=== PATIENT | male | born 1990 | race Caucasian/White ===

== ENCOUNTER 2021-03-24 15:32 | Emergency (ER) | payer MEDICAID, SELFPAY ==
[2021-03-24 15:32] VITALS: BP 142/92; PULSE 98; RESP 18; TEMP 37.1; O2SAT 97; BMI 24.2
--- NOTE | 2021-03-24 16:35 | EDS_ITS ---
HPI History of Present Illness Chief Complaint: Abscess Informant: patient Narrative Narrative: Patient started with swelling in his right cheek area about 4 or so days ago. He squeezed it about 3 days ago and it swelled up a lot. Just earlier he squeezed and got a lot of purulent material out. However it still has erythema and discomfort. No numbness tingling weakness. He did not have bleeding from this area. Squeezing it did make it better. Nothing specifically makes it worse. No trauma. Although his chart shows antibiotics he was on these about 2 months ago and has been off. PFSH PFSH Home Medications sulfamethoxazole-trimethoprim 1 tab PO BID #13 tablet 02/05/16 [Rx Last Taken Unknown] cephalexin 500 mg PO Q6 #40 cap 03/24/21 [Rx Last Taken Unknown] naproxen 500 mg PO BID #14 tab 03/24/21 [Rx Last Taken Unknown] sulfamethoxazole-trimethoprim [Bactrim DS] 1 tab PO BID #20 tab 03/24/21 [Rx Last Taken Unknown] Allergy/AdvReac Type Severity Reaction Status Date / Time tramadol HCl [From [facility]] Allergy Swelling Verified 03/24/21 15:34 Social History Smoking Status: Current every day smoker ROS [facility] ED Constitutional Constitutional ED: Denies chills or fever(s) ENT ENT ED: Reports other Details: See history of present illness. Cardiovascular Cardiovascular: Denies chest pain Respiratory/Chest Respiratory/Chest: Denies cough or dyspnea Gastrointestinal Gastrointestinal: Denies nausea or vomiting Musculoskeletal Musculoskeletal: Denies neck pain Integumentary Reports abscess Endocrine Endocrinology: Denies polydipsia or polyuria Allergic/Immunologic Allergic/Immunologic ED: Denies urticaria EXAM Physical Exam Const Vital Signs: 03/24/21 15:32 Temperature 98.7 F Temperature Source Temporal Pulse Rate 98 Respiratory Rate 18 Blood Pressure 142/92 H Blood Pressure Mean 108 Pulse Ox 97 Oxygen Delivery Method Room Air Positive well nourished and well developed General Appearance ED: well developed and NAD HEENT HEENT Narrative: Patient has a erythematous area that is about 1-1/2 x 3 cm in the right cheek anterior to the tragus. The ear itself is not involved. The area is firm. There is a dried open area in the center. There is no fluctuance. No intraoral swelling. He can open close his mouth well without difficulty. Negative for trauma Eyes EOMs intact bilaterally General Eye ED: Negative for pale conjunctiva or scleral icterus Neck no JVD Chest Wall inspection of chest normal Resp normal respiratory effort Neuro Sensorium / Orientation: alert Skin Skin Narrative: See above MDM MDM MDM Narrative Medical decision making narrative: I discussed options with the patient. We discussed anesthetizing and incising this. He would really prefer this not done. This is a reasonable option since he did just get a large amount of drainage out. The area is not fluctuant. We also do not want to risk injury to the facial nerve and arteries. We will try him on warm compresses and antibiotics. If he is not improving over the next few days he will need to have this drained. If he has further swelling or involvement or involvement of the ear itself he should return also. Discharge Plan Triage Chief Complaint: Abscess ED Provider: Billy Mathias Dx/Rx/DC Orders Clinical Impression: Facial abscess Instructions: ED Cellulitis, Facial Prescriptions: New cephalexin [cephalexin] 500 MG capsule 500 mg PO Q6 Qty: 40 RF: 0 sulfamethoxazole-trimethoprim [Bactrim DS] 800-160 mg tablet 1 tab PO BID Qty: 20 RF: 0 naproxen 500 MG tablet 500 mg PO BID Qty: 14 RF: 0 No Action sulfamethoxazole-trimethoprim 1 TABLET tablet 1 tab PO BID Qty: 13 RF: 0 Primary Care Provider: Care Physician,No Primary Referrals: Gwendolyn Medina MD [STAFF PHYSICIAN] - 3-5 Days if not improving Care Physician,No Primary [Primary Care Provider] - Disposition Disposition: Home, Self Care
== END 2021-03-24 17:00 | disposition home or self-care (01) ==
LOC: ED 16:49
PROVIDERS: Emergency Provider Emergency Medicine
DX: L02.01 Cutaneous abscess of face (principal); F17.200 Nicotine dependence, unspecified, uncomplicated
CPT/HCPCS: 99282

== ENCOUNTER 2021-03-24 22:42 | Emergency (ER) | payer MEDICAID, SELFPAY ==
[2021-03-24 22:43] VITALS: BP 139/82; PULSE 106; RESP 18; TEMP 36.4; O2SAT 100; BMI 24.2
--- NOTE | 2021-03-25 00:23 | EX.ED.GUMALE ---
HPI History of Present Illness Chief Complaint: Male Pain/Injury Informant: patient Narrative Narrative: Patient now presents with swelling of his testicle or lymph node swollen left groin. I saw this patient earlier in the day for swelling of right side of his cheek. He wanted antibiotics only no I&D. It was already draining though. He states that is unchanged. He states that he did have a little swelling in the left groin but he did mention it because he did not think it was important or bothering him. After he was seen here he went home and looked at that area and noted that it looks similar. He denies trauma. He denies discharge or trouble urinating. He did squeeze the area and got some drainage out of this but not as much. He has no abdominal pain. He is eating and drinking. No fevers or chills. PFSH PFSH Medical History no medical history Home Medications sulfamethoxazole-trimethoprim 1 tab PO BID #13 tablet 02/05/16 [Rx Last Taken Unknown] cephalexin 500 mg PO Q6 #40 cap 03/24/21 [Rx Last Taken Unknown] naproxen 500 mg PO BID #14 tab 03/24/21 [Rx Last Taken Unknown] Allergy/AdvReac Type Severity Reaction Status Date / Time tramadol HCl [From [facility]] Allergy Swelling Verified 03/24/21 22:44 Surgical History no surgical history Social History Smoking Status: Current every day smoker tobacco type: cigarettes ROS ROS ED Constitutional Constitutional ED: Denies chills or fever(s) ENT ENT ED: Reports other Details: swelling right face Cardiovascular Cardiovascular: Denies chest pain Respiratory/Chest Respiratory/Chest: Denies cough or dyspnea Gastrointestinal Gastrointestinal: Denies nausea or vomiting Genitourinary Genitourinary ED: Reports other Details: See history of present illness. ; Denies dysuria or hematuria Musculoskeletal Musculoskeletal: Denies back pain or myalgias Integumentary Reports abscess Neurologic Neurologic: Denies headache(s) Endocrine Endocrinology: Denies polydipsia or polyuria Hematologic/Lymphatic Hematologic/Lymphatic: Denies easy bleeding or easy bruising Allergic/Immunologic Allergic/Immunologic ED: Denies urticaria EXAM Physical Exam Const Vital Signs: 03/24/21 22:43 Temperature 97.6 F L Temperature Source Temporal Pulse Rate 106 H Respiratory Rate 18 Blood Pressure 139/82 H Blood Pressure Mean 101 Pulse Ox 100 Oxygen Delivery Method Room Air Positive well nourished and well developed General Appearance ED: well developed and NAD HEENT HEENT Narrative: Swelling right side of cheek unchanged. Eyes PERRL and EOMs intact bilaterally Eyes Narrative: No limitation in range of motion or lid swelling. Neck no lymphadenopathy Resp normal respiratory effort and clear to auscultation bilaterally Cardio regular rate and regular rhythm GI non-tender and non-distended Auscultation: normoactive bowel sounds Palpation: soft no CVA tenderness Narrative: Patient has normal penis and testicles. At the upper left portion of his scrotum he does have an area of swelling that is firm. Is about 1-1/2 x 2 cm. There is a small amount of drainage coming from the middle of this. No significant lymphadenopathy. Penis: normal penis Meatus: meatus normal Back/Spine no CVA tenderness Extremity normal to inspection Neuro oriented x3 Sensorium / Orientation: alert Psych mental status grossly normal Skin Skin Narrative: See above descriptions. MDM MDM MDM Narrative Medical decision making narrative: Exam is consistent with cutaneous swollen area. There certainly could be some abscess in here. It is not soft and fluctuant but it is still firm. But with squeezing I can get some white purulent material to drain. I offered to do an anesthesia an incision to get this draining better. Patient does not want this. He wants to make sure that he does not need different antibiotics for this than the face. I explained that the antibiotic should be appropriate. He does not want further treatment then. This is not testicular swelling. This is clearly a upper scrotal area infection. Warm compresses antibiotic should be used. If it is not improving in the next 72 hours he may need to return. If it gets a soft center or he decides he wants them drained he can return. Discharge Plan Triage Chief Complaint: Male Pain/Injury ED Provider: Billy Mathias Dx/Rx/DC Orders Clinical Impression: Abscess of scrotum Instructions: ED Abscess Antibiotic Treatment Only Prescriptions: No Action sulfamethoxazole-trimethoprim 1 TABLET tablet 1 tab PO BID Qty: 13 RF: 0 cephalexin [cephalexin] 500 MG capsule 500 mg PO Q6 Qty: 40 RF: 0 naproxen 500 MG tablet 500 mg PO BID Qty: 14 RF: 0 Primary Care Provider: Care Physician,No Primary Referrals: Care Physician,No Primary [Primary Care Provider] - Activity Restrictions/Additional Instructions: Up as scheduled from prior visit. Continue the antibiotics that have already been prescribed. Use warm compresses on the area. Disposition Disposition: Home, Self Care
== END 2021-03-25 00:32 | disposition home or self-care (01) ==
PROVIDERS: Emergency Provider Emergency Medicine
DX: N49.2 Inflammatory disorders of scrotum (principal); L02.01 Cutaneous abscess of face; F17.210 Nicotine dependence, cigarettes, uncomplicated; Z79.899 Other long term (current) drug therapy
CPT/HCPCS: 99281; 99282

== ENCOUNTER 2021-11-12 17:02 | Emergency (ER) | payer MEDICAID, SELFPAY ==
[2021-11-12 17:02] VITALS: BP 140/79; PULSE 111; RESP 16; TEMP 35.9; O2SAT 97; BMI 23.3
--- NOTE | 2021-11-12 17:20 | EX.ED.UPPERE ---
HPI History of Present Illness Chief Complaint: Upper Extremity Injury Informant: patient Narrative Narrative: 1-year-old male history of IV drug use states that 5 days ago he was injecting into his right hand. He states that he pulled back of the syringe saw some blood and started injecting felt burning he pulled back again got blood and then injected some more. He states the next morning his hand was swollen. He states it is not very painful to move but if he hits it it is very painful. He notes that this morning the swelling is improved especially on his fingers. He notes erythema of the dorsum of the hand up onto the wrist. He denies any fevers. No chest pain shortness of breath. He states he last injected today. [facility] Medical History (Updated 11/12/21 @ 19:[address] Allen Maher DO) Heroin dependence Home Medications cephalexin 500 mg capsule 500 mg PO Q6 #28 CAPSULES 11/12/21 [Rx Last Taken Unknown] ketorolac 10 mg tablet 10 mg PO Q8H PRN pain 5 days #15 tabs 11/12/21 [Rx Last Taken Unknown] sulfamethoxazole 800 mg-trimethoprim 160 mg tablet 1 tab PO BID #14 TABLETS 11/12/21 [Rx Last Taken Unknown] Allergy/AdvReac Type Severity Reaction Status Date / Time tramadol HCl [From [facility]] Allergy Swelling Verified 11/12/21 17:05 Social History (Updated 11/12/21 @ 17:[address] Allen Maher DO) Smoking Status: Current every day smoker tobacco type: cigarettes substance use type: heroin ROS ROS ED Constitutional Constitutional ED: Denies chills, fever(s) or weight loss Eyes Eyes: Denies change in vision or diplopia ENT ENT ED: Denies ear pain, rhinorrhea or sore throat Cardiovascular Cardiovascular: Denies chest pain, orthopnea, palpitations or racing heartbeat Respiratory/Chest Respiratory/Chest: Denies cough, dyspnea or orthopnea Gastrointestinal Gastrointestinal: Denies abdominal pain, diarrhea, nausea or vomiting Genitourinary Genitourinary ED: Denies dysuria, hematuria or urinary frequency Musculoskeletal Musculoskeletal: Reports other Details: See history of present illness ; Denies arthralgias or myalgias Integumentary Reports rash; Denies abscess Neurologic Neurologic: Denies headache(s) or weakness Psychiatric Psychiatric: Denies anxiety, depression, suicidal ideation or suicidal thoughts Endocrine Endocrinology: Denies polydipsia, polyphagia or polyuria Allergic/Immunologic Allergic/Immunologic ED: Denies mouth swelling, tongue swelling or urticaria EXAM Physical Exam Const Vital Signs: 11/12/21 17:02 Temperature 96.6 F L Temperature Source Temporal Pulse Rate 111 H Respiratory Rate 16 Blood Pressure 140/79 H Blood Pressure Mean 99 Pulse Ox 97 Oxygen Delivery Method Room Air Positive well nourished and well developed General Appearance ED: well developed HEENT Reports normocephalic, head/scalp atraumatic and moist mucous membranes Eyes PERRL and EOMs intact bilaterally Eyes Narrative: Pupils are 3 mm bilaterally Neck no lymphadenopathy, supple and no JVD Resp normal respiratory effort and clear to auscultation bilaterally Cardio regular rate, regular rhythm and no murmurs Cardio Narrative: Triage heart rate of 111. On my examination he is resting at 80. GI normal to inspection, nondistended, normoactive bowel sounds and non-tender Palpation: soft Back/Spine no CVA tenderness and normal ROM Extremity normal to inspection General Extremety ED: Negative for edema General Extremity: Negative for edema Neuro oriented x3 and CN's II-XII intact bilaterally Neuro Narrative: Patient is ANO x3 however clinically he appears high on opiates. Sensorium / Orientation: alert Motor Exam: strength 5/5 throughout Psych mental status grossly normal Mood & Affect: Negative for depressed or tearful Skin no wounds Skin Narrative: Dorsum of the right hand demonstrates swelling that excludes the fingers. There is some erythema extending up onto the wrist. There is no lymphangitic streaking. There are no splinter hemorrhages. He has no evidence of tenosynovitis. MDM MDM MDM Narrative Medical decision making narrative: Blood work showed a white count 11.9 hemoglobin 11.6. Potassium slightly low at 3.3. Lactic acid is normal at 2. Blood cultures were obtained. My interpretation of the plain films of the right hand is no fracture no foreign bodies noted. Speaking with the patient would not place him on antibiotics. I gave him Toradol and he states that that provided good pain relief and I will write some of that for him. I advised the patient that should he worsen he would be best served from a time management standpoint to go to a facility that has hand surgery such as [facility] or [facility]. He states that he appreciates that and will go there should it worsen. He does have history of MRSA so we will place him on Keflex as well as Bactrim. Return if worsening or concerns Discharge Plan Triage Chief Complaint: Upper Extremity Injury ED Provider: Allen Maher Dx/Rx/DC Orders Clinical Impression: Heroin dependence, Cellulitis of hand, IVDU (intravenous drug user) Instructions: ED Cellulitis Prescriptions: New sulfamethoxazole-trimethoprim [sulfamethoxazole-trimethoprim] 800-160 mg tablet 1 tab PO BID Qty: 14 0RF ketorolac 10 mg tablet 10 mg PO Q8H PRN (Reason: pain) 5 Days Qty: 15 0RF cephalexin [cephalexin] 500 mg capsule 500 mg PO Q6 Qty: 28 0RF Primary Care Provider: Care Physician,No Primary Referrals: Antione Singleton MD [Med Staff - Active Staff] - 3-5 Days if not improving Care Physician,No Primary [Primary Care Provider] - Disposition Disposition: Home, Self Care
[2021-11-12] MEDS: Ketorolac 30 MG/ML Syringe IV (17:45)
--- NOTE | 2021-11-12 17:50 | RAD_ITS ---
EXAM: XR RIGHT HAND COMPLETE, 3 OR MORE VIEWS CLINICAL INDICATION: swelling/infection TECHNIQUE: Frontal, lateral and oblique views of the right hand. This report was created using [employer] report generation technology. COMPARISON: None. FINDINGS: BONES/JOINTS: Unremarkable. No acute fracture. No subluxation. Normal alignment. Preservation of the joint space. No sclerotic or destructive changes observed. SOFT TISSUES: There is a large amount soft tissue swelling over the dorsum of the hand. No radiopaque foreign body. RAD/Hand Min 3 Views IMPRESSION: Soft tissue swelling with no osseous abnormality. Electronically Signed: Presley Bangura MD at 18:29 EDT ,
[2021-11-12 18:01] LABS: Absolute Lymphocyte Count 1.59 X10^3/uL (0.83-4.51); Absolute Neutrophil Count 9.3 X10^3/uL (2.0-7.7); Basophil# 0.04 X10^3/uL; Basophil% 0.3 % (0-1); Eosinophil# 0.27 X10^3/uL; Eosinophils% 2.3 % (0-5); Hematocrit 35.4 % (40-54); Hemoglobin 11.6 g/dL (13.0-16.5); Lymphocyte # 1.59 X10^3/ul (0.83-4.51); Lymphocyte % 13.4 % (19-41); Mean Corp Hgb Conc 32.8 g/dL (32-36); Mean Corpuscular Hgb 27.5 pg (27.0-32.0); Mean Corpuscular Volume 83.9 fL (80-94); Mean Platelet Vol. 10.1 fl (6.2-12.0); Monocyte# 0.63 X10^3/uL; Monocyte% 5.3 % (0-10); NRBC Flagged by Analyzer 0 % (0-5); Neutrophil # 9.33 X10^3/uL (2.7-7.7); Neutrophil % 78.3 % (47-70); Platelet Count 279 K/mm3 (150-450); RBC Distribution Width CV 13.8 % (11.6-14.6); RBC Distribution Width SD 42.4 fl (35.1-43.9); Red Blood Count 4.22 M/mm3 (4.6-6.2); White Blood Count 11.9 K/mm3 (4.4-11.0)
[2021-11-12 18:40] LABS: ALB/GLOB Ratio 0.5 RATIO (0.9-2.4); AST(SGOT) 57 U/L (15-37); Alanine Aminotransfer ALT/SGPT 76 U/L (16-61); Alkaline Phosphatase 92 U/L (45-117); Anion Gap 7 (5-15); BUN 6 mg/dL (7-18); BUN/Creat Ratio 6.4 RATIO (10-20); Calcium,Total 8.8 mg/dL (8.5-10.1); Chloride 103 mmol/L (98-107); Creatinine, Serum 0.93 mg/dL (0.70-1.30); EST Glomerular Filtration Rate 99 mL/min (>60); Est Glom Filt Rate - Afr Amer 120 mL/min (>60); Estimated Creatinine Clearance 101.95 ml/min; Globulin 5.7 g/dL (2.2-4.2); Glucose 116 mg/dL (74-106); Potassium 3.3 mmol/L (3.5-5.1); Protein, Total 8.7 g/dL (6.4-8.2); Sodium Level 138 mmol/L (136-145)
--- NOTE | 2021-11-12 19:05 | CM.ED ---
Addendum entered by Antonette Angeles 11/12/21 19:13: SAVANAH Noted that patient has no PCP. SAVANAH provided patient with [facility] Providers Directory. Antonette BLACKBURN Original Note: SAVANAH Note Referral Source: Dr. Maher Referral Reason: Information about AOD program MD advised patient does not want detox at [facility] but inquired about [facility]. SAVANAH met with patient and provided him with [facility] resource list and phone number for the treatment navigator. No other issues or concerns voiced. Resources provided Antonette BLACKBURN
[2021-11-12 21:56] LABS: Reflex Lactate? Y
== END 2021-11-12 19:21 | disposition home or self-care (01) ==
PROVIDERS: Emergency Provider Emergency Medicine; Visit Provider Emergency Medicine
DX: F11.20 Opioid dependence, uncomplicated (principal); L03.113 Cellulitis of right upper limb; F17.210 Nicotine dependence, cigarettes, uncomplicated
CPT/HCPCS: 36415; 73130; 80053; 83605; 85025; 87040; 96374; 99283; A4216

== ENCOUNTER 2022-02-18 23:09 | Emergency (ER) | payer MEDICAID, SELFPAY ==
[2022-02-18 23:13] VITALS: BP 137/87; PULSE 82; RESP 15; TEMP 36.3; O2SAT 95
[2022-02-19 01:12] VITALS: BP 123/85; PULSE 83; RESP 12; O2SAT 94
--- NOTE | 2022-02-19 01:40 | CT_ITS ---
EXAM: CT brain without contrast HISTORY: PASSED OUT TECHNIQUE: No intravenous contrast. A radiation dose optimization technique was used for this scan. COMPARISON: None. LIMITATIONS: None. BRAIN: Normal fiore/white matter differentiation. VENTRICLES: No hydrocephalus. EXTRA-AXIAL SPACES: No acute hemorrhage. CALVARIUM/SKULL BASE: No acute fracture. FACE/SINUSES: Trace fluid in the sphenoid sinus. SOFT TISSUES: Normal. CONCLUSION: No acute intracranial abnormality. Electronically Signed: Hay Guerrier MD at 2:44 EDT , CT/Brain/Head without Contrast IMPRESSION: undefined
--- NOTE | 2022-02-19 04:05 | ED.RN ---
SEE DOWN TIME CHARTING FROM [id number]
[2022-02-19 04:09] VITALS: BP 132/67; PULSE 90; RESP 19; TEMP 36.8; O2SAT 100
--- NOTE | 2022-02-19 07:56 | EX.ED.DYSGE1 ---
HPI History of Present Illness Chief Complaint: Nausea/Vomiting Narrative Narrative: Patient presents late at night after having had nausea and vomiting all day. No abdominal pain or diarrhea with it, no fevers or chills. No hematemesis or melena. He is an ex IV drug addict, he last used prior to being incarcerated, he was in nursing home for several weeks, and was released yesterday. Tonight while vomiting, he was kneeled down with his head over the toilet, and he became lightheaded while retching, and passed out, hitting his forehead on the toilet bowl. He has a headache, and continues to feel nauseated. No focal neurologic symptoms, no neck or back pain, chest or abdominal pain, vision trouble. He has had no narcotic use in this past day. The significant other tried given him Narcan intranasally anyway when she saw him passed out, and it did nothing but he eventually came to. He states while he was incarcerated he did not have any of this vomiting, nor was he taking any type of medication such as Suboxone. [facility] Medical History Heroin dependence Home Medications NK 02/18/22 [History Last Taken Unknown] Allergy/AdvReac Type Severity Reaction Status Date / Time tramadol HCl [From [facility]] Allergy Swelling Verified 02/18/22 23:43 Social History Smoking Status: Current every day smoker tobacco type: cigarettes substance use type: heroin ROS ROS ED Constitutional Constitutional ED: Denies chills or fever(s) Eyes Eyes: Denies change in vision or diplopia ENT ENT ED: Denies rhinorrhea or sore throat Cardiovascular Cardiovascular: Denies chest pain or palpitations Respiratory/Chest Respiratory/Chest: Denies cough or dyspnea Gastrointestinal Gastrointestinal: Reports nausea and vomiting; Denies abdominal pain or diarrhea Genitourinary Genitourinary ED: Denies dysuria or hematuria Musculoskeletal Musculoskeletal: Denies back pain or neck pain Integumentary Denies abscess or rash Neurologic Neurologic: Reports headache(s); Denies paresthesias or weakness Psychiatric Psychiatric: Denies anxiety or suicidal thoughts EXAM Physical Exam Const Vital Signs: 02/18/22 23:13 02/19/22 01:12 02/19/22 04:09 Temperature 97.4 F L 98.2 F Temperature Source Temporal Pulse Rate 82 83 90 Respiratory Rate 15 12 19 H Blood Pressure 137/87 H 123/85 H 132/67 H Blood Pressure Mean 103 97 Pulse Ox 95 94 100 Oxygen Delivery Method Room Air Room Air Positive well nourished and well developed General Appearance ED: well developed and NAD HEENT Reports moist mucous membranes normocephalic and atraumatic Eyes PERRL and EOMs intact bilaterally Neck full ROM and supple Resp normal respiratory effort and clear to auscultation bilaterally Cardio regular rate, regular rhythm and no murmurs GI non-tender and non-distended Auscultation: normoactive bowel sounds Palpation: soft Back/Spine no CVA tenderness General Back: other FROM Extremity normal to inspection General Extremety ED: Negative for edema, pulses abnormal or tenderness General Extremity: Negative for edema or pulses abnormal Neuro oriented x3, CN's II-XII intact bilaterally and no sensory deficits noted Sensorium / Orientation: awake and alert Motor Exam: strength 5/5 throughout Skin no rashes or lesions noted and no wounds MDM MDM MDM Narrative Medical decision making narrative: Vital signs are normal patient does not appear to be in acute withdrawal. I did CT of his head, it was negative. In the meantime he was treated with IV fluids and IV Zofran. Afterwards he was feeling much better, ambulating without lightheadedness, tolerating oral fluid and food. He is reassured, given a prescription for Zofran, given a PCP to follow-up with, the next doctor on the unassigned list. I think his syncope was a combination of dehydration and vasovagal from retching. Radiography Diagnostic Testing: Clinical Impression(s) from Imaging Studies Brain CT 02/19/22 01:40 IMPRESSION: undefined Discharge Plan Triage Chief Complaint: Nausea/Vomiting ED Provider: Ernesto Phipps Dx/Rx/DC Orders Clinical Impression: Acute gastritis without bleeding, Closed head injury, Syncope, vasovagal, Mild dehydration Instructions: ED Gastritis (Adult), ED Fainting, Vagal Reaction Prescriptions: No Action NK Primary Care Provider: Care Physician,No Primary Activity Restrictions/Additional Instructions: (Patient seen during downtime and given physical preprinted discharge instructions and referral) Disposition Disposition: Home, Self Care Discharge Date/Time: 02/19/22 04:04
== END 2022-02-19 04:04 | disposition home or self-care (01) ==
PROVIDERS: Emergency Provider Emergency Medicine; Visit Provider Emergency Medicine
DX: K29.00 Acute gastritis without bleeding (principal); S09.90XA Unspecified injury of head, initial encounter; R55 Syncope and collapse; E86.0 Dehydration; F17.210 Nicotine dependence, cigarettes, uncomplicated; X58.XXXA Exposure to other specified factors, initial encounter
CPT/HCPCS: 70450; 96374; 96375; 99283; 99284; J7030; A4216; J2405

== ENCOUNTER 2025-02-19 01:25 | Emergency (ER) | payer MEDICAID, SELFPAY ==
[2025-02-19 01:26] VITALS: BP 180/104; PULSE 97; RESP 31; TEMP 36.6; O2SAT 92; BMI 27.3
[2025-02-19 01:29] VITALS: BP 174/115; PULSE 96; RESP 38; TEMP 36.6; O2SAT 99
[2025-02-19 01:31] VITALS: O2SAT 93
[2025-02-19 01:42] VITALS: PULSE 80; RESP 18
[2025-02-19 01:43] LABS: Hematocrit 48.1 % (40-54); Hemoglobin 16.8 g/dL (13.0-16.5); Immature Granulocytes Count 0.040 X10^3/uL (0.0-0.0); Mean Corp Hgb Conc 34.9 g/dL (32-36); Mean Corpuscular Volume 84.1 fL (80-94); Mean Platelet Vol. 9.7 fl (6.2-12.0); NRBC Flagged by Analyzer 0 % (0-5); Platelet Count 266 K/mm3 (150-450); RBC Distribution Width CV 13.4 % (11.6-14.6); RBC Distribution Width SD 41.1 fl (35.1-43.9); Red Blood Count 5.72 M/mm3 (4.6-6.2); White Blood Count 13.6 K/mm3 (4.4-11.0)
--- NOTE | 2025-02-19 01:53 | RAD_ITS ---
PROCEDURE: RAD/Chest 1 View (Portable)
[2025-02-19 02:12] LABS: Anion Gap 10 (5-15); BUN 13 mg/dL (4-19); BUN/Creat Ratio 12.6 RATIO (10-20); Calcium,Total 9.2 mg/dL (7.6-11.0); Carbon Dioxide 24.5 mmol/L (21.0-32.0); Chloride 101 mmol/L (98-108); Estimated Creatinine Clearance 99.61 ml/min (50-250); Glucose 92 mg/dL (70-99); Magnesium 2.5 mg/dL (1.5-2.2); Potassium 3.7 mmol/L (3.3-5.1)
[2025-02-19 02:29] VITALS: BP 143/80; PULSE 78; RESP 15; TEMP 36.6; O2SAT 94
--- NOTE | 2025-02-19 02:44 | EKG12_ITS ---
Test Reason : SOB
--- NOTE | 2025-02-19 02:47 | PCA ---
NO OLD EKG
--- NOTE | 2025-02-19 02:56 | EX.ED.DYSGE1 ---
HPI History of Present Illness Chief Complaint: Shortness of Breath Informant: patient Narrative Narrative: Patient is a 34-year-old male who reports a past medical history of asthma and also states that he smokes daily. He reports he has had congestion and cough and mild shortness of breath for approximately 2 weeks. He states however today he feels that his shortness of breath has worsened. He states he used to have an inhaler to help with symptoms when they would occur but he no longer has the inhaler and therefore with worsening shortness of breath and no medication to help treat he presents for evaluation. [facility] Medical History Heroin dependence Home Medications ?Medication ?Instructions ?Recorded ?Last Taken ?Type albuterol sulfate 90 mcg/actuation 1 - 2 puff inhalation Q4H PRN PRN 02/19/25 Unknown Rx aerosol inhaler (Ventolin HFA) Wheezing #1 device azithromycin 250 mg tablet See Rx Instructions PO .COMPLEX #6 02/19/25 Unknown Rx (Zithromax Z-Alvarado) tabs buprenorphine 8 mg-naloxone 2 mg 1.5 tab sublingual DAILY 02/19/25 02/19/25 History sublingual tablet prednisone 20 mg tablet 40 mg (2 x 20 mg) PO DAILY 7 days 02/19/25 Unknown Rx #14 tabs Allergy/AdvReac Type Severity Reaction Status Date / Time tramadol HCl (From [facility]) Allergy Swelling Verified 02/18/22 23:43 Social History Smoking Status: Current every day smoker tobacco type: cigarettes substance use type: heroin ROS ROS ED Constitutional Constitutional ED: Denies chills or fever(s) Eyes Eyes: Denies blurry vision or change in vision ENT ENT ED: Reports rhinorrhea and sore throat Cardiovascular Cardiovascular: Denies chest pain, palpitations or racing heartbeat Respiratory/Chest Respiratory/Chest: Reports cough and dyspnea Gastrointestinal Gastrointestinal: Denies abdominal pain, diarrhea, nausea or vomiting Musculoskeletal Musculoskeletal: Denies myalgias Integumentary Denies rash Neurologic Neurologic: Denies headache(s) Hematologic/Lymphatic Hematologic/Lymphatic: Denies easy bleeding or easy bruising Allergic/Immunologic Allergic/Immunologic ED: Denies mouth swelling or tongue swelling EXAM Physical Exam Const Vital Signs: 02/19/25 01:26 02/19/25 01:29 02/19/25 01:31 Temperature 97.8 F 97.8 F Temperature Source Oral Oral Pulse Rate 97 96 Respiratory Rate 31 H 38 H Respiratory Effort Short of Breath Labored Accessory Muscle Use Respiratory Depth Shallow Respiratory Pattern Blood Pressure 180/104 H 174/115 H Blood Pressure Mean 129 134 Pulse Ox 92 99 Oxygen Delivery Method Room Air Room Air Room Air 02/19/25 01:42 02/19/25 02:29 02/19/25 03:00 Temperature 97.9 F Temperature Source Oral Pulse Rate 80 78 86 Respiratory Rate 18 15 18 Respiratory Effort Respiratory Depth Respiratory Pattern Normal Blood Pressure 143/80 H 146/97 H Blood Pressure Mean 101 113 Pulse Ox 94 98 Oxygen Delivery Method Room Air 02/19/25 03:00 Temperature 98 F Temperature Source Pulse Rate 87 Respiratory Rate 18 Respiratory Effort Respiratory Depth Respiratory Pattern Blood Pressure 146/97 H Blood Pressure Mean 113 Pulse Ox 98 Oxygen Delivery Method Positive well nourished and well developed Constitutional Narrative: Patient is in mild respiratory distress with tachypnea General Appearance ED: well developed; Negative for pallor HEENT HEENT Narrative: Normocephalic atraumatic No tongue or lip swelling no oral lesions no airway edema or compromise There is cobblestoning noted in the posterior pharynx consistent with sinus drainage; no secondary findings to suggest infection Eyes PERRL and EOMs intact bilaterally General Eye ED: Negative for scleral icterus Neck supple and no JVD Chest Wall palpation of chest normal Chest Narrative: No bony deformity or subcutaneous emphysema Resp Resp Narrative: Patient is in mild respiratory distress with tachypnea Breath sounds are diminished throughout with diffuse inspiratory and expiratory wheezing Cardio regular rate and regular rhythm Rate: other Other Details: Heart is regular rate and rhythm without murmurs rubs or gallop Radial and carotid pulses are equal and symmetric Extremity normal to inspection Extremity Narrative: No asymmetric edema no pitting edema negative Homans' sign bilaterally Neuro oriented x3, CN's II-XII intact bilaterally and no sensory deficits noted Sensorium / Orientation: alert Motor Exam: strength 5/5 throughout Psych mental status grossly normal Skin no rashes or lesions noted General Skin Exam: Negative for jaundice or pallor MDM MDM MDM Narrative Medical decision making narrative: Patient arrived to the ER in mild respiratory distress with tachypnea. Despite this his oxygen level still above 90% on room air. With patient reporting a past medical history of asthma as well as cough and congestion for 2 weeks there is concern that he has now developed a secondary infection such as pneumonia or pneumothorax. With the 2 weeks of symptoms he may also have COVID influenza or RSV. In order to rule out acute blood loss anemia or electrolyte abnormality basic blood work was ordered. Patient's white count is elevated at 13.6 but this is most likely stress response from his increased work of breathing. Otherwise H&H is stable he does not findings of GABI clinically significant [place] abnormality or elevation to the absolute neutrophil count. The viral swab is negative for COVID influenza and RSV. EKG confirmed no cardiac dysrhythmia or findings of ischemia. Chest x-ray revealed no findings of pneumothorax or infiltrate. After receiving IV steroids as well as 2 DuoNeb breathing treatments the patient had resolution of his work of breathing and his breath sounds improved as well. Therefore at this time the patient is not showing signs of respiratory distress he is not hypoxic he does not have pneumonia or pneumothorax on his x-ray. His history and exam would correlate with asthmatic bronchitis. As his symptoms have improved with steroids and breathing treatments I feel that as long as he has his medications prescribed then he should be safe for home. Based on his prolonged course of symptoms I do feel he warrants a round of antibiotics even though there is no obvious pneumonia on x-ray. This plan of care was discussed with the patient who is agreeable to it and therefore as he does not have signs of respiratory distress pneumothorax or hypoxia there is no need for further intervention he is otherwise safe for discharge History & Record Review Discussion w/independent historian: Patient Lab Data Attestation: I reviewed the patient's lab results. Labs: Laboratory Results - last 24 hr 02/19/25 01:34 WBC 13.6 H RBC 5.72 Hgb 16.8 H Hct 48.1 MCV 84.1 MCH 29.4 MCHC 34.9 RDW Std Deviation 41.1 RDW Coeff of Shama 13.4 Plt Count 266 MPV 9.7 Immature Gran % (Auto) 0.300 Neut % (Auto) 41.0 L Lymph % (Auto) 36.5 [place] % (Auto) 8.1 Eos % (Auto) 13.1 H Baso % (Auto) 1.0 Absolute Neuts (auto) 5.6 Absolute Lymphs (auto) 4.97 H Nucleated RBC % 0 Sodium 136 Potassium 3.7 Chloride 101 Carbon Dioxide 24.5 Anion Gap 10 BUN 13 Creatinine 1.00 Estim Creat Clear Calc 99.61 Est GFR (MDRD) Non-Af 100 BUN/Creatinine Ratio 12.6 Glucose 92 Calcium 9.2 Magnesium 2.5 H Radiography Diagnostic Testing: Clinical Impression(s) from Imaging Studies Chest X-Ray 02/19/25 01:53 IMPRESSION: No focal consolidation. Mild pulmonary vascular congestion. Trace left base effusion. Reading Location: [facility] Chest x-ray as interpreted by the emergency medicine physician reveals perihilar streaking consistent with viral syndrome but no acute infiltrate or pneumothorax Discharge Plan Triage Chief Complaint: Shortness of Breath ED Provider: Tyshawn Barbosa Dx/Rx/DC Orders Clinical Impression: Acute asthmatic bronchitis, Tobacco use Instructions: Acute Bronchitis, Acute Severe Asthma Prescriptions: New prednisone 20 mg tablet 40 mg PO DAILY 7 Days Qty: 14 0RF albuterol sulfate [Ventolin HFA] 90 mcg/actuation HFA aerosol inhaler 1 - 2 puff inhalation Q4H PRN PRN (Reason: Wheezing) Qty: 1 0RF azithromycin [Zithromax Z-Alvarado] 250 mg tablet See Rx Instructions .ROUTE .COMPLEX Qty: 6 0RF Rx Instructions: For 250 mg dose pack: take 500 mg today (day 1), then 250 mg for 4 days (days 2-5) No Action buprenorphine-naloxone 8-2 mg tablet, sublingual 1.5 tab sublingual DAILY Primary Care Provider: Care Physician,No Primary Referrals: Care Physician,No Primary [Primary Care Provider, Medical] Activity Restrictions/Additional Instructions: Please take your prescribed medications as directed to help control any further inflammation and difficulty breathing. If symptoms are not controlled with the prescribed medication or you have any further concerns and please return to the ER for repeat evaluation Print Language: Upper Sorbian Disposition Disposition: Home, Self Care Discharge Date/Time: 02/19/25 03:06
[2025-02-19 03:00] VITALS: BP 146/97; PULSE 86; PULSE 87; RESP 18; TEMP 36.6; O2SAT 98
[2025-02-19] MEDS: Albuterol Sulfate 8 gm Inhaler (60 puffs) 2 PUFF INHALATION (03:03)
== END 2025-02-19 03:06 | disposition home or self-care (01) ==
PROVIDERS: Emergency Provider Emergency Medicine; Visit Provider Emergency Medicine
DX: J45.909 Unspecified asthma, uncomplicated (principal); R06.03 Acute respiratory distress; Z11.52 Encounter for screening for COVID-19; F17.210 Nicotine dependence, cigarettes, uncomplicated
CPT/HCPCS: 71045; 80048; 83735; 85025; 87631; 93005; 94640; 96374; 99283; A4216

== ENCOUNTER 2025-03-12 03:47 | Emergency (ER) | payer MEDICAID, SELFPAY ==
[2025-03-12 03:49] VITALS: BP 151/93; PULSE 75; RESP 18; TEMP 36.5; O2SAT 95; BMI 57.9
[2025-03-12 03:51] VITALS: O2SAT 97
[2025-03-12 04:04] VITALS: PULSE 65; RESP 13
[2025-03-12] MEDS: Albuterol Sulfate 8 gm Inhaler (60 puffs) 2 PUFF INHALATION (04:19)
--- OUTSIDE RECORDS SUMMARY | 2025-03-12 04:29 | XMS RPT_ITS | CCD ---
Author Organization [facility] Informat ion Partnership [facility] Care Team Providers Care Manager Editorial Name Role Phone PHYSICIAN, NONE Primary Care Physician Unavailab le MAST SCREEN PRINTING INSPECTOR-BRAND COORDINATOR, TAMMY Primary Care Physician [phone] MAST SCREEN PRINTING INSPECTOR-BRAND COORDINATOR, TAMMY Primary Care Unavailcarie VERDUZCO MD, DR NIEVES Admitting Unavailable MATT TOUSSAINT, BRENT Consulting Unavailable LUCINDA TOUSSAINT, DR MCLEAN Attending Unavailable ALISON TOUSSAINT, DR NICHOLS Consulting Unavailab lázaro COCHRAN DDS, KENDALL Quiñonez Consulting Unavailab lázaro MENDOZA MD, MORALES Peterson Consulting Unavailab lázaro HOOD MD, JESUS Consulting Unavailable ALDO PINON MD, DR YAIR JACKSON Consulting Unavaila lizett VICTOR DDS, TARVIS Quiñonez Consulting Unavailable KALIN TOUSSAINT, LUKASZ Consulting Unavailable JUDI TOUSSAINT, SALVATORE Consulting Unavailable HUSAM TOUSSAINT, GIFTY Quiñonez Consulting Unavailable MAST SCREEN PRINTING INSPECTOR-BRAND COORDINATOR, TAMMY Primary Care Unavailabl e MAST SCREEN PRINTING INSPECTOR-BRAND COORDINATOR, TAMMY Attending Unavailabl e MAST SCREEN PRINTING INSPECTOR-BRAND COORDINATOR, TAMMY Primary Care Unavailabl e MAST SCREEN PRINTING INSPECTOR-BRAND COORDINATOR, TAMMY Attending Unavailabl e MAST SCREEN PRINTING INSPECTOR-BRAND COORDINATOR, TAMMY Primary Care Unavailabl e MAST SCREEN PRINTING INSPECTOR-BRAND COORDINATOR, TAMMY Attending Unavailabl e MAST SCREEN PRINTING INSPECTOR-BRAND COORDINATOR, TAMMY Primary Care Unavailabl e SUZI TOUSSAINT, DR STAR Herrera Attending Unajet lable MAST SCREEN PRINTING INSPECTOR-BRAND COORDINATOR, TAMMY Primary Care Unavailabl e DARIA JUNIOR DO Attending Unavailable DUSTIN DEXTER MD Attending Unavailable MAST SCREEN PRINTING INSPECTOR-BRAND COORDINATOR, TAMMY Primary Care Unavailabl e MAST SCREEN PRINTING INSPECTOR-BRAND COORDINATOR, TAMMY Primary Care Unavailabl e GLORIA TOUSSAINT, JEANNIE Peterson Attending Unavail able MAST SCREEN PRINTING INSPECTOR-BRAND COORDINATOR, TAMMY Primary Care Unavailabl e CHOUJAA DO, NIDAL Attending Unavailable GLORIA TOUSSAINT, JEANNIE Peterson Attending Unavail able PHYSICIAN, NONE Primary Care Unavailable MAST SCREEN PRINTING INSPECTOR-BRAND COORDINATOR, TAMMY Primary Care Unavailcarie VERDUZCO MD, DR NIEVES Consulting Unavailable KENDALL DACOSTA MD Attending Unavailable MAST SCREEN PRINTING INSPECTOR-BRAND COORDINATOR, TAMMY Primary Care Unavailabl e KEANU ROSENBERG DO Attending Unavailable MAST SCREEN PRINTING INSPECTOR-BRAND COORDINATOR, TAMMY Primary Care Unavailcarie THURMAN MD, DR ANGLE Quiñonez Attending Unavailable MAST SCREEN PRINTING INSPECTOR-BRAND COORDINATOR, TAMMY Primary Care Unavailabl e MAST SCREEN PRINTING INSPECTOR-BRAND COORDINATOR, TAMMY Attending Unavailabl e MAST SCREEN PRINTING INSPECTOR-BRAND COORDINATOR, TAMMY Primary Care Unavailabl e CHOUJAA DO, NIDAL Attending Unavailable MAST SCREEN PRINTING INSPECTOR-BRAND COORDINATOR, TAMMY Primary Care Unavailabl e YAMILEX MADDOX Attending Unavailable Unavailable Primary Care Provider Unavailabl e Care Physician, No Primary Primary Care Unava ilTyshawn Leung Attending Unavailable Allergies Allergy Classification Reported Allergen(s) Allergy Type Date of Onset Reaction(s) Facility (3 sources) traMADol; Translations: [tramadol HCl] Drug Allergy 11-12-2021 [facility] Repository Medications Current Medications Medication Drug Class(es) Dates Sig (Normalized) Sig (Original) Tylenol (2 sources) Start: 3 Tylenol Oral, 0 Refill(s) Start Date: 03/24/23 Status: Ordered acetaminophen 325 mg / HYDROcodone bitartrate 5 mg oral tablet (1 source) Opioid Agonist Start: 1 End: 1 take 1 tablet by mouth every six hours as needed for pain [place] 325- 5 mg oral tablet Dose = 1 tab(s), Oral, q6h, PRN As needed for severe pain, X 3 day(s), # 12 tab(s), 0 Refill(s), Back pain, 68.2 Start Date: 02/02/21 Stop Date: 02/05/21 Status: Ordered albuterol MDI (90 mcg/inh) CFC free inhalation aerosol (1 source) Start: 4 take 1 puff(s) by inhalation every four hours as needed for wheezing albuterol MDI (90 mcg/inh) CFC free inhalation aerosol 1 puff(s), Inhalation, q4h, PRN as needed for wheezing, # 18 gram(s), 2 Refill(s) Start Date: 07/13/23 Status: Ordered azithromycin 250 mg oral tablet (1 source) Macrolide Antimicrobial Start: 3 End: 3 azithromycin 250 mg oral tablet Dose : 250 mg = 1 tab(s), Oral, qDay, X 4 day(s), # 4 tab(s), 0 Refill(s), 12/08/22 10:13:00 PM EDT, 68.2 Start Date: 12/04/22 Stop Date: 12/08/22 Status: Ordered Azithromycin 5 Day Dose Pack 250 mg oral tablet (1 source) Start: 3 End: 3 Azithromycin 5 Day Dose Pack 250 mg oral tablet Take two (2) tablets day 1-then one (1) tablet, Oral, Daily, X 5 day(s), # 6 tab(s), 0 Refill(s), 02/03/23 1:36:00 PM EDT, [id number], 166, cm, 01/29/23 10:39:00 EDT, Height, 63.5, kg, 01/29/23 10:39:00 EDT, Dosing Weight Start Date: 01/29/23 Stop Date: 02/03/23 Status: Ordered cephalexin 500 mg oral capsule (1 source) Cephalosporin Antibacterial Start: 2 take 500 mg by mouth every six hours Cephalexin Active 500 MG PO EVERY 6 HOURS November 12, 2021 12:00am cyclobenzaprine hydrochloride 10 mg oral tablet (2 sources) Muscle Relaxant Start: 1 End: 1 cyclobenzaprine 10 mg oral tablet Dose : 10 mg = 1 tab(s), Oral, TID, X 5 day(s), # 20 tab(s), 0 Refill(s), 02/03/21 8:41:00 EDT, Back pain Start Date: 01/29/21 Stop Date: 02/03/21 Status: Ordered ibuprofen 600 mg oral tablet (2 sources) Nonsteroidal Anti-inflammatory Drug Start: 1 End: 1 ibuprofen 600 mg oral tablet Dose : 600 mg = 1 tab(s), Oral, q8h, X 10 day(s), # 30 tab(s), 0 Refill(s), 02/08/21 8:41:00 EDT, Back pain Start Date: 01/29/21 Stop Date: 02/08/21 Status: Ordered ketorolac tromethamine 10 mg oral tablet (1 source) Nonsteroidal Anti-inflammatory Drug, Cyclooxygenase Inhibitor Start: 2 take 10 mg by mouth every eight hours Ketorolac Active 10 MG PO Q8H 15 November 12, 2021 12:00am levoFLOXacin 500 mg oral tablet (1 source) Quinolone Antimicrobial Start: 1 End: 1 levoFLOXacin 500 mg oral tablet Dose : 500 mg = 1 tab(s), Oral, q24h, X 10 day(s), # 10 tab(s), 0 Refill(s), 02/12/21 3:53:00 EDT, 68.2 Start Date: 02/02/21 Stop Date: 02/12/21 Status: Ordered methylPREDNISolone 4 mg oral tablet (2 sources) Corticosteroid Start: 3 End: 3 Medrol Dosepak 4 mg oral tablet 1 packet(s), Oral, qDay, as directed on package labeling, X 6 day(s), # 21 tab(s), 0 Refill(s), 03/16/23 6:12:00 PM EST Start Date: 03/10/23 Stop Date: 03/16/23 Status: Ordered Start: 01-29-2023 End: 02-04-2023 Medrol Dosepak 4 mg oral tab let 1 packet(s), Oral, qDay, as directed on package labeling, X 6 day(s), # 21 tab(s), 0 Refill(s), 02/04/23 1:36:00 PM EDT, Pharmacy: [facility] #[id number], 166, cm, 01/29/23 10:39:00 EDT, Height, kg, 01/29/23 10:39:00 EDT, Dosing Weight Start Date: 01/29/23 Stop Date: 02/04/23 Status: Ordered methylPREDNISolone Dosepak 4 mg tablet (2 sources) Start: 03-24-2023 methylPREDNISolone Dosepak 4 mg tablet 0 Refill(s) Start Date: 03/24/23 Status: Ordered naloxone hydrochloride 40 mg/ml nasal spray (2 sources) Opioid Antagonist Start: 12-16-2022 naloxone 4 mg/0.1 mL nasal spray 1 spray(s), Intranasal, AsDirected, PRN see pharmacy notes, may repeat every 2 to 3 minutes until patient responds, # 2 EA, 0 Refill(s) Start Date: 12/16/22 Status: Ordered naproxen 250 mg oral tablet (3 sources) Nonsteroidal Anti-inflammatory Drug Start: 03-24-2023 naproxen 250 mg oral tablet 0 Refill(s) Start Date: 03/24/23 Status: Ordered Start: 03-10-2023 End: 03-17-2023 naproxen 250 mg oral tablet Dose : 250 mg = 1 tab(s), Oral, BID, X 7 day(s), # 14 tab(s), 0 Refill(s), 03/17/23 6:12:00 PM EST Start Date: 03/10/23 Stop Date: 03/17/23 Status: Ordered ondansetron 4 mg oral tablet (4 sources) Serotonin-3 Receptor Antagonist Start: 12-07-2022 End: 12-09-2023 Zofran 4 mg oral tablet Dose : 4 mg = 1 tab(s), Oral, q6h, PRN Nausea/Vomiting, # 20 tab(s), 1 Refill(s), 12/09/23 11:56:00 AM EDT, Pharmacy: [facility] #[id number], Nausea, 166, cm, 12/07/22 11:29:00 EDT, Height, kg, 12/07/22 11:29:00 EDT, Dosing Weight Start Date: 12/07/22 Stop Date: 12/09/23 Status: Ordered predniSONE 20 mg oral tablet (1 source) Start: 07-13-2023 End: 07-17-2023 predniSONE 20 mg oral tablet Dose : 60 mg = 3 tab(s), Oral, qDay, X 4 day(s), # 12 tab(s), 0 Refill(s), 07/17/23 2:04:00 PM EDT Start Date: 07/13/23 Stop Date: 07/17/23 Status: Ordered promethazine hydrochloride 25 mg oral tablet (1 source) Phenothiazine Start: 12-02-2022 promethazine 25 mg oral tablet Dose : 25 mg = 1 tab(s), Oral, q4h, # 20 tab(s), 0 Refill(s) Start Date: 12/02/22 Status: Ordered sulfamethoxazole 800 mg / trimethoprim 160 mg oral tablet (1 source) Dihydrofolate Reductase Inhibitor Antibacterial, Sulfonamide Antimicrobial Start: 11-12-2021 take 1 tablet by mouth twice daily Sulfamethoxazole-Tri methoprim Active 1 TABLET PO TWICE A DAY November 12, 2021 12:00am Completed/Discontinued Medications Medication Drug Class(es) Dates Sig (Normalized) Sig (Original) cloNIDine hydrochloride 0.1 mg oral tablet (4 sources) Central alpha-2 Adrenergic Agonist Start: 12-02-2022 End: 12-05-2022 cloNIDine 0.1 mg oral tablet Dose : 0.1 mg = 1 tab(s), Oral, BID, # 6 tab(s), 0 Refill(s), Vomiting Start Date: 12/02/22 Stop Date: 12/05/22 Status: Ordered diclofenac sodium 75 mg delayed release oral tablet (2 sources) Nonsteroidal Anti-inflammatory Drug Start: 03-24-2023 End: 04-07-2023 diclofenac sodium 75 mg oral delayed release tablet Dose : 75 mg = 1 tab(s), Oral, BID, # 28 tab(s), 0 Refill(s), [id number], 167, cm, 03/24/23 8:07:00 EST, Height, kg, 03/24/23 8:07:00 EST, Dosing Weight Start Date: 03/24/23 Stop Date: 04/07/23 Status: Ordered dicyclomine hydrochloride 10 mg oral capsule (4 sources) Anticholinergic Start: 12-02-2022 End: 12-09-2022 dicyclomine 10 mg oral capsule Dose : 10 mg = 1 cap(s), Oral, QID, # 28 cap(s), 0 Refill(s) Start Date: 12/02/22 Stop Date: 12/09/22 Status: Ordered Problems Active Problems Problem Classification Problem Date Documented Date Episodic/Chronic Administrative/social admission (1 source) Imprisonment; Translations: [Imprisonment and other incarceration] Episodic Alcohol-related disorders (1 source) Alcohol withdrawal syndrome; Translations: [Alcohol abuse with withdrawal, unspecified] Chronic Asthma (1 source) Exacerbation of asthma; Translations: [Unspecified asthma with (acute) exacerbation] Onset: 07-13-2023 Chronic Disorders of teeth and jaw (6 sources) Edentulous 01-04-2023 Chronic Disorders of teeth and jaw (4 sources) Dental abscess 01-04-2023 Episodic Heart valve disorders (1 source) Rheumatic disease of mitral valve; Translations: [Rheumatic mitral valve disease, unspecified] Onset: 12-25-2022 Chronic Hepatitis (10 sources) Viral hepatitis C; Translations: [Unspecified viral hepatitis C without hepatic coma] 12-08-2022 Episodic Inflammatory conditions of male genital organs (2 sources) Abscess of scrotum; Translations: [Inflammatory disorders of scrotum] Episodic Nausea and vomiting (20 sources) Vomiting; Translations: [Vomiting, unspecified] Onset: 12-02-2022 Episodic Other circulatory disease (9 sources) Vasculitis 12-16-2022 Chronic Other connective tissue disease (1 source) Pain in lower limb; Translations: [Pain in leg, unspecified] Onset: 03-10-2023 Episodic Other connective tissue disease (1 source) Other symptoms and signs involving the musculoskeletal system; Translations: [Other symptoms and signs involving the musculoskeletal system] Episodic Other hereditary and degenerative nervous system conditions (1 source) Movement disorder; 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 Other liver diseases (10 sources) Elevated liver enzymes level 12-07-2022 Episodic Other lower respiratory disease (10 sources) Dyspnea 12-07-2022 Episodic Other nervous system disorders (1 source) Walking disability; Translations: [Difficulty in walking, not elsewhere classified] Chronic Other nervous system disorders (10 sources) Coarse tremor 12-07-2022 Episodic Other non-traumatic joint disorders (1 source) Ankle joint pain; Translations: [Pain in left ankle and joints of left foot] Episodic Other nutritional; endocrine; and metabolic disorders (10 sources) Weight loss 12-07-2022 Episodic Other screening for suspected conditions (not mental disorders or infectious disease) (1 source) Procedure carried out on subject; Translations: [Encounter for screening, unspecified] Onset: 03-10-2023 Episodic Other skin disorders (1 source) Generalized hyperhidrosis; Translations: [Generalized hyperhidrosis] Episodic Other skin disorders (10 sources) Excessive sweating 12-07-2022 Episodic Mari-; endo-; and myocarditis; cardiomyopathy (except that caused by tuberculosis or sexually transmitted disease) (1 source) Infective endocarditis; Translations: [Acute and subacute infective endocarditis] Episodic Residual codes; unclassified (1 source) Current drinker; Translations: [Alcohol use, unspecified, uncomplicated] Episodic Septicemia (except in labor) (6 sources) Sepsis 01-04-2023 Episodic Skin and subcutaneous tissue infections (4 sources) Abscess of face; Translations: [Cutaneous abscess of face] Episodic Spondylosis; intervertebral disc disorders; other back problems (1 source) Solitary sacroiliitis; Translations: [Sacroiliitis, not elsewhere classified] Onset: 03-10-2023 Chronic Spondylosis; intervertebral disc disorders; other back problems (6 sources) Backache; Translations: [Dorsalgia, unspecified] Onset: 01-29-2021 Episodic Substance-related disorders (20 sources) Tobacco dependence syndrome; Translations: [Nicotine dependence, unspecified, uncomplicated] Chronic Substance-related disorders (4 sources) Opioid withdrawal; Translations: [Opioid use, unspecified with withdrawal] Episodic Unclassified (6 sources) Patient encounter status 01-04-2023 Past or Other Problems Problem Classification Problem Date Documented Da te Episodic/Chronic Fever of unknown origin (10 sources) Pyrexia of unknown origin; Translations: [Fever, unspecified] Onset: 12-26-2022 12-07-2022 Episodic Results Test Name Value Interpretation Reference Range Facility 12 Lead EKGon 02-19-2025 12 Lead EKG [facility] Cardiovascular Services [address] [place] [address] 12 Lead EKG 02/19/25 0137 MR#: [id number] Acct: [id number] Name: LEONEL VILLAVICENCIO Dom Rep #: [id number] : 1990 34 From: Yumi Bojorquez MD Attending Dr: Status: DEP ER Ordering Dr: Tyshawn Barbosa DO Date: 02/19/25 Location: ED Sex: M C Admitted: Test Reason : SOB Blood Pressure : */* mmHG Vent. Rate : 78 BPM Atrial Rate : 78 BPM P-R Int : 162 ms QRS Dur : 94 ms QT Int : 368 ms P-R-T Axes : 31 66 35 degrees QTcB Int : 419 ms Normal sinus rhythm Normal ECG Confirmed by Yumi Bojorquez ([id number]), make up editor SHARON GARRIDO ([id number]) on 02/19/2025 12:55:42 PM Referred By: SADIA Confirmed By: Yumi Bojorquez 02/19/25 1255 Date Yumi Bojorquez MD CC: Tyshawn Barbosa, DO; No Primary Care Physician Signed [facility] Basic Metabolic Profile (BMP )on 02-19-2025 BUN/CRE 12.6 RATIO Normal 10-20 [facility] Comment on above: Performed By: #### L 500.2500, L100.0100, L501.5200 #### [facility] [address] [place], [address] Calcium [Mass/Vol] 9.2 mg/dL Normal 7.6-11.[address] [facility] Comment on above: Performed By: #### L 500.2500, L100.0100, L501.5200 #### [facility] [address] [place], [address] Chloride [Moles/Vol] 101 mmol/L Normal 98-108 [facility] Comment on above: Performed By: #### L 500.2500, L100.0100, L501.5200 #### [facility] [address] [place], [address] CO2 [Moles/Vol] 24.5 mmol/L Normal 21.0-32.0 [facility] Comment on above: Performed By: #### L 500.2500, L100.0100, L501.5200 #### [facility] [address] [place], [address] Creatinine [Mass/Vol] 1.00 mg/dL Normal 0.70-1.20 [facility] Comment on above: Performed By: #### L 500.2500, L100.0100, L501.5200 #### [facility] [address] [place], [address] ECRCL 99.61 ml/min Normal 50-250 [facility] Comment on above: Performed By: #### L 500.2500, L100.0100, L501.5200 #### [facility] [address] [place], [address] GAP 10 Normal 5-15 [facility] Comment on above: Performed By: #### L 500.2500, L100.0100, L501.5200 #### [facility] [address] [place], [address] GFR/1.73 sq M.predicted among non-blacks MDRD (S/P/Bld) [Vol rate/Area] 100 mL/min/{1.73_m2} Normal >60 [facility] Comment on above: Result Comment: mL/m in/1.73m2 CKD-EPI Creatinine Equation (2020) Performed By: #### L 500.2500, L100.0100, L501.5200 #### [facility] [address] [place], [address] Glucose [Mass/Vol] 92 mg/dL Normal 70-[address] [facility] Comment on above: Performed By: #### L 500.2500, L100.0100, L501.5200 #### [facility] [address] [place], [address] Potassium [Moles/Vol] 3.7 mmol/L Normal 3.3-5.1 [facility] Comment on above: Performed By: #### L 500.2500, L100.0100, L501.5200 #### [facility] [address] [place], [address] Sodium [Moles/Vol] 136 mmol/L Normal 133-[address] [facility] Comment on above: Performed By: #### L 500.2500, L100.0100, L501.5200 #### [facility] [address] [place], [address] Urea nitrogen [Mass/Vol] 13 mg/dL Normal 4-19 [facility] Comment on above: Performed By: #### L 500.2500, L100.0100, L501.5200 #### [facility] [address] [place], [address] CBC W/Diff, Automatedon 11-0 3-2024 Absolute Lymph 4.97 X10 3/uL High 0.83-4.51 [facility] Comment on above: Performed By: #### L 500.2500, L100.0100, L501.5200 #### [facility] [address] [place], [address] Absolute Neut 5.6 X10 3/uL Normal 2.0-7.7 [facility] Comment on above: Performed By: #### L 500.2500, L100.0100, L501.5200 #### [facility] [address] [place], [address] Basophils/100 WBC (Bld) 1.0 % Normal 0-1 [facility] Comment on above: Performed By: #### L 500.2500, L100.0100, L501.5200 #### [facility] [address] [place], [address] Eosinophils/100 WBC (Bld) 13.1 % High 0-5 [facility] Comment on above: Performed By: #### L 500.2500, L100.0100, L501.5200 #### [facility] [address] [place], [address] Erythrocyte distribution width (RBC) [Ratio] 13.4 % Normal 11.6-14.6 [facility] Comment on above: Performed By: #### L 500.2500, L100.0100, L501.5200 #### [facility] [address] [place], [address] Hematocrit (Bld) [Volume fraction] 48.1 % Normal 40-54 [facility] Comment on above: Performed By: #### L 500.2500, L100.0100, L501.5200 #### [facility] [address] [place], [address] Hemoglobin (Bld) [Mass/Vol] 16.8 g/dL High 13.0-16.5 [facility] Comment on above: Performed By: #### L 500.2500, L100.0100, L501.5200 #### [facility] [address] [place], [address] IG% 0.300 Normal 0.0-0.9 [facility] Comment on above: Result Comment: IG% - Immature Granulocytes (promyelocytes, myelocytes and metamyelocytes) > 1% indicates that a LEFT SHIFT is Present. Performed By: #### L 500.2500, L100.0100, L501.5200 #### [facility] [address] [place], [address] Lymphocytes/100 WBC (Bld) 36.5 % Normal 19-41 [facility] Comment on above: Performed By: #### L 500.2500, L100.0100, L501.5200 #### [facility] [address] [place], [address] MCH (RBC) [Entitic mass] 29.4 pg Normal 27.0-32.0 [facility] Comment on above: Performed By: #### L 500.2500, L100.0100, L501.5200 #### [facility] [address] [place], [address] MCHC (RBC) [Mass/Vol] 34.9 g/dL Normal 32-36 [facility] Comment on above: Performed By: #### L 500.2500, L100.0100, L501.5200 #### [facility] [address] [place], [address] MCV (RBC) [Entitic vol] 84.1 fL Normal 80-94 [facility] Comment on above: Performed By: #### L 500.2500, L100.0100, L501.5200 #### [facility] [address] [place], [address] Monocytes/100 WBC (Bld) 8.1 % Normal 0-10 [facility] Comment on above: Performed By: #### L 500.2500, L100.0100, L501.5200 #### [facility] [address] [place], [address] Neutrophils/100 WBC (Bld) 41.0 % Low 47-70 [facility] Comment on above: Performed By: #### L 500.2500, L100.0100, L501.5200 #### [facility] [address] [place], [address] Nucleated RBC (Bld) [#/Vol] 0 10*3/uL Normal 0-5 [facility] Comment on above: Performed By: #### L 500.2500, L100.0100, L501.5200 #### [facility] [address] [place], [address] Platelet mean volume (Bld) [Entitic vol] 9.7 fL Normal 6.2-12.0 [facility] Comment on above: Performed By: #### L 500.2500, L100.0100, L501.5200 #### [facility] [address] [place], [address] Platelets (Bld) [#/Vol] 266 10*3/uL Normal 150-450 [facility] Comment on above: Performed By: #### L 500.2500, L100.0100, L501.5200 #### [facility] [address] [place], [address] RBC (Bld) [#/Vol] 5.72 10*6/uL Normal 4.6-6.2 [facility] Comment on above: Performed By: #### L 500.2500, L100.0100, L501.5200 #### [facility] [address] [place], [address] RDW SD 41.1 fl Normal 35.1-43.9 [facility] Comment on above: Performed By: #### L 500.2500, L100.0100, L501.5200 #### [facility] [address] [place], [address] WBC (Bld) [#/Vol] 13.6 10*3/uL High 4.4-11.0 [facility] Comment on above: Performed By: #### L 500.2500, L100.0100, L501.5200 #### [facility] [address] [place], [address] Chest 1 View (Portable)on Chest 1 View (Portable) [facility] Imaging Services [address] [place] [address] Chest 1 View (Portable) MR#: [id number] Acct: [id number] Name: LEONEL VILLAVICENCIO Rep #: [id number] : 1990 M 34 From: Norma Gomez PCP: Care Physician,No Primary Status: [facility] ER Study: Chest 1 View (Portable) Date of Exam: 02/19/25 Exam# [id number] Ordering Dr: Tyshawn Barbosa DO PROCEDURE: CHEST 1 VIEW (PORTABLE) 02/18/2025 REASON FOR EXAM: DYSPNEA TECHNIQUE: Frontal view of the chest. COMPARISON: None FINDINGS: No focal consolidation. Mild pulmonary vascular congestion. Trace left base effusion. No pneumothorax. Bibasilar subsegmental atelectasis. Cardiac silhouette is within normal limits. No acute fractures. RAD/Chest 1 View (Portable) IMPRESSION: No focal consolidation. Mild pulmonary vascular congestion. Trace left base effusion. Reading Location: [id number] CC: Tyshawn Barbosa DO; No Primary Care Physician Hog Tender: Signed [facility] Emergency Department Summary on 02-19-2025 Emergency Department Summary [facility] Medical Records Department [address] [place] [address] Emergency Department Summary 02/19/25 MR#: [id number] Acct: [id number] Name: LEONEL VILLAVICENCIO Rep #: [id number] : 1990 34 From: Tyshawn Barbosa DO PCP: Care Physician,No Primary Status:DEP ER Location: ED HPI History of Present Illness Chief Complaint: Shortness of Breath Informant: patient Narrative Narrative: Patient is a 34-year-old male who reports a past medical history of asthma and also states that he smokes daily. He reports he has had congestion and cough and mild shortness of breath for approximately 2 weeks. He states however today he feels that his shortness of breath has worsened. He states he used to have an inhaler to help with symptoms when they would occur but he no longer has the inhaler and therefore with worsening shortness of breath and no medication to help treat he presents for evaluation. [facility] Medical History Heroin dependence Home Medications ???Medication ???Instructions ???Recorded ???Last Taken ???Type albuterol sulfate 90 mcg/actuation 1 - 2 puff inhalation Q4H PRN AK N 02/19/25 Unknown Rx aerosol inhaler (Ventolin HFA) Wheezing #1 device azithromycin 250 mg tablet See Rx Instructions PO .COMPLEX #6 02/19/25 Unknown Rx (Zithromax Z-Alvarado) tabs buprenorphine 8 mg-naloxone 2 mg 1.5 tab sublingual DAILY 11/03/25 11/03/25 History sublingual tablet prednisone 20 mg tablet 40 mg (2 x 20 mg) PO DAILY 7 days 02/19/25 Unknown Rx #14 tabs Allergy/AdvReac Type Severity Reaction Status Date / Time tramadol HCl (From [facility]) Allergy Swelling Verified 02/18/22 23:43 Social History Smoking Status: Current every day smoker tobacco type: cigarettes substance use type: heroin ROS ROS ED Constitutional Constitutional ED: Denies chills or fever(s) Eyes Eyes: Denies blurry vision or change in vision ENT ENT ED: Reports rhinorrhea and sore throat Cardiovascular Cardiovascular: Denies chest pain, palpitations or racing heartbeat Respiratory/Chest Respiratory/Chest: Reports cough and dyspnea Gastrointestinal Gastrointestinal: Denies abdominal pain, diarrhea, nausea or vomiting Musculoskeletal Musculoskeletal: Denies myalgias Integumentary Denies rash Neurologic Neurologic: Denies headache(s) Hematologic/Lymphatic Hematologic/Lymphatic : Denies easy bleeding or easy bruising Allergic/Immunologic Allergic/Immunologic ED: Denies mouth swelling or tongue swelling EXAM Physical Exam Const Vital Signs: 02/19/25 01:26 02/19/25 01:29 02/19/25 01:31 Temperature 97.8 F 97.8 F Temperature Source Oral Oral Pulse Rate 97 96 Respiratory Rate 31 H 38 H Respiratory Effort Short of Breath Labored Accessory Muscle Use Respiratory Depth Shallow Respiratory Pattern Blood Pressure 180/104 H 174/115 H Blood Pressure Mean 129 134 Pulse Ox 92 99 Oxygen Delivery Method Room Air Room Air Room Air 02/19/25 01:42 02/19/25 02:29 02/19/25 03:00 Temperature 97.9 F Temperature Source Oral Pulse Rate 80 78 86 Respiratory Rate 18 15 18 Respiratory Effort Respiratory Depth Respiratory Pattern Normal Blood Pressure 143/80 H 146/97 H Blood Pressure Mean 101 113 Pulse Ox 94 98 Oxygen Delivery Method Room Air 02/19/25 03:00 Temperature 98 F Temperature Source Pulse Rate 87 Respiratory Rate 18 Respiratory Effort Respiratory Depth Respiratory Pattern Blood Pressure 146/97 H Blood Pressure Mean 113 Pulse Ox 98 Oxygen Delivery Method Positive well nourished and well developed Constitutional Narrative: Patient is in mild respiratory distress with tachypnea General Appearance ED: well developed; Negative for pallor HEENT HEENT Narrative: Normocephalic atraumatic No tongue or lip swelling no oral lesions no airway edema or compromise There is cobblestoning noted in the posterior pharynx consistent with sinus drainage; no secondary findings to suggest infection Eyes PERRL and EOMs intact bilaterally General Eye ED: Negative for scleral icterus Neck supple and no JVD Chest Wall palpation of chest normal Chest Narrative: No bony deformity or subcutaneous emphysema Resp Resp Narrative: Patient is in mild respiratory distress with tachypnea Breath sounds are diminished throughout with diffuse inspiratory and expiratory wheezing Cardio regular rate and regular rhythm Rate: other Other Details: Heart is regular rate and rhythm without murmurs rubs or gallop Radial and carotid pulses are equal and symmetric Extremity normal to inspection Extremity Narrative: No asymmetric rancho (more content not included)... [facility] M100.678on 02-19-2025 M100.678 Pending SARS-CoV-2 (COVID 19) Negative INFLUENZA A Negative INFLUENZA B Negative RSV PCR Negative [facility] Comment on above: Performed By: #### M 100.678 #### [facility] [address] [place], [address] Magnesiumon 02-19-2025 Magnesium [Mass/Vol] 2.5 mg/dL High 1.5-2.2 [facility] Comment on above: Performed By: #### L 500.2500, L100.0100, L501.5200 #### [facility] [address] [place], [address] .Auto Diffon 07-13-2023 Basophil, Absolute 0.1 10 3/mcL Normal 0.0-0.2 [facility] Comment on above: Performed By: #### G FR, BMP, CBC, FRENCH COLE MDW ####[address] [place], [place] [address] Basophils/100 WBC (Bld) 0.9 % Normal 0.0-2.5 [facility] ([place]) Comment on above: Performed By: #### G FR, BMP, CBC, FRENCH COLE MDW ####[address] [place], [place] [address] Eosinophil, Absolute 0.6 10 3/mcL High 0.0-0.4 [facility] ([place]) Comment on above: Performed By: #### G FR, BMP, CBC, FRENCH COLE MDW ####[address] [place], [place] [address] Eosinophils/100 WBC (Bld) 6.5 % Normal 0.0-7.0 [facility] ([place] Comment on above: Performed By: #### G FR, BMP, CBC, FRENCH COLE MDW ####[address] [place], [place] [address] Lymphocyte, Absolute 1.7 10 3/mcL Normal 0.8-3.9 [facility] ([place]) Comment on above: Performed By: #### G FR, BMP, CBC, FRENCH COLE MDW ####[address] [place], [place] [address] Lymphocytes/100 WBC (Bld) 17.9 % Normal 10.0-50.0 [facility] ([place] Comment on above: Performed By: #### G FR, BMP, CBC, FRENCH COLE MDW ####[address] [place], [place] [address] Monocyte, Absolute 0.6 10 3/mcL Normal 0.2-1.0 [facility] [place] Comment on above: Performed By: #### G FR, BMP, CBC, FRENCH COLE MDW ####[address] [place], [place] [address] Monocytes/100 WBC (Bld) 6.1 % Normal 1.7-13.0 [facility] ([place] Comment on above: Performed By: #### G FR, BMP, CBC, FRENCH COLE MDW ####[address] [place], [place] [address] Neutrophils/100 WBC (Bld) 68.6 % Normal 37.0-80.0 [facility] [place] Comment on above: Performed By: #### G FR, BMP, CBC, ANEUFRENCH MDW ####[address] [place], [place] [address] .GFRon 03-26-2024 GFR Non- 117 ml/min/1.73sqm Normal [facility] ([place] Comment on above: Result Comment: GFR Population mean for , Non- Americans Ages 20-29 = 116 mL/min/1.73 sq.m. Ages 30-39 = 107 mL/min/1.73 sq.m. Ages 40-49 = 99 mL/min/1.73 sq.m. Ages 50-59 = 93 mL/min/1.73 sq.m. Ages 60-69 = 85 mL/min/1.73 sq.m. Ages 70+ = 75 mL/min/1.73 sq.m. Chronic Kidney Disease: Less than 60 mL/min/1.73 square meters End Stage Renal Disease: Less than 15 mL/min/1.73 square meters Performed By: #### G FR, BMP, CBC, DOUGLAS, JAVAD BRASWELL ####[address] [place], [place] [address] GFR 141 ml/min/1.73sqm Normal [facility] ([place] Comment on above: Result Comment: GFR Population mean for , Non- Americans Ages 20-29 = 116 mL/min/1.73 sq.m. Ages 30-39 = 107 mL/min/1.73 sq.m. Ages 40-49 = 99 mL/min/1.73 sq.m. Ages 50-59 = 93 mL/min/1.73 sq.m. Ages 60-69 = 85 mL/min/1.73 sq.m. Ages 70+ = 75 mL/min/1.73 sq.m. Chronic Kidney Disease: Less than 60 mL/min/1.73 square meters End Stage Renal Disease: Less than 15 mL/min/1.73 square meters Performed By: #### G FR, BMP, CBC, FRENCH COLE MDW ####[address] [place], [place] [address] .MDWon 07-13-2023 Monocyte Distribution Width 19.00 Normal 0.00-20.00 [facility] ([place] Comment on above: Result Comment: For ED adult patients suspected of sepsis, MDW<=20.0 does not rule out sepsis or risk of sepsis Performed By: #### Yesenia FR, BMP, CBC, FRENCH COLE MDW ####[address] [place], [place] [address] .NEUABSon 07-13-2023 Neutrophil, Absolute 6.6 10 3/mcL High 2.9-6.2 [facility] ([place] Comment on above: Performed By: #### Yesenia FR, BMP, CBC, FRENCH COLE MDW ####[address] [place], [place] [address] BMPon 07-13-2023 BUN/Creatinine Ratio 5 ratio Low 7-27 [facility] [place] Comment on above: Performed By: #### Yesenia FR, BMP, CBC, FRENCH COLE MDW ####[address] [place], [place] [address] Calcium [Mass/Vol] 8.5 mg/dL Normal 8.4-10.2 [facility] ([place] Comment on above: Performed By: #### G FR, BMP, CBC, FRENCH COLE MDW ####[address] [place], [place] [address] Chloride [Moles/Vol] 100 mmol/L Normal 98-107 [facility] [place] Comment on above: Performed By: #### Yesenia FR, BMP, CBC, FRENCH COLE MDW ####[address] [place], [place] [address] CO2 [Moles/Vol] 26 mmol/L Normal 22-29 [facility] [place] Comment on above: Performed By: #### Yesenia FR, BMP, CBC, FRENCH COLE MDW ####[address] [place], [place] [address] Creatinine [Mass/Vol] 0.76 mg/dL Normal 0.70-1.30 [facility] ([place]) Comment on above: Performed By: #### Yesenia FR, BMP, CBC, FRENCH COLE MDW ####[address] [place], [place] [address] Electrolyte Balance 10.0 mEq/L Normal 4.0-15.0 [facility] ([place]) Comment on above: Performed By: #### G , BMP, DOUGLAS HASTINGS ADIFF, MDW ####[address] [place], [place] [address] Glucose [Mass/Vol] 123 mg/dL High 70-105 [facility] ([place] Comment on above: Performed By: #### G , BMP, CBCDOUGLAS ADIFF, MDW ####[address] [place], [place] [address] Potassium [Moles/Vol] 3.3 mmol/L Low 3.5-5.1 [facility] ([place] Comment on above: Performed By: #### G , BMP, DOUGLAS HASTINGS ADIFF, MDW ####[address] [place], [place] [address] Sodium [Moles/Vol] 136 mmol/L Normal 136-145 [facility] ([place] Comment on above: Performed By: #### G , BMP, DOUGLAS HASTINGS ADIFF, MDW ####[address] [place], [place] [address] Urea nitrogen [Mass/Vol] 4 mg/dL Low 7-18 [facility] [place] Comment on above: Performed By: #### G , BMP, DOUGLAS HASTINGS ADIFF, MDW ####[address] [place], [place] [address] CBCon 07-13-2023 Erythrocyte distribution width (RBC) [Ratio] 14.7 % High 11.5-14.5 [facility] [place] Comment on above: Performed By: #### G , BMP, DOUGLAS HASTINGS ADIFF, MDW ####[address] [place], [place] [address] Hematocrit (Bld) [Volume fraction] 38.9 % Low 42.0-52.0 [facility] [place] Comment on above: Performed By: #### Yesenia PLATA, BMP, CBC, FRENCH COLE MDW ####[address] [place], [place] [address] Hgb 13.8 G/dL Low 14.0-18.0 [facility] [place] Comment on above: Performed By: #### Yesenia PLATA, BMP, CBC, FRENCH COLE MDW ####[address] [place], [place] [address] MCH (RBC) [Entitic mass] 27.8 pg Normal 27.0-31.2 [facility] [place] Comment on above: Performed By: #### Yesenia FR, BMP, CBC, FRENCH COLE MDW ####[address] [place], [place] [address] MCHC 35.4 G/dL Normal 31.8-35.4 [facility] [place] Comment on above: Performed By: #### Yesenia FR, BMP, CBC, FRENCH COLE MDW ####[address] [place], [place] [address] MCV (RBC) [Entitic vol] 78.5 fL Low 80.0-94.0 [facility] [place] Comment on above: Performed By: #### Yesenia PLATA, BMP, DARLING, FRENCH COLE MDW ####[address] [place], [place] [address] Platelet 262 10 3/mcL Normal 130-400 [facility] [place] Comment on above: Performed By: #### Yesenia PLATA, BMP, CBC, FRENCH COLE MDW ####[address] [place], [place] [address] Platelet mean volume (Bld) [Entitic vol] 6.7 fL Low 7.4-10.4 [facility] [place] Comment on above: Performed By: #### Yesenia FR, BMP, CBC, FRENCH COLE MDW ####[address] [place], [place] [address] RBC 4.95 10 6/mcL Normal 4.04-6.13 [facility] [place] Comment on above: Performed By: #### Yesenia FR, BMP, CBC, FRENCH COLE MDW ####[address] [place] [id number] WBC 9.6 10 3/mcL Normal 4.6-10.8 [facility] [place] Comment on above: Performed By: #### G FR, BMP, CBC, ANEU, JAVAD BRASWELL ####[address] [place], [place] [address] LABORATORYOrdered By: SYSTEM SYSTEM on 07-13-2023 Basophil, Absolute 0.1 103/mcL Normal 0.0 - 0.2 10^3/mcL AO Workflow SS Basophils/100 WBC (Bld) 0.9 % Normal 0.0 - 2.5 % AO Workflow SS Calcium [Mass/Vol] 8.5 mg/dL Normal 8.4 - 10. 2 mg/dL AO ADM SS Chloride [Moles/Vol] 100 mmol/L Normal 98 - 10 7 mmol/L AO ADM SS CO2 [Moles/Vol] 26 mmol/L Normal 22 - 29 mmol/L AO ADM SS Creatinine [Mass/Vol] 0.76 mg/dL Normal 0.70 - 1.30 mg/dL AO ADM SS Electrolyte Balance 10.0 mEq/L Normal 4.0 - 15 .0 mEq/L AO ADM SS Eosinophil, Absolute 0.6 103/mcL High 0.0 - 0 .4 10^3/mcL AO Workflow SS Eosinophils/100 WBC (Bld) 6.5 % Normal 0.0 - 7.0 % AO Workflow SS Erythrocyte distribution width (RBC) [Ratio] 14.7 % High 11.5 - 14.5 % AO Workflow SS GFR/1.73 sq M.predicted among blacks MDRD (S/P/Bld) [Vol rate/Area] 141 ml/min/1.73sqm Invalid Interpretation Code AO Chemistry S Comment on above: Interpretive Data: GFR Population mean for , Non- Americans Ages 20-29 = 116 mL/min/1.73 sq.m. Ages 30-39 = 107 mL/min/1.73 sq.m. Ages 40-49 = 99 mL/min/1.73 sq.m. Ages 50-59 = 93 mL/min/1.73 sq.m. Ages 60-69 = 85 mL/min/1.73 sq.m. Ages 70+ = 75 mL/min/1.73 sq.m. Chronic Kidney Disease: Less than 60 mL/min/1.73 square meters End Stage Renal Disease: Less than 15 mL/min/1.73 square meters GFR/1.73 sq M.predicted among non-blacks MDRD (S/P/Bld) [Vol rate/Area] 117 ml/min/1.73sqm Invalid Interpretation Code AO Chemistry S Comment on above: Interpretive Data: GFR Population mean for , Non- Americans Ages 20-29 = 116 mL/min/1.73 sq.m. Ages 30-39 = 107 mL/min/1.73 sq.m. Ages 40-49 = 99 mL/min/1.73 sq.m. Ages 50-59 = 93 mL/min/1.73 sq.m. Ages 60-69 = 85 mL/min/1.73 sq.m. Ages 70+ = 75 mL/min/1.73 sq.m. Chronic Kidney Disease: Less than 60 mL/min/1.73 square meters End Stage Renal Disease: Less than 15 mL/min/1.73 square meters Glucose [Mass/Vol] 123 mg/dL High 70 - 105 mg/dL AO ADM SS Hematocrit (Bld) [Volume fraction] 38.9 % Low 42.0 - 52.0 % AO Workflow SS Hemoglobin (Bld) [Mass/Vol] 13.8 G/dL Low 14.0 - 18.0 G/dL AO Workflow SS Lymphocyte, Absolute 1.7 103/mcL Normal 0.8 - 3 .9 10^3/mcL AO Workflow SS Lymphocytes/100 WBC (Bld) 17.9 % Normal 10.0 - 50.0 % AO Workflow SS MCH (RBC) [Entitic mass] 27.8 pg Normal 27.0 - 31.2 pg AO Workflow SS MCHC 35.4 G/dL Normal 31.8 - 35.4 G/dL AO Workflow SS MCV (RBC) [Entitic vol] 78.5 fL Low 80.0 - 94.0 fL AO Workflow SS Monocyte distribution width Auto (Bld) [Entitic vol] 19.00 1 Normal 0.00 - 20.00 AO Workflow SS Comment on above: Result Comment: For ED adult patients suspected of sepsis, MDW<=20.0 does not rule out sepsis or risk of sepsis Monocyte, Absolute 0.6 103/mcL Normal 0.2 - 1.0 10^3/mcL AO Workflow SS Monocytes/100 WBC (Bld) 6.1 % Normal 1.7 - 13.0 % AO Workflow SS Neutrophil, Absolute 6.6 103/mcL High 2.9 - 6 .2 10^3/mcL AO Workflow SS Neutrophils/100 WBC (Bld) 68.6 % Normal 37.0 - 80.0 % AO Workflow SS Platelet mean volume (Bld) [Entitic vol] 6.7 fL Low 7.4 - 10.4 fL AO Workflow SS Platelets (Bld) [#/Vol] 262 103/mcL Normal 130 - 400 10^3/mcL AO Workflow SS Potassium [Moles/Vol] 3.3 mmol/L Low 3.5 - 5.1 mmol/L AO ADM SS RBC (Bld) [#/Vol] 4.95 106/mcL Normal 4.04 - 6.1 3 10^6/mcL AO Workflow SS Sodium [Moles/Vol] 136 mmol/L Normal 136 - 145 mmol/L AO ADM SS Urea nitrogen [Mass/Vol] 4 mg/dL Low 7 - 18 mg/dL AO ADM SS Urea nitrogen/Creatinine [Mass ratio] 5 ratio Low 7 - 27 ratio AO ADM SS WBC (Bld) [#/Vol] 9.6 103/mcL Normal 4.6 - 10.8 10^3/mcL AO Workflow SS XR CHEST 1 VIEWon 07-13-2023 XR CHEST 1 VIEW ORIGINAL EXAMINATION: ONE XRAY VIEW OF THE CHEST 07/13/2023 1:45 pm COMPARISON: 01/29/2023 HISTORY: ORDERING SYSTEM PROVIDED HISTORY: Reason for Exam: SOB/cough/fever FINDINGS: The cardiomediastinal silhouette is unchanged. Blunting of the left costophrenic angle was also present previously. No vascular congestion, large effusion, or pneumothorax. IMPRESSION: Chronic blunting of the left costophrenic angle, unchanged from prior. Interpreted by: Di Kevin MD Preliminary Report By: Di Kevin MD Electronically signed By Di Kevin MD Dictated Date: 07/13/2023 1:49:21 PM Prelim Date: 07/13/2023 1:50:16 PM Sign Date: 07/13/2023 1:50:16 PM Ordering Provider: DARIA JUNIOR [facility] ([place]) .Auto Diffon 03-20-2023 Basophil, Absolute 0.1 10 3/mcL Normal 0.0-0.2 [facility] [place] Comment on above: Performed By: #### MICHELLE Fofana, GFR #### [address] [address] Basophils/100 WBC (Bld) 0.7 % Normal 0.0-2.5 [facility] ([place]) Comment on above: Performed By: #### MICHELLE Fofana, GFR #### [address] [address] Eosinophil, Absolute 0.1 10 3/mcL Normal 0.0-0.4 [facility] ([place]) Comment on above: Performed By: #### MICHELLE Fofana, GFR #### [address] [address] Eosinophils/100 WBC (Bld) 0.7 % Normal 0.0-7.0 [facility] ([place] Comment on above: Performed By: #### MICHELLE Fofana, GFR #### [address] [address] Lymphocyte, Absolute 1.9 10 3/mcL Normal 0.8-3.9 [facility] ([place] Comment on above: Performed By: #### MICHELLE Fofana, GFR #### [address] [address] Lymphocytes/100 WBC (Bld) 11.7 % Normal 10.0-50.0 [facility] ([place] Comment on above: Performed By: #### MICHELLE Fofana, GFR #### [address] [address] Monocyte, Absolute 0.9 10 3/mcL Normal 0.2-1.0 [facility] [place] Comment on above: Performed By: #### MICHELLE Fofana, GFR #### [address] [address] Monocytes/100 WBC (Bld) 5.5 % Normal 1.7-13.0 [facility] [place] Comment on above: Performed By: #### MICHELLE Fofana, GFR #### [address] [address] Neutrophils/100 WBC (Bld) 81.4 % High 37.0-80.0 [facility] ([place] Comment on above: Performed By: #### Camilo Patterson, BMP, GFR #### [address] [address] .GFRon 03-20-2023 GFR 125 ml/min/1.73sqm Normal [facility] ([place] Comment on above: Result Comment: GFR Population mean for , Non- Americans Ages 20-29 = 116 mL/min/1.73 sq.m. Ages 30-39 = 107 mL/min/1.73 sq.m. Ages 40-49 = 99 mL/min/1.73 sq.m. Ages 50-59 = 93 mL/min/1.73 sq.m. Ages 60-69 = 85 mL/min/1.73 sq.m. Ages 70+ = 75 mL/min/1.73 sq.m. Chronic Kidney Disease: Less than 60 mL/min/1.73 square meters End Stage Renal Disease: Less than 15 mL/min/1.73 square meters Performed By: #### Camilo Patterson, BMP, GFR #### [address] [address] GFR Non- 103 ml/min/1.73sqm Normal [facility] [place] Comment on above: Result Comment: GFR Population mean for , Non- Americans Ages 20-29 = 116 mL/min/1.73 sq.m. Ages 30-39 = 107 mL/min/1.73 sq.m. Ages 40-49 = 99 mL/min/1.73 sq.m. Ages 50-59 = 93 mL/min/1.73 sq.m. Ages 60-69 = 85 mL/min/1.73 sq.m. Ages 70+ = 75 mL/min/1.73 sq.m. Chronic Kidney Disease: Less than 60 mL/min/1.73 square meters End Stage Renal Disease: Less than 15 mL/min/1.73 square meters Performed By: #### Camilo G, BMP, GFR #### [address] [address] .MDWon 03-20-2023 Monocyte Distribution Width 24.28 High 0.00-20.00 [facility] ([place] Comment on above: Result Comment: For adults in ED, MDW>20.0 may be associated with a higher risk of sepsis during the first 12hrs of hospital admission Performed By: #### Camilo Patterson, BMP, GFR #### [address] [address] .NEUABSon 03-20-2023 Neutrophil, Absolute 13.1 10 3/mcL High 2.9-6.2 A [facility] ([place]) Comment on above: Performed By: #### Camilo Patterson, BMP, GFR #### [address] [address] [facility] BUN/Creatinine Ratio 22 ratio Normal 7-27 [facility] [place] Comment on above: Performed By: #### Camilo Patterson, BMP, GFR #### [address] [address] Calcium [Mass/Vol] 9.1 mg/dL Normal 8.4-10.2 [facility] ([place] Comment on above: Performed By: #### Camilo Patterson, BMP, GFR #### [address] [address] Chloride [Moles/Vol] 100 mmol/L Normal 98-107 [facility] [place] Comment on above: Performed By: #### Camilo Patterson, BMP, GFR #### [address] [address] CO2 [Moles/Vol] 28 mmol/L Normal 22-29 [facility] [place] Comment on above: Performed By: #### Camilo Patterson, BMP, GFR #### [address] [address] Creatinine [Mass/Vol] 0.85 mg/dL Normal 0.70-1.30 [facility] ([place] Comment on above: Performed By: #### Camilo Patterson, BMP, GFR #### [address] [address] Electrolyte Balance 5.0 mEq/L Normal 4.0-15.0 [facility] ([place]) Comment on above: Performed By: #### Camilo Patterson, BMP, GFR #### [address] [address] Glucose [Mass/Vol] 116 mg/dL High 70-105 [facility] ([place] Comment on above: Performed By: #### Camilo Patterson, BMP, GFR #### [address] [address] Potassium [Moles/Vol] 3.9 mmol/L Normal 3.5-5.1 [facility] ([place] Comment on above: Performed By: #### Camilo Patterson, BMP, GFR #### [address] [address] Sodium [Moles/Vol] 133 mmol/L Low 136-145 [facility] ([place] Comment on above: Performed By: #### Camilo Patterson, BMP, GFR #### [address] [address] Urea nitrogen [Mass/Vol] 19 mg/dL High 7-18 [facility] [place] Comment on above: Performed By: #### Camilo Patterson, BMP, GFR #### [address] [address] CBCon 03-20-2023 Erythrocyte distribution width (RBC) [Ratio] 14.9 % High 11.5-14.5 [facility] [place] Comment on above: Performed By: #### Camilo Patterson, BMP, GFR #### [address] [address] Hematocrit (Bld) [Volume fraction] 39.9 % Low 42.0-52.0 [facility] [place] Comment on above: Performed By: #### Camilo Patterson, BMP, GFR #### [address] [address] Hgb 13.4 G/dL Low 14.0-18.0 [facility] [place] Comment on above: Performed By: #### Camilo G, BMP, GFR #### [address] [address] MCH (RBC) [Entitic mass] 27.3 pg Normal 27.0-31.2 [facility] [place] Comment on above: Performed By: #### Camilo G, BMP, GFR #### [address] [address] MCHC 33.6 G/dL Normal 31.8-35.4 [facility] [place] Comment on above: Performed By: #### Camilo Patterson, BMP, GFR #### [address] [address] MCV (RBC) [Entitic vol] 81.2 fL Normal 80.0-94.0 [facility] [place] Comment on above: Performed By: #### Camilo Patterson, BMP, GFR #### [address] [address] Platelet 325 10 3/mcL Normal 130-400 [facility] [place] Comment on above: Performed By: #### Camilo Patterson, BMP, GFR #### [place] [id number] Platelet mean volume (Bld) [Entitic vol] 6.9 fL Low 7.4-10.4 [facility] [place] Comment on above: Performed By: #### Camilo Patterson, BMP, GFR #### [address] [address] RBC 4.92 10 6/mcL Normal 4.04-6.13 [facility] [place] Comment on above: Performed By: #### Camilo Patterson, BMP, GFR #### [place] [id number] WBC 16.1 10 3/mcL High 4.6-10.8 [facility] ([place] Comment on above: Performed By: #### Camilo Patterson, BMP, GFR #### [place] [address] CT HIP W/O CONTRAST LEFTon 1 05-21-2022 CT HIP W/O CONTRAST LEFT ORIGINAL EXAMINATION: CT OF THE LEFT HIP WITHOUT CONTRAST 03/20/2023 5:51 am TECHNIQUE: CT of the left hip was performed without the administration of intravenous contrast. Multiplanar reformatted images are provided for review. Automated exposure control, iterative reconstruction, and/or weight based adjustment of the mA/kV was utilized to reduce the radiation dose to as low as reasonably achievable. COMPARISON: CT abdomen pelvis 12/01/2022. HISTORY ORDERING SYSTEM PROVIDED HISTORY: Reason for Exam: pain FINDINGS: Bones: No evidence of acute fracture or dislocation. No aggressive appearing osseous abnormality or periostitis. Soft Tissue: No significant soft tissue edema or fluid collections. Joint: No significant degenerative changes. No osseous erosions. IMPRESSION: No acute osseous abnormality of the hip. I have personally reviewed the images of this examination and agree with the resident's findings and interpretation. Interpreted by: Ag Goodman MD Preliminary Report By: Nuvia Angulo Electronically signed By Ag Goodman MD Dictated Date: 03/20/2023 6:15:59 AM Prelim Date: 03/20/2023 6:23:02 AM Sign Date: 03/20/2023 6:55:19 AM Ordering Provider: KEANU ROSENBERG [facility] ([place]) CT SPINE LUMBAR W/O CONTRAST on 03-20-2023 CT SPINE LUMBAR W/O CONTRAST ORIGINAL EXAMINATION: CT OF THE LUMBAR SPINE WITHOUT CONTRAST 03/20/2023 TECHNIQUE: CT of the lumbar spine was performed without the administration of intravenous contrast. Multiplanar reformatted images are provided for review. Adjustment of mA and/or kV according to patient size was utilized. Automated exposure control, iterative reconstruction, and/or weight based adjustment of the mA/kV was utilized to reduce the radiation dose to as low as reasonably achievable. COMPARISON: CT abdomen pelvis 12/01/2022 HISTORY: ORDERING SYSTEM PROVIDED HISTORY: Reason for Exam: Worsening left hip pain times 12 days. FINDINGS: BONES/ALIGNMENT: There is normal alignment of the spine. The vertebral body heights are maintained. No osseous destructive lesion is seen. DEGENERATIVE CHANGES: No significant degenerative changes of the lumbar spine. No significant disc bulges, spinal canal or foraminal stenosis. SOFT TISSUES/RETROPERITONE UM: No paraspinal mass is seen. IMPRESSION: Unremarkable non-contrast CT of the lumbar spine. Preliminary Report was Dictated by a Resident Interpreted by: Ag Goodman MD Preliminary Report By: Nuvia Angulo Electronically signed By Ag Goodman MD Dictated Date: 03/20/2023 6:05:48 AM Prelim Date: 03/20/2023 6:11:13 AM Sign Date: 03/20/2023 6:41:09 AM Ordering Provider: KEANU Adam [facility] ([place]) LABORATORYOrdered By: Tawny Slaughter on 03-20-2023 Appearance (U) Clear (03/20/23 7:22 AM) Normal Clear AO Auto Urine SS Bilirubin Ql (U) Negative (03/20/23 7:22 AM) Normal Negative AO Auto Urine SS Color (U) Yellow (03/20/23 7:22 AM) Normal AO Auto Urine SS Glucose Test strip (U) [Mass/Vol] Negative Normal Negative AO Auto Urine SS Hemoglobin Auto test strip (U) [Mass/Vol] Negative (03/20/23 7:22 AM) Normal Negative AO Auto Urine SS Ketones Ql (U) Negative Normal Negative AO Auto Ur ine SS UA Leuk Est Negative (03/20/23 7:22 AM) Normal Negative AO Auto Urine SS UA Nitrite Negative (03/20/23 7:22 AM) Normal Negative AO Auto Urine SS UA pH 6.5 (03/20/23 7:22 AM) Normal 5.0 - 8.0 AO Auto Urine SS UA Protein Negative Normal Negative AO Auto Urine SS UA Spec Grav 1.015 (03/20/23 7:22 AM) Normal 1.015-1.025 AO Auto Urine SS UA Specimen Type Clean Catch (03/20/23 7:22 AM) Normal AO Auto Urine SS UA Urobilinogen 0.2 E.U./dL Normal 0.2-1.0 AO Auto Urine SS LABORATORYOrdered By: SYSTEM SYSTEM on 03-20-2023 Basophil, Absolute 0.1 103/mcL Normal 0.0 - 0.2 10^3/mcL AO Workflow SS Basophils/100 WBC (Bld) 0.7 % Normal 0.0 - 2.5 % AO Workflow SS Calcium [Mass/Vol] 9.1 mg/dL Normal 8.4 - 10. 2 mg/dL AO ADM SS Chloride [Moles/Vol] 100 mmol/L Normal 98 - 10 7 mmol/L AO ADM SS CO2 [Moles/Vol] 28 mmol/L Normal 22 - 29 mmol/L AO ADM SS Creatinine [Mass/Vol] 0.85 mg/dL Normal 0.70 - 1.30 mg/dL AO ADM SS Electrolyte Balance 5.0 mEq/L Normal 4.0 - 15 .0 mEq/L AO ADM SS Eosinophil, Absolute 0.1 103/mcL Normal 0.0 - 0 .4 10^3/mcL AO Workflow SS Eosinophils/100 WBC (Bld) 0.7 % Normal 0.0 - 7.0 % AO Workflow SS Erythrocyte distribution width (RBC) [Ratio] 14.9 % High 11.5 - 14.5 % AO Workflow SS GFR/1.73 sq M.predicted among blacks MDRD (S/P/Bld) [Vol rate/Area] 125 ml/min/1.73sqm Invalid Interpretation Code AO Chemistry S Comment on above: Interpretive Data: GFR Population mean for , Non- Americans Ages 20-29 = 116 mL/min/1.73 sq.m. Ages 30-39 = 107 mL/min/1.73 sq.m. Ages 40-49 = 99 mL/min/1.73 sq.m. Ages 50-59 = 93 mL/min/1.73 sq.m. Ages 60-69 = 85 mL/min/1.73 sq.m. Ages 70+ = 75 mL/min/1.73 sq.m. Chronic Kidney Disease: Less than 60 mL/min/1.73 square meters End Stage Renal Disease: Less than 15 mL/min/1.73 square meters GFR/1.73 sq M.predicted among non-blacks MDRD (S/P/Bld) [Vol rate/Area] 103 ml/min/1.73sqm Invalid Interpretation Code AO Chemistry S Comment on above: Interpretive Data: GFR Population mean for , Non- Americans Ages 20-29 = 116 mL/min/1.73 sq.m. Ages 30-39 = 107 mL/min/1.73 sq.m. Ages 40-49 = 99 mL/min/1.73 sq.m. Ages 50-59 = 93 mL/min/1.73 sq.m. Ages 60-69 = 85 mL/min/1.73 sq.m. Ages 70+ = 75 mL/min/1.73 sq.m. Chronic Kidney Disease: Less than 60 mL/min/1.73 square meters End Stage Renal Disease: Less than 15 mL/min/1.73 square meters Glucose [Mass/Vol] 116 mg/dL High 70 - 105 mg/dL AO ADM SS Hematocrit (Bld) [Volume fraction] 39.9 % Low 42.0 - 52.0 % AO Workflow SS Hemoglobin (Bld) [Mass/Vol] 13.4 G/dL Low 14.0 - 18.0 G/dL AO Workflow SS Lactate [Moles/Vol] 1.1 mmol/L Normal 0.4 - 2. 0 mmol/L AO ADM SS Lymphocyte, Absolute 1.9 103/mcL Normal 0.8 - 3 .9 10^3/mcL AO Workflow SS Lymphocytes/100 WBC (Bld) 11.7 % Normal 10.0 - 50.0 % AO Workflow SS MCH (RBC) [Entitic mass] 27.3 pg Normal 27.0 - 31.2 pg AO Workflow SS MCHC 33.6 G/dL Normal 31.8 - 35.4 G/dL AO Workflow SS MCV (RBC) [Entitic vol] 81.2 fL Normal 80.0 - 94.0 fL AO Workflow SS Monocyte distribution width Auto (Bld) [Entitic vol] 24.28 1 High 0.00 - 20.00 AO Workflow SS Comment on above: Result Comment: For adults in ED, MDW>20.0 may be associated with a higher risk of sepsis during the first 12hrs of hospital admission Monocyte, Absolute 0.9 103/mcL Normal 0.2 - 1.0 10^3/mcL AO Workflow SS Monocytes/100 WBC (Bld) 5.5 % Normal 1.7 - 13.0 % AO Workflow SS Neutrophil, Absolute 13.1 103/mcL High 2.9 - 6 .2 10^3/mcL AO Workflow SS Neutrophils/100 WBC (Bld) 81.4 % High 37.0 - 80.0 % AO Workflow SS Platelet mean volume (Bld) [Entitic vol] 6.9 fL Low 7.4 - 10.4 fL AO Workflow SS Platelets (Bld) [#/Vol] 325 103/mcL Normal 130 - 400 10^3/mcL AO Workflow SS Potassium [Moles/Vol] 3.9 mmol/L Normal 3.5 - 5.1 mmol/L AO ADM SS RBC (Bld) [#/Vol] 4.92 106/mcL Normal 4.04 - 6.1 3 10^6/mcL AO Workflow SS Sodium [Moles/Vol] 133 mmol/L Low 136 - 145 mmol/L AO ADM SS Urea nitrogen [Mass/Vol] 19 mg/dL High 7 - 18 mg/dL AO ADM SS Urea nitrogen/Creatinine [Mass ratio] 22 ratio Normal 7 - 27 ratio AO ADM SS WBC (Bld) [#/Vol] 16.1 103/mcL High 4.6 - 10.8 10^3/mcL AO Workflow SS LACon 03-20-2023 Lactic Acid Lvl 1.1 mmol/L Normal 0.4-2.0 [facility] ([place]) Comment on above: Performed By: #### M G, BMP, GFR #### [place] [address] MRI SPINE CERVICAL W/ CONTRA STon 03-20-2023 MRI SPINE CERVICAL W/ CONTRAST ORIGINAL EXAMINATION: MRI OF THE CERVICAL SPINE WITH CONTRAST 03/20/2023 12:44 pm: TECHNIQUE: Multiplanar multisequence MRI of the cervical spine was performed with the administration of intravenous contrast. Noncontrast cervical spine MR imaging is not performed due to technologist error. COMPARISON: None. HISTORY: ORDERING SYSTEM PROVIDED HISTORY: Reason for Exam: concern for epidural abscess FINDINGS: The study is degraded by patient motion artifact. This makes interpretation difficult. The exclusion of noncontrast imaging further makes interpretation difficult. Allowing for the above factors, I cannot definitely identify any peripherally enhancing fluid collection on this exam to suggest abscess. Bone marrow assessment is not ideal on these limited sequences. IMPRESSION: Compromised study as discussed above. There is no gross fluid collection to suggest abscess. Interpreted by: Yumi Quach MD Preliminary Report By: Yumi Quach MD Electronically signed By Yumi Quach MD Dictated Date: 03/20/2023 12:56:43 PM Prelim Date: 03/20/2023 12:59:06 PM Sign Date: 03/20/2023 12:59:06 PM Ordering Provider: DARIA Adam [facility] ([place]) [place] SPINE LUMBAR W/ + W/O CO NTRASTon 03-20-2023 MRI SPINE LUMBAR W/ + W/O CONTRAST ORIGINAL EXAMINATION: MRI OF THE LUMBAR SPINE WITHOUT AND WITH CONTRAST 03/20/2023 12:45 pm TECHNIQUE: Multiplanar multisequence MRI of the lumbar spine was performed without and with the administration of intravenous contrast. COMPARISON: None. HISTORY: ORDERING SYSTEM PROVIDED HISTORY: Reason for Exam: concern for epidural abscess FINDINGS: Some of the images are degraded by patient motion artifact. Lumbar vertebra show normal height and alignment, with no compression deformity or marrow abnormality seen. Conus medullaris is unremarkable. There is no definite evidence for fluid collection or abnormal enhancement on this exam. IMPRESSION: No evidence for epidural abscess. Interpreted by: Yumi Quach MD Preliminary Report By: Yumi Quach MD Electronically signed By Yumi Quach MD Dictated Date: 03/20/2023 12:59:22 PM Prelim Date: 03/20/2023 1:01:33 PM Sign Date: 03/20/2023 1:01:33 PM Ordering Provider: DARIA [facility]) MRI SPINE THORACIC W/ + W/O CONTRASTon 03-20-2023 MRI SPINE THORACIC W/ + W/O CONTRAST ORIGINAL EXAMINATION: MRI OF THE THORACIC SPINE WITHOUT AND WITH CONTRAST 03/20/2023 12:45 pm TECHNIQUE: Multiplanar multisequence MRI of the thoracic spine was performed without and with the administration of intravenous contrast. COMPARISON: None HISTORY: ORDERING SYSTEM PROVIDED HISTORY: Reason for Exam: concern for epidural abscess FINDINGS: Thoracic vertebra show normal height and alignment and there is no bone marrow edema identified. T11-12 and T8-9 show mild degenerative disc disease with some disc bulging. Spondylosis is present at these levels as well. T8-9 shows a small left paracentral disc herniation with mild cord compression. T11-12 shows spondylosis with slight flattening of the thecal sac and very minimal ventral cord deformity. No definite peripherally enhancing fluid collection is identified to suggest abscess. No additional contributory abnormality seen. IMPRESSION: Degenerative findings especially at T8-9 and T11-12 as discussed above. No evidence for epidural abscess on this exam. Interpreted by: Yumi Quach MD Preliminary Report By: Yumi Quach MD Electronically signed By Yumi Quach MD Dictated Date: 03/20/2023 1:01:43 PM Prelim Date: 03/20/2023 1:06:03 PM Sign Date: 03/20/2023 1:06:03 PM Ordering Provider: DARIAALICIA JUNIOR [facility] ([place]) No Panel Informationon 03-20 Microscopic examination of blood, culture Culture has been received in lab and is no growth to date. Routine cultures are held for 5 days. [facility] UAon 03-20-2023 Color (U) Yellow Normal [facility] ([place]) Comment on above: Performed By: #### U A ####[address] [place], [place] [address] Glucose (U) [Mass/Vol] Negative Normal Negative [facility] [place] Comment on above: Performed By: #### U A ####[address] [place], [place] [address] Ketones Ql (U) Negative Normal Negative [facility] ([place] Comment on above: Performed By: #### U A ####[address] [place], [place] [address] UA Appear Clear Normal Clear [facility] ([place] Comment on above: Performed By: #### U A ####[address] [place], [place] [address] UA Blood Negative Normal Negative [facility] ([place] Comment on above: Performed By: #### U A ####[address] [place], [place] [address] UA Leuk Est Negative Normal Negative [facility] [place] Comment on above: Performed By: #### U A ####[address] [place], [place] [address] UA Nitrite Negative Normal Negative [facility] [place] Comment on above: Performed By: #### U A ####[address] [place], [place] [address] UA pH 6.5 Normal 5.0 - 8.0 [facility] [place] Comment on above: Performed By: #### U A ####[address] [place], [place] [address] UA Protein Negative Normal Negative [facility] ([place] Comment on above: Performed By: #### U A ####[address] [place], [place] [address] UA Spec Grav 1.015 Normal 1.015-1.025 [facility] ([place] Comment on above: Performed By: #### U A ####[address] [place], [place] [address] UA Specimen Type Clean Catch Normal [facility] ([place] Comment on above: Performed By: #### U A ####[address] [place], [place] [address] UA Urobilinogen 0.2 E.U./dL Normal 0.2-1.0 [facility] [place] Comment on above: Performed By: #### U A ####[address] [place], [place] [address] Urobilinogen (U) [Mass/Vol] Negative Normal Negative [facility] [place] Comment on above: Performed By: #### U A ####[address] [place], [place] [address] .Auto Diffon 03-10-2023 Basophil, Absolute 0.1 10 3/mcL Normal 0.0-0.2 [facility] [place] Comment on above: Performed By: #### Camilo Patterson BMP, GFR #### [address] [address] Basophils/100 WBC (Bld) 0.5 % Normal 0.0-2.5 [facility] [place] Comment on above: Performed By: #### Camilo Patterson BMP, GFR #### [address] [address] Eosinophil, Absolute 0.1 10 3/mcL Normal 0.0-0.4 [facility] ([place] Comment on above: Performed By: #### Camilo Patterson, BMP, GFR #### [address] [address] Eosinophils/100 WBC (Bld) 0.4 % Normal 0.0-7.0 [facility] [place] Comment on above: Performed By: #### Camilo Patterson, BMP, GFR #### [address] [address] Lymphocyte, Absolute 1.6 10 3/mcL Normal 0.8-3.9 [facility] ([place] Comment on above: Performed By: #### M G, BMP, GFR #### [address] [address] Lymphocytes/100 WBC (Bld) 10.8 % Normal 10.0-50.0 [facility] [place] Comment on above: Performed By: #### Camilo G, BMP, GFR #### [address] [address] Monocyte, Absolute 1.0 10 3/mcL Normal 0.2-1.0 [facility] [place] Comment [place]: Performed By: #### Camilo Patterson, BMP, GFR #### [address] [address] Monocytes/100 WBC (Bld) 7.1 % Normal 1.7-13.0 [facility] [place] Comment [place] above: Performed By: #### Camilo Patterson, BMP, GFR #### [address] [address] Neutrophils/100 WBC (Bld) 81.2 % High 37.0-80.0 [facility] [place] Comment on above: Performed By: #### Camilo Patterson, BMP, GFR #### [address] [address] .GFRon 03-10-2023 GFR Non- 100 ml/min/1.73sqm Normal [facility] [place] Comment on above: Result Comment: GFR Population mean for , Non- Americans Ages 20-29 = 116 mL/min/1.73 sq.m. Ages 30-39 = 107 mL/min/1.73 sq.m. Ages 40-49 = 99 mL/min/1.73 sq.m. Ages 50-59 = 93 mL/min/1.73 sq.m. Ages 60-69 = 85 mL/min/1.73 sq.m. Ages 70+ = 75 mL/min/1.73 sq.m. Chronic Kidney Disease: Less than 60 mL/min/1.73 square meters End Stage Renal Disease: Less than 15 mL/min/1.73 square meters Performed By: #### Camilo G, BMP, GFR #### [address] [address] GFR 122 ml/min/1.73sqm Normal [facility] [place] Comment on above: Result Comment: GFR Population mean for , Non- Americans Ages 20-29 = 116 mL/min/1.73 sq.m. Ages 30-39 = 107 mL/min/1.73 sq.m. Ages 40-49 = 99 mL/min/1.73 sq.m. Ages 50-59 = 93 mL/min/1.73 sq.m. Ages 60-69 = 85 mL/min/1.73 sq.m. Ages 70+ = 75 mL/min/1.73 sq.m. Chronic Kidney Disease: Less than 60 mL/min/1.73 square meters End Stage Renal Disease: Less than 15 mL/min/1.73 square meters Performed By: #### Camilo Patterson BMP, GFR #### [address] [address] .MDWon 03-10-2023 Monocyte Distribution Width 22.91 High 0.00-20.00 [facility] [place] Comment on above: Result Comment: For adults in ED, MDW>20.0 may be associated with a higher risk of sepsis during the first 12hrs of hospital admission Performed By: #### Camilo Patterson BMP, GFR #### [address] [address] .NEUABSon 03-10-2023 Neutrophil, Absolute 11.9 10 3/mcL High 2.9-6.2 A [facility] ([place]) Comment on above: Performed By: #### Camilo Patterson BMP, GFR #### [address] [address] BMPon 03-10-2023 BUN/Creatinine Ratio 9 ratio Normal 7-27 [facility] [place] Comment [place]: Performed By: #### Camilo Patterson BMP, GFR #### [address] [address] Calcium [Mass/Vol] 8.8 mg/dL Normal 8.4-10.2 [facility] [place] Comment on above: Performed By: #### Camilo Patterson, BMP, GFR #### [address] [address] Chloride [Moles/Vol] 96 mmol/L Low 98-107 [facility] [place] Comment [place]: Performed By: #### MICHELLE Fofana, GFR #### [address] [address] CO2 [Moles/Vol] 27 mmol/L Normal 22-29 [facility] [place] Comment on above: Performed By: #### MICHELLE Fofana, GFR #### [address] [address] Creatinine [Mass/Vol] 0.87 mg/dL Normal 0.70-1.30 [facility] ([place] Comment on above: Performed By: #### MICHELLE Fofana, GFR #### [address] [address] Electrolyte Balance 11.0 mEq/L Normal 4.0-15.0 [facility] ([place] Comment on above: Performed By: #### MICHELLE Fofana, GFR #### [place] [address] Glucose [Mass/Vol] 110 mg/dL High 70-105 [facility] [place] Comment on above: Performed By: #### IMCHELLE Fofana, GFR #### [address] [address] Potassium [Moles/Vol] 3.5 mmol/L Normal 3.5-5.1 [facility] [place] Comment on above: Performed By: #### Camilo Patterson BMP, GFR #### [address] [address] Sodium [Moles/Vol] 134 mmol/L Low 136-145 [facility] [place] Comment on above: Performed By: #### MICHELLE Fofana, GFR #### [address] [address] Urea nitrogen [Mass/Vol] 8 mg/dL Normal 7-18 [facility] [place] Comment on above: Performed By: #### Camilo Patterson BMP, GFR #### [place] [id number] CBCon 03-10-2023 Erythrocyte distribution width (RBC) [Ratio] 14.3 % Normal 11.5-14.5 [facility] [place] Comment on above: Performed By: #### A KAREN, CBC, ADIFF, BMP, MDW, GFR ####[address] [place], [place] [address] Hematocrit (Bld) [Volume fraction] 36.8 % Low 42.0-52.0 [facility] [place] Comment on above: Performed By: #### A KAREN, CBC, ADIFF, BMP, MDW, GFR ####[address] [place], [place] [address] Hgb 12.4 G/dL Low 14.0-18.0 [facility] [place] Comment on above: Performed By: #### A KAREN, CBC, ADIFF, BMP, MDW, GFR ####[address] [place], [place] [address] MCH (RBC) [Entitic mass] 27.0 pg Normal 27.0-31.2 [facility] [place] Comment on above: Performed By: #### A KAREN, CBC, ADIFF, BMP, MDW, GFR ####[address] [place], [place] [address] MCHC 33.8 G/dL Normal 31.8-35.4 [facility] [place] Comment on above: Performed By: #### A KAREN, CBC, ADIFF, BMP, MDW, GFR ####[address] [place], [place] [address] MCV (RBC) [Entitic vol] 80.0 fL Normal 80.0-94.0 [facility] [place] Comment on above: Performed By: #### A KAREN, CBC, ADIFF, BMP, MDW, GFR ####[address] [place], [place] [address] Platelet 287 10 3/mcL Normal 130-400 [facility] [place] Comment on above: Performed By: #### A KAREN, CBC, ADIFF, BMP, MDW, GFR ####[address] [place], [place] [address] Platelet mean volume (Bld) [Entitic vol] 7.1 fL Low 7.4-10.4 [facility] [place] Comment on above: Performed By: #### A KAREN, CBC, ADIFF, BMP, MDW, GFR ####[address] [place], [place] [address] RBC 4.60 10 6/mcL Normal 4.04-6.13 [facility] [place] Comment on above: Performed By: #### A KAREN, CBC, ADIFF, BMP, MDW, GFR ####[address] [place], [place] [address] WBC 14.6 10 3/mcL High 4.6-10.8 [facility] [place] Comment on above: Performed By: #### A KAREN, CBC, ADIFF, BMP, MDW, GFR ####[address] [place], [place] [address] LABORATORYOrdered By: SYSTEM SYSTEM on 03-10-2023 Basophil, Absolute 0.1 103/mcL Normal 0.0 - 0.2 10^3/mcL AO Workflow SS Basophils/100 WBC (Bld) 0.5 % Normal 0.0 - 2.5 % AO Workflow SS Calcium [Mass/Vol] 8.8 mg/dL Normal 8.4 - 10. 2 mg/dL AO ADM SS Chloride [Moles/Vol] 96 mmol/L Low 98 - 10 7 mmol/L AO ADM SS CO2 [Moles/Vol] 27 mmol/L Normal 22 - 29 mmol/L AO ADM SS Creatinine [Mass/Vol] 0.87 mg/dL Normal 0.70 - 1.30 mg/dL AO ADM SS Electrolyte Balance 11.0 mEq/L Normal 4.0 - 15 .0 mEq/L AO ADM SS Eosinophil, Absolute 0.1 103/mcL Normal 0.0 - 0 .4 10^3/mcL AO Workflow SS Eosinophils/100 WBC (Bld) 0.4 % Normal 0.0 - 7.0 % AO Workflow SS Erythrocyte distribution width (RBC) [Ratio] 14.3 % Normal 11.5 - 14.5 % AO Workflow SS GFR/1.73 sq M.predicted among blacks MDRD (S/P/Bld) [Vol rate/Area] 122 ml/min/1.73sqm Invalid Interpretation Code AO Chemistry S Comment on above: Interpretive Data: GFR Population mean for , Non- Americans Ages 20-29 = 116 mL/min/1.73 sq.m. Ages 30-39 = 107 mL/min/1.73 sq.m. Ages 40-49 = 99 mL/min/1.73 sq.m. Ages 50-59 = 93 mL/min/1.73 sq.m. Ages 60-69 = 85 mL/min/1.73 sq.m. Ages 70+ = 75 mL/min/1.73 sq.m. Chronic Kidney Disease: Less than 60 mL/min/1.73 square meters End Stage Renal Disease: Less than 15 mL/min/1.73 square meters GFR/1.73 sq M.predicted among non-blacks MDRD (S/P/Bld) [Vol rate/Area] 100 ml/min/1.73sqm Invalid Interpretation Code AO Chemistry S Comment on above: Interpretive Data: GFR Population mean for , Non- Americans Ages 20-29 = 116 mL/min/1.73 sq.m. Ages 30-39 = 107 mL/min/1.73 sq.m. Ages 40-49 = 99 mL/min/1.73 sq.m. Ages 50-59 = 93 mL/min/1.73 sq.m. Ages 60-69 = 85 mL/min/1.73 sq.m. Ages 70+ = 75 mL/min/1.73 sq.m. Chronic Kidney Disease: Less than 60 mL/min/1.73 square meters End Stage Renal Disease: Less than 15 mL/min/1.73 square meters Glucose [Mass/Vol] 110 mg/dL High 70 - 105 mg/dL AO ADM SS Hematocrit (Bld) [Volume fraction] 36.8 % Low 42.0 - 52.0 % AO Workflow SS Hemoglobin (Bld) [Mass/Vol] 12.4 G/dL Low 14.0 - 18.0 G/dL AO Workflow SS Lymphocyte, Absolute 1.6 103/mcL Normal 0.8 - 3 .9 10^3/mcL AO Workflow SS Lymphocytes/100 WBC (Bld) 10.8 % Normal 10.0 - 50.0 % AO Workflow SS MCH (RBC) [Entitic mass] 27.0 pg Normal 27.0 - 31.2 pg AO Workflow SS MCHC 33.8 G/dL Normal 31.8 - 35.4 G/dL AO Workflow SS MCV (RBC) [Entitic vol] 80.0 fL Normal 80.0 - 94.0 fL AO Workflow SS Monocyte distribution width Auto (Bld) [Entitic vol] 22.91 1 High 0.00 - 20.00 AO Workflow SS Comment on above: Result Comment: For adults in ED, MDW>20.0 may be associated with a higher risk of sepsis during the first 12hrs of hospital admission Monocyte, Absolute 1.0 103/mcL Normal 0.2 - 1.0 10^3/mcL AO Workflow SS Monocytes/100 WBC (Bld) 7.1 % Normal 1.7 - 13.0 % AO Workflow SS Neutrophil, Absolute 11.9 103/mcL High 2.9 - 6 .2 10^3/mcL AO Workflow SS Neutrophils/100 WBC (Bld) 81.2 % High 37.0 - 80.0 % AO Workflow SS Platelet mean volume (Bld) [Entitic vol] 7.1 fL Low 7.4 - 10.4 fL AO Workflow SS Platelets (Bld) [#/Vol] 287 103/mcL Normal 130 - 400 10^3/mcL AO Workflow SS Potassium [Moles/Vol] 3.5 mmol/L Normal 3.5 - 5.1 mmol/L AO ADM SS RBC (Bld) [#/Vol] 4.60 106/mcL Normal 4.04 - 6.1 3 10^6/mcL AO Workflow SS Sodium [Moles/Vol] 134 mmol/L Low 136 - 145 mmol/L AO ADM SS Urea nitrogen [Mass/Vol] 8 mg/dL Normal 7 - 18 mg/dL AO ADM SS Urea nitrogen/Creatinine [Mass ratio] 9 ratio Normal 7 - 27 ratio AO ADM SS WBC (Bld) [#/Vol] 14.6 103/mcL High 4.6 - 10.8 10^3/mcL AO Workflow SS No Panel Informationon 03-10 Microscopic examination of blood, culture Culture has been received in lab and is no growth to date. Routine cultures are held for 5 days. [facility] XR CHEST 2 VIEWSon 3 XR CHEST 2 VIEWS ORIGINAL EXAMINATION: TWO XRAY VIEWS OF THE CHEST 01/29/2023 12:00 pm COMPARISON: Chest x-ray on 12/25/2022 HISTORY: ORDERING SYSTEM PROVIDED HISTORY: Reason for Exam: cough FINDINGS: The heart size and mediastinal contours are normal. Chronic blunting of the left lateral costophrenic angle is unchanged. There is no acute lung infiltrate or edema. No pneumothorax or pleural fluid is present. The skeletal structures are unremarkable. 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 No acute radiographic abnormality of the chest. Interpreted by: Jose Slater MD Preliminary Report By: Jose Slater MD Electronically signed By Jose Slater MD Dictated Date: 01/29/2023 12:18:33 PM Prelim Date: 01/29/2023 12:19:45 PM Sign Date: 01/29/2023 12:19:45 PM Ordering Provider: STAR Adam [facility] ([place]) .Auto Diffon 12-30-2022 Basophil, Absolute 0.1 10 3/mcL Normal 0.0-0.3 [facility] [place] Comment on above: Performed By: #### C BC, HFP, MG, ADIFF, ANEU ####[address] [address] Basophils/100 WBC (Bld) 1.2 % Normal 0.0-2.5 [facility] [place] Comment on above: Performed By: #### C BC, HFP, MG, ADIFF, ANEU ####[address] [address] Eosinophil, Absolute 0.7 10 3/mcL Normal 0.0-0.7 [facility] ([place] Comment on above: Performed By: #### C BC, HFP, MG, ADIFF, ANEU ####[address] [address] Eosinophils/100 WBC (Bld) 12.0 % High 0.0-6.0 [facility] [place] Comment on above: Performed By: #### C BC, HFP, MG, ADIFF, ANEU ####[address] [address] Lymphocyte, Absolute 2.7 10 3/mcL Normal 0.9-4.3 [facility] ([place] Comment on above: Performed By: #### C BC, HFP, MG, ADIFF, ANEU ####[address] [address] Lymphocytes/100 WBC (Bld) 44.2 % High 20.0-40.0 [facility] [place] Comment on above: Performed By: #### C BC, HFP, MG, ADIFF, ANEU ####[address] [address] Monocyte, Absolute 0.6 10 3/mcL Normal 0.1-1.4 [facility] [place] Comment on above: Performed By: #### C BC, HFP, MG, ADIFF, ANEU ####[address] [address] Monocytes/100 WBC (Bld) 10.5 % Normal 2.0-13.0 [facility] [place] Comment on above: Performed By: #### C BC, HFP, MG, ADIFF, ANEU ####[address] [address] Neutrophils/100 WBC (Bld) 32.1 % Low 50.0-75.0 [facility] [place] Comment on above: Performed By: #### C BC, HFP, MG, ADIFF, ANEU ####[address] [address] .GFRon 12-30-2022 GFR Non- >60 Normal [facility] ([place] Comment on above: Result Comment: GFR Population mean for , Non- Americans Ages 20-29 = 116 mL/min/1.73 sq.m. Ages 30-39 = 107 mL/min/1.73 sq.m. Ages 40-49 = 99 mL/min/1.73 sq.m. Ages 50-59 = 93 mL/min/1.73 sq.m. Ages 60-69 = 85 mL/min/1.73 sq.m. Ages 70+ = 75 mL/min/1.73 sq.m. Chronic Kidney Disease: Less than 60 mL/min/1.73 square meters End Stage Renal Disease: Less than 15 mL/min/1.73 square meters Performed By: #### RODRICK Cormier MP, GFR ####[address] [address] GFR >60 [facility] ([place]) Comment on above: Result Comment: GFR Population mean for , Non- Americans Ages 20-29 = 116 mL/min/1.73 sq.m. Ages 30-39 = 107 mL/min/1.73 sq.m. Ages 40-49 = 99 mL/min/1.73 sq.m. Ages 50-59 = 93 mL/min/1.73 sq.m. Ages 60-69 = 85 mL/min/1.73 sq.m. Ages 70+ = 75 mL/min/1.73 sq.m. Chronic Kidney Disease: Less than 60 mL/min/1.73 square meters End Stage Renal Disease: Less than 15 mL/min/1.73 square meters Performed By: #### RODRICK Cormier MP, GFR ####[address] [address] .NEUABSon 12-30-2022 Neutrophil, Absolute 2.0 10 3/mcL Low 2.3-8.1 [facility] ([place]) Comment on above: Performed By: #### C BC, HFP, MG, ADIFF, ANEU ####[address] [address] BMPon 12-30-2022 BUN/Creatinine Ratio 15.9 ratio Normal 10.0-22.0 [facility] ([place]) Comment on above: Performed By: #### RODRICK Cormier MP, GFR ####[address] [address] Calcium [Mass/Vol] 9.1 mg/dL Normal 8.7-10.4 [facility] ([place]) Comment on above: Performed By: #### RODRICK Cormier MP, GFR ####[address] [address] Chloride [Moles/Vol] 106 mmol/L Normal 98-110 [facility] [place] Comment on above: Performed By: #### RODRICK Cormier MP, GFR ####[address] [address] CO2 [Moles/Vol] 30 mmol/L Normal 22-32 [facility] ([place]) Comment on above: Performed By: #### B RODRICK FULTON, GFR ####[address] [address] Creatinine [Mass/Vol] 0.82 mg/dL Normal 0.60-1.40 [facility] ([place]) Comment on above: Performed By: #### B RODRICK FULTON, GFR ####[address] [address] Electrolyte Balance 4.0 mEq/L Normal 4.0-15.0 [facility] ([place]) Comment on above: Performed By: #### B RDORICK FULTON, GFR ####[address] [address] Glucose [Mass/Vol] 86 mg/dL Normal 70-110 [facility] ([place]) Comment on above: Performed By: #### B RODRICK FULTON, GFR ####[address] [address] Potassium [Moles/Vol] 4.6 mmol/L Normal 3.5-5.0 [facility] ([place]) Comment on above: Performed By: #### B RODRICK FULTON, GFR ####[address] [address] Sodium [Moles/Vol] 140 mmol/L Normal 136-145 [facility] ([place]) Comment on above: Performed By: #### B RODRICK FULTON, GFR ####[address] [address] Urea nitrogen [Mass/Vol] 13.0 mg/dL Normal 8.0-22.0 [facility] ([place]) Comment on above: Performed By: #### B RODRICK FULTON, GFR ####[address] [address] CBCon 12-30-2022 Erythrocyte distribution width (RBC) [Ratio] 15.6 % High 11.5-15.5 [facility] ([place]) Comment on above: Performed By: #### C BC, HFP, MG, ADIFF, ANEU ####[place] [address] Hematocrit (Bld) [Volume fraction] 34.4 % Low 40.0-52.0 [facility] ([place]) Comment on above: Performed By: #### C BC, HFP, MG, ADIFF, ANEU ####[place] [address] Hgb 11.5 G/dL Low 13.0-17.5 [facility] ([place]) Comment on above: Performed By: #### C BC, HFP, MG, ADIFF, ANEU ####[place] [address] MCH (RBC) [Entitic mass] 28.0 pg Normal 27.0-33.0 [facility] ([place]) Comment on above: Performed By: #### C BC, HFP, MG, ADIFF, ANEU ####[place] [address] MCHC 33.4 G/dL Normal 32.0-36.0 [facility] ([place]) Comment on above: Performed By: #### C BC, HFP, MG, ADIFF, ANEU ####[place] [address] MCV (RBC) [Entitic vol] 83.8 fL Normal 81.0-100.0 [facility] ([place]) Comment on above: Performed By: #### C BC, HFP, MG, ADIFF, ANEU ####[place] [address] Platelet 221 10 3/mcL Normal 150-450 [facility] ([place]) Comment on above: Performed By: #### C BC, HFP, MG, ADIFF, ANEU ####[place] [address] Platelet mean volume (Bld) [Entitic vol] 7.1 fL Normal 6.4-10.5 [facility] ([place]) Comment on above: Performed By: #### C BC, HFP, MG, ADIFF, ANEU ####[address] [address] RBC 4.11 10 6/mcL Low 4.50-6.00 [facility] ([place]) Comment on above: Performed By: #### C BC, HFP, MG, ADIFF, ANEU ####[address] [address] WBC 6.1 10 3/mcL Normal 4.5-10.8 [facility] ([place]) Comment on above: Performed By: #### C BC, HFP, MG, ADIFF, ANEU ####[place] [address] HFPon 12-30-2022 Bili Indirect 0.2 mg/dL Normal 0.1-10.0 [facility] ([place]) Comment on above: Performed By: #### C BC, HFP, MG, ADIFF, ANEU ####[place] [address] Albumin Level 3.1 G/dL Low 3.2-4.8 [facility] ([place]) Comment on above: Performed By: #### C BC, HFP, MG, ADIFF, ANEU ####[place] [address] Albumin/Globulin [Mass ratio] 0.7 {ratio} Low 0.9-1.6 [facility] ([place]) Comment on above: Performed By: #### C BC, HFP, MG, ADIFF, ANEU ####[place] [address] ALP [Catalytic activity/Vol] 106 U/L Normal 38-126 [facility] ([place]) Comment on above: Performed By: #### C BC, HFP, MG, ADIFF, ANEU ####[address] [address] ALT [Catalytic activity/Vol] 88 U/L High 12-55 [facility] ([place]) Comment on above: Performed By: #### C BC, HFP, MG, ADIFF, ANEU ####[place] [id number] AST [Catalytic activity/Vol] 62 U/L High 8-34 [facility] ([place]) Comment on above: Performed By: #### C BC, HFP, MG, ADIFF, ANEU ####[place] [address] Bili Direct 0.1 mg/dL Normal 0.0-0.4 [facility] ([place]) Comment on above: Result Comment: Use of this assay is not recommended for patients undergoing treatment with eltrombopag due to the potential for falsely elevated results. Performed By: #### C BC, HFP, MG, ADIFF, ANEU ####[place] [address] Bili Total 0.30 mg/dL Normal 0.20-1.20 [facility] ([place]) Comment on above: Result Comment: Use of this assay is not recommended for patients undergoing treatment with eltrombopag due to the potential for falsely elevated results. Performed By: #### C BC, HFP, MG, ADIFF, ANEU ####[place] [address] Globulin 4.2 G/dL High 1.5-3.8 [facility] ([place]) Comment on above: Performed By: #### C BC, HFP, MG, ADIFF, ANEU ####[place] [address] Total Protein 7.3 G/dL Normal 5.7-8.2 [facility] ([place]) Comment on above: Result Comment: No te - New Reference Range in effect 19 Performed By: #### C BC, HFP, MG, ADIFF, ANEU ####[place] [address] LABORATORYOrdered By: SYSTEM SYSTEM on 12-30-2022 Albumin BCP dye [Mass/Vol] 3.1 G/dL Invalid Interpretation Code 3.2 - 4.8 G/dL AH ADM SS Albumin/Globulin [Mass ratio] 0.7 {ratio} Invalid Interpretation Code 0.9 - 1.6 ratio AH ADM SS ALP [Catalytic activity/Vol] 106 U/L Invalid Interpretation Code 38 - 126 U/L AH ADM SS ALT No additional P-5'-P [Catalytic activity/Vol] 88 U/L Invalid Interpretation Code 12 - 55 U/L AH ADM SS AST [Catalytic activity/Vol] 62 U/L Invalid Interpretation Code 8 - 34 U/L ADM SS Basophils (Bld) [#/Vol] 0.1 103/mcL Invalid Interpretation Code 0.0 - 0.3 10^3/mcL AH Workflow SS Basophils/100 WBC (Bld) 1.2 % Invalid Interpretation Code 0.0 - 2.5 % AH Workflow SS Bili Indirect 0.2 mg/dL Invalid Interpretation Code 0.1 - 10.0 mg/dL Chemistry S Bilirubin [Mass/Vol] 0.30 mg/dL Invalid Interpretation Code 0.20 - 1.20 mg/dL ADM SS Comment on above: Interpretive Data: U se of this assay is not recommended for patients undergoing treatment with eltrombopag due to the potential for falsely elevated results. Bilirubin.conjugated [Mass/Vol] 0.1 mg/dL Invalid Interpretation Code 0.0 - 0.4 mg/dL ADM SS Comment on above: Interpretive Data: U se of this assay is not recommended for patients undergoing treatment with eltrombopag due to the potential for falsely elevated results. Calcium [Mass/Vol] 9.1 mg/dL Invalid Interpretation Code 8.7 - 10.4 mg/dL ADM SS Chloride [Moles/Vol] 106 mmol/L Invalid Interpretation Code 98 - 110 mEq/L ADM SS CO2 [Moles/Vol] 30 mmol/L Invalid Interpretation Code 22 - 32 mEq/L ADM SS Creatinine [Mass/Vol] 0.82 mg/dL Invalid Interpretation Code 0.60 - 1.40 mg/dL ADM SS Electrolyte Balance 4.0 mEq/L Invalid Interpretation Code 4.0 - 15.0 mEq/L ADM SS Eosinophils (Bld) [#/Vol] 0.7 103/mcL Invalid Interpretation Code 0.0 - 0.7 10^3/mcL Workflow SS Eosinophils/100 WBC (Bld) 12.0 % Invalid Interpretation Code 0.0 - 6.0 % Workflow SS Erythrocyte distribution width (RBC) [Ratio] 15.6 % Invalid Interpretation Code 11.5 - 15.5 % AH Workflow SS GFR/1.73 sq M.predicted among blacks MDRD (S/P/Bld) [Vol rate/Area] ml/min/1.73sqm Invalid Interpretation Code AH ADM SS Comment on above: Interpretive Data: GFR Population mean for , Non- Americans Ages 20-29 = 116 mL/min/1.73 sq.m. Ages 30-39 = 107 mL/min/1.73 sq.m. Ages 40-49 = 99 mL/min/1.73 sq.m. Ages 50-59 = 93 mL/min/1.73 sq.m. Ages 60-69 = 85 mL/min/1.73 sq.m. Ages 70+ = 75 mL/min/1.73 sq.m. Chronic Kidney Disease: Less than 60 mL/min/1.73 square meters End Stage Renal Disease: Less than 15 mL/min/1.73 square meters GFR/1.73 sq M.predicted among non-blacks MDRD (S/P/Bld) [Vol rate/Area] ml/min/1.73sqm Invalid Interpretation Code [facility] Comment on above: Interpretive Data: GFR Population mean for , Non- Americans Ages 20-29 = 116 mL/min/1.73 sq.m. Ages 30-39 = 107 mL/min/1.73 sq.m. Ages 40-49 = 99 mL/min/1.73 sq.m. Ages 50-59 = 93 mL/min/1.73 sq.m. Ages 60-69 = 85 mL/min/1.73 sq.m. Ages 70+ = 75 mL/min/1.73 sq.m. Chronic Kidney Disease: Less than 60 mL/min/1.73 square meters End Stage Renal Disease: Less than 15 mL/min/1.73 square meters Globulin 4.2 G/dL Invalid Interpretation Code 1.5 - 3.8 G/dL ADM SS Glucose [Mass/Vol] 86 mg/dL Invalid Interpretation Code 70 - 110 mg/dL ADM SS Hematocrit (Bld) [Volume fraction] 34.4 % Invalid Interpretation Code 40.0 - 52.0 % Workflow SS Hemoglobin (Bld) [Mass/Vol] 11.5 G/dL Invalid Interpretation Code 13.0 - 17.5 G/dL Workflow SS Lymphocytes (Bld) [#/Vol] 2.7 103/mcL Invalid Interpretation Code 0.9 - 4.3 10^3/mcL Workflow SS Lymphocytes/100 WBC (Bld) 44.2 % Invalid Interpretation Code 20.0 - 40.0 % AH Workflow SS Magnesium [Mass/Vol] 2.1 mg/dL Invalid Interpretation Code 1.6 - 2.4 mg/dL AH ADM SS MCH (RBC) [Entitic mass] 28.0 pg Invalid Interpretation Code 27.0 - 33.0 pg AH Workflow SS MCHC 33.4 G/dL Invalid Interpretation Code 32.0 - 36.0 G/dL AH Workflow SS MCV (RBC) [Entitic vol] 83.8 fL Invalid Interpretation Code 81.0 - 100.0 fL AH Workflow SS Monocytes (Bld) [#/Vol] 0.6 103/mcL Invalid Interpretation Code 0.1 - 1.4 10^3/mcL AH Workflow SS Monocytes/100 WBC (Bld) 10.5 % Invalid Interpretation Code 2.0 - 13.0 % AH Workflow SS Neutrophils (Bld) [#/Vol] 2.0 103/mcL Invalid Interpretation Code 2.3 - 8.1 10^3/mcL AH Workflow SS Neutrophils/100 WBC (Bld) 32.1 % Invalid Interpretation Code 50.0 - 75.0 % AH Workflow SS Platelet mean volume (Bld) [Entitic vol] 7.1 fL Invalid Interpretation Code 6.4 - 10.5 fL AH Workflow SS Platelets (Bld) [#/Vol] 221 103/mcL Invalid Interpretation Code 150 - 450 10^3/mcL AH Workflow SS Potassium [Moles/Vol] 4.6 mmol/L Invalid Interpretation Code 3.5 - 5.0 mEq/L AH ADM SS Protein [Mass/Vol] 7.3 G/dL Invalid Interpretation Code 5.7 - 8.2 G/dL AH ADM SS Comment on above: Interpretive Data: * *Note - New Reference Range in effect 19 RBC (Bld) [#/Vol] 4.11 106/mcL Invalid Interpretation Code 4.50 - 6.00 10^6/mcL AH Workflow SS Sodium [Moles/Vol] 140 mmol/L Invalid Interpretation Code 136 - 145 mEq/L AH ADM SS Urea nitrogen [Mass/Vol] 13.0 mg/dL Invalid Interpretation Code 8.0 - 22.0 mg/dL AH ADM SS Urea nitrogen/Creatinine [Mass ratio] 15.9 ratio Invalid Interpretation Code 10.0 - 22.0 ratio AH ADM SS Vancomycin trough [Mass/Vol] 12.7 ug/mL Invalid Interpretation Code 5.0 - 20.0 mcg/mL AH ADM SS WBC (Bld) [#/Vol] 6.1 103/mcL Invalid Interpretation Code 4.5 - 10.8 10^3/mcL Workflow SS LABORATORYOrdered By: China Juárez on 12-30-2022 LDose Vancomycin:(trough) See eMAR (12/30/22 2:51 AM) Invalid Interpretation Code Chemistry S MGon 12-30-2022 Magnesium [Mass/Vol] 2.1 mg/dL Normal 1.6-2.4 [facility] [place]) Comment on above: Performed By: #### C BC, HFP, MG, ADIFF, ANEU ####[address] 12-30-2022 Vancomycin Tr 12.7 mcg/mL Normal 5.0-20.0 [facility] ([place]) Comment on above: Performed By: #### VIVIEN Cormier MPT, GFR ####[place] [address] LDose Vancomycin:(trough) See eMAR Normal [facility] ([place]) Comment on above: Performed By: #### VIVIEN Cormier MPT, GFR ####[place] [address] .Auto Diffon 12-29-2022 Basophil, Absolute 0.1 10 3/mcL Normal 0.0-0.3 [facility] ([place] Comment on above: Performed By: #### Camilo Patterson BMP, GFR #### [place] [address] Basophils/100 WBC (Bld) 1.1 % Normal 0.0-2.5 [facility] ([place]) Comment on above: Performed By: #### Camilo Patterson BMP, GFR #### [place] [address] Eosinophil, Absolute 0.5 10 3/mcL Normal 0.0-0.7 [facility] ([place]) Comment on above: Performed By: #### MICHELLE Fofana, GFR #### [place] [id number] Eosinophils/100 WBC (Bld) 9.7 % High 0.0-6.0 [facility] ([place]) Comment on above: Performed By: #### Camilo Patterson BMP, GFR #### [address] [address] Lymphocyte, Absolute 2.3 10 3/mcL Normal 0.9-4.3 [facility] ([place]) Comment on above: Performed By: #### Camilo Patterson BMP, GFR #### [address] [address] Lymphocytes/100 WBC (Bld) 43.8 % High 20.0-40.0 [facility] ([place]) Comment on above: Performed By: #### Camilo Patterson BMP, GFR #### [address] [address] Monocyte, Absolute 0.5 10 3/mcL Normal 0.1-1.4 [facility] ([place] Comment on above: Performed By: #### Camilo Patterson BMP, GFR #### [address] [address] Monocytes/100 WBC (Bld) 9.5 % Normal 2.0-13.0 [facility] ([place]) Comment on above: Performed By: #### Camilo Patterson BMP, GFR #### [address] [address] Neutrophils/100 WBC (Bld) 35.9 % Low 50.0-75.0 [facility] ([place]) Comment on above: Performed By: #### Camilo Patterson BMP, GFR #### [address] [address] .GFRon 12-29-2022 GFR Non- >60 Normal [facility] ([place]) Comment on above: Result Comment: GFR Population mean for , Non- Americans Ages 20-29 = 116 mL/min/1.73 sq.m. Ages 30-39 = 107 mL/min/1.73 sq.m. Ages 40-49 = 99 mL/min/1.73 sq.m. Ages 50-59 = 93 mL/min/1.73 sq.m. Ages 60-69 = 85 mL/min/1.73 sq.m. Ages 70+ = 75 mL/min/1.73 sq.m. Chronic Kidney Disease: Less than 60 mL/min/1.73 square meters End Stage Renal Disease: Less than 15 mL/min/1.73 square meters Performed By: #### Camilo G, BMP, GFR #### [address] [address] GFR >60 Normal [facility] [place] Comment [place] above: Result Comment: GFR Population mean for , Non- Americans Ages 20-29 = 116 mL/min/1.73 sq.m. Ages 30-39 = 107 mL/min/1.73 sq.m. Ages 40-49 = 99 mL/min/1.73 sq.m. Ages 50-59 = 93 mL/min/1.73 sq.m. Ages 60-69 = 85 mL/min/1.73 sq.m. Ages 70+ = 75 mL/min/1.73 sq.m. Chronic Kidney Disease: Less than 60 mL/min/1.73 square meters End Stage Renal Disease: Less than 15 mL/min/1.73 square meters Performed By: #### Camilo Patterson, BMP, GFR #### [address] [address] .NEUABSon 12-29-2022 Neutrophil, Absolute 1.8 10 3/mcL Low 2.3-8.1 [facility] ([place]) Comment on above: Performed By: #### Camilo Patterson, BMP, GFR #### [address] [address] BMPon 12-29-2022 BUN/Creatinine Ratio 14.7 ratio Normal 10.0-22.0 [facility] [place] Comment [place] above: Performed By: #### Camilo Patterson, BMP, GFR #### [address] [address] Calcium [Mass/Vol] 9.0 mg/dL Normal 8.7-10.4 [facility] ([place] Comment on above: Performed By: #### Camilo Patterson, BMP, GFR #### [address] [address] Chloride [Moles/Vol] 106 mmol/L Normal 98-110 [facility] [place] Comment on above: Performed By: #### Camilo Patterson BMP, GFR #### [address] [address] CO2 [Moles/Vol] 32 mmol/L Normal 22-32 [facility] ([place]) Comment on above: Performed By: #### Camilo Patterson BMP, GFR #### [address] [address] Creatinine [Mass/Vol] 0.75 mg/dL Normal 0.60-1.40 [facility] ([place]) Comment on above: Performed By: #### Camilo Patterson BMP, GFR #### [place] [phone] Electrolyte Balance 1.0 mEq/L Low 4.0-15.0 [facility] ([place]) Comment on above: Performed By: #### Camilo Patterson BMP, GFR #### [address] [address] Glucose [Mass/Vol] 81 mg/dL Normal 70-110 [facility] ([place] Comment on above: Performed By: #### MICHELLE Fofana, GFR #### [place] [address] Potassium [Moles/Vol] 4.3 mmol/L Normal 3.5-5.0 [facility] ([place]) Comment on above: Performed By: #### Camilo Patterson BMP, GFR #### [address] [address] Sodium [Moles/Vol] 139 mmol/L Normal 136-145 [facility] ([place] Comment on above: Performed By: #### Camilo Patterson BMP, GFR #### [address] [address] Urea nitrogen [Mass/Vol] 11.0 mg/dL Normal 8.0-22.0 [facility] ([place]) Comment on above: Performed By: #### Camilo Patterson BMP, GFR #### [address] [address] CBCon 12-29-2022 Erythrocyte distribution width (RBC) [Ratio] 15.7 % High 11.5-15.5 [facility] ([place] Comment on above: Performed By: #### MICHELLE Fofana, GFR #### [address] [address] Hematocrit (Bld) [Volume fraction] 33.0 % Low 40.0-52.0 [facility] ([place] Comment on above: Performed By: #### Camilo Patterson BMP, GFR #### [address] [address] Hgb 11.3 G/dL Low 13.0-17.5 [facility] ([place] Comment on above: Performed By: #### MICHELLE Fofana, GFR #### [address] [address] MCH (RBC) [Entitic mass] 28.1 pg Normal 27.0-33.0 [facility] ([place] Comment on above: Performed By: #### MICHELLE Fofana, GFR #### [address] [address] MCHC 34.3 G/dL Normal 32.0-36.0 [facility] ([place] Comment on above: Performed By: #### MICHELLE Fofana, GFR #### [address] [address] MCV (RBC) [Entitic vol] 81.8 fL Normal 81.0-100.0 [facility] ([place] Comment on above: Performed By: #### MICHELLE Fofana, GFR #### [address] [address] Platelet 214 10 3/mcL Normal 150-450 [facility] ([place] Comment on above: Performed By: #### MICHELLE Fofana, GFR #### [address] [address] Platelet mean volume (Bld) [Entitic vol] 6.8 fL Normal 6.4-10.5 [facility] ([place] Comment on above: Performed By: #### MICHELLE Fofana, GFR #### [address] [address] RBC 4.04 10 6/mcL Low 4.50-6.00 [facility] ([place] Comment on above: Performed By: #### Camilo Patterson BMP, GFR #### [place] [phone] WBC 5.2 10 3/mcL Normal 4.5-10.8 [facility] ([place] Comment on above: Performed By: #### Camilo Patterson, BMP, GFR #### [address] [address] HFPon 12-29-2022 Bili Indirect 0.2 mg/dL Normal 0.1-10.0 [facility] ([place] Comment on above: Performed By: #### Camilo Patterson BMP, GFR #### [place] [address] Albumin Level 3.1 G/dL Low 3.2-4.8 [facility] ([place] Comment on above: Performed By: #### Camilo Patterson BMP, GFR #### [place] [address] Albumin/Globulin [Mass ratio] 0.8 {ratio} Low 0.9-1.6 [facility] ([place] Comment on above: Performed By: #### Camilo Patterson BMP, GFR #### [place] [address] ALP [Catalytic activity/Vol] 103 U/L Normal 38-126 [facility] ([place] Comment on above: Performed By: #### Camilo Patterson BMP, GFR #### [place] [address] ALT [Catalytic activity/Vol] 84 U/L High 12-55 [facility] ([place] Comment on above: Performed By: #### Camilo Patterson, BMP, GFR #### [place] [id number] AST [Catalytic activity/Vol] 57 U/L High 8-34 [facility] ([place] Comment on above: Performed By: #### Camilo Patterson, BMP, GFR #### [place] [address] Bili Direct 0.1 mg/dL Normal 0.0-0.4 [facility] ([place] Comment on above: Result Comment: Use of this assay is not recommended for patients undergoing treatment with eltrombopag due to the potential for falsely elevated results. Performed By: #### Camilo Patterson BMP, GFR #### [place] [address] Bili Total 0.30 mg/dL Normal 0.20-1.20 [facility] ([place] Comment on above: Result Comment: Use of this assay is not recommended for patients undergoing treatment with eltrombopag due to the potential for falsely elevated results. Performed By: #### Camilo Patterson, MICHELLE, GFR #### [place] [address] Globulin 4.0 G/dL High 1.5-3.8 [facility] ([place] Comment on above: Performed By: #### Camilo Patterson, MICHELLE, GFR #### [place] [address] Total Protein 7.1 G/dL Normal 5.7-8.2 [facility] ([place] Comment on above: Result Comment: No te - New Reference Range in effect 19 Performed By: #### Camilo Patterson, MICHELLE, GFR #### [place] [address] LABORATORYOrdered By: SYSTEM SYSTEM on 12-29-2022 Albumin BCP dye [Mass/Vol] 3.1 G/dL Invalid Interpretation Code 3.2 - 4.8 G/dL ADM SS Albumin/Globulin [Mass ratio] 0.8 {ratio} Invalid Interpretation Code 0.9 - 1.6 ratio AH ADM SS ALP [Catalytic activity/Vol] 103 U/L Invalid Interpretation Code 38 - 126 U/L AH ADM SS ALT No additional P-5'-P [Catalytic activity/Vol] 84 U/L Invalid Interpretation Code 12 - 55 U/L AH ADM SS AST [Catalytic activity/Vol] 57 U/L Invalid Interpretation Code 8 - 34 U/L AH ADM SS Basophils (Bld) [#/Vol] 0.1 103/mcL Invalid Interpretation Code 0.0 - 0.3 10^3/mcL AH Workflow SS Basophils/100 WBC (Bld) 1.1 % Invalid Interpretation Code 0.0 - 2.5 % Workflow SS Bili Indirect 0.2 mg/dL Invalid Interpretation Code 0.1 - 10.0 mg/dL Chemistry S Bilirubin [Mass/Vol] 0.30 mg/dL Invalid Interpretation Code 0.20 - 1.20 mg/dL ADM SS Comment on above: Interpretive Data: U se of this assay is not recommended for patients undergoing treatment with eltrombopag due to the potential for falsely elevated results. Bilirubin.conjugated [Mass/Vol] 0.1 mg/dL Invalid Interpretation Code 0.0 - 0.4 mg/dL ADM SS Comment on above: Interpretive Data: U se of this assay is not recommended for patients undergoing treatment with eltrombopag due to the potential for falsely elevated results. Calcium [Mass/Vol] 9.0 mg/dL Invalid Interpretation Code 8.7 - 10.4 mg/dL ADM SS Chloride [Moles/Vol] 106 mmol/L Invalid Interpretation Code 98 - 110 mEq/L ADM SS CO2 [Moles/Vol] 32 mmol/L Invalid Interpretation Code 22 - 32 mEq/L ADM SS Creatinine [Mass/Vol] 0.75 mg/dL Invalid Interpretation Code 0.60 - 1.40 mg/dL ADM SS Electrolyte Balance 1.0 mEq/L Invalid Interpretation Code 4.0 - 15.0 mEq/L ADM SS Eosinophils (Bld) [#/Vol] 0.5 103/mcL Invalid Interpretation Code 0.0 - 0.7 10^3/mcL Workflow SS Eosinophils/100 WBC (Bld) 9.7 % Invalid Interpretation Code 0.0 - 6.0 % Workflow SS Erythrocyte distribution width (RBC) [Ratio] 15.7 % Invalid Interpretation Code 11.5 - 15.5 % Workflow GFR/1.73 sq M.predicted among blacks MDRD (S/P/Bld) [Vol rate/Area] ml/min/1.73sqm Invalid Interpretation Code ADM Comment on above: Interpretive Data: GFR Population mean for , Non- Americans Ages 20-29 = 116 mL/min/1.73 sq.m. Ages 30-39 = 107 mL/min/1.73 sq.m. Ages 40-49 = 99 mL/min/1.73 sq.m. Ages 50-59 = 93 mL/min/1.73 sq.m. Ages 60-69 = 85 mL/min/1.73 sq.m. Ages 70+ = 75 mL/min/1.73 sq.m. Chronic Kidney Disease: Less than 60 mL/min/1.73 square meters End Stage Renal Disease: Less than 15 mL/min/1.73 square meters GFR/1.73 sq M.predicted among non-blacks MDRD (S/P/Bld) [Vol rate/Area] ml/min/1.73sqm Invalid Interpretation Code ADM SS Comment on above: Interpretive Data: GFR Population mean for , Non- Americans Ages 20-29 = 116 mL/min/1.73 sq.m. Ages 30-39 = 107 mL/min/1.73 sq.m. Ages 40-49 = 99 mL/min/1.73 sq.m. Ages 50-59 = 93 mL/min/1.73 sq.m. Ages 60-69 = 85 mL/min/1.73 sq.m. Ages 70+ = 75 mL/min/1.73 sq.m. Chronic Kidney Disease: Less than 60 mL/min/1.73 square meters End Stage Renal Disease: Less than 15 mL/min/1.73 square meters Globulin 4.0 G/dL Invalid Interpretation Code 1.5 - 3.8 G/dL ADM SS Glucose [Mass/Vol] 81 mg/dL Invalid Interpretation Code 70 - 110 mg/dL ADM SS Hematocrit (Bld) [Volume fraction] 33.0 % Invalid Interpretation Code 40.0 - 52.0 % Workflow SS Hemoglobin (Bld) [Mass/Vol] 11.3 G/dL Invalid Interpretation Code 13.0 - 17.5 G/dL Workflow SS Lymphocytes (Bld) [#/Vol] 2.3 103/mcL Invalid Interpretation Code 0.9 - 4.3 10^3/mcL Workflow SS Lymphocytes/100 WBC (Bld) 43.8 % Invalid Interpretation Code 20.0 - 40.0 % Workflow SS Magnesium [Mass/Vol] 2.0 mg/dL Invalid Interpretation Code 1.6 - 2.4 mg/dL ADM SS MCH (RBC) [Entitic mass] 28.1 pg Invalid Interpretation Code 27.0 - 33.0 pg AH Workflow SS MCHC 34.3 G/dL Invalid Interpretation Code 32.0 - 36.0 G/dL AH Workflow SS MCV (RBC) [Entitic vol] 81.8 fL Invalid Interpretation Code 81.0 - 100.0 fL AH Workflow SS Monocytes (Bld) [#/Vol] 0.5 103/mcL Invalid Interpretation Code 0.1 - 1.4 10^3/mcL AH Workflow SS Monocytes/100 WBC (Bld) 9.5 % Invalid Interpretation Code 2.0 - 13.0 % AH Workflow SS Neutrophils (Bld) [#/Vol] 1.8 103/mcL Invalid Interpretation Code 2.3 - 8.1 10^3/mcL AH Workflow SS Neutrophils/100 WBC (Bld) 35.9 % Invalid Interpretation Code 50.0 - 75.0 % AH Workflow SS Platelet mean volume (Bld) [Entitic vol] 6.8 fL Invalid Interpretation Code 6.4 - 10.5 fL AH Workflow SS Platelets (Bld) [#/Vol] 214 103/mcL Invalid Interpretation Code 150 - 450 10^3/mcL AH Workflow SS Potassium [Moles/Vol] 4.3 mmol/L Invalid Interpretation Code 3.5 - 5.0 mEq/L AH ADM SS Protein [Mass/Vol] 7.1 G/dL Invalid Interpretation Code 5.7 - 8.2 G/dL AH ADM SS Comment on above: Interpretive Data: * *Note - New Reference Range in effect 19 RBC (Bld) [#/Vol] 4.04 106/mcL Invalid Interpretation Code 4.50 - 6.00 10^6/mcL AH Workflow SS Sodium [Moles/Vol] 139 mmol/L Invalid Interpretation Code 136 - 145 mEq/L AH ADM SS Urea nitrogen [Mass/Vol] 11.0 mg/dL Invalid Interpretation Code 8.0 - 22.0 mg/dL AH ADM SS Urea nitrogen/Creatinine [Mass ratio] 14.7 ratio Invalid Interpretation Code 10.0 - 22.0 ratio AH ADM SS WBC (Bld) [#/Vol] 5.2 103/mcL Invalid Interpretation Code 4.5 - 10.8 10^3/mcL AH Workflow SS MGon 12-29-2022 Magnesium [Mass/Vol] 2.0 mg/dL Normal 1.6-2.4 [facility] [place] Comment on above: Performed By: #### M G, BMP, GFR #### [address] [address] .Auto Diffon 12-28-2022 Basophil, Absolute 0.0 10 3/mcL Normal 0.0-0.3 [facility] [place] Comment on above: Performed By: #### M G, BMP, GFR #### [address] [address] Basophils/100 WBC (Bld) 0.9 % Normal 0.0-2.5 [facility] ([place]) Comment on above: Performed By: #### M G, BMP, GFR #### [address] [address] Eosinophil, Absolute 0.6 10 3/mcL Normal 0.0-0.7 [facility] ([place]) Comment on above: Performed By: #### Camilo G, BMP, GFR #### [address] [address] Eosinophils/100 WBC (Bld) 9.7 % High 0.0-6.0 [facility] ([place]) Comment on above: Performed By: #### Camilo G, BMP, GFR #### [address] [address] Lymphocyte, Absolute 2.4 10 3/mcL Normal 0.9-4.3 [facility] ([place]) Comment on above: Performed By: #### M G, BMP, GFR #### [address] [address] Lymphocytes/100 WBC (Bld) 42.4 % High 20.0-40.0 [facility] ([place]) Comment on above: Performed By: #### M G, BMP, GFR #### [address] [address] Monocyte, Absolute 0.5 10 3/mcL Normal 0.1-1.4 [facility] [place] Comment on above: Performed By: #### M G, BMP, GFR #### [address] [address] Monocytes/100 WBC (Bld) 8.0 % Normal 2.0-13.0 [facility] ([place] Comment on above: Performed By: #### Camilo G, BMP, GFR #### [address] [address] Neutrophils/100 WBC (Bld) 39.0 % Low 50.0-75.0 [facility] ([place] Comment on above: Performed By: #### Camilo G, BMP, GFR #### [address] [address] .GFRon 12-28-2022 GFR Non- >60 Normal [facility] ([place] Comment on above: Result Comment: GFR Population mean for , Non- Americans Ages 20-29 = 116 mL/min/1.73 sq.m. Ages 30-39 = 107 mL/min/1.73 sq.m. Ages 40-49 = 99 mL/min/1.73 sq.m. Ages 50-59 = 93 mL/min/1.73 sq.m. Ages 60-69 = 85 mL/min/1.73 sq.m. Ages 70+ = 75 mL/min/1.73 sq.m. Chronic Kidney Disease: Less than 60 mL/min/1.73 square meters End Stage Renal Disease: Less than 15 mL/min/1.73 square meters Performed By: #### Caimlo Patterson, BMP, GFR #### [address] [address] GFR >60 Normal [facility] [place] Comment on above: Result Comment: GFR Population mean for , Non- Americans Ages 20-29 = 116 mL/min/1.73 sq.m. Ages 30-39 = 107 mL/min/1.73 sq.m. Ages 40-49 = 99 mL/min/1.73 sq.m. Ages 50-59 = 93 mL/min/1.73 sq.m. Ages 60-69 = 85 mL/min/1.73 sq.m. Ages 70+ = 75 mL/min/1.73 sq.m. Chronic Kidney Disease: Less than 60 mL/min/1.73 square meters End Stage Renal Disease: Less than 15 mL/min/1.73 square meters Performed By: #### Camilo G, BMP, GFR #### [address] [address] .NEUABSon 12-28-2022 Neutrophil, Absolute 2.2 10 3/mcL Low 2.3-8.1 [facility] ([place]) Comment on above: Performed By: #### Camilo Patterson BMP, GFR #### [address] [address] BMPon 12-28-2022 BUN/Creatinine Ratio 12.8 ratio Normal 10.0-22.0 [facility] [place] Comment [place]: Performed By: #### Camilo Patterson, BMP, GFR #### [address] [address] Calcium [Mass/Vol] 9.0 mg/dL Normal 8.7-10.4 [facility] ([place]) Comment on above: Performed By: #### Camilo Patterson BMP, GFR #### [place] [id number] Chloride [Moles/Vol] 106 mmol/L Normal 98-110 [facility] [place] Comment on [place]: Performed By: #### Camilo Patterson BMP, GFR #### [place] [address] CO2 [Moles/Vol] 27 mmol/L Normal 22-32 [facility] ([place] Comment on above: Performed By: #### Camilo Patterson BMP, GFR #### [place] [address] Creatinine [Mass/Vol] 0.78 mg/dL Normal 0.60-1.40 [facility] ([place]) Comment on above: Performed By: #### Camilo Patterson, BMP, GFR #### [address] [address] Electrolyte Balance 6.0 mEq/L Normal 4.0-15.0 [facility] ([place]) Comment on above: Performed By: #### Camilo Patterson, BMP, GFR #### [place] [id number] Glucose [Mass/Vol] 109 mg/dL Normal 70-110 [facility] ([place] Comment on above: Performed By: #### Camilo Patterson, BMP, GFR #### [place] [address] Potassium [Moles/Vol] 4.1 mmol/L Normal 3.5-5.0 [facility] ([place]) Comment on above: Result Comment: Spec imen slightly hemolyzed. Performed By: #### M G, BMP, GFR #### [place] [id number] Sodium [Moles/Vol] 139 mmol/L Normal 136-145 [facility] ([place] Comment on above: Performed By: #### M G, BMP, GFR #### [place] [address] Urea nitrogen [Mass/Vol] 10.0 mg/dL Normal 8.0-22.0 [facility] ([place] Comment on above: Performed By: #### Camilo Patterson, BMP, GFR #### [place] [address] CBCon 12-28-2022 Erythrocyte distribution width (RBC) [Ratio] 15.8 % High 11.5-15.5 [facility] ([place] Comment on above: Performed By: #### Camilo Patterson, BMP, GFR #### [place] [address] Hematocrit (Bld) [Volume fraction] 34.2 % Low 40.0-52.0 [facility] ([place] Comment on above: Performed By: #### M Yesenia, BMP, GFR #### [place] [address] Hgb 11.6 G/dL Low 13.0-17.5 [facility] ([place] Comment on above: Performed By: #### M G, BMP, GFR #### [place] [address] MCH (RBC) [Entitic mass] 28.1 pg Normal 27.0-33.0 [facility] ([place] Comment on above: Performed By: #### M G, BMP, GFR #### [place] [address] MCHC 34.0 G/dL Normal 32.0-36.0 [facility] ([place] Comment on above: Performed By: #### Camilo Patterson, BMP, GFR #### [address] [address] MCV (RBC) [Entitic vol] 82.7 fL Normal 81.0-100.0 [facility] ([place] Comment on above: Performed By: #### Camilo Patterson, BMP, GFR #### [address] [address] Platelet 227 10 3/mcL Normal 150-450 [facility] ([place] Comment on above: Performed By: #### Camilo Patterson, BMP, GFR #### [address] [address] Platelet mean volume (Bld) [Entitic vol] 7.0 fL Normal 6.4-10.5 [facility] ([place] Comment on above: Performed By: #### Camilo Patterson, BMP, GFR #### [address] [address] RBC 4.13 10 6/mcL Low 4.50-6.00 [facility] ([place] Comment on above: Performed By: #### Camilo Patterson, BMP, GFR #### [address] [address] WBC 5.7 10 3/mcL Normal 4.5-10.8 [facility] [place] Comment on above: Performed By: #### Camilo Patterson, BMP, GFR #### [address] [address] HFPon 12-28-2022 Bili Indirect 0.2 mg/dL Normal 0.1-10.0 [facility] ([place] Comment on above: Performed By: #### Camilo Patterson, BMP, GFR #### [address] [address] Albumin Level 2.9 G/dL Low 3.2-4.8 [facility] ([place] Comment on above: Performed By: #### Camilo Patterson, BMP, GFR #### [place] [phone] Albumin/Globulin [Mass ratio] 0.7 {ratio} Low 0.9-1.6 [facility] ([place] Comment on above: Performed By: #### Camilo Patterson, BMP, GFR #### [place] [address] ALP [Catalytic activity/Vol] 106 U/L Normal 38-126 [facility] ([place] Comment on above: Performed By: #### Camilo Patterson, BMP, GFR #### [place] [phone] ALT [Catalytic activity/Vol] 83 U/L High 12-55 [facility] ([place] Comment on above: Performed By: #### Camilo Patterson, BMP, GFR #### [place] [phone] AST [Catalytic activity/Vol] 57 U/L High 8-34 [facility] ([place] Comment on above: Performed By: #### Camilo Patterson, BMP, GFR #### [place] [address] Bili Direct 0.1 mg/dL Normal 0.0-0.4 [facility] ([place] Comment on above: Result Comment: Use of this assay is not recommended for patients undergoing treatment with eltrombopag due to the potential for falsely elevated results. Performed By: #### Camilo Patterson BMP, GFR #### [place] [address] Bili Total 0.30 mg/dL Normal 0.20-1.20 [facility] ([place] Comment on above: Result Comment: Use of this assay is not recommended for patients undergoing treatment with eltrombopag due to the potential for falsely elevated results. Performed By: #### Camilo Patterson, BMP, GFR #### [place] [phone] Globulin 4.3 G/dL High 1.5-3.8 [facility] ([place] Comment on above: Performed By: #### Camilo Patterson, BMP, GFR #### [place] [address] Total Protein 7.2 G/dL Normal 5.7-8.2 [facility] ([place] Comment on above: Result Comment: No te - New Reference Range in effect 19 Performed By: #### M G, BMP, GFR #### [place] [address] LABORATORYOrdered By: SYSTEM SYSTEM on 12-28-2022 Albumin BCP dye [Mass/Vol] 2.9 G/dL Invalid Interpretation Code 3.2 - 4.8 G/dL AH ADM SS Albumin/Globulin [Mass ratio] 0.7 {ratio} Invalid Interpretation Code 0.9 - 1.6 ratio AH ADM SS ALP [Catalytic activity/Vol] 106 U/L Invalid Interpretation Code 38 - 126 U/L AH ADM SS ALT No additional P-5'-P [Catalytic activity/Vol] 83 U/L Invalid Interpretation Code 12 - 55 U/L AH ADM SS AST [Catalytic activity/Vol] 57 U/L Invalid Interpretation Code 8 - 34 U/L AH ADM SS Basophils (Bld) [#/Vol] 0.0 103/mcL Invalid Interpretation Code 0.0 - 0.3 10^3/mcL AH Workflow SS Basophils/100 WBC (Bld) 0.9 % Invalid Interpretation Code 0.0 - 2.5 % AH Workflow SS Bili Indirect 0.2 mg/dL Invalid Interpretation Code 0.1 - 10.0 mg/dL Chemistry S Bilirubin [Mass/Vol] 0.30 mg/dL Invalid Interpretation Code 0.20 - 1.20 mg/dL AH ADM SS Comment on above: Interpretive Data: U se of this assay is not recommended for patients undergoing treatment with eltrombopag due to the potential for falsely elevated results. Bilirubin.conjugated [Mass/Vol] 0.1 mg/dL Invalid Interpretation Code 0.0 - 0.4 mg/dL AH ADM SS Comment on above: Interpretive Data: U se of this assay is not recommended for patients undergoing treatment with eltrombopag due to the potential for falsely elevated results. Calcium [Mass/Vol] 9.0 mg/dL Invalid Interpretation Code 8.7 - 10.4 mg/dL AH ADM SS Chloride [Moles/Vol] 106 mmol/L Invalid Interpretation Code 98 - 110 mEq/L AH ADM SS CO2 [Moles/Vol] 27 mmol/L Invalid Interpretation Code 22 - 32 mEq/L AH ADM SS Creatinine [Mass/Vol] 0.78 mg/dL Invalid Interpretation Code 0.60 - 1.40 mg/dL AH ADM SS Electrolyte Balance 6.0 mEq/L Invalid Interpretation Code 4.0 - 15.0 mEq/L AH ADM SS Eosinophils (Bld) [#/Vol] 0.6 103/mcL Invalid Interpretation Code 0.0 - 0.7 10^3/mcL AH Workflow SS Eosinophils/100 WBC (Bld) 9.7 % Invalid Interpretation Code 0.0 - 6.0 % AH Workflow SS Erythrocyte distribution width (RBC) [Ratio] 15.8 % Invalid Interpretation Code 11.5 - 15.5 % AH Workflow SS GFR/1.73 sq M.predicted among blacks MDRD (S/P/Bld) [Vol rate/Area] ml/min/1.73sqm Invalid Interpretation Code ADM SS Comment on above: Interpretive Data: GFR Population mean for , Non- Americans Ages 20-29 = 116 mL/min/1.73 sq.m. Ages 30-39 = 107 mL/min/1.73 sq.m. Ages 40-49 = 99 mL/min/1.73 sq.m. Ages 50-59 = 93 mL/min/1.73 sq.m. Ages 60-69 = 85 mL/min/1.73 sq.m. Ages 70+ = 75 mL/min/1.73 sq.m. Chronic Kidney Disease: Less than 60 mL/min/1.73 square meters End Stage Renal Disease: Less than 15 mL/min/1.73 square meters GFR/1.73 sq M.predicted among non-blacks MDRD (S/P/Bld) [Vol rate/Area] ml/min/1.73sqm Invalid Interpretation Code ADM SS Comment on above: Interpretive Data: GFR Population mean for , Non- Americans Ages 20-29 = 116 mL/min/1.73 sq.m. Ages 30-39 = 107 mL/min/1.73 sq.m. Ages 40-49 = 99 mL/min/1.73 sq.m. Ages 50-59 = 93 mL/min/1.73 sq.m. Ages 60-69 = 85 mL/min/1.73 sq.m. Ages 70+ = 75 mL/min/1.73 sq.m. Chronic Kidney Disease: Less than 60 mL/min/1.73 square meters End Stage Renal Disease: Less than 15 mL/min/1.73 square meters Globulin 4.3 G/dL Invalid Interpretation Code 1.5 - 3.8 G/dL ADM SS Glucose [Mass/Vol] 109 mg/dL Invalid Interpretation Code 70 - 110 mg/dL ADM SS Hematocrit (Bld) [Volume fraction] 34.2 % Invalid Interpretation Code 40.0 - 52.0 % AH Workflow SS Hemoglobin (Bld) [Mass/Vol] 11.6 G/dL Invalid Interpretation Code 13.0 - 17.5 G/dL AH Workflow SS Lymphocytes (Bld) [#/Vol] 2.4 103/mcL Invalid Interpretation Code 0.9 - 4.3 10^3/mcL Workflow SS Lymphocytes/100 WBC (Bld) 42.4 % Invalid Interpretation Code 20.0 - 40.0 % Workflow SS Magnesium [Mass/Vol] 2.0 mg/dL Invalid Interpretation Code 1.6 - 2.4 mg/dL ADM SS MCH (RBC) [Entitic mass] 28.1 pg Invalid Interpretation Code 27.0 - 33.0 pg AH Workflow SS MCHC 34.0 G/dL Invalid Interpretation Code 32.0 - 36.0 G/dL Workflow SS MCV (RBC) [Entitic vol] 82.7 fL Invalid Interpretation Code 81.0 - 100.0 fL Workflow SS Monocytes (Bld) [#/Vol] 0.5 103/mcL Invalid Interpretation Code 0.1 - 1.4 10^3/mcL Workflow SS Monocytes/100 WBC (Bld) 8.0 % Invalid Interpretation Code 2.0 - 13.0 % Workflow SS Neutrophils (Bld) [#/Vol] 2.2 103/mcL Invalid Interpretation Code 2.3 - 8.1 10^3/mcL Workflow SS Neutrophils/100 WBC (Bld) 39.0 % Invalid Interpretation Code 50.0 - 75.0 % Workflow SS Platelet mean volume (Bld) [Entitic vol] 7.0 fL Invalid Interpretation Code 6.4 - 10.5 fL Workflow SS Platelets (Bld) [#/Vol] 227 103/mcL Invalid Interpretation Code 150 - 450 10^3/mcL Workflow SS Potassium [Moles/Vol] 4.1 mmol/L Invalid Interpretation Code 3.5 - 5.0 mEq/L ADM SS Comment on above: Result Comment: Spec imen slightly hemolyzed. Protein [Mass/Vol] 7.2 G/dL Invalid Interpretation Code 5.7 - 8.2 G/dL AH ADM SS Comment on above: Interpretive Data: * *Note - New Reference Range in effect 19 RBC (Bld) [#/Vol] 4.13 106/mcL Invalid Interpretation Code 4.50 - 6.00 10^6/mcL AH Workflow SS Sodium [Moles/Vol] 139 mmol/L Invalid Interpretation Code 136 - 145 mEq/L AH ADM SS Urea nitrogen [Mass/Vol] 10.0 mg/dL Invalid Interpretation Code 8.0 - 22.0 mg/dL AH ADM SS Urea nitrogen/Creatinine [Mass ratio] 12.8 ratio Invalid Interpretation Code 10.0 - 22.0 ratio AH ADM SS WBC (Bld) [#/Vol] 5.7 103/mcL Invalid Interpretation Code 4.5 - 10.8 10^3/mcL AH Workflow SS MGon 12-28-2022 Magnesium [Mass/Vol] 2.0 mg/dL Normal 1.6-2.4 [facility] [place] Comment [place]: Performed By: #### M G, BMP, GFR #### [address] [address] RPRon 12-28-2022 Reagin Ab RPR Ql (S) Non-Reactive Normal Non-Reactive [facility] ([place]) Comment on above: Result Comment: The RPR test is a non-treponemal assay useful as an aid in the diagnosis of primary and secondary syphilis. It converts to positive generally within 2 weeks after the appearance of a lesion. This test is also useful for monitoring response to antibiotic therapy. A positive RPR screening test will be followed by the FTA ABS test. False positive RPR tests may occur in 1) patients with underlying autoimmune disorders, 2) elderly patients, 3) , and 4) other conditions with abnormal serum globulins. Performed By: #### C BC, CA, ANEU, BMP, GFR, HEPAC, HIV, MG, RPR, PHOS, HFP, ADIFF ####[address] [address] .Auto Diffon 12-27-2022 Basophil, Absolute 0.1 10 3/mcL Normal 0.0-0.3 [facility] [place] Comment on above: Performed By: #### U A #### [address] [place], [place] [address] Basophils/100 WBC (Bld) 1.0 % Normal 0.0-2.5 [facility] ([place] Comment on above: Performed By: #### U A #### [address] [place], [place] [address] Eosinophil, Absolute 0.6 10 3/mcL Normal 0.0-0.7 [facility] ([place] Comment on above: Performed By: #### U A #### [address] [place], [place] [address] Eosinophils/100 WBC (Bld) 9.3 % High 0.0-6.0 [facility] ([place] Comment on above: Performed By: #### U A #### [address] [place], [place] [address] Lymphocyte, Absolute 2.6 10 3/mcL Normal 0.9-4.3 [facility] ([place] Comment on above: Performed By: #### U A #### [address] [place], [place] [address] Lymphocytes/100 WBC (Bld) 39.4 % Normal 20.0-40.0 [facility] ([place] Comment on above: Performed By: #### U A #### [address] [place], [place] [address] Monocyte, Absolute 0.6 10 3/mcL Normal 0.1-1.4 [facility] [place] Comment on above: Performed By: #### U A #### [address] [place], [place] [address] Monocytes/100 WBC (Bld) 9.3 % Normal 2.0-13.0 [facility] ([place] Comment on above: Performed By: #### U A #### [address] [place], [place] [address] Neutrophils/100 WBC (Bld) 41.0 % Low 50.0-75.0 [facility] ([place] Comment on above: Performed By: #### U A #### [address] [place], [place] [address] .GFRon 12-27-2022 GFR >60 Normal [facility] [place] Comment on above: Result Comment: GFR Population mean for , Non- Americans Ages 20-29 = 116 mL/min/1.73 sq.m. Ages 30-39 = 107 mL/min/1.73 sq.m. Ages 40-49 = 99 mL/min/1.73 sq.m. Ages 50-59 = 93 mL/min/1.73 sq.m. Ages 60-69 = 85 mL/min/1.73 sq.m. Ages 70+ = 75 mL/min/1.73 sq.m. Chronic Kidney Disease: Less than 60 mL/min/1.73 square meters End Stage Renal Disease: Less than 15 mL/min/1.73 square meters Performed By: #### C BC, CA, ANEU, BMP, GFR, HEPAC, HIV, MG, RPR, PHOS, HFP, ADIFF ####[place] [address] GFR Non- >60 Normal [facility] ([place] Comment on above: Result Comment: GFR Population mean for , Non- Americans Ages 20-29 = 116 mL/min/1.73 sq.m. Ages 30-39 = 107 mL/min/1.73 sq.m. Ages 40-49 = 99 mL/min/1.73 sq.m. Ages 50-59 = 93 mL/min/1.73 sq.m. Ages 60-69 = 85 mL/min/1.73 sq.m. Ages 70+ = 75 mL/min/1.73 sq.m. Chronic Kidney Disease: Less than 60 mL/min/1.73 square meters End Stage Renal Disease: Less than 15 mL/min/1.73 square meters Performed By: #### C BC, CA, ANEU, BMP, GFR, HEPAC, HIV, MG, RPR, PHOS, HFP, ADIFF ####[address] [address] .NEUABSon 12-27-2022 Neutrophil, Absolute 2.7 10 3/mcL Normal 2.3-8.1 [facility] ([place] Comment on above: Performed By: #### C BC, CA, ANEU, BMP, GFR, HEPAC, HIV, MG, RPR, PHOS, HFP, ADIFF ####[address] [address] BMPon 12-27-2022 BUN/Creatinine Ratio 13.9 ratio Normal 10.0-22.0 [facility] [place] Comment [place]: Performed By: #### C BC, CA, ANEU, BMP, GFR, HEPAC, HIV, MG, RPR, PHOS, HFP, ADIFF ####[address] [address] Calcium [Mass/Vol] 9.0 mg/dL Normal 8.7-10.4 [facility] ([place] Comment on above: Performed By: #### C BC, CA, ANEU, BMP, GFR, HEPAC, HIV, MG, RPR, PHOS, HFP, ADIFF ####[address] [address] Chloride [Moles/Vol] 107 mmol/L Normal 98-110 [facility] [place] Comment on above: Performed By: #### C BC, CA, ANEU, BMP, GFR, HEPAC, HIV, MG, RPR, PHOS, HFP, ADIFF ####[address] [address] CO2 [Moles/Vol] 28 mmol/L Normal 22-32 [facility] ([place] Comment on above: Performed By: #### C BC, CA, ANEU, BMP, GFR, HEPAC, HIV, MG, RPR, PHOS, HFP, ADIFF ####[address] [address] Creatinine [Mass/Vol] 0.72 mg/dL Normal 0.60-1.40 [facility] ([place]) Comment on above: Performed By: #### C BC, CA, ANEU, BMP, GFR, HEPAC, HIV, MG, RPR, PHOS, HFP, ADIFF ####[address] [address] Electrolyte Balance 3.0 mEq/L Low 4.0-15.0 [facility] ([place] Comment on above: Performed By: #### C BC, CA, ANEU, BMP, GFR, HEPAC, HIV, MG, RPR, PHOS, HFP, ADIFF ####[address] [address] Glucose [Mass/Vol] 81 mg/dL Normal 70-110 [facility] ([place] Comment on above: Performed By: #### C BC, CA, ANEU, BMP, GFR, HEPAC, HIV, MG, RPR, PHOS, HFP, ADIFF ####[place] [address] Potassium [Moles/Vol] 4.3 mmol/L Normal 3.5-5.0 [facility] ([place] Comment on above: Performed By: #### C BC, CA, ANEU, BMP, GFR, HEPAC, HIV, MG, RPR, PHOS, HFP, ADIFF ####[place] [address] Sodium [Moles/Vol] 138 mmol/L Normal 136-145 [facility] ([place] Comment on above: Performed By: #### C BC, CA, ANEU, BMP, GFR, HEPAC, HIV, MG, RPR, PHOS, HFP, ADIFF ####[place] [address] Urea nitrogen [Mass/Vol] 10.0 mg/dL Normal 8.0-22.0 [facility] [place] Comment on above: Performed By: #### C BC, CA, ANEU, BMP, GFR, HEPAC, HIV, MG, RPR, PHOS, HFP, ADIFF ####[address] [address] CBCon 12-27-2022 Erythrocyte distribution width (RBC) [Ratio] 15.9 % High 11.5-15.5 [facility] [place] Comment on above: Performed By: #### U A #### [facility] [address] [place], [place] [address] Hematocrit (Bld) [Volume fraction] 34.1 % Low 40.0-52.0 [facility] ([place] Comment on above: Performed By: #### U A #### Marie Jay [address] [place], [place] [address] Hgb 11.6 G/dL Low 13.0-17.5 [facility] [place] Comment on above: Performed By: #### U A #### Marie [address] [place], [place] [address] MCH (RBC) [Entitic mass] 28.2 pg Normal 27.0-33.0 [facility] [place] Comment on above: Performed By: #### U A #### [facility] [address] [place], [place] [address] MCHC 34.1 G/dL Normal 32.0-36.0 [facility] [place] Comment on above: Performed By: #### U A #### [facility] [address] [place], [place] [address] MCV (RBC) [Entitic vol] 82.8 fL Normal 81.0-100.0 [facility] [place] Comment on above: Performed By: #### U A #### [facility] [address] [place], [place] [address] Platelet 258 10 3/mcL Normal 150-450 [facility] ([place] Comment on above: Performed By: #### U A #### [facility] [address] [place], [place] [address] Platelet mean volume (Bld) [Entitic vol] 6.9 fL Normal 6.4-10.5 [facility] [place] Comment on above: Performed By: #### U A #### [facility] [address] [place], [place] [address] RBC 4.12 10 6/mcL Low 4.50-6.00 [facility] [place] Comment on above: Performed By: #### U A #### [facility] [address] [place], [place] [address] WBC 6.5 10 3/mcL Normal 4.5-10.8 [facility] ([place]) Comment on above: Performed By: #### U A #### Marie [address] [place], [place] [address] DRUGUon 12-27-2022 Amphetamine (u) Negative Normal Negative [facility] ([place]) Comment on above: Performed By: #### D RUGU ####[place] [address] Barbiturate (u) Negative Normal Negative [facility] ([place]) Comment on above: Performed By: #### D RUGU ####[place] [address] Benzodiazepine (u) Negative Normal Negative [facility] ([place]) Comment on above: Performed By: #### Patricia RUGU ####[place] [address] Cannabinoid (u) Negative Normal Negative [facility] ([place]) Comment on above: Performed By: #### Patricia RUGU ####[place] [address] Cocaine Ql (U) Negative Normal Negative [facility] ([place]) Comment on above: Performed By: #### Patricia RUGU ####[place] [address] Fentanyl (u) Positive Abnormal Negative [facility] ([place]) Comment on above: Result Comment: Test ing has been performed FOR MEDICAL PURPOSES ONLY. Performed By: #### D RUGU ####[place] [address] Methadone Ql (U) Negative Normal Negative [facility] ([place]) Comment on above: Performed By: #### D RUGU ####[place] [address] Opiate (u) Negative Normal Negative [facility] ([place]) Comment on above: Performed By: #### D RUGU ####[place] [address] Oxycodone (u) Negative Normal Negative [facility] ([place] Comment on above: Result Comment: Test ing has been performed FOR MEDICAL PURPOSES ONLY. Performed By: #### D RUGU ####[address] [address] PCP (u) Negative Normal Negative [facility] ([place] Comment on above: Performed By: #### D RUGU ####[address] [address] Propoxyphene (u) Negative Normal Negative [facility] [place] Comment on above: Performed By: #### D RUGU ####[place] [address] U pH Drug Scrn 6.5 Normal 5.0-8.0 [facility] [place] Comment on above: Performed By: #### D ABEU ####[place] [address] Urine Drugs screened: See Below Normal [facility] ([place] Comment on above: Result Comment: This drug screen is a presumptive screening only. No confirmation will be performed unless requested. Drugs screened include: Threshold Amphetamines/Methamphetamines 1,000 ng/mL Barbiturates 200 ng/mL Benzodiazepine metabolites 200 ng/mL Cannabinoids (THC metabolites) 50 ng/mL Benzoylecognine (Cocaine metab) 300 ng/mL Opiates 300 ng/mL Phencyclidine (PCP) 25 ng/mL Methadone 300 ng/mL Propoxyphene 300 ng/mL Fentanyl 1.0 ng/mL Oxycodone 100 ng/mL Testing has been performed FOR MEDICAL PURPOSES ONLY. Performed By: #### D RUGU ####[place] [address] HEPACon 12-27-2022 Hep A IgM Ab Int Normal [facility] ([place]) Comment on above: Result Comment: No s erological evidence of a current Hepatitis A infection. See Interp Performed By: #### C BC, CA, ANEU, BMP, GFR, HEPAC, HIV, MG, RPR, PHOS, HFP, ADIFF ####[address] [address] Hep B Core IgM Ab Int Normal [facility] ([place]) Comment on above: Result Comment: Samp les with a value < 0.80 Index are considered nonreactive (negative) for IgM antibodies to hepatitis B core antigen. See Interp Performed By: #### C BC, CA, ANEU, BMP, GFR, HEPAC, HIV, MG, RPR, PHOS, HFP, ADIFF ####[address] [address] Hep C Ab Reactive Abnormal Non-Reactive [facility] ([place]) Comment on above: Performed By: #### C BC, CA, ANEU, BMP, GFR, HEPAC, HIV, MG, RPR, PHOS, HFP, ADIFF ####[address] [address] Hep C Ab Int Normal [facility] ([place]) Comment on above: Result Comment: Reac tive: Samples with a value >/= 1.00 index are considered reactive for IgG antibodies to HCV. The presence of anti-HCV may be indicative of recent and/or past infection by Hepatitis C Virus. PATIENT MAY BE INFECTIONS. PLEASE INFORM SOLAR INSTALLATION MANAGER. Supplemental testing for HCV RNA may detect the presence of active HCV infection. This result is a reportable disease Infection Control has been notified. See Interp Performed By: #### C BC, CA, ANEU, BMP, GFR, HEPAC, HIV, MG, RPR, PHOS, HFP, ADIFF ####[place] [id number] Hep A IgM Ab Non-Reactive Normal Non-Reactive [facility] ([place]) Comment on above: Performed By: #### C BC, CA, ANEU, BMP, GFR, HEPAC, HIV, MG, RPR, PHOS, HFP, ADIFF ####[address] [address] Hep B Core IgM Ab Non-Reactive Normal Non-Reactive [facility] ([place]) Comment on above: Performed By: #### C BC, CA, ANEU, BMP, GFR, HEPAC, HIV, MG, RPR, PHOS, HFP, ADIFF ####[address] [address] Hep B Surf Ag Non-Reactive Normal Non-Reactive [facility] ([place]) Comment on above: Performed By: #### C BC, CA, ANEU, BMP, GFR, HEPAC, HIV, MG, RPR, PHOS, HFP, ADIFF ####[address] [address] HFPon 12-27-2022 Bili Indirect 0.2 mg/dL Normal 0.1-10.0 [facility] ([place]) Comment on above: Performed By: #### C BC, CA, ANEU, BMP, GFR, HEPAC, HIV, MG, RPR, PHOS, HFP, ADIFF ####[place] [address] Albumin Level 3.2 G/dL Normal 3.2-4.8 [facility] ([place]) Comment on above: Performed By: #### C BC, CA, ANEU, BMP, GFR, HEPAC, HIV, MG, RPR, PHOS, HFP, ADIFF ####[place] [address] Albumin/Globulin [Mass ratio] 0.8 {ratio} Low 0.9-1.6 [facility] ([place]) Comment on above: Performed By: #### C BC, CA, ANEU, BMP, GFR, HEPAC, HIV, MG, RPR, PHOS, HFP, ADIFF ####[address] [address] ALP [Catalytic activity/Vol] 104 U/L Normal 38-126 [facility] ([place]) Comment on above: Performed By: #### C BC, CA, ANEU, BMP, GFR, HEPAC, HIV, MG, RPR, PHOS, HFP, ADIFF ####[address] [address] ALT [Catalytic activity/Vol] 84 U/L High 12-55 [facility] ([place]) Comment on above: Performed By: #### C BC, CA, ANEU, BMP, GFR, HEPAC, HIV, MG, RPR, PHOS, HFP, ADIFF ####[address] [address] AST [Catalytic activity/Vol] 57 U/L High 8-34 [facility] ([place]) Comment on above: Performed By: #### C BC, CA, ANEU, BMP, GFR, HEPAC, HIV, MG, RPR, PHOS, HFP, ADIFF ####[place] [address] Bili Direct 0.1 mg/dL Normal 0.0-0.4 [facility] ([place]) Comment on above: Result Comment: Use of this assay is not recommended for patients undergoing treatment with eltrombopag due to the potential for falsely elevated results. Performed By: #### C BC, CA, ANEU, BMP, GFR, HEPAC, HIV, MG, RPR, PHOS, HFP, ADIFF ####[place] [address] Bili Total 0.30 mg/dL Normal 0.20-1.20 [facility] ([place]) Comment on above: Result Comment: Use of this assay is not recommended for patients undergoing treatment with eltrombopag due to the potential for falsely elevated results. Performed By: #### C BC, CA, ANEU, BMP, GFR, HEPAC, HIV, MG, RPR, PHOS, HFP, ADIFF ####[place] [address] Globulin 4.2 G/dL High 1.5-3.8 [facility] ([place] Comment on above: Performed By: #### C BC, CA, ANEU, BMP, GFR, HEPAC, HIV, MG, RPR, PHOS, HFP, ADIFF ####[place] [address] Total Protein 7.4 G/dL Normal 5.7-8.2 [facility] ([place]) Comment on above: Result Comment: No te - New Reference Range in effect 19 Performed By: #### C BC, CA, ANEU, BMP, GFR, HEPAC, HIV, MG, RPR, PHOS, HFP, ADIFF ####[place] [address] HIVon 12-27-2022 HIV 1/2 Ab Non-Reactive Normal Non-Reactive [facility] ([place]) Comment on above: Result Comment: Spec imen is negative for anti-HIV-1 and anti-HIV-2. Performed By: #### C BC, CA, ANEU, BMP, GFR, HEPAC, HIV, MG, RPR, PHOS, HFP, ADIFF ####[place] [address] LABORATORYOrdered By: Finn Gaspar on 12-27-2022 Amphetamines Screen Ql (U) Negative *NA* (12/27/22 7:26 PM) Invalid Interpretation Code Negative AH ADM SS Barbiturates Screen Ql (U) Negative *NA* (12/27/22 7:26 PM) Invalid Interpretation Code Negative AH ADM SS Benzodiazepines Ql (U) Negative *NA* (12/27/22 7:26 PM) Invalid Interpretation Code Negative AH ADM SS Benzoylecgonine Screen Ql (U) Negative *NA* (12/27/22 7:26 PM) Invalid Interpretation Code Negative AH ADM SS Cannabinoids Screen Ql (U) Negative *NA* (12/27/22 7:26 PM) Invalid Interpretation Code Negative AH ADM SS fentaNYL Screen Ql (U) Positive 1 *ABN* (12/27/22 7:26 PM) Invalid Interpretation Code Negative AH ADM SS Comment on above: Interpretive Data: T esting has been performed FOR MEDICAL PURPOSES ONLY. Methadone Screen Ql (U) Negative *NA* (12/27/22 7:26 PM) Invalid Interpretation Code Negative AH ADM SS Opiates Screen Ql (U) Negative *NA* (12/27/22 7:26 PM) Invalid Interpretation Code Negative AH ADM SS oxyCODONE Ql (U) Negative 2 *NA* (12/27/22 7:26 PM) Invalid Interpretation Code Negative AH ADM SS Comment on above: Interpretive Data: T esting has been performed FOR MEDICAL PURPOSES ONLY. pH (U) 6.5 [pH] Invalid Interpretation Code 5.0 - 8.0 AH Chemistry S Phencyclidine Ql (U) Negative *NA* (12/27/22 7:26 PM) Invalid Interpretation Code Negative AH ADM SS Propoxyphene Screen Ql (U) Negative *NA* (12/27/22 7:26 PM) Invalid Interpretation Code Negative AH ADM SS Urine Drugs screened: See Below 13 (12/27/22 7:26 PM) Invalid Interpretation Code AH Chemistry S Comment on above: Interpretive Data: T his drug screen is a presumptive screening only. No confirmation will be performed unless requested. Drugs screened include: Threshold Amphetamines/Methamphetamines 1,000 ng/mL Barbiturates 200 ng/mL Benzodiazepine metabolites 200 ng/mL Cannabinoids (THC metabolites) 50 ng/mL Benzoylecognine (Cocaine metab) 300 ng/mL Opiates 300 ng/mL Phencyclidine (PCP) 25 ng/mL Methadone 300 ng/mL Propoxyphene 300 ng/mL Fentanyl 1.0 ng/mL Oxycodone 100 ng/mL Testing has been performed FOR MEDICAL PURPOSES ONLY. LABORATORYOrdered By: [employer] on 12-27-2022 HAV IgM IA Ql Non-Reactive (12/27/22 4:20 AM) Invalid Interpretation Code Non-Reactive AH ADM SS HBV core IgM IA Ql Non-Reactive (12/27/22 4:20 AM) Invalid Interpretation Code Non-Reactive AH ADM SS HBV surface Ag IA Ql Non-Reactive (12/27/22 4:20 AM) Invalid Interpretation Code Non-Reactive AH ADM SS HIV 1/2 Ab Non-Reactive (12/27/22 4:20 AM) Invalid Interpretation Code Non-Reactive AH ADM SS Phosphate [Mass/Vol] 4.4 mg/dL Invalid Interpretation Code 2.4 - 5.1 mg/dL AH ADM SS Comment on above: Interpretive Data: * *Note - New Reference Range in effect 19 LABORATORYOrdered By: Lori Cole on 12-27-2022 HAV IgM IA Ql No serological evidence of a current Hepatitis A infection. Invalid Interpretation Code Chemistry S HBV core IgM IA Ql Samples with a value < 0.80 Index are considered nonreactive (negative) for IgM antibodies to hepatitis B core antigen. Invalid Interpretation Code Chemistry S HCV Ab IA Ql Reactive *ABN* (12/27/22 4:20 AM) Invalid Interpretation Code Non-Reactive AH ADM SS HCV Ab IA Ql Reactive: Samples with a value >/= 1.00 index are considered reactive for IgG antibodies to HCV. The presence of anti-HCV may be indicative of recent and/or past infection by Hepatitis C Virus. PATIENT MAY BE INFECTIONS. PLEASE INFORM SOLAR INSTALLATION MANAGER. Supplemental testing for HCV RNA may detect the presence of active HCV infection. This result is a reportable disease Infection Control has been notified. Invalid Interpretation Code AH Chemistry S HIV 1+2 Ab IA Ql Negative Invalid Interpretation Code CHARLIE Chemistry S LABORATORYOrdered By: Nicolas Alexis on 12-27-2022 Reagin Ab RPR Ql (S) Non-Reactive 14 (12/27/22 4:20 AM) Invalid Interpretation Code Non-Reactive CHARLIE Cruz Viro/Sero SS Comment on above: Interpretive Data: T he RPR test is a non-treponemal assay useful as an aid in the diagnosis of primary and secondary syphilis. It converts to positive generally within 2 weeks after the appearance of a lesion. This test is also useful for monitoring response to antibiotic therapy. A positive RPR screening test will be followed by the FTA ABS test. False positive RPR tests may occur in 1) patients with underlying autoimmune disorders, 2) elderly patients, 3) , and 4) other conditions with abnormal serum globulins. MGon 12-27-2022 Magnesium [Mass/Vol] 2.1 mg/dL Normal 1.6-2.4 [facility] [place] Comment on above: Performed By: #### C BC, CA, ANEU, BMP, GFR, HEPAC, HIV, MG, RPR, PHOS, HFP, ADIFF ####[place] [address] PHOSon 12-27-2022 Phosphate [Mass/Vol] 4.4 mg/dL Normal 2.4-5.1 [facility] [place] Comment on above: Result Comment: No te - New Reference Range in effect 19 Performed By: #### C BC, CA, ANEU, BMP, GFR, HEPAC, HIV, MG, RPR, PHOS, HFP, ADIFF ####[place] [id number] US ABDOMEN COMPLETEon 2022 US ABDOMEN COMPLETE ORIGINAL EXAMINATION: ULTRASOUND ABDOMEN COMPLETE COMPARISON: CT abdomen pelvis 12/01/2022 HISTORY: ORDERING SYSTEM PROVIDED HISTORY: Reason for Exam: Potential infectious process with elevated liver enzymes and endocarditis FINDINGS: The liver measures 17.7 cm and is diffusely echogenic no focal lesions are identified.. There is no intra or extrahepatic bile duct dilatation. The common duct is 4 mm at the anup hepatis. The gallbladder contains sludge without cholelithiasis. No wall thickening or surrounding fluid. The pancreas is suboptimally visualized. Questioned hypoechoic area measuring 0.9 x 1.5 x 1.1 cm near the pancreas. The spleen measures 14.6 x 15.2 x 5.2 cm. No focal lesions are identified. No ascites. The right left kidneys measure 10.8 and 11.4 cm respectively. The kidneys are suboptimally visualized. No hydronephrosis or renal calculus is seen. The aorta and IVC are suboptimally visualized. IMPRESSION: Hyperechoic hepatic parenchyma likely to reflect fatty infiltration. Splenomegaly. Gallbladder sludge. Question hypoechoic area near the pancreas not demonstrated on CT examination of reference. Interpreted by: Nancy Santoyo MD Preliminary Report By: Nancy Santoyo MD Electronically signed By Nancy Santoyo MD Dictated Date: 12/27/2022 8:16:22 AM Prelim Date: 12/27/2022 8:22:14 AM Sign Date: 12/27/2022 8:22:14 AM Ordering Provider: YAIR LAM Normal [facility] ([place]) .GFRon 12-26-2022 GFR >60 Normal [facility] [place] Comment on above: Result Comment: GFR Population mean for , Non- Americans Ages 20-29 = 116 mL/min/1.73 sq.m. Ages 30-39 = 107 mL/min/1.73 sq.m. Ages 40-49 = 99 mL/min/1.73 sq.m. Ages 50-59 = 93 mL/min/1.73 sq.m. Ages 60-69 = 85 mL/min/1.73 sq.m. Ages 70+ = 75 mL/min/1.73 sq.m. Chronic Kidney Disease: Less than 60 mL/min/1.73 square meters End Stage Renal Disease: Less than 15 mL/min/1.73 square meters Performed By: #### M G, BMP, GFR #### [place] [address] GFR Non- >60 Normal [facility] ([place]) Comment on above: Result Comment: GFR Population mean for , Non- Americans Ages 20-29 = 116 mL/min/1.73 sq.m. Ages 30-39 = 107 mL/min/1.73 sq.m. Ages 40-49 = 99 mL/min/1.73 sq.m. Ages 50-59 = 93 mL/min/1.73 sq.m. Ages 60-69 = 85 mL/min/1.73 sq.m. Ages 70+ = 75 mL/min/1.73 sq.m. Chronic Kidney Disease: Less than 60 mL/min/1.73 square meters End Stage Renal Disease: Less than 15 mL/min/1.73 square meters Performed By: #### Camilo Patterson BMP, GFR #### [address] [address] BMPon 12-26-2022 BUN/Creatinine Ratio 10.0 ratio Normal 10.0-22.0 [facility] [place] Comment on above: Performed By: #### MICHELLE Fofana, GFR #### [address] [address] Calcium [Mass/Vol] 8.8 mg/dL Normal 8.7-10.4 [facility] ([place]) Comment on above: Performed By: #### MICHELLE Fofana, GFR #### [address] [address] Chloride [Moles/Vol] 109 mmol/L Normal 98-110 [facility] [place] Comment on above: Performed By: #### MICHELLE Fofana, GFR #### [address] [address] CO2 [Moles/Vol] 29 mmol/L Normal 22-32 [facility] ([place]) Comment on above: Performed By: #### MICHELLE Fofana, GFR #### [address] [address] Creatinine [Mass/Vol] 0.70 mg/dL Normal 0.60-1.40 [facility] ([place]) Comment on above: Performed By: #### MICHELLE Fofana, GFR #### [address] [address] Electrolyte Balance 3.0 mEq/L Low 4.0-15.0 [facility] ([place]) Comment on above: Performed By: #### IMCHELLE Fofana, GFR #### [address] [address] Glucose [Mass/Vol] 99 mg/dL Normal 70-110 [facility] ([place] Comment on above: Performed By: #### Camilo Patterson, BMP, GFR #### [address] [address] Potassium [Moles/Vol] 3.9 mmol/L Normal 3.5-5.0 [facility] ([place]) Comment on above: Performed By: #### Camilo Patterson, BMP, GFR #### [address] [address] Sodium [Moles/Vol] 141 mmol/L Normal 136-145 [facility] ([place] Comment on above: Performed By: #### Camilo Patterson BMP, GFR #### [address] [address] Urea nitrogen [Mass/Vol] 7.0 mg/dL Low 8.0-22.0 [facility] ([place]) Comment on above: Performed By: #### Camilo Patterson BMP, GFR #### [address] [address] HFPon 12-26-2022 Albumin Level 3.2 G/dL Normal 3.2-4.8 [facility] ([place]) Comment on above: Performed By: #### H FP, MG ####[address] [address] Albumin/Globulin [Mass ratio] 0.7 {ratio} Low 0.9-1.6 [facility] ([place]) Comment on above: Performed By: #### H FP, MG ####[address] [address] ALP [Catalytic activity/Vol] 110 U/L Normal 38-126 [facility] ([place] Comment on above: Performed By: #### H FP, MG ####[address] [address] ALT [Catalytic activity/Vol] 93 U/L High 12-55 [facility] ([place] Comment on above: Performed By: #### H FP, MG ####[place] [id number] AST [Catalytic activity/Vol] 77 U/L High 8-34 [facility] ([place] Comment on above: Performed By: #### H FP, MG ####[place] [address] Bili Direct <0.1 Normal 0.0-0.4 [facility] ([place] Comment on above: Result Comment: Use of this assay is not recommended for patients undergoing treatment with eltrombopag due to the potential for falsely elevated results. Performed By: #### H FP, MG ####[place] [address] Bili Indirect Unable to Calculate Normal 0.1-10.0 [facility] ([place]) Comment on above: Result Comment: Unab le to calculate this test result accurately. Results used to calculate this test are outside the reportable range. Performed By: #### H FP, MG ####[place] [address] Bili Total 0.30 mg/dL Normal 0.20-1.20 [facility] ([place]) Comment on above: Result Comment: Use of this assay is not recommended for patients undergoing treatment with eltrombopag due to the potential for falsely elevated results. Performed By: #### H FP, MG ####[place] [address] Globulin 4.4 G/dL High 1.5-3.8 [facility] ([place] Comment on above: Performed By: #### H FP, MG ####[place] [address] Total Protein 7.6 G/dL Normal 5.7-8.2 [facility] ([place] Comment on above: Result Comment: No te - New Reference Range in effect 19 Performed By: #### H FP, MG ####[place] [address] MGon 12-26-2022 Magnesium [Mass/Vol] 2.0 mg/dL Normal 1.6-2.4 [facility] [place] Comment [place]: Performed By: #### H FP, MG ####[address] [address] Magnesium [Mass/Vol] 2.2 mg/dL Normal 1.6-2.4 [facility] [place] Comment [place] above: Performed By: #### MICHELLE Fofana, GFR #### [address] [address] XR PANOREX/ORTHOPANTOGRAMon 12-26-2022 XR PANOREX/ORTHOPANTOGRA M ORIGINAL EXAMINATION: ONE XRAY VIEW OF THE PANOREX 12/26/2022 2:24 pm COMPARISON: None. HISTORY: ORDERING SYSTEM PROVIDED HISTORY: Reason for Exam: Infection with endocarditis/poor dentition to FINDINGS: There are lucencies diffusely suggesting dental caries. There are multiple apical lucencies which could relate to dental abscesses involving the remainder of the bilateral upper dentition and the right lower dentition, and left molars. There is some sparing of the left lower dentition otherwise. IMPRESSION: Extensive dental caries and apical lucency suggesting multiple dental abscesses. Interpreted by: Yumi Fuentes MD Preliminary Report By: Yumi Fuentes MD Electronically signed By Yumi Fuentes MD Dictated Date: 12/26/2022 8:55:29 PM Prelim Date: 12/26/2022 8:58:30 PM Sign Date: 12/26/2022 8:58:30 PM Ordering Provider: YAIR Conner [facility] ([place]) .Auto Diffon 12-25-2022 Basophil, Absolute 0.1 10 3/mcL Normal 0.0-0.2 [facility] [place] Comment [place]: Performed By: #### MICHELLE Fofana, GFR #### [address] [address] Basophils/100 WBC (Bld) 0.8 % Normal 0.0-2.5 [facility] ([place] Comment on above: Performed By: #### MICHELLE Fofana, GFR #### [address] [address] Eosinophil, Absolute 0.4 10 3/mcL Normal 0.0-0.4 [facility] ([place]) Comment on above: Performed By: #### MICHELLE Fofana, GFR #### [address] [address] Eosinophils/100 WBC (Bld) 4.0 % Normal 0.0-7.0 [facility] ([place]) Comment on above: Performed By: #### Camilo Patterson BMP, GFR #### [address] [address] Lymphocyte, Absolute 1.9 10 3/mcL Normal 0.8-3.9 [facility] ([place]) Comment on above: Performed By: #### Camilo Patterson BMP, GFR #### [address] [address] Lymphocytes/100 WBC (Bld) 19.2 % Normal 10.0-50.0 [facility] ([place]) Comment on above: Performed By: #### Camilo Patterson BMP, GFR #### [address] [address] Monocyte, Absolute 0.9 10 3/mcL Normal 0.2-1.0 [facility] ([place] Comment on above: Performed By: #### Camilo Patterson BMP, GFR #### [address] [address] Monocytes/100 WBC (Bld) 8.8 % Normal 1.7-13.0 [facility] ([place]) Comment on above: Performed By: #### Camilo Patterson BMP, GFR #### [address] [address] Neutrophils/100 WBC (Bld) 67.2 % Normal 37.0-80.0 [facility] ([place]) Comment on above: Performed By: ###Kaleb Patterson BMP, GFR #### [address] [address] .GFRon 12-25-2022 GFR 119 ml/min/1.73sqm Normal [facility] ([place]) Comment on above: Result Comment: GFR Population mean for , Non- Americans Ages 20-29 = 116 mL/min/1.73 sq.m. Ages 30-39 = 107 mL/min/1.73 sq.m. Ages 40-49 = 99 mL/min/1.73 sq.m. Ages 50-59 = 93 mL/min/1.73 sq.m. Ages 60-69 = 85 mL/min/1.73 sq.m. Ages 70+ = 75 mL/min/1.73 sq.m. Chronic Kidney Disease: Less than 60 mL/min/1.73 square meters End Stage Renal Disease: Less than 15 mL/min/1.73 square meters Performed By: #### U A #### [address] [place], [place] [address] GFR Non- 98 ml/min/1.73sqm Normal [facility] ([place] Comment on above: Result Comment: GFR Population mean for , Non- Americans Ages 20-29 = 116 mL/min/1.73 sq.m. Ages 30-39 = 107 mL/min/1.73 sq.m. Ages 40-49 = 99 mL/min/1.73 sq.m. Ages 50-59 = 93 mL/min/1.73 sq.m. Ages 60-69 = 85 mL/min/1.73 sq.m. Ages 70+ = 75 mL/min/1.73 sq.m. Chronic Kidney Disease: Less than 60 mL/min/1.73 square meters End Stage Renal Disease: Less than 15 mL/min/1.73 square meters Performed By: #### U A #### [address] [place], [place] [address] .MDWon 12-25-2022 Monocyte Distribution Width 20.10 High 0.00-20.00 [facility] ([place]) Comment on above: Result Comment: For adults in ED, MDW>20.0 may be associated with a higher risk of sepsis during the first 12hrs of hospital admission Performed By: #### U A #### [address] [place], [place] [address] .NEUABSon 12-25-2022 Neutrophil, Absolute 6.6 10 3/mcL High 2.9-6.2 [facility] ([place]) Comment on above: Performed By: #### U A #### [address] [place], [place] [address] CBCon 12-25-2022 Erythrocyte distribution width (RBC) [Ratio] 15.9 % High 11.5-14.5 [facility] ([place] Comment on above: Performed By: #### M Yesenia, BMP, GFR #### [place] [address] Hematocrit (Bld) [Volume fraction] 36.8 % Low 42.0-52.0 [facility] ([place] Comment on above: Performed By: #### Camilo G, BMP, GFR #### [place] [id number] Hgb 12.4 G/dL Low 14.0-18.0 [facility] ([place] Comment on above: Performed By: #### Camilo Patterson, BMP, GFR #### [place] [address] MCH (RBC) [Entitic mass] 27.6 pg Normal 27.0-31.2 [facility] ([place] Comment on above: Performed By: #### Camilo Patterson, BMP, GFR #### [place] [address] MCHC 33.8 G/dL Normal 31.8-35.4 [facility] ([place] Comment on above: Performed By: #### Camilo Patterson, BMP, GFR #### [place] [address] MCV (RBC) [Entitic vol] 81.7 fL Normal 80.0-94.0 [facility] ([place] Comment on above: Performed By: #### Camilo Patterson, BMP, GFR #### [place] [address] Platelet 256 10 3/mcL Normal 130-400 [facility] ([place] Comment on above: Performed By: #### Camilo G, BMP, GFR #### [place] [address] Platelet mean volume (Bld) [Entitic vol] 6.5 fL Low 7.4-10.4 [facility] ([place] Comment on above: Performed By: #### M G, BMP, GFR #### [place] [address] RBC 4.51 10 6/mcL Normal 4.04-6.13 [facility] ([place] Comment on above: Performed By: #### M G, BMP, GFR #### [address] [address] WBC 9.9 10 3/mcL Normal 4.6-10.8 [facility] ([place] Comment on above: Performed By: #### M G, BMP, GFR #### [address] [address] CMPon 12-25-2022 Albumin Level 3.7 G/dL Normal 3.5-5.0 [facility] ([place] Comment on above: Performed By: #### U A #### [facility] [address] [place], [place] [address] Albumin/Globulin [Mass ratio] 0.7 {ratio} Low 1.1-2.5 [facility] ([place] Comment on above: Performed By: #### U A #### [facility] [address] [place], [place] [address] ALP [Catalytic activity/Vol] 135 U/L Normal 40-135 [facility] ([place] Comment on above: Performed By: #### U A #### [facility] [address] [place], [place] [address] ALT [Catalytic activity/Vol] 95 U/L High 16-63 [facility] ([place] Comment on above: Performed By: #### U A #### [facility] [address] [place], [place] [address] AST [Catalytic activity/Vol] 56 U/L High 10-40 [facility] [place] Comment on above: Performed By: #### U A #### [facility] [address] [place], [place] [address] Bili Total 0.4 mg/dL Normal 0.2-1.0 [facility] [place] Comment on above: Result Comment: Use of this assay is not recommended for patients undergoing treatment with eltrombopag due to the potential for falsely elevated results. Performed By: #### U A #### [facility] [address] [place], [place] [address] BUN/Creatinine Ratio 9 ratio Normal 7-27 [facility] [place] Comment [place]: Performed By: #### U A #### [address] [place], [place] [address] Calcium [Mass/Vol] 8.8 mg/dL Normal 8.4-10.2 [facility] ([place] Comment on above: Performed By: #### U A #### Mariemarysol Rao [address] [place], [place] [address] Chloride [Moles/Vol] 99 mmol/L Normal 98-107 [facility] [place] Comment on above: Performed By: #### U A #### Mariemarysol Sauern [address] [place], [place] [address] CO2 [Moles/Vol] 28 mmol/L Normal 22-29 [facility] ([place] Comment on above: Performed By: #### U A #### Mariemarysol Sau[address] [place], [place] [address] Creatinine [Mass/Vol] 0.89 mg/dL Normal 0.70-1.30 [facility] ([place]) Comment on above: Performed By: #### U A #### [address] [place], [place] [address] Electrolyte Balance 12.0 mEq/L Normal 4.0-15.0 [facility] ([place]) Comment on above: Performed By: #### U A #### Mariemarysol Sauern [address] [place], [place] [address] Globulin 5.2 G/dL Normal [facility] ([place]) Comment on above: Performed By: #### U A #### Marie Jay [address] [place], [place] [address] Glucose [Mass/Vol] 85 mg/dL Normal 70-105 [facility] ([place]) Comment on above: Performed By: #### U A #### [facility] [address] [place], [place] [address] Potassium [Moles/Vol] 3.9 mmol/L Normal 3.5-5.1 [facility] ([place]) Comment on above: Performed By: #### U A #### Marie Sauern [address] [place], [place] [address] Sodium [Moles/Vol] 139 mmol/L Normal 136-145 [facility] ([place]) Comment on above: Performed By: #### U A #### Marie Jay [address] [place], [place] [address] Total Protein 8.9 G/dL High 6.4-8.2 [facility] ([place]) Comment on above: Performed By: #### U A #### Mariemarysol Sauern [address] [place], [place] [address] Urea nitrogen [Mass/Vol] 8 mg/dL Normal 7-18 [facility] ([place]) Comment on above: Performed By: #### U A #### Marie Jay [address] [place], [place] [address] CT HEAD OR BRAIN W/O CONTRAS Ton 12-25-2022 CT HEAD OR BRAIN W/O CONTRAST ORIGINAL HISTORY: Endocarditis, worsening headache COMPARISON: No TECHNIQUE: Routine non-contrast head CT with sagittal and coronal reconstructions This exam was performed according to our departmental dose optimization program, and includes the following measures where applicable: automated exposure control, adjustment of the mAs and/or kVp according to patient size and/or exam, and an iterative reconstruction algorithm. FINDINGS: The ventricles and sulci are normal in size and configuration. There are no abnormal intra or extra-axial fluid collections. Lopez-white matter differentiation is maintained. The calvaria and the bones of the base of the skull are intact. IMPRESSION: Normal examination. Interpreted by: Chris Jon MD Preliminary Report By: Chris Jon MD Electronically signed By Chris Jon MD Dictated Date: 12/25/2022 1:57:31 PM Prelim Date: 12/25/2022 1:58:59 PM Sign Date: 12/25/2022 1:58:59 PM Ordering Provider: DARIA Adam [facility] ([place]) LABORATORYOrdered By: SYSTEM SYSTEM on 12-25-2022 Lactate [Moles/Vol] 0.8 mmol/L Invalid Interpretation Code 0.4 - 2.0 mmol/L AO ADM SS Albumin BCP dye [Mass/Vol] 3.7 G/dL Invalid Interpretation Code 3.5 - 5.0 G/dL AO ADM SS Albumin/Globulin [Mass ratio] 0.7 {ratio} Invalid Interpretation Code 1.1 - 2.5 ratio AO ADM SS ALP [Catalytic activity/Vol] 135 U/L Invalid Interpretation Code 40 - 135 U/L AO ADM SS ALT With P-5'-P [Catalytic activity/Vol] 95 U/L Invalid Interpretation Code 16 - 63 U/L AO ADM SS AST With P-5'-P [Catalytic activity/Vol] 56 U/L Invalid Interpretation Code 10 - 40 U/L AO ADM SS Basophil, Absolute 0.1 103/mcL Invalid Interpretation Code 0.0 - 0.2 10^3/mcL AO Workflow SS Basophils/100 WBC (Bld) 0.8 % Invalid Interpretation Code 0.0 - 2.5 % AO Workflow SS Bilirubin [Mass/Vol] 0.4 mg/dL Invalid Interpretation Code 0.2 - 1.0 mg/dL AO ADM SS Comment on above: Interpretive Data: U se of this assay is not recommended for patients undergoing treatment with eltrombopag due to the potential for falsely elevated results. Calcium [Mass/Vol] 8.8 mg/dL Invalid Interpretation Code 8.4 - 10.2 mg/dL AO ADM SS Chloride [Moles/Vol] 99 mmol/L Invalid Interpretation Code 98 - 107 mmol/L AO ADM SS CO2 [Moles/Vol] 28 mmol/L Invalid Interpretation Code 22 - 29 mmol/L AO ADM SS Creatinine [Mass/Vol] 0.89 mg/dL Invalid Interpretation Code 0.70 - 1.30 mg/dL AO ADM SS Electrolyte Balance 12.0 mEq/L Invalid Interpretation Code 4.0 - 15.0 mEq/L AO ADM SS Eosinophil, Absolute 0.4 103/mcL Invalid Interpretation Code 0.0 - 0.4 10^3/mcL AO Workflow SS Eosinophils/100 WBC (Bld) 4.0 % Invalid Interpretation Code 0.0 - 7.0 % AO Workflow SS Erythrocyte distribution width (RBC) [Ratio] 15.9 % Invalid Interpretation Code 11.5 - 14.5 % AO Workflow SS GFR/1.73 sq M.predicted among blacks MDRD (S/P/Bld) [Vol rate/Area] 119 ml/min/1.73sqm Invalid Interpretation Code AO Chemistry S Comment on above: Interpretive Data: GFR Population mean for , Non- Americans Ages 20-29 = 116 mL/min/1.73 sq.m. Ages 30-39 = 107 mL/min/1.73 sq.m. Ages 40-49 = 99 mL/min/1.73 sq.m. Ages 50-59 = 93 mL/min/1.73 sq.m. Ages 60-69 = 85 mL/min/1.73 sq.m. Ages 70+ = 75 mL/min/1.73 sq.m. Chronic Kidney Disease: Less than 60 mL/min/1.73 square meters End Stage Renal Disease: Less than 15 mL/min/1.73 square meters GFR/1.73 sq M.predicted among non-blacks MDRD (S/P/Bld) [Vol rate/Area] 98 ml/min/1.73sqm Invalid Interpretation Code AO Chemistry S Comment on above: Interpretive Data: GFR Population mean for , Non- Americans Ages 20-29 = 116 mL/min/1.73 sq.m. Ages 30-39 = 107 mL/min/1.73 sq.m. Ages 40-49 = 99 mL/min/1.73 sq.m. Ages 50-59 = 93 mL/min/1.73 sq.m. Ages 60-69 = 85 mL/min/1.73 sq.m. Ages 70+ = 75 mL/min/1.73 sq.m. Chronic Kidney Disease: Less than 60 mL/min/1.73 square meters End Stage Renal Disease: Less than 15 mL/min/1.73 square meters Globulin 5.2 G/dL Invalid Interpretation Code AO ADM SS Glucose [Mass/Vol] 85 mg/dL Invalid Interpretation Code 70 - 105 mg/dL AO ADM SS Hematocrit (Bld) [Volume fraction] 36.8 % Invalid Interpretation Code 42.0 - 52.0 % AO Workflow SS Hemoglobin (Bld) [Mass/Vol] 12.4 G/dL Invalid Interpretation Code 14.0 - 18.0 G/dL AO Workflow SS Lactate [Moles/Vol] 0.8 mmol/L Invalid Interpretation Code 0.4 - 2.0 mmol/L AO ADM SS Lymphocyte, Absolute 1.9 103/mcL Invalid Interpretation Code 0.8 - 3.9 10^3/mcL AO Workflow SS Lymphocytes/100 WBC (Bld) 19.2 % Invalid Interpretation Code 10.0 - 50.0 % AO Workflow SS MCH (RBC) [Entitic mass] 27.6 pg Invalid Interpretation Code 27.0 - 31.2 pg AO Workflow SS MCHC 33.8 G/dL Invalid Interpretation Code 31.8 - 35.4 G/dL AO Workflow SS MCV (RBC) [Entitic vol] 81.7 fL Invalid Interpretation Code 80.0 - 94.0 fL AO Workflow SS Monocyte distribution width Auto (Bld) [Entitic vol] 20.10 1 Invalid Interpretation Code 0.00 - 20.00 AO Workflow SS Comment on above: Result Comment: For adults in ED, MDW>20.0 may be associated with a higher risk of sepsis during the first 12hrs of hospital admission Monocyte, Absolute 0.9 103/mcL Invalid Interpretation Code 0.2 - 1.0 10^3/mcL AO Workflow SS Monocytes/100 WBC (Bld) 8.8 % Invalid Interpretation Code 1.7 - 13.0 % AO Workflow SS Natriuretic peptide.B prohormone N-Terminal [Mass/Vol] 84 pg/mL Invalid Interpretation Code 0 - 125 pg/mL AO ADM SS Comment on above: Interpretive Data: N T-proBNP results of less than 300 pg/mL effectively rules out acute congestive heart failure with 99% negative predictive value. Neutrophil, Absolute 6.6 103/mcL Invalid Interpretation Code 2.9 - 6.2 10^3/mcL AO Workflow SS Neutrophils/100 WBC (Bld) 67.2 % Invalid Interpretation Code 37.0 - 80.0 % AO Workflow SS Platelet mean volume (Bld) [Entitic vol] 6.5 fL Invalid Interpretation Code 7.4 - 10.4 fL AO Workflow SS Platelets (Bld) [#/Vol] 256 103/mcL Invalid Interpretation Code 130 - 400 10^3/mcL AO Workflow SS Potassium [Moles/Vol] 3.9 mmol/L Invalid Interpretation Code 3.5 - 5.1 mmol/L AO ADM SS Protein [Mass/Vol] 8.9 G/dL Invalid Interpretation Code 6.4 - 8.2 G/dL AO ADM SS RBC (Bld) [#/Vol] 4.51 106/mcL Invalid Interpretation Code 4.04 - 6.13 10^6/mcL AO Workflow SS Sodium [Moles/Vol] 139 mmol/L Invalid Interpretation Code 136 - 145 mmol/L AO ADM SS Troponin I.cardiac DL <= 0.01 ng/mL [Mass/Vol] ng/L Invalid Interpretation Code 0.0 - 76.2 ng/L AO ADM SS Urea nitrogen [Mass/Vol] 8 mg/dL Invalid Interpretation Code 7 - 18 mg/dL AO ADM SS Urea nitrogen/Creatinine [Mass ratio] 9 ratio Invalid Interpretation Code 7 - 27 ratio AO ADM SS WBC (Bld) [#/Vol] 9.9 103/mcL Invalid Interpretation Code 4.6 - 10.8 10^3/mcL AO Workflow SS LABORATORYOrdered By: Donna Aldana on 12-25-2022 Appearance (U) Clear (12/25/22 2:27 PM) Invalid Interpretation Code Clear AO Auto Urine SS Bilirubin Ql (U) Negative (12/25/22 2:27 PM) Invalid Interpretation Code Negative AO Auto Urine SS Color (U) Yellow (12/25/22 2:27 PM) Invalid Interpretation Code AO Auto Urine SS Glucose Test strip (U) [Mass/Vol] Negative Invalid Interpretation Code Negative AO Auto Urine SS Hemoglobin Auto test strip (U) [Mass/Vol] Negative (12/25/22 2:27 PM) Invalid Interpretation Code Negative AO Auto Urine SS Ketones Ql (U) Negative Invalid Interpretation Code Negative AO Auto Urine SS UA Leuk Est Negative (12/25/22 2:27 PM) Invalid Interpretation Code Negative AO Auto Urine SS UA Nitrite Negative (12/25/22 2:27 PM) Invalid Interpretation Code Negative AO Auto Urine SS UA pH 8.0 (12/25/22 2:27 PM) Invalid Interpretation Code 5.0 - 8.0 AO Auto Urine SS UA Protein Negative Invalid Interpretation Code Negative AO Auto Urine SS UA Spec Grav 1.020 (12/25/22 2:27 PM) Invalid Interpretation Code 1.015-1.025 AO Auto Urine SS UA Specimen Type Clean Catch (12/25/22 2:27 PM) Invalid Interpretation Code AO Auto Urine SS UA Urobilinogen 0.2 E.U./dL Invalid Interpretation Code 0.2-1.0 AO Auto Urine SS LABORATORYOrdered By: Veronica Ott on 12-25-2022 INR Coag (PPP) [Relative time] 1.1 {INR} Invalid Interpretation Code AO [facility] SS Comment on above: Interpretive Data: Jass reardon [employer] (CHEST, 1991, 102:312S-25S) recommended therapeutic range for oral anticoagulant therapy is: LOW RISK: Prophylaxis of venous thrombosis INR: 2.0-3.0 Treatment of pulmonary embolism 2.0-3.0 Prevention of systemic embolism 2.0-3.0 HIGH RISK: Mechanical prosthetic valves 2.5-3.5 PT Coag (PPP) [Time] 13.0 s Invalid Interpretation Code 9.0 - 14.2 seconds AO [facility] SS LACon 12-25-2022 Lactic Acid Lvl 0.8 mmol/L Normal 0.4-2.0 [facility] ([place]) Comment on above: Performed By: #### M G, BMP, GFR #### [address] [address] Lactic Acid Lvl 0.8 mmol/L Normal 0.4-2.0 [facility] ([place]) Comment on above: Performed By: #### U A #### [facility] [address] [place], [place] [address] No Panel Informationon 12-25 Microscopic examination of blood, culture Culture has been received in lab and is no growth to date. Routine cultures are held for 5 days. [facility] Microscopic examination of blood, culture Culture has been received in lab and is no growth to date. Routine cultures are held for 5 days. [facility] PBNPon 12-25-2022 Natriuretic peptide B (Bld) [Mass/Vol] 84 pg/mL Normal 0-125 [facility] ([place]) Comment on above: Result Comment: NT-p roBNP results of less than 300 pg/mL effectively rules out acute congestive heart failure with 99% negative predictive value. Performed By: #### U A #### [facility] [address] [place], [place] [address] PROon 12-25-2022 PT Coag (PPP) [Time] 13.0 s Normal 9.0-14.2 [facility] ([place] Comment on above: Performed By: #### U A #### [facility] [address] [place], [place] [address] PT International Ratio 1.1 Normal [facility] ([place]) Comment on above: Result Comment: [employer] (CHEST, 1992, 102:312S-25S) recommended therapeutic range for oral anticoagulant therapy is: LOW RISK: Prophylaxis of venous thrombosis INR: 2.0-3.0 Treatment of pulmonary embolism 2.0-3.0 Prevention of systemic embolism 2.0-3.0 HIGH RISK: Mechanical prosthetic valves 2.5-3.5 Performed By: #### U A #### Marie Sauern [address] [place], [place] [address] TROPHSon 12-25-2022 Troponin I High Sensitivity <4.0 Normal 0.0-76.2 [facility] ([place]) Comment on above: Performed By: #### U A #### Marie Sauern [address] [place], [place] [address] UAon 12-25-2022 Color (U) Yellow Normal [facility] ([place] Comment on above: Performed By: #### U A #### Marie [address]ern [address] [place], [place] [address] Glucose (U) [Mass/Vol] Negative Normal Negative [facility] ([place] Comment on above: Performed By: #### U A #### Marie Suaern [address] [place], [place] [address] Ketones Ql (U) Negative Normal Negative [facility] ([place] Comment on above: Performed By: #### U A #### Marie [address]ern [address] [place], [place] [address] UA Appear Clear Normal Clear [facility] ([place] Comment on above: Performed By: #### U A #### Marie [address]ern [address] [place], [place] [address] UA Blood Negative Normal Negative [facility] ([place] Comment on above: Performed By: #### U A #### Marie [address]ern [address] [place], [place] [address] UA Leuk Est Negative Normal Negative [facility] ([place] Comment on above: Performed By: #### U A #### Marie [address] [place], [place] [address] UA Nitrite Negative Normal Negative [facility] ([place] Comment on above: Performed By: #### U A #### Marie [address] [place], [place] [address] UA pH 8.0 Normal 5.0 - 8.0 [facility] ([place] Comment on above: Performed By: #### U A #### Marie [address]ern [address] [place], [place] [address] UA Protein Negative Normal Negative [facility] ([place] Comment on above: Performed By: #### U A #### Marie [address] [place], [place] [address] UA Spec Grav 1.020 Normal 1.015-1.025 [facility] ([place] Comment on above: Performed By: #### U A #### Marie [address] [place], [place] [address] UA Specimen Type Clean Catch Normal [facility] ([place] Comment on above: Performed By: #### U A #### Marie [address]ern [address] [place], [place] [address] UA Urobilinogen 0.2 E.U./dL Normal 0.2-1.0 [facility] ([place] Comment on above: Performed By: #### U A #### Marie Rao [address] [place], [place] [address] Urobilinogen (U) [Mass/Vol] Negative Normal Negative [facility] ([place] Comment on above: Performed By: #### U A #### Marie [address]ern [address] [place], [place] [address] XR CHEST 1 VIEWon 12-25-2022 XR CHEST 1 VIEW ORIGINAL EXAMINATION: ONE XRAY VIEW OF THE CHEST12/25/2022 1:50 pm COMPARISON: 11/29/2022 HISTORY: ORDERING SYSTEM PROVIDED HISTORY: Reason for Exam: pain/fever FINDINGS: The cardiomediastinal contours are normal. Vascular structures appear within normal limits. Chronic blunting of the left costophrenic sinus noted. No pleural fluid or pneumothorax. No aggressive osseous lesions identified.Bony detail is not optimal. IMPRESSION: Chronic blunting of the left costophrenic sinus could relate to pleural-parenchymal scarring or a small left pleural effusion. Interpreted by: Morales Brice MD Preliminary Report By: Morales Brice MD Electronically signed By Morales Brice MD Dictated Date: 12/25/2022 1:55:03 PM Prelim Date: 12/25/2022 1:56:10 PM Sign Date: 12/25/2022 1:56:10 PM Ordering Provider: DARIA HANSEN [facility] ([place]) CRPon 12-24-2022 C-Reactive Protein 1.6 mg/dL High 0.0-0.3 [facility]) Comment on above: Performed By: #### C RP, ESR ####[place] [address] ESRon 12-24-2022 Erythrocyte Sed Rate 53 mm/hr High 0-15 [facility]) Comment on above: Performed By: #### C RP, ESR ####[place] [address] HCQPCRon 12-10-2022 HCQPCR Quant Log Value 6.00 LogCopies/mL [facility]) Comment on above: Result Comment: The Linear Range of this assay is 15 IU/ml to 100,000,000 IU/ml Performed By: [facility] [employer] [address] [place] [address] [employer] Traffic Guard: Keith Jackson III, M.D. CLIA#: [id number] Performed By: #### T ROPHS, LAC, PRO ####[place] [address]#### INTPGP, HCQPCR ####[facility] CenterRshcy[facility]io[address] [place], [place] [address] HCV RNA (IU/mL) [id number] IU/mL [facility] ([place]) Comment on above: Result Comment: Perf ormed By: [facility] [employer] [address] [place] [address] [employer] Traffic Guard: Keith Jackson III, M.D. CLIA#: [id number] Performed By: #### T ROPHS, LAC, PRO ####[place] [address]#### INTPGP, HCQPCR ####[place] [address] [place] [address] Hepatitis C RNA Detected Abnormal HCV RNA not detected by PCR. [facility] ([place]) Comment on above: Result Comment: Perf ormed By: [facility] [employer] [address] [place] [address] [employer] Traffic Guard: Keith Jackson III, M.D. CLIA#: [id number] Performed By: #### T ROPHS, LAC, PRO ####[place] [address]#### INTPGP, HCQPCR ####[address]em[address]sol [address]ena[address] [place] [address] QuantTBon 12-10-2022 Mitogen minus NIL >9.89 Normal >=0.50 [facility] ([place]) Comment on above: Result Comment: Perf ormed By: [facility] [employer] [address] [place] [address] [employer] Traffic Guard: Keith Jackson III, M.D. CLIA#: [id number] Performed By: #### T ROPHS, LAC, PRO ####[place] [address]#### INTPGP, HCQPCR ####[facility] CenterQziyfhouf0306 [place] [address] TB Interpretation Infection with M. tuberculosis complex is unlikely. If latent tuberculosis infection is highly suspected, a negative result does not rule out the infection. Specimens from immunocompromised patients and those <5 years of age may show false negative results. In case of a contact investigation, please repeat 8-12 weeks after a known exposure. Normal [facility] ([place] Comment on above: Result Comment: Perf ormed By: [facility] [employer] [address] [place] [address] [employer] Traffic Guard: Keith Jackson III, M.D. CLIA#: [id number] Performed By: #### T ROPHS, LAC, PRO ####[place] [address]#### INTPGP, HCQPCR ####Marie Sax[address]uf[address] [place] [address] TB NIL 0.11 IU/mL Normal <=8.00 [facility] ([place]) Comment on above: Result Comment: Perf ormed By: [place] [address] [employer] Traffic Guard: Keith Jackson III, M.D. CLIA#: [id number] Performed By: #### T ROPHS, LAC, PRO ####[place] [address]#### INTPGP, HCQPCR ####Marie Sax[address] [place] [address] TB Result Negative Normal [facility] ([place]) Comment on above: Result Comment: Perf ormed By: [place] [address] [employer] Traffic Guard: Keith Jackson III, M.D. CLIA#: [id number] Performed By: #### T ROPHS, LAC, PRO ####[place] [address]#### INTPGP, HCQPCR ####Marie SaxenaYmmhcdlmm[address] [place] [address] TB1 Ag minus NIL 0.33 IU/mL Normal <0.35 [facility] ([place]) Comment on above: Result Comment: Perf ormed By: [place] [address] [employer] Traffic Guard: Keith Jackson III, M.D. CLIA#: [id number] Performed By: #### T ROPHS, LAC, PRO ####[place] [address]#### INTPGP, HCQPCR ####Marie SaxenaVmsbhrpwv[address] [place] [address] TB2 Ag minus NIL 0.24 IU/mL Normal <0.35 [facility] ([place] Comment on above: Result Comment: Perf ormed By: [facility] [address] [place] [address] [employer] Traffic Guard: [place]ita [place] IIIIA#: [id number] Performed By: #### T ROPHS, LAC, PRO ####[address] [address]#### INTPGP, HCQPCR ####[place] [address] [place], [place] [address] DRUGUon 12-08-2022 Amphetamine (u) Negative Normal Negative [facility] ([place]) Comment on above: Performed By: #### M G, BMP, GFR #### [place] [address] Barbiturate (u) Negative Normal Negative [facility] ([place] Comment on above: Performed By: #### M G, BMP, GFR #### [place] [address] Benzodiazepine (u) Negative Normal Negative [facility] ([place] Comment on above: Performed By: #### M G, BMP, GFR #### [place] [address] Cannabinoid (u) Positive Abnormal Negative [facility] ([place] Comment on above: Performed By: #### M G, BMP, GFR #### [place] [address] Cocaine Ql (U) Negative Normal Negative [facility] ([place] Comment on above: Performed By: #### M G, BMP, GFR #### [place] [address] Fentanyl (u) Positive Abnormal Negative [facility] ([place] Comment on above: Result Comment: Test ing has been performed FOR MEDICAL PURPOSES ONLY. Performed By: #### M G, BMP, GFR #### [place] [address] Methadone Ql (U) Negative Normal Negative [facility] ([place] Comment on above: Performed By: #### M G, BMP, GFR #### [place] [address] Opiate (u) Negative Normal Negative [facility] ([place] Comment on above: Performed By: #### M Yesenia, BMP, GFR #### [address] [address] Oxycodone (u) Negative Normal Negative [facility] [place] Comment on above: Result Comment: Test ing has been performed FOR MEDICAL PURPOSES ONLY. Performed By: #### Camilo Patterson, BMP, GFR #### [address] [address] PCP (u) Negative Normal Negative [facility] ([place] Comment on above: Performed By: #### Camilo Patterson, BMP, GFR #### [address] [address] Propoxyphene (u) Negative Normal Negative [facility] [place] Comment on above: Performed By: #### Camilo Patterson, BMP, GFR #### [place] [address] U pH Drug Scrn 5.5 Normal 5.0-8.0 [facility] ([place] Comment on above: Performed By: #### Camilo Patterson, BMP, GFR #### [address] [address] Urine Drugs screened: See Below Normal [facility] ([place]) Comment on above: Result Comment: This drug screen is a presumptive screening only. No confirmation will be performed unless requested. Drugs screened include: Threshold Amphetamines/Methamphetamines 1,000 ng/mL Barbiturates 200 ng/mL Benzodiazepine metabolites 200 ng/mL Cannabinoids (THC metabolites) 50 ng/mL Benzoylecognine (Cocaine metab) 300 ng/mL Opiates 300 ng/mL Phencyclidine (PCP) 25 ng/mL Methadone 300 ng/mL Propoxyphene 300 ng/mL Fentanyl 1.0 ng/mL Oxycodone 100 ng/mL Testing has been performed FOR MEDICAL PURPOSES ONLY. Performed By: #### M Yesenia, BMP, GFR #### [address] [address] HEPACon 12-08-2022 Hep A IgM Ab Non-Reactive Normal Non-Reactive [facility] ([place] Comment on above: Performed By: #### C MP, GFR ####[address] [place], [place] [address]#### ANEU, ADIFF, CBC ####[address] [address]#### HEPAC ####Marie [address] [place], [place] [address] Hep A IgM Ab Int Normal [facility] ([place] Comment on above: Result Comment: No s erological evidence of a current Hepatitis A infection. See Interp Performed By: #### C MP, GFR ####Marie [place] [address]#### ANEU, ADIFF, CBC ####[place] [address]#### HEPAC ####[facility] CenterKqcvgvaqk9856 [place] [address] Hep B Core IgM Ab Non-Reactive Normal Non-Reactive [facility] ([place] Comment on above: Performed By: #### C MP, GFR ####Marie [place] [address]#### ANEU, ADIFF, CBC ####[place] [address]#### HEPAC ####[facility] CenterQyytpwfkh0876 [place] [id number] Hep B Core IgM Ab Int Normal [facility] ([place] Comment on above: Result Comment: Samp les with a value < 0.80 Index are considered nonreactive (negative) for IgM antibodies to hepatitis B core antigen. See Interp Performed By: #### C MP, GFR ####Marie [place] [id number]#### ANEU, ADIFF, CBC ####[place] [id number]#### HEPAC ####[facility]Mart[facility] HospitalEgyneveir3532 [place] [id number] Hep B Surf Ag Non-Reactive Normal Non-Reactive [facility] ([place] Comment on above: Performed By: #### C MP, GFR ####Marie [place] [address]#### ANEU, ADIFF, CBC ####[place] [address]#### HEPAC ####[place] [id number] [place] [address] Hep C Ab Reactive Abnormal Non-Reactive [facility] ([place] Comment on above: Performed By: #### C MP, GFR ####Marie [place] [address]#### ANEU, ADIFF, CBC ####[place] [address]#### HEPAC ####[place] [address] Hep C Ab Int Normal [facility] ([place]) Comment on above: Result Comment: Reac tive: Samples with a value >/= 1.00 index are considered reactive for IgG antibodies to HCV. The presence of anti-HCV may be indicative of recent and/or past infection by Hepatitis C Virus. PATIENT MAY BE INFECTIONS. PLEASE INFORM SOLAR INSTALLATION MANAGER. Supplemental testing for HCV RNA may detect the presence of active HCV infection. This result is a reportable disease Infection Control has been notified. See Interp Performed By: #### C MP, GFR ####[place] [address]#### ANEU, ADIFF, CBC ####[place] [address]#### HEPAC ####[place] [id number] [place] [address] HIVRPon 12-08-2022 HIV p24 Antigen Non-Reactive Normal Non-Reactive [facility] ([place]) Comment on above: Result Comment: Dete ction of p24 may be inhibited by biotin in the sample, causing false negative results in acute infection. Therefore do not test samples from patients who are taking biotin. Performed By: #### H IVRP ####[address] [place] [address] HIV P24 Int Non-Reactive Invalid Interpretation Code [facility] [place] ([place] Comment on above: Performed By: #### H IVRP ####Marie [address]ern[address] [place] [phone] Rapid HIV 1/2 Antibody Non-Reactive Normal Non-Reactive [facility] [place] ([place]) Comment on above: Performed By: #### H IVRP ####Marie Sauern[address] [place] [id number] RHIV 1/2 Ab Int Non-Reactive Invalid Interpretation Code [facility] [place] ([place] Comment on above: Performed By: #### H IVRP ####Marieayana Sauern20[address] [place] [phone] LACon 12-08-2022 Lactic Acid Lvl 1.3 mmol/L Normal 0.4-2.0 [facility] [place] ([place] Comment on above: Performed By: #### T ETHAN, LAC, PRO ####[place] [address]#### INTPGP, HCQPCR ####[place]ern [address]gbks[address] [place] [address] PROon 12-08-2022 PT Coag (PPP) [Time] 11.5 s Normal 9.0-14.2 [facility] [place] Comment [place]: Performed By: #### T ETHAN, LAC, PRO ####[place] [address]#### INTPGP, HCQPCR ####Mariemarysol SauerVxrrhayga20[address] [place] [id number] PT International Ratio 1.0 Normal [facility] [place] ([place]) Comment on above: Result Comment: The [employer] (CHEST, 1991, 102:312S-25S) recommended therapeutic range for oral anticoagulant therapy is: LOW RISK: Prophylaxis of venous thrombosis INR: 2.0-3.0 Treatment of pulmonary embolism 2.0-3.0 Prevention of systemic embolism 2.0-3.0 HIGH RISK: Mechanical prosthetic valves 2.5-3.5 Performed By: #### T ROPHS, LAC, PRO ####[place] [address]#### INTPGP, HCQPCR ####Suffern [address] [place], [place] [address] TROPHSon 12-08-2022 Troponin I High Sensitivity <4.0 Normal 0.0-76.2 [facility] [place] ([place] Comment on above: Performed By: #### T ROPHS, LAC, PRO ####[place] [address]#### INTPGP, HCQPCR ####[address] [place] [phone] .Auto Diffon 12-07-2022 Basophil, Absolute 0.1 10 3/mcL Normal 0.0-0.2 [facility] [place] Comment [place]: Performed By: #### C MP, GFR ####[facility] [place] [address]#### ANEU, ADIFF, CBC ####[place] [address]#### HEPAC ####[address]en[address] [place] [phone] Basophils/100 WBC (Bld) 0.9 % Normal 0.0-2.5 [facility] [place] Comment on above: Performed By: #### C MP, GFR ####[place] [address]26[address] [place] [address]#### ANEU, ADIFF, CBC ####[place] [address]#### HEPAC ####[address] [place] [phone] Eosinophil, Absolute 0.5 10 3/mcL High 0.0-0.4 [facility] ([place]) Comment on above: Performed By: #### C MP, GFR ####[place] [address]26[address] [place] [address]#### ANEU, ADIFF, CBC ####[place] [address]#### HEPAC ####Marie SaxenaXotnfeoqw[address] [place], [place] [address] Eosinophils/100 WBC (Bld) 5.2 % Normal 0.0-7.0 [facility] [place] Comment on above: Performed By: #### C MP, GFR ####Marie [place] [id number]#### ANEU, ADIFF, CBC ####[place] [address]#### HEPAC ####Suffern Opcphtalu[address] [place], [place] [address] Lymphocyte, Absolute 4.7 10 3/mcL High 0.8-3.9 [facility] ([place] Comment on above: Performed By: #### C MP, GFR ####Marie [place] [address]#### ANEU, ADIFF, CBC ####[place] [address]#### HEPAC ####[facility] CenterOlzliyvfl9243 [place], [place] [address] Lymphocytes/100 WBC (Bld) 47.8 % Normal 10.0-50.0 [facility] [place] Comment on above: Performed By: #### C MP, GFR ####Marie [place] [id number]#### ANEU, ADIFF, CBC ####[place] [address]#### HEPAC ####[facility] CenterCsvkalmzh1973 [place], [place] [address] Monocyte, Absolute 0.7 10 3/mcL Normal 0.2-1.0 [facility] [place] Comment [place]: Performed By: #### C MP, GFR ####Marie [place] [id number]#### ANEU, ADIFF, CBC ####[place] [address]#### HEPAC ####Suffern Uwmrgkkhr[address] [place], [place] [address] Monocytes/100 WBC (Bld) 7.5 % Normal 1.7-13.0 [facility] [place] ([place] Comment on above: Performed By: #### C MP, GFR ####Marie Dzolfoil[address] [place], [place] [address]#### ANEU, ADIFF, CBC ####[place] [address]#### HEPAC ####Marie Htydfxnfm2418 [place], [place] [address] Neutrophils/100 WBC (Bld) 38.6 % Normal 37.0-80.0 [facility] [place] ([place] Comment on above: Performed By: #### C MP, GFR ####Marie Kjtzaafq658 [place], [place] [address]#### ANEU, ADIFF, CBC ####[place] [address]#### HEPAC ####Marie Bnafvmksj0978 [place], [place] [address] .GFRon 12-07-2022 GFR 105 ml/min/1.73sqm Normal [facility] [place] ([place] Comment on above: Result Comment: GFR Population mean for , Non- Americans Ages 20-29 = 116 mL/min/1.73 sq.m. Ages 30-39 = 107 mL/min/1.73 sq.m. Ages 40-49 = 99 mL/min/1.73 sq.m. Ages 50-59 = 93 mL/min/1.73 sq.m. Ages 60-69 = 85 mL/min/1.73 sq.m. Ages 70+ = 75 mL/min/1.73 sq.m. Chronic Kidney Disease: Less than 60 mL/min/1.73 square meters End Stage Renal Disease: Less than 15 mL/min/1.73 square meters Performed By: #### C MP, GFR ####Marie Sw[address] [place], [place] [address]#### ANEU, ADIFF, CBC ####[place] [address]#### HEPAC ####Marie SaxenaWvbphgecz9072 [place], [place] [address] GFR Non- 87 ml/min/1.73sqm Normal [facility] [place] Comment on above: Result Comment: GFR Population mean for , Non- Americans Ages 20-29 = 116 mL/min/1.73 sq.m. Ages 30-39 = 107 mL/min/1.73 sq.m. Ages 40-49 = 99 mL/min/1.73 sq.m. Ages 50-59 = 93 mL/min/1.73 sq.m. Ages 60-69 = 85 mL/min/1.73 sq.m. Ages 70+ = 75 mL/min/1.73 sq.m. Chronic Kidney Disease: Less than 60 mL/min/1.73 square meters End Stage Renal Disease: Less than 15 mL/min/1.73 square meters Performed By: #### C MP, GFR ####Marie WhitakerD[place] [address]#### ANEU, ADIFF, CBC ####[place] [address]#### HEPAC ####Marie Sauern[address] [place] [address] .NEUABSon 12-07-2022 Neutrophil, Absolute 3.8 10 3/mcL Normal 2.9-6.2 [facility] ([place]) Comment on above: Performed By: #### C MP, GFR ####Marie WhiatkerD[place] [address]#### ANEU, ADIFF, CBC ####[place] [address]#### HEPAC ####Marie Sauern[address] [place] [address] CBCon 12-07-2022 Erythrocyte distribution width (RBC) [Ratio] 16.3 % High 11.5-14.5 [facility] [place] ([place] Comment on above: Performed By: #### C MP, GFR ####Marie Whitaker[place] [address]20357#### ANEU, ADIFF, CBC ####[address] [address]#### HEPAC ####[facility] CenterCnkvkfkmx6249 [place], [place] [address] Hematocrit (Bld) [Volume fraction] 40.1 % Low 42.0-52.0 [facility] [place] Comment on above: Performed By: #### C MP, GFR ####[place] [id number]#### ANEU, ADIFF, CBC ####[place] [address]#### HEPAC ####[facility] CenterNbmizfryq6167 [place] [phone] Hgb 13.2 G/dL Low 14.0-18.0 [facility] [place] Comment on above: Performed By: #### C MP, GFR ####[place] [id number]#### ANEU, ADIFF, CBC ####[place] [address]#### HEPAC ####[address] [place] [phone] MCH (RBC) [Entitic mass] 27.8 pg Normal 27.0-31.2 [facility] [place] Comment on above: Performed By: #### C MP, GFR ####[place] [id number]#### ANEU, ADIFF, CBC ####[address] [address]#### HEPAC ####[facility] CenterGrcimpkfr0242 [place] [phone] MCHC 33.0 G/dL Normal 31.8-35.4 [facility] [place] Comment on above: Performed By: #### C MP, GFR ####[place] [id number]#### ANEU, ADIFF, CBC ####[place] [address]#### HEPAC ####Marie Qkdfwqkap4590 [place], [place] [address] MCV (RBC) [Entitic vol] 84.3 fL Normal 80.0-94.0 [facility] [place] ([place] Comment on above: Performed By: #### C MP, GFR ####Marie [place] [address]#### ANEU, ADIFF, CBC ####[place] [address]#### HEPAC ####Marie Ptkdiscjx6842 [place] [phone] Platelet 266 10 3/mcL Normal 130-400 [facility] [place] ([place] Comment on above: Performed By: #### C MP, GFR ####Marie [place] [address]#### ANEU, ADIFF, CBC ####[place] [address]#### HEPAC ####Marie Fnospksih2682 [place] [phone] Platelet mean volume (Bld) [Entitic vol] 7.3 fL Low 7.4-10.4 [facility] [place] Comment on above: Performed By: #### C MP, GFR ####Marie [place] [address]#### ANEU, ADIFF, CBC ####[place] [address]#### HEPAC ####Marie Mkqvvtcrv9580 [place] [phone] RBC 4.76 10 6/mcL Normal 4.04-6.13 [facility] [place] Comment on above: Performed By: #### C MP, GFR ####Marie WhitakerD[place] [address]#### ANEU, ADIFF, CBC ####[place] [address]#### HEPAC ####Marie Sauern[address] [place], [place] [address] WBC 9.8 10 3/mcL Normal 4.6-10.8 [facility] [place] Comment on above: Performed By: #### C MP, GFR ####Marie [address] [place], [place] [address]#### ANEU, ADIFF, CBC ####[place] [address]#### HEPAC ####Marie Sauern[address] [place], [place] [address] CMPon 12-07-2022 Albumin Level 3.6 G/dL Normal 3.5-5.0 [facility] [place] Comment on above: Performed By: #### C MP, GFR ####Marie [place] [place] [address]#### ANEU, ADIFF, CBC ####[place] [address]#### HEPAC ####Marie Sauern[address] [place] [phone] Albumin/Globulin [Mass ratio] 0.6 {ratio} Low 1.1-2.5 [facility] [place] Comment on above: Performed By: #### C MP, GFR ####Marie [address] [place], [place] [address]#### ANEU, ADIFF, CBC ####[place] [address]#### HEPAC ####Marie Sauern[address] [place] [phone] ALP [Catalytic activity/Vol] 150 U/L High 40-135 [facility] [place] Comment on above: Performed By: #### C MP, GFR ####Marie [address] [place], [place] [address]#### ANEU, ADIFF, CBC ####[place] [address]#### HEPAC ####Marie Febsjijpy9851 [address] RoadMassillon, [place] [address] ALT [Catalytic activity/Vol] 124 U/L High 16-63 [facility] [place] ([place] Comment on above: Performed By: #### C MP, GFR ####Marie Amlgdgge822 [place], [place] [address]#### ANEU, ADIFF, CBC ####[address] [address]#### HEPAC ####[address] [place], [place] [address] AST [Catalytic activity/Vol] 110 U/L High 10-40 [facility] [place] Comment on above: Performed By: #### C MP, GFR ####[address] [address]#### ANEU, ADIFF, CBC ####[place] [address]#### HEPAC ####[address] [address] Bili Total 0.6 mg/dL Normal 0.2-1.0 [facility] [place] Comment on above: Result Comment: Use of this assay is not recommended for patients undergoing treatment with eltrombopag due to the potential for falsely elevated results. Performed By: #### C MP, GFR ####Marie [address] [address]#### ANEU, ADIFF, CBC ####[place] [address]#### HEPAC ####[address] [place], [place] [address] BUN/Creatinine Ratio 8 ratio Normal 7-27 [facility] [place] Comment [place] above: Performed By: #### C MP, GFR ####Marie [address] [address]#### ANEU, ADIFF, CBC ####[address] [address]#### HEPAC ####[place] [id number] [place], [place] [address] Calcium [Mass/Vol] 8.9 mg/dL Normal 8.4-10.2 [facility] ([place]) Comment on above: Performed By: #### C MP, GFR ####Marie [address] [place], [place] [address]#### ANEU, ADIFF, CBC ####[address] [address]#### HEPAC ####[facility] CenterRscsohhtc5902 [place], [place] [address] Chloride [Moles/Vol] 101 mmol/L Normal 98-107 [facility] [place] Comment [place] above: Performed By: #### C MP, GFR ####Marie Lfnfpwrz798 [place] [id number]#### ANEU, ADIFF, CBC ####[place] [address]#### HEPAC ####[address] [place] [phone] CO2 [Moles/Vol] 26 mmol/L Normal 22-29 [facility] [place] Comment on above: Performed By: #### C MP, GFR ####Marie Lpzqjejr771 [place], [place] [address]#### ANEU, ADIFF, CBC ####[place] [address]#### HEPAC ####[address] [place], [place] [address] Creatinine [Mass/Vol] 0.99 mg/dL Normal 0.70-1.30 [facility] ([place]) Comment on above: Performed By: #### C MP, GFR ####[place] [address]26[address] [place], [place] [address]#### ANEU, ADIFF, CBC ####[place] [address]#### HEPAC ####[address] [place], [place] [address] Electrolyte Balance 12.0 mEq/L Normal 4.0-15.0 [facility] ([place]) Comment on above: Performed By: #### C MP, GFR ####Marie [address] [place], [place] [address]#### ANEU, ADIFF, CBC ####[address] [address]#### HEPAC ####Marie Lcxfjbmcd1601 [place], [place] [address] Globulin 5.8 G/dL Normal [facility] [place] Comment on above: Performed By: #### C MP, GFR ####Marie [address] [place], [place] [address]#### ANEU, ADIFF, CBC ####[place] [address]#### HEPAC ####[facility] CenterDxkdybxdx1514 [place], [place] [address] Glucose [Mass/Vol] 128 mg/dL High 70-105 [facility] ([place] Comment on above: Performed By: #### C MP, GFR ####Marie [address] [place], [place] [address]#### ANEU, ADIFF, CBC ####[address] [address]#### HEPAC ####[address] [place], [place] [address] Potassium [Moles/Vol] 4.6 mmol/L Normal 3.5-5.1 [facility] ([place] Comment on above: Performed By: #### C MP, GFR ####Marie [address] [place], [place] [address]#### ANEU, ADIFF, CBC ####[address] [address]#### HEPAC ####[facility] CenterRdwfvjxeq9879 [place], [place] [address] Sodium [Moles/Vol] 139 mmol/L Normal 136-145 [facility] ([place] Comment on above: Performed By: #### C MP, GFR ####Marie [address] [place], [place] [address]#### ANEU, ADIFF, CBC ####[place] [address]600 [address] [place] [address]#### HEPAC ####Marie Sauern[address] [place], [place] [address] Total Protein 9.4 G/dL High 6.4-8.2 [facility] [place] ([place] Comment on above: Performed By: #### C MP, GFR ####Marie [address] [place], [place] [address]#### ANEU, ADIFF, CBC ####[place] [address]49600 [address] [place] [address]#### HEPAC ####Marie Sauern[address] [place], [place] [address] Urea nitrogen [Mass/Vol] 8 mg/dL Normal 7-18 [facility] [place] ([place] Comment on above: Performed By: #### C MP, GFR ####Marie [address] [place], [place] [address]#### ANEU, ADIFF, CBC ####Marie M[address]xfyzw[address] [place] [address]#### HEPAC ####Marie Sauern[address] [place], [place] [address] LABORATORYOrdered By: SYSTEM SYSTEM on 12-07-2022 Albumin BCP dye [Mass/Vol] 3.6 G/dL Invalid Interpretation Code 3.5 - 5.0 G/dL AO ADM SS Albumin/Globulin [Mass ratio] 0.6 {ratio} Invalid Interpretation Code 1.1 - 2.5 ratio AO ADM SS ALP [Catalytic activity/Vol] 150 U/L Invalid Interpretation Code 40 - 135 U/L AO ADM SS ALT With P-5'-P [Catalytic activity/Vol] 124 U/L Invalid Interpretation Code 16 - 63 U/L AO ADM SS AST With P-5'-P [Catalytic activity/Vol] 110 U/L Invalid Interpretation Code 10 - 40 U/L AO ADM SS Basophil, Absolute 0.1 103/mcL Invalid Interpretation Code 0.0 - 0.2 10^3/mcL AO Workflow SS Basophils/100 WBC (Bld) 0.9 % Invalid Interpretation Code 0.0 - 2.5 % AO Workflow SS Bilirubin [Mass/Vol] 0.6 mg/dL Invalid Interpretation Code 0.2 - 1.0 mg/dL AO ADM SS Comment on above: Interpretive Data: U se of this assay is not recommended for patients undergoing treatment with eltrombopag due to the potential for falsely elevated results. Calcium [Mass/Vol] 8.9 mg/dL Invalid Interpretation Code 8.4 - 10.2 mg/dL AO ADM SS Chloride [Moles/Vol] 101 mmol/L Invalid Interpretation Code 98 - 107 mmol/L AO ADM SS CO2 [Moles/Vol] 26 mmol/L Invalid Interpretation Code 22 - 29 mmol/L AO ADM SS Creatinine [Mass/Vol] 0.99 mg/dL Invalid Interpretation Code 0.70 - 1.30 mg/dL AO ADM SS Electrolyte Balance 12.0 mEq/L Invalid Interpretation Code 4.0 - 15.0 mEq/L AO ADM SS Eosinophil, Absolute 0.5 103/mcL Invalid Interpretation Code 0.0 - 0.4 10^3/mcL AO Workflow SS Eosinophils/100 WBC (Bld) 5.2 % Invalid Interpretation Code 0.0 - 7.0 % AO Workflow SS Erythrocyte distribution width (RBC) [Ratio] 16.3 % Invalid Interpretation Code 11.5 - 14.5 % AO Workflow SS GFR/1.73 sq M.predicted among blacks MDRD (S/P/Bld) [Vol rate/Area] 105 ml/min/1.73sqm Invalid Interpretation Code AO Chemistry S Comment on above: Interpretive Data: GFR Population mean for , Non- Americans Ages 20-29 = 116 mL/min/1.73 sq.m. Ages 30-39 = 107 mL/min/1.73 sq.m. Ages 40-49 = 99 mL/min/1.73 sq.m. Ages 50-59 = 93 mL/min/1.73 sq.m. Ages 60-69 = 85 mL/min/1.73 sq.m. Ages 70+ = 75 mL/min/1.73 sq.m. Chronic Kidney Disease: Less than 60 mL/min/1.73 square meters End Stage Renal Disease: Less than 15 mL/min/1.73 square meters GFR/1.73 sq M.predicted among non-blacks MDRD (S/P/Bld) [Vol rate/Area] 87 ml/min/1.73sqm Invalid Interpretation Code AO Chemistry S Comment on above: Interpretive Data: GFR Population mean for , Non- Americans Ages 20-29 = 116 mL/min/1.73 sq.m. Ages 30-39 = 107 mL/min/1.73 sq.m. Ages 40-49 = 99 mL/min/1.73 sq.m. Ages 50-59 = 93 mL/min/1.73 sq.m. Ages 60-69 = 85 mL/min/1.73 sq.m. Ages 70+ = 75 mL/min/1.73 sq.m. Chronic Kidney Disease: Less than 60 mL/min/1.73 square meters End Stage Renal Disease: Less than 15 mL/min/1.73 square meters Globulin 5.8 G/dL Invalid Interpretation Code AO ADM SS Glucose [Mass/Vol] 128 mg/dL Invalid Interpretation Code 70 - 105 mg/dL AO ADM SS Hematocrit (Bld) [Volume fraction] 40.1 % Invalid Interpretation Code 42.0 - 52.0 % AO Workflow SS Hemoglobin (Bld) [Mass/Vol] 13.2 G/dL Invalid Interpretation Code 14.0 - 18.0 G/dL AO Workflow SS Lymphocyte, Absolute 4.7 103/mcL Invalid Interpretation Code 0.8 - 3.9 10^3/mcL AO Workflow SS Lymphocytes/100 WBC (Bld) 47.8 % Invalid Interpretation Code 10.0 - 50.0 % AO Workflow SS MCH (RBC) [Entitic mass] 27.8 pg Invalid Interpretation Code 27.0 - 31.2 pg AO Workflow SS MCHC 33.0 G/dL Invalid Interpretation Code 31.8 - 35.4 G/dL AO Workflow SS MCV (RBC) [Entitic vol] 84.3 fL Invalid Interpretation Code 80.0 - 94.0 fL AO Workflow SS Monocyte, Absolute 0.7 103/mcL Invalid Interpretation Code 0.2 - 1.0 10^3/mcL AO Workflow SS Monocytes/100 WBC (Bld) 7.5 % Invalid Interpretation Code 1.7 - 13.0 % AO Workflow SS Neutrophil, Absolute 3.8 103/mcL Invalid Interpretation Code 2.9 - 6.2 10^3/mcL AO Workflow SS Neutrophils/100 WBC (Bld) 38.6 % Invalid Interpretation Code 37.0 - 80.0 % AO Workflow SS Platelet mean volume (Bld) [Entitic vol] 7.3 fL Invalid Interpretation Code 7.4 - 10.4 fL AO Workflow SS Platelets (Bld) [#/Vol] 266 103/mcL Invalid Interpretation Code 130 - 400 10^3/mcL AO Workflow SS Potassium [Moles/Vol] 4.6 mmol/L Invalid Interpretation Code 3.5 - 5.1 mmol/L AO ADM SS Protein [Mass/Vol] 9.4 G/dL Invalid Interpretation Code 6.4 - 8.2 G/dL AO ADM SS RBC (Bld) [#/Vol] 4.76 106/mcL Invalid Interpretation Code 4.04 - 6.13 10^6/mcL AO Workflow SS Sodium [Moles/Vol] 139 mmol/L Invalid Interpretation Code 136 - 145 mmol/L AO ADM SS Urea nitrogen [Mass/Vol] 8 mg/dL Invalid Interpretation Code 7 - 18 mg/dL AO ADM SS Urea nitrogen/Creatinine [Mass ratio] 8 ratio Invalid Interpretation Code 7 - 27 ratio AO ADM SS WBC (Bld) [#/Vol] 9.8 103/mcL Invalid Interpretation Code 4.6 - 10.8 10^3/mcL AO Workflow SS LABORATORYOrdered By: Ary [place] on 12-07-2022 HAV IgM IA Ql Non-Reactive (12/07/22 12:38 PM) Invalid Interpretation Code Non-Reactive AH ADM SS HAV IgM IA Ql No serological evidence of a current Hepatitis A infection. Invalid Interpretation Code Chemistry S HBV core IgM IA Ql Non-Reactive (12/07/22 12:38 PM) Invalid Interpretation Code Non-Reactive AH ADM SS HBV core IgM IA Ql Samples with a value < 0.80 Index are considered nonreactive (negative) for IgM antibodies to hepatitis B core antigen. Invalid Interpretation Code Chemistry S HBV surface Ag IA Ql Non-Reactive (12/07/22 12:38 PM) Invalid Interpretation Code Non-Reactive AH ADM SS HCV Ab IA Ql Reactive *ABN* (12/07/22 12:38 PM) Invalid Interpretation Code Non-Reactive AH ADM SS HCV Ab IA Ql Reactive: Samples with a value >/= 1.00 index are considered reactive for IgG antibodies to HCV. The presence of anti-HCV may be indicative of recent and/or past infection by Hepatitis C Virus. PATIENT MAY BE INFECTIONS. PLEASE INFORM [employer] IN[employer]ATION MANAGER. Supplemental testing for HCV RNA may detect the presence of active HCV infection. This result is a reportable disease Infection Control has been notified. Invalid Interpretation Code CHARLIE MontielAuto Diffon 12-02-2022 Basophil, Absolute 0.2 10 3/mcL Normal 0.0-0.2 [facility] [place] Comment [place]: Performed By: #### A KAREN, GFR, LIP, MDW, CBC, CMP, ADIFF ####Marie Gbgfy[address] [place], [place] [address] Basophils/100 WBC (Bld) 1.1 % Normal 0.0-2.5 [facility] [place] ([place]) Comment on above: Performed By: #### A KAREN, GFR, LIP, MDW, CBC, CMP, ADIFF ####Marie [address] [place], [place] [address] Eosinophil, Absolute 0.1 10 3/mcL Normal 0.0-0.4 [facility] ([place]) Comment on above: Performed By: #### A KAREN, GFR, LIP, MDW, CBC, CMP, ADIFF ####Marie Acvvwhqd429 [place], [place] [address] Eosinophils/100 WBC (Bld) 0.5 % Normal 0.0-7.0 [facility] [place] Comment on above: Performed By: #### A KAREN, GFR, LIP, MDW, CBC, CMP, ADIFF ####Marie Zfbfcqek330 [place], [place] [address] Lymphocyte, Absolute 8.6 10 3/mcL High 0.8-3.9 [facility] ([place]) Comment on above: Performed By: #### A KAREN, GFR, LIP, MDW, CBC, CMP, ADIFF ####Marie Qnwdkqgf293 [place], [place] [address] Lymphocytes/100 WBC (Bld) 55.5 % High 10.0-50.0 [facility] [place] ([place]) Comment on above: Performed By: #### A KAREN, GFR, LIP, MDW, CBC, CMP, ADIFF ####Marie [address] [place], [place] [address] Monocyte, Absolute 1.0 10 3/mcL Normal 0.2-1.0 [facility] [place] Comment [place] above: Performed By: #### A KAREN, GFR, LIP, MDW, CBC, CMP, ADIFF ####Marie Pbjgxyed756 [place], [place] [address] Monocytes/100 WBC (Bld) 6.3 % Normal 1.7-13.0 [facility] [place] Comment on above: Performed By: #### A KAREN, GFR, LIP, MDW, CBC, CMP, ADIFF ####Marie F[address] [place], [place] [address] Neutrophils/100 WBC (Bld) 36.6 % Low 37.0-80.0 [facility] [place] Comment on above: Performed By: #### A KAREN, GFR, LIP, MDW, CBC, CMP, ADIFF ####Marie [address] [place], [place] [address] .GFRon 12-02-2022 GFR Non- 80 ml/min/1.73sqm Normal [facility] [place] Comment on above: Result Comment: GFR Population mean for , Non- Americans Ages 20-29 = 116 mL/min/1.73 sq.m. Ages 30-39 = 107 mL/min/1.73 sq.m. Ages 40-49 = 99 mL/min/1.73 sq.m. Ages 50-59 = 93 mL/min/1.73 sq.m. Ages 60-69 = 85 mL/min/1.73 sq.m. Ages 70+ = 75 mL/min/1.73 sq.m. Chronic Kidney Disease: Less than 60 mL/min/1.73 square meters End Stage Renal Disease: Less than 15 mL/min/1.73 square meters Performed By: #### A KAREN, GFR, LIP, MDW, CBC, CMP, ADIFF ####Marie R[address]vdys[address] [place], [place] [address] GFR 97 ml/min/1.73sqm Normal [facility] [place] Comment on above: Result Comment: GFR Population mean for , Non- Americans Ages 20-29 = 116 mL/min/1.73 sq.m. Ages 30-39 = 107 mL/min/1.73 sq.m. Ages 40-49 = 99 mL/min/1.73 sq.m. Ages 50-59 = 93 mL/min/1.73 sq.m. Ages 60-69 = 85 mL/min/1.73 sq.m. Ages 70+ = 75 mL/min/1.73 sq.m. Chronic Kidney Disease: Less than 60 mL/min/1.73 square meters End Stage Renal Disease: Less than 15 mL/min/1.73 square meters Performed By: #### A KAREN, GFR, LIP, MDW, CBC, CMP, ADIFF ####Marie [address] [place], [place] [address] .MDWon 12-02-2022 Monocyte Distribution Width 29.18 High 0.00-20.00 [facility] [place] Comment on above: Result Comment: The predictive value of MDW for identifying sepsis in patients with hematological abnormalities has not been established Performed By: #### A KAREN, GFR, LIP, MDW, CBC, CMP, ADIFF ####Marie [address] [place], [place] [address] .NEUABSon 12-02-2022 Neutrophil, Absolute 5.7 10 3/mcL Normal 2.9-6.2 [facility] ([place]) Comment on above: Performed By: #### A KAREN, GFR, LIP, MDW, CBC, CMP, ADIFF ####Marie [address] [place], [place] [address] CBCon 12-02-2022 Erythrocyte distribution width (RBC) [Ratio] 15.6 % High 11.5-14.5 [facility] [place] Comment on above: Performed By: #### A KAREN, GFR, LIP, MDW, CBC, CMP, ADIFF ####aMrie [address] [place], [place] [address] Hematocrit (Bld) [Volume fraction] 36.0 % Low 42.0-52.0 [facility] [place] Comment on above: Performed By: #### A KAREN, GFR, LIP, MDW, CBC, CMP, ADIFF ####Marie Y[address] [place], [place] [address] Hgb 12.0 G/dL Low 14.0-18.0 [facility] [place] Comment on above: Performed By: #### A KAREN, GFR, LIP, MDW, CBC, CMP, ADIFF ####Marie [address] [place], [place] [address] MCH (RBC) [Entitic mass] 27.5 pg Normal 27.0-31.2 [facility] [place] Comment on above: Performed By: #### A KAREN, GFR, LIP, MDW, CBC, CMP, ADIFF ####Marie Eptonxol953 [place], [place] [address] MCHC 33.3 G/dL Normal 31.8-35.4 [facility] ([place]) Comment on above: Performed By: #### A KAREN, GFR, LIP, MDW, CBC, CMP, ADIFF ####Marie [id number] [place], [place] [address] MCV (RBC) [Entitic vol] 82.5 fL Normal 80.0-94.0 [facility] ([place]) Comment on above: Performed By: #### A KAREN, GFR, LIP, MDW, CBC, CMP, ADIFF ####Marie [id number] [place], [place] [address] Platelet 207 10 3/mcL Normal 130-400 [facility] ([place]) Comment on above: Performed By: #### A KAREN, GFR, LIP, MDW, CBC, CMP, ADIFF ####[address] [place], [place] [address] Platelet mean volume (Bld) [Entitic vol] 7.4 fL Normal 7.4-10.4 [facility] ([place]) Comment on above: Performed By: #### A KAREN, GFR, LIP, MDW, CBC, CMP, ADIFF ####[address] [place], [place] [address] RBC 4.37 10 6/mcL Normal 4.04-6.13 [facility] ([place]) Comment on above: Performed By: #### A KAREN, GFR, LIP, MDW, CBC, CMP, ADIFF ####Marie [address] [place], [place] [address] WBC 15.6 10 3/mcL High 4.6-10.8 [facility] ([place]) Comment on above: Performed By: #### A KAREN, GFR, LIP, MDW, CBC, CMP, ADIFF ####[address] [place], [place] [address] CMPon 12-02-2022 Albumin Level 3.0 G/dL Low 3.5-5.0 [facility] ([place]) Comment on above: Performed By: #### A KAREN, GFR, LIP, MDW, CBC, CMP, ADIFF ####[address] [place], [place] [address] Albumin/Globulin [Mass ratio] 0.5 {ratio} Low 1.1-2.5 [facility] ([place]) Comment on above: Performed By: #### A KAREN, GFR, LIP, MDW, CBC, CMP, ADIFF ####[address] [place], [place] [address] ALP [Catalytic activity/Vol] 148 U/L High 40-135 [facility] ([place]) Comment on above: Performed By: #### A KAREN, GFR, LIP, MDW, CBC, CMP, ADIFF ####[address] [place], [place] [address] ALT [Catalytic activity/Vol] 72 U/L High 16-63 [facility] ([place]) Comment on above: Performed By: #### A KAREN, GFR, LIP, MDW, CBC, CMP, ADIFF ####Marie [address] [place], [place] [address] AST [Catalytic activity/Vol] 67 U/L High 10-40 [facility] ([place] Comment on above: Performed By: #### A KAREN, GFR, LIP, MDW, CBC, CMP, ADIFF ####[address] [place], [place] [address] Bili Total 0.7 mg/dL Normal 0.2-1.0 [facility] ([place]) Comment on above: Result Comment: Use of this assay is not recommended for patients undergoing treatment with eltrombopag due to the potential for falsely elevated results. Performed By: #### A KAREN, GFR, LIP, MDW, CBC, CMP, ADIFF ####[address] [place], [place] [address] BUN/Creatinine Ratio 9 ratio Normal 7-27 [facility] [place] Comment on above: Performed By: #### A KAREN, GFR, LIP, MDW, CBC, CMP, ADIFF ####[address] [place], [place] [address] Calcium [Mass/Vol] 8.0 mg/dL Low 8.4-10.2 [facility] ([place] Comment on above: Performed By: #### A KAREN, GFR, LIP, MDW, CBC, CMP, ADIFF ####Marie [address] [place], [place] [address] Chloride [Moles/Vol] 102 mmol/L Normal 98-107 [facility] [place] Comment on above: Performed By: #### A KAREN, GFR, LIP, MDW, CBC, CMP, ADIFF ####[address] [place], [place] [address] CO2 [Moles/Vol] 24 mmol/L Normal 22-29 [facility] ([place] Comment on above: Performed By: #### A KAREN, GFR, LIP, MDW, CBC, CMP, ADIFF ####Marie [address] [place], [place] [address] Creatinine [Mass/Vol] 1.06 mg/dL Normal 0.70-1.30 [facility] ([place]) Comment on above: Performed By: #### A KAREN, GFR, LIP, MDW, CBC, CMP, ADIFF ####[address] [place], [place] [address] Electrolyte Balance 10.0 mEq/L Normal 4.0-15.0 [facility] ([place]) Comment on above: Performed By: #### A KAREN, GFR, LIP, MDW, CBC, CMP, ADIFF ####Marie [address] [place], [place] [address] Globulin 5.7 G/dL Normal [facility] ([place] Comment on above: Performed By: #### A KAREN, GFR, LIP, MDW, CBC, CMP, ADIFF ####Marie [address] [place], [place] [address] Glucose [Mass/Vol] 110 mg/dL High 70-105 [facility] ([place] Comment on above: Performed By: #### A KAREN, GFR, LIP, MDW, CBC, CMP, ADIFF ####[address] [place], [place] [address] Potassium [Moles/Vol] 4.3 mmol/L Normal 3.5-5.1 [facility] ([place] Comment on above: Performed By: #### A KAREN, GFR, LIP, MDW, CBC, CMP, ADIFF ####[address] [place], [place] [address] Sodium [Moles/Vol] 136 mmol/L Normal 136-145 [facility] ([place] Comment on above: Performed By: #### A KAREN, GFR, LIP, MDW, CBC, CMP, ADIFF ####[address] [place], [place] [address] Total Protein 8.7 G/dL High 6.4-8.2 [facility] ([place] Comment on above: Performed By: #### A KAREN, GFR, LIP, MDW, CBC, CMP, ADIFF ####[address] [place], [place] [address] Urea nitrogen [Mass/Vol] 10 mg/dL Normal 7-18 [facility] ([place] Comment on above: Performed By: #### A KAREN, GFR, LIP, MDW, CBC, CMP, ADIFF ####[address] [place], [place] [address] CT ABD/PELVIS W/ IV CONTRAST ONLYon 12-02-2022 CT ABD/PELVIS W/ IV CONTRAST ONLY ORIGINAL EXAMINATION: CT OF THE ABDOMEN AND PELVIS WITH CONTRAST 12/02/2022 12:14 am TECHNIQUE: CT of the abdomen and pelvis was performed with the administration of intravenous contrast. Multiplanar reformatted images are provided for review. Automated exposure control, iterative reconstruction, and/or weight based adjustment of the mA/kV was utilized to reduce the radiation dose to as low as reasonably achievable. COMPARISON: None. HISTORY: ORDERING SYSTEM PROVIDED HISTORY: Reason for Exam: Pain. FINDINGS: Study is degraded due to motion and streak artifact. Visualized lung bases are clear. Liver, gallbladder, pancreas and adrenal glands are unremarkable. Spleen measures 14 cm length. Kidneys are symmetric in size and enhancement without hydronephrosis. Tiny left lower pole calculus. Urinary bladder is unremarkable. Prostate is unremarkable. Colonic diverticulosis without diverticulitis. Small bowel, colon and appendix are normal in caliber. There is no definite bowel wall thickening, intraperitoneal free air or focal fluid collection. No abdominal or pelvic lymphadenopathy. Nonaneurysmal abdominal aorta. Prominent gastroesophageal collateral vessels. No acute fracture or destructive osseous lesion. IMPRESSION: Study is degraded due to motion and streak artifact. Within these constraints, no acute findings within abdomen or pelvis. Splenomegaly. Nonobstructive left nephrolithiasis. I have personally reviewed the images of this examination and agree with the resident's findings and interpretation. Interpreted by: Ag Goodman MD Preliminary Report By: Nuvia Angulo Electronically signed By Ag Goodman MD Dictated Date: 12/02/2022 12:26:56 AM Prelim Date: 12/02/2022 12:40:10 AM Sign Date: 12/02/2022 1:33:16 AM Ordering Provider: ANGLE THURMAN Normal [facility]) LIPtoby 12-02-2022 Lipase Level 26 U/L Normal 16-77 [facility]) Comment on above: Performed By: #### A KAREN, GFR, LIP, MDW, CBC, CMP, ADIFF ####[facility] [place] [address] LABORATORYOrdered By: SYSTEM SYSTEM on 12-01-2022 Albumin BCP dye [Mass/Vol] 3.0 G/dL Invalid Interpretation Code 3.5 - 5.0 G/dL AO ADM SS Albumin/Globulin [Mass ratio] 0.5 {ratio} Invalid Interpretation Code 1.1 - 2.5 ratio AO ADM SS ALP [Catalytic activity/Vol] 148 U/L Invalid Interpretation Code 40 - 135 U/L AO ADM SS ALT With P-5'-P [Catalytic activity/Vol] 72 U/L Invalid Interpretation Code 16 - 63 U/L AO ADM SS AST With P-5'-P [Catalytic activity/Vol] 67 U/L Invalid Interpretation Code 10 - 40 U/L AO ADM SS Basophil, Absolute 0.2 103/mcL Invalid Interpretation Code 0.0 - 0.2 10^3/mcL AO Workflow SS Basophils/100 WBC (Bld) 1.1 % Invalid Interpretation Code 0.0 - 2.5 % AO Workflow SS Bilirubin [Mass/Vol] 0.7 mg/dL Invalid Interpretation Code 0.2 - 1.0 mg/dL AO ADM SS Comment on above: Interpretive Data: U se of this assay is not recommended for patients undergoing treatment with eltrombopag due to the potential for falsely elevated results. Calcium [Mass/Vol] 8.0 mg/dL Invalid Interpretation Code 8.4 - 10.2 mg/dL AO ADM SS Chloride [Moles/Vol] 102 mmol/L Invalid Interpretation Code 98 - 107 mmol/L AO ADM SS CO2 [Moles/Vol] 24 mmol/L Invalid Interpretation Code 22 - 29 mmol/L AO ADM SS Creatinine [Mass/Vol] 1.06 mg/dL Invalid Interpretation Code 0.70 - 1.30 mg/dL AO ADM SS Electrolyte Balance 10.0 mEq/L Invalid Interpretation Code 4.0 - 15.0 mEq/L AO ADM SS Eosinophil, Absolute 0.1 103/mcL Invalid Interpretation Code 0.0 - 0.4 10^3/mcL AO Workflow SS Eosinophils/100 WBC (Bld) 0.5 % Invalid Interpretation Code 0.0 - 7.0 % AO Workflow SS Erythrocyte distribution width (RBC) [Ratio] 15.6 % Invalid Interpretation Code 11.5 - 14.5 % AO Workflow SS GFR/1.73 sq M.predicted among blacks MDRD (S/P/Bld) [Vol rate/Area] 97 ml/min/1.73sqm Invalid Interpretation Code AO Chemistry S Comment on above: Interpretive Data: GFR Population mean for , Non- Americans Ages 20-29 = 116 mL/min/1.73 sq.m. Ages 30-39 = 107 mL/min/1.73 sq.m. Ages 40-49 = 99 mL/min/1.73 sq.m. Ages 50-59 = 93 mL/min/1.73 sq.m. Ages 60-69 = 85 mL/min/1.73 sq.m. Ages 70+ = 75 mL/min/1.73 sq.m. Chronic Kidney Disease: Less than 60 mL/min/1.73 square meters End Stage Renal Disease: Less than 15 mL/min/1.73 square meters GFR/1.73 sq M.predicted among non-blacks MDRD (S/P/Bld) [Vol rate/Area] 80 ml/min/1.73sqm Invalid Interpretation Code AO Chemistry S Comment on above: Interpretive Data: GFR Population mean for , Non- Americans Ages 20-29 = 116 mL/min/1.73 sq.m. Ages 30-39 = 107 mL/min/1.73 sq.m. Ages 40-49 = 99 mL/min/1.73 sq.m. Ages 50-59 = 93 mL/min/1.73 sq.m. Ages 60-69 = 85 mL/min/1.73 sq.m. Ages 70+ = 75 mL/min/1.73 sq.m. Chronic Kidney Disease: Less than 60 mL/min/1.73 square meters End Stage Renal Disease: Less than 15 mL/min/1.73 square meters Globulin 5.7 G/dL Invalid Interpretation Code AO ADM SS Glucose [Mass/Vol] 110 mg/dL Invalid Interpretation Code 70 - 105 mg/dL AO ADM SS Hematocrit (Bld) [Volume fraction] 36.0 % Invalid Interpretation Code 42.0 - 52.0 % AO Workflow SS Hemoglobin (Bld) [Mass/Vol] 12.0 G/dL Invalid Interpretation Code 14.0 - 18.0 G/dL AO Workflow SS Lipase [Catalytic activity/Vol] 26 U/L Invalid Interpretation Code 16 - 77 U/L AO ADM SS Lymphocyte, Absolute 8.6 103/mcL Invalid Interpretation Code 0.8 - 3.9 10^3/mcL AO Workflow SS Lymphocytes/100 WBC (Bld) 55.5 % Invalid Interpretation Code 10.0 - 50.0 % AO Workflow SS MCH (RBC) [Entitic mass] 27.5 pg Invalid Interpretation Code 27.0 - 31.2 pg AO Workflow SS MCHC 33.3 G/dL Invalid Interpretation Code 31.8 - 35.4 G/dL AO Workflow SS MCV (RBC) [Entitic vol] 82.5 fL Invalid Interpretation Code 80.0 - 94.0 fL AO Workflow SS Monocyte distribution width Auto (Bld) [Entitic vol] 29.18 1 Invalid Interpretation Code 0.00 - 20.00 AO Workflow SS Comment on above: Result Comment: The predictive value of MDW for identifying sepsis in patients with hematological abnormalities has not been established Monocyte, Absolute 1.0 103/mcL Invalid Interpretation Code 0.2 - 1.0 10^3/mcL AO Workflow SS Monocytes/100 WBC (Bld) 6.3 % Invalid Interpretation Code 1.7 - 13.0 % AO Workflow SS Neutrophil, Absolute 5.7 103/mcL Invalid Interpretation Code 2.9 - 6.2 10^3/mcL AO Workflow SS Neutrophils/100 WBC (Bld) 36.6 % Invalid Interpretation Code 37.0 - 80.0 % AO Workflow SS Platelet mean volume (Bld) [Entitic vol] 7.4 fL Invalid Interpretation Code 7.4 - 10.4 fL AO Workflow SS Platelets (Bld) [#/Vol] 207 103/mcL Invalid Interpretation Code 130 - 400 10^3/mcL AO Workflow SS Potassium [Moles/Vol] 4.3 mmol/L Invalid Interpretation Code 3.5 - 5.1 mmol/L AO ADM SS Protein [Mass/Vol] 8.7 G/dL Invalid Interpretation Code 6.4 - 8.2 G/dL AO ADM SS RBC (Bld) [#/Vol] 4.37 106/mcL Invalid Interpretation Code 4.04 - 6.13 10^6/mcL AO Workflow SS Sodium [Moles/Vol] 136 mmol/L Invalid Interpretation Code 136 - 145 mmol/L AO ADM SS Urea nitrogen [Mass/Vol] 10 mg/dL Invalid Interpretation Code 7 - 18 mg/dL AO ADM SS Urea nitrogen/Creatinine [Mass ratio] 9 ratio Invalid Interpretation Code 7 - 27 ratio AO ADM SS WBC (Bld) [#/Vol] 15.6 103/mcL Invalid Interpretation Code 4.6 - 10.8 10^3/mcL AO Workflow SS .Auto Diffon 11-29-2022 Basophil, Absolute 0.1 10 3/mcL Normal 0.0-0.2 [facility] [place] Comment on above: Performed By: #### A KAREN, ADIFF, GFR, CBC, MG, CMP, MDW, MORPH ####Marie [address] [place], [place] [address] Basophils/100 WBC (Bld) 0.5 % Normal 0.0-2.5 [facility] ([place]) Comment on above: Performed By: #### A KAREN, ADIFF, GFR, CBC, MG, CMP, MDW, MORPH ####Marie [address] [place], [place] [address] Eosinophil, Absolute 0.1 10 3/mcL Normal 0.0-0.4 [facility] ([place]) Comment on above: Performed By: #### A KAREN, ADIFF, GFR, CBC, MG, CMP, MDW, MORPH ####[address] [place], [place] [address] Eosinophils/100 WBC (Bld) 0.6 % Normal 0.0-7.0 [facility] ([place]) Comment on above: Performed By: #### A KAREN, ADIFF, GFR, CBC, MG, CMP, MDW, MORPH ####[address] [place], [place] [address] Lymphocyte, Absolute 5.6 10 3/mcL High 0.8-3.9 [facility] ([place]) Comment on above: Performed By: #### A KAREN, ADIFF, GFR, CBC, MG, CMP, MDW, MORPH ####[address] [place], [place] [address] Lymphocytes/100 WBC (Bld) 50.7 % High 10.0-50.0 [facility] ([place]) Comment on above: Performed By: #### A KAREN, ADIFF, GFR, CBC, MG, CMP, MDW, MORPH ####Marie [address] [place], [place] [address] Monocyte, Absolute 0.9 10 3/mcL Normal 0.2-1.0 [facility] [place] Comment on above: Performed By: #### A KAREN, ADIFF, GFR, CBC, MG, CMP, MDW, MORPH ####Marie [address] [place], [place] [address] Monocytes/100 WBC (Bld) 8.3 % Normal 1.7-13.0 [facility] ([place] Comment on above: Performed By: #### A KAREN, ADIFF, GFR, CBC, MG, CMP, JAVAD, MORPH ####Marie [address] [place], [place] [address] Neutrophils/100 WBC (Bld) 39.9 % Normal 37.0-80.0 [facility] ([place]) Comment on above: Performed By: #### A KAREN, ADIFF, GFR, CBC, MG, CMP, JAVAD, MORPH ####Marie [address] [place], [place] [address] .GFRon 11-29-2022 GFR 136 ml/min/1.73sqm Normal [facility] ([place] Comment on above: Result Comment: GFR Population mean for , Non- Americans Ages 20-29 = 116 mL/min/1.73 sq.m. Ages 30-39 = 107 mL/min/1.73 sq.m. Ages 40-49 = 99 mL/min/1.73 sq.m. Ages 50-59 = 93 mL/min/1.73 sq.m. Ages 60-69 = 85 mL/min/1.73 sq.m. Ages 70+ = 75 mL/min/1.73 sq.m. Chronic Kidney Disease: Less than 60 mL/min/1.73 square meters End Stage Renal Disease: Less than 15 mL/min/1.73 square meters Performed By: #### A KAREN, ADIFF, GFR, CBC, MG, CMP, JAVAD, MORPH ####Marie [address] [place], [place] [address] GFR Non- 112 ml/min/1.73sqm Normal [facility] ([place] Comment on above: Result Comment: GFR Population mean for , Non- Americans Ages 20-29 = 116 mL/min/1.73 sq.m. Ages 30-39 = 107 mL/min/1.73 sq.m. Ages 40-49 = 99 mL/min/1.73 sq.m. Ages 50-59 = 93 mL/min/1.73 sq.m. Ages 60-69 = 85 mL/min/1.73 sq.m. Ages 70+ = 75 mL/min/1.73 sq.m. Chronic Kidney Disease: Less than 60 mL/min/1.73 square meters End Stage Renal Disease: Less than 15 mL/min/1.73 square meters Performed By: #### A KAREN, ADIFF, GFR, CBC, MG, CMP, MDW, MORPH ####Marie [address] [place], [place] [address] .MDWon 11-29-2022 Monocyte Distribution Width 27.33 High 0.00-20.00 [facility] ([place]) Comment on above: Result Comment: The predictive value of MDW for identifying sepsis in patients with hematological abnormalities has not been established Performed By: #### A KAREN, ADIFF, GFR, CBC, MG, CMP, MDW, MORPH ####Marie [address] [place], [place] [address] .Morphon 11-29-2022 Platelet Estimate Normal Normal [facility]) Comment on above: Performed By: #### A KAREN, ADIFF, GFR, CBC, MG, CMP, MDW, MORPH ####Marie [address] [place] [address] .NEUABSon 11-29-2022 Neutrophil, Absolute 4.4 10 3/mcL Normal 2.9-6.2 [facility] ([place]) Comment on above: Performed By: #### A KAREN, ADIFF, GFR, CBC, MG, CMP, MDW, MORPH ####[address] [place] [id number] CBCon 11-29-2022 Erythrocyte distribution width (RBC) [Ratio] 15.4 % High 11.5-14.5 [facility] ([place] Comment on above: Performed By: #### A KAREN, ADIFF, GFR, CBC, MG, CMP, MDW, MORPH ####Marie [address] [place], [place] [address] Hematocrit (Bld) [Volume fraction] 29.8 % Low 42.0-52.0 [facility] [place] Comment on above: Performed By: #### A KAREN, ADIFF, GFR, CBC, MG, CMP, MDW, MORPH ####Marie [address] [place], [place] [address] Hgb 9.8 G/dL Low 14.0-18.0 [facility] ([place] Comment on above: Performed By: #### A KAREN, ADIFF, GFR, CBC, MG, CMP, MDW, MORPH ####Marie [address] [place], [place] [address] MCH (RBC) [Entitic mass] 27.4 pg Normal 27.0-31.2 [facility] [place] Comment on above: Performed By: #### A KAREN, ADIFF, GFR, CBC, MG, CMP, MDW, MORPH ####[address] [place], [place] [address] MCHC 32.8 G/dL Normal 31.8-35.4 [facility] ([place] Comment on above: Performed By: #### A KAREN, ADIFF, GFR, CBC, MG, CMP, MDW, MORPH ####[address] [place], [place] [address] MCV (RBC) [Entitic vol] 83.7 fL Normal 80.0-94.0 [facility] ([place] Comment on above: Performed By: #### A KAREN, ADIFF, GFR, CBC, MG, CMP, MDW, MORPH ####[address] [place], [place] [address] Platelet 145 10 3/mcL Normal 130-400 [facility] ([place] Comment on above: Performed By: #### A KAREN, ADIFF, GFR, CBC, MG, CMP, MDW, MORPH ####Marie [address] [place], [place] [address] Platelet mean volume (Bld) [Entitic vol] 7.6 fL Normal 7.4-10.4 [facility] ([place] Comment on above: Performed By: #### A KAREN, ADIFF, GFR, CBC, MG, CMP, MDW, MORPH ####Marie [address] [place], [place] [address] RBC 3.56 10 6/mcL Low 4.04-6.13 [facility] [place] Comment on above: Performed By: #### A KAREN, ADIFF, GFR, CBC, MG, CMP, MDW, MORPH ####[address] [place], [place] [address] WBC 11.1 10 3/mcL High 4.6-10.8 [facility] ([place] Comment on above: Performed By: #### A KAREN, ADIFF, GFR, CBC, MG, CMP, MDW, MORPH ####[address] [place], [place] [address] CMPon 11-29-2022 Albumin Level 2.6 G/dL Low 3.5-5.0 [facility] [place] Comment on above: Performed By: #### A KAREN, ADIFF, GFR, CBC, MG, CMP, MDW, MORPH ####[address] [place], [place] [address] Albumin/Globulin [Mass ratio] 0.5 {ratio} Low 1.1-2.5 [facility] [place] Comment on above: Performed By: #### A KAREN, ADIFF, GFR, CBC, MG, CMP, MDW, MORPH ####[address] [place], [place] [address] ALP [Catalytic activity/Vol] 148 U/L High 40-135 [facility] ([place] Comment on above: Performed By: #### A KAREN, ADIFF, GFR, CBC, MG, CMP, MDW, MORPH ####[address] [place], [place] [address] ALT [Catalytic activity/Vol] 71 U/L High 16-63 [facility] [place] Comment on above: Performed By: #### A KAREN, ADIFF, GFR, CBC, MG, CMP, MDW, MORPH ####[address] [place], [place] [address] AST [Catalytic activity/Vol] 64 U/L High 10-40 [facility] ([place] Comment on above: Performed By: #### A KAREN, ADIFF, GFR, CBC, MG, CMP, MDW, MORPH ####[facility] [place], [place] [address] Bili Total 0.6 mg/dL Normal 0.2-1.0 [facility] ([place] Comment on above: Result Comment: Use of this assay is not recommended for patients undergoing treatment with eltrombopag due to the potential for falsely elevated results. Performed By: #### A KAREN, ADIFF, GFR, CBC, MG, CMP, MDW, MORPH ####Marie [address] [place], [place] [address] BUN/Creatinine Ratio 11 ratio Normal 7-27 [facility] [place] Comment on above: Performed By: #### A KAREN, ADIFF, GFR, CBC, MG, CMP, MDW, MORPH ####Marie [address] [place], [place] [address] Calcium [Mass/Vol] 7.4 mg/dL Low 8.4-10.2 [facility] [place] Comment on above: Performed By: #### A KAREN, ADIFF, GFR, CBC, MG, CMP, MDW, MORPH ####Marie [address] [place], [place] [address] Chloride [Moles/Vol] 103 mmol/L Normal 98-107 [facility] [place] Comment on above: Performed By: #### A KAREN, ADIFF, GFR, CBC, MG, CMP, MDW, MORPH ####Marie [address] [place], [place] [address] CO2 [Moles/Vol] 27 mmol/L Normal 22-29 [facility] ([place] Comment on above: Performed By: #### A KAREN, ADIFF, GFR, CBC, MG, CMP, MDW, MORPH ####Marie [address] [place], [place] [address] Creatinine [Mass/Vol] 0.79 mg/dL Normal 0.70-1.30 [facility] ([place] Comment on above: Performed By: #### A KAREN, ADIFF, GFR, CBC, MG, CMP, MDW, MORPH ####Marie [address] [place], [place] [address] Electrolyte Balance 7.0 mEq/L Normal 4.0-15.0 [facility] [place] Comment on above: Performed By: #### A KAREN, ADIFF, GFR, CBC, MG, CMP, MDW, MORPH ####[address] [place], [place] [address] Globulin 5.2 G/dL Normal [facility] ([place] Comment on above: Performed By: #### A KAREN, ADIFF, GFR, CBC, MG, CMP, MDW, MORPH ####[address] [place], [place] [address] Glucose [Mass/Vol] 103 mg/dL Normal 70-105 [facility] ([place] Comment on above: Performed By: #### A KAREN, ADIFF, GFR, CBC, MG, CMP, MDW, MORPH ####[address] [place], [place] [address] Potassium [Moles/Vol] 4.0 mmol/L Normal 3.5-5.1 [facility] [place] Comment on above: Performed By: #### A KAREN, ADIFF, GFR, CBC, MG, CMP, MDW, MORPH ####[address] [place], [place] [address] Sodium [Moles/Vol] 137 mmol/L Normal 136-145 [facility] [place] Comment on above: Performed By: #### A KAREN, ADIFF, GFR, CBC, MG, CMP, MDW, MORPH ####[address] [place], [place] [address] Total Protein 7.8 G/dL Normal 6.4-8.2 [facility] [place] Comment on above: Performed By: #### A KAREN, ADIFF, GFR, CBC, MG, CMP, MDW, MORPH ####[address] [place], [place] [address] Urea nitrogen [Mass/Vol] 9 mg/dL Normal 7-18 [facility] [place] Comment on above: Performed By: #### A KAREN, ADIFF, GFR, CBC, MG, CMP, MDW, MORPH ####[address] [place], [place] [address] LIPon 11-29-2022 Lipase Level 26 U/L Normal 16-77 [facility] [place] Comment on above: Performed By: #### L IP ####[address] [place], [place] [address] MGon 11-29-2022 Magnesium [Mass/Vol] 2.1 mg/dL Normal 1.8-2.4 [facility] [place] Comment on [place]: Performed By: #### A KAREN, ADIFF, GFR, CBC, MG, CMP, MDW, MORPH ####[address] [place], [place] [address] UAon 11-29-2022 Color (U) Yellow Normal [facility] ([place] Comment on above: Performed By: #### U A ####Marie [address] [place] [address] Glucose (U) [Mass/Vol] Negative Normal Negative [facility] ([place] Comment on above: Performed By: #### U A ####[address] [place] [address] Ketones Ql (U) Negative Normal Negative [facility] ([place] Comment on above: Performed By: #### U A ####[address] [place], [place] [address] UA Appear Clear Normal Clear [facility] ([place] Comment on above: Performed By: #### U A ####[address] [place], [place] [address] UA Bili Small Abnormal Negative [facility] ([place] Comment on above: Performed By: #### U A ####[address] [place], [place] [address] UA Blood Negative Normal Negative [facility] ([place] Comment on above: Performed By: #### U A ####[address] [place], [place] [address] UA Leuk Est Negative Normal Negative [facility] ([place] Comment on above: Performed By: #### U A ####Marie [address] [place] [id number] UA Nitrite Negative Normal Negative [facility] [place] Comment on above: Performed By: #### U A ####Marie [address] [place], [place] [address] UA pH 6.0 Normal 5.0 - 8.0 [facility] ([place] Comment on above: Performed By: #### U A ####Marie [address] [place], [place] [address] UA Protein Trace Normal Negative [facility] ([place] Comment on above: Performed By: #### U A ####[address] [place], [place] [address] UA Spec Grav 1.020 Normal 1.015-1.025 [facility] ([place] Comment on above: Performed By: #### U A ####Marie [address] [place], [place] [address] UA Specimen Type Clean Catch Normal [facility] ([place] Comment on above: Performed By: #### U A ####Marie [address] [place], [place] [address] UA Urobilinogen >=8.0 Abnormal 0.2-1.0 [facility] ([place] Comment on above: Performed By: #### U A ####Marie [address] [place], [place] [address] XR CHEST 2 VIEWSon 3 XR CHEST 2 VIEWS ORIGINAL EXAMINATION: TWO XRAY VIEWS OF THE CHEST 11/29/2022 2:35 pm COMPARISON: None. HISTORY: ORDERING SYSTEM PROVIDED HISTORY: Reason for Exam: Cough/Fever Suspect Pneumonia FINDINGS: Mild bilateral hilar fullness. Normal heart size. Streaky left basilar opacities. Trace residual left pleural effusion or thickening. No pneumothorax. Bones are grossly normal. IMPRESSION: Trace residual left pleural effusion thickening with adjacent atelectasis. Interpreted by: iMke Figueroa DO Preliminary Report By: Mike Figueroa DO Electronically signed By Mike Figueroa DO Dictated Date: 11/29/2022 3:01:22 PM Prelim Date: 11/29/2022 3:02:46 PM Sign Date: 11/29/2022 3:02:46 PM Ordering Provider: DUSTIN DEXTER [facility] ([place]) Absolute lymphocyte counton 11-12-2021 Lymphocytes Auto (Unsp spec) [#/Vol] 1.59 10*3/uL 0.83-4.51 [facility] Work Phone: Basophil percentageon 2021 Basophils/100 WBC (Bld) 0.3 % 0-1 [facility] Work Phone: [phone] Bilirubin [Mass/Vol] 0.40 mg/dL 0.20-1.00 [facility] Work Phone: Comment on above: For patients on eltr ombopag therapy, use of Dimension [place] TBIL is not recommended. Chloride [Moles/Vol] 103 mmol/L 98-107 [facility] Work Phone: [phone] Eosinophils/100 WBC (Bld) 2.3 % 0-5 [facility] Work Phone: [phone] Glucose [Mass/Vol] 116 mg/dL 74-[address] [facility] Work Phone: Comment on above: Fasting Glucose resu lt from 100 to 125 mg/dL suggests IMPAIRED HOMEOSTASIS per A.D.A. criteria. Lactate [Moles/Vol] 2.0 mmol/L 0.4-2.0 [facility] Work Phone: [phone] Neutrophils (Bld) [#/Vol] 9.3 10*3/uL 2.0-7.7 [facility] Work Phone: [phone] Neutrophils/100 WBC (Bld) 78.3 % 47-70 [facility] Work Phone: [phone] Potassium [Moles/Vol] 3.3 mmol/L 3.5-5.1 [facility] Work Phone: [phone] Protein [Mass/Vol] 8.7 g/dL 6.4-8.[address] [facility] Work Phone: [phone] Sodium [Moles/Vol] 138 mmol/L 136-[address] [facility] Work Phone: [phone] WBC (Bld) [#/Vol] 11.9 10*3/uL 4.4-11.0 [facility] Work Phone: Blood erythrocytes count (nu mber/volume)on 11-12-2021 RBC (Bld) [#/Vol] 4.22 10*6/uL 4.6-6.2 [facility] Work Phone: Blood hemoglobin measurement (mass/volume)on 11-12-2021 Hemoglobin (Bld) [Mass/Vol] 11.6 g/dL 13.0-16.5 [facility] Work Phone: Blood lymphocytes/100 leukoc yteson 11-12-2021 Lymphocytes/100 WBC (Bld) 13.4 % 19-41 [facility] Work Phone: Blood monocytes/100 leukocyt eson 11-12-2021 Monocytes/100 WBC (Bld) 5.3 % 0-10 [facility] Work Phone: Blood platelet mean volumeon 11-12-2021 Platelet mean volume (Bld) [Entitic vol] 10.1 fL 6.2-12.0 [facility] Work Phone: Determination of erythrocyte mean corpuscular volume (MCV)on 11-12-2021 MCV (RBC) [Entitic vol] 83.9 fL 80-94 [facility] Work Phone: Hematocrit Auto (Bld) [Volum e fraction]on 11-12-2021 Hematocrit (Bld) [Volume fraction] 35.4 % 40-54 [facility] Work Phone: Laboratory - Chemistry and C hemistry - challengeon 11-12-2021 ALP [Catalytic activity/Vol] 92 U/L 45-117 [facility] Work Phone: ALT [Catalytic activity/Vol] 76 U/L 16-61 [facility] Work Phone: CO2 [Moles/Vol] 28.0 mmol/L 21.0-32.0 [facility] Work Phone: Globulin (S) [Mass/Vol] 5.7 g/dL 2.2-4.2 [facility] Work Phone: Urea nitrogen/Creatinine [Mass ratio] 6.4 mg/mg 10-20 [facility] Work Phone: Laboratory - Hematology and Cell countson 11-12-2021 Erythrocyte distribution width (RBC) [Entitic vol] 42.4 fL 35.1-43.9 [facility] Work Phone: Erythrocyte distribution width (RBC) [Ratio] 13.8 % 11.6-14.6 [facility] Work Phone: Immature granulocytes/100 WBC (Bld) 0.400 % 0.0-0.9 [facility] Work Phone: Comment on above: IG% - Immature Granu locytes (promyelocytes, myelocytes and metamyelocytes) > 1% indicates that a LEFT SHIFT is Present. MCH (RBC) [Entitic mass] 27.5 pg 27.0-32.0 [facility] Work Phone: Nucleated RBC/100 WBC (Bld) [Ratio] 0 % 0-5 [facility] Work Phone: MCHC Auto (RBC) [Mass/Vol]on 11-12-2021 MCHC (RBC) [Mass/Vol] 32.8 g/dL 32-36 [facility] Work Phone: No Panel Informationon 11-12 Estimated Creatinine Clearance Calc 101.95 ml/min [facility] Work Phone: Estimated GFR (MDRD) Amer 120 mL/min >60 [facility] Work Phone: Comment on above: GFR Calc Estimated GFR (MDRD) Non-Af Amer 99 mL/min >60 [facility] Work Phone: Comment on above: Non- GFR Calc Platelets bldon 11-12-2021 Platelets (Bld) [#/Vol] 279 10*3/uL 150-450 [facility] Work Phone: Serum or plasma albumin lia urement (mass/volume)on 11-12-2021 Albumin [Mass/Vol] 3.0 g/dL 3.2-5.[address] [facility] Work Phone: Serum or plasma albumin/glob ulin mass ratioon 11-12-2021 Albumin/Globulin [Mass ratio] 0.5 {ratio} 0.9-2.4 [facility] Work Phone: Serum or plasma calcium lia urement (mass/volume)on 11-12-2021 Calcium [Mass/Vol] 8.8 mg/dL 8.5-10.[address] [facility] Work Phone: Serum or plasma creatinine m easurement (mass/volume)on 11-12-2021 Creatinine [Mass/Vol] 0.93 mg/dL 0.70-1.30 [facility] Work Phone: Comment on above: The validity of the calculated GFR & GFRAA in patients over 70 years has not been determined. Clinical correlation is essential. Serum or plasma urea nitroge n measurement (mass/volume)on 11-12-2021 Urea nitrogen [Mass/Vol] 6 mg/dL 7-18 [facility] Work Phone: Thin prep Papanicolaou smear with manual screeningon 11-12-2021 Thin prep Papanicolaou smear with manual screening 57 U/L 15-37 [facility] Work Phone: Thin prep Papanicolaou smear with manual screening 7 5-15 [facility] Work Phone: Laboratory - Microbiology an d Antimicrobial susceptibility Bacteria identified Cx Nom (Bld) No growth in 5 days. [facility] Work Phone: Vital Signs Date Time Vital Sign Value Performing Clinician Facility 07-13-2023 13:45-0400 Heart rate 96 /min JEANNIE CASTRO MD [facility] 07-13-2023 13:45-0400 Respiratory rate 20 /min JEANNIE CASTRO MD [facility] 07-13-2023 13:28-0400 Heart rate 90 /min JEANNIE CASTRO MD [facility] 07-13-2023 13:28-0400 Respiratory rate 20 /min JEANNIE CASTRO MD [facility] 07-13-2023 13:18-0400 Heart rate 96 /min JEANNIE CASTRO MD [facility] 07-13-2023 13:18-0400 Respiratory rate 20 /min JEANNIE CASTRO MD [facility] 07-13-2023 12:37-0400 Body height 167.8 cm JEANNIE CASTRO MD [facility] 07-13-2023 12:37-0400 Body temperature 98.24 [degF] JEANNIE CASTRO MD [facility] 07-13-2023 12:37-0400 Body weight 63.6 kg JEANNIE CASTRO MD [facility] 07-13-2023 12:37-0400 Diastolic Blood Pressure Non-Invasive 83 mm[Hg] JEANNIE CASTRO MD [facility] 07-13-2023 12:37-0400 Systolic Blood Pressure Non-Invasive 146 mm[Hg] JEANNIE CASTRO MD [facility] 03-20-2023 14:53-0500 Diastolic Blood Pressure Non-Invasive 71 mm[Hg] BRENDON LÓPEZ DO [place] 03-20-2023 14:53-0500 Heart rate 102 /min NIDAL CHOUJAA DO [facility] 03-20-2023 14:53-0500 Respiratory rate 20 /min NIDAL CHOUJAA DO [facility] 03-20-2023 14:53-0500 Systolic Blood Pressure Non-Invasive 145 mm[Hg] NIDAL CHOUJAA DO [facility] 03-20-2023 13:00-0500 Diastolic Blood Pressure Non-Invasive 63 mm[Hg] NIDAL CHOUJAA DO [facility] 03-20-2023 13:00-0500 Heart rate 100 /min NIDAL CHOUJAA DO [facility] 03-20-2023 13:00-0500 Systolic Blood Pressure Non-Invasive 135 mm[Hg] NIDAL CHOUJAA DO [facility] 03-20-2023 08:35-0500 Body temperature 97.52 [degF] NIDAL CHOUJAA DO [facility] 03-20-2023 08:35-0500 Body weight 64.6 kg NIDAL CHOUJAA DO [facility] 03-20-2023 08:35-0500 Diastolic Blood Pressure Non-Invasive 66 mm[Hg] NIDAL CHOUJAA DO [facility] 03-20-2023 08:35-0500 Heart rate 105 /min NIDAL CHOUJAA DO [facility] 03-20-2023 08:35-0500 Respiratory rate 20 /min NIDAL CHOUJAA DO [facility] 03-20-2023 08:35-0500 Systolic Blood Pressure Non-Invasive 133 mm[Hg] NIDAL CHOUJAA DO [facility] 03-20-2023 07:33-0500 Diastolic Blood Pressure Non-Invasive 85 mm[Hg] DR DARNELL BARBOSA MD [facility] 03-20-2023 07:33-0500 Heart rate 109 /min DR DARNELL BARBOSA MD [facility] 03-20-2023 07:33-0500 Mean blood pressure 103 mm[Hg] DR DARNELL BARBOSA MD [facility] 03-20-2023 07:33-0500 Respiratory rate 16 /min DR DARNELL BARBOSA MD [facility] 03-20-2023 07:33-0500 Systolic Blood Pressure Non-Invasive 156 mm[Hg] DR DARNELL BARBOSA MD [facility] 03-20-2023 04:48-0500 Blood Pressure Cuff Size DR DARNELL BARBOSA MD [facility] 03-20-2023 04:48-[address] DARNELL BARBOSA MD [facility] 03-20-2023 04:48-[address] DARNELL BARBOSA MD [facility] 03-20-2023 04:48-0500 Body height 167.[address] DARNELL BARBOSA MD [facility] 03-20-2023 04:48-0500 Body temperature 99.32 [degF] DR DARNELL BARBOSA MD [facility] 03-20-2023 04:48-0500 Body weight 63.[address] DARNELL BARBOSA MD [facility] 03-20-2023 04:48-0500 Diastolic Blood Pressure Non-Invasive 89 mm[Hg] DR DARNELL BARBOSA MD [facility] 03-20-2023 04:48-0500 Heart rate 126 /min DR DARNELL BARBOSA MD [facility] 03-20-2023 04:48-0500 Reason For Taking VItal Signs DR DARNELL BARBOSA MD [facility] 03-20-2023 04:48-0500 Respiratory rate 20 /min DR DARNELL BARBOSA MD [facility] 03-20-2023 04:48-0500 Systolic Blood Pressure Non-Invasive 144 mm[Hg] DR DARNELL BARBOSA MD [facility] 03-10-2023 17:14-0500 Diastolic Blood Pressure Non-Invasive 72 mm[Hg] NIDAL CHOUJAA DO [facility] 03-10-2023 17:14-0500 Heart rate 90 /min NIDAL CHOUJAA DO [facility] 03-10-2023 17:14-0500 Respiratory rate 16 /min NIDAL CHOUJAA DO [facility] 03-10-2023 17:14-0500 Systolic Blood Pressure Non-Invasive 113 mm[Hg] NIDAL CHOUJAA DO [facility] 03-10-2023 14:59-0500 Body temperature 98.6 [degF] NIDAL CHOUJAA DO [facility] 03-10-2023 14:59-0500 Diastolic Blood Pressure Non-Invasive 70 mm[Hg] NIDAL CHOUJAA DO [facility] 03-10-2023 14:59-0500 Heart rate 95 /min NIDAL CHOUJAA DO [facility] 03-10-2023 14:59-0500 Respiratory rate 20 /min NIDAL CHOUJAA DO [facility] 03-10-2023 14:59-0500 Systolic Blood Pressure Non-Invasive 118 mm[Hg] [facility] CHOUJAA DO [facility] 12-30-2022 15:17-0400 Body temperature 97.7 [degF] DR EZEQUIEL VERDUZCO MD [place] 12-30-2022 15:17-0400 Diastolic Blood Pressure Non-Invasive [address] EZEQUIEL VERDUZCO MD [place] 12-30-2022 15:17-0400 Heart rate 90 /min DR EZEQUIEL VERDUZCO MD [address] [place] [address] 12-30-2022 15:17-0400 Reason For Taking VItal Signs DR EZEQUIEL VERDUZCO MD [facility] 12-30-2022 15:17-0400 Respiratory rate 18 /min DR EZEQUIEL VERDUZCO MD [facility] 12-30-2022 15:17-0400 Systolic Blood Pressure Non-Invasive [address] EZEQUIEL VERDUZCO MD [facility] 12-30-2022 15:01-0400 Body temperature 97.88 [degF] DR EZEQUIEL VERDUZCO MD [facility] 12-30-2022 15:01-0400 Diastolic Blood Pressure Non-Invasive [address] EZEQUIEL VERDUZCO MD [facility] 12-30-2022 15:01-0400 Heart rate 78 /min DR EZEQUIEL VERDUZCO MD [facility] 12-30-2022 15:01-0400 Mean blood pressure 93 mm[Hg] DR EZEQUIEL VERDUZCO MD [address] [place] [address] 12-30-2022 15:01-0400 Respiratory rate 16 /min DR EZEQUIEL VERDUZCO MD [address] [place] [address] 12-30-2022 15:01-0400 Systolic Blood Pressure Non-Invasive [address] EZEQUIEL VERDUZCO MD [address] [place] [address] 12-30-2022 14:50-0400 Diastolic Blood Pressure Non-Invasive [address] EZEQUIEL VERDUZCO MD [address] [place] [address] 12-30-2022 14:50-0400 Heart rate 80 /min DR EZEQUIEL VERDUZCO MD [address] [place] [address] 12-30-2022 14:50-0400 Mean blood pressure 88 mm[Hg] DR EZEQUIEL VERDUZCO MD [address] [place] [address] 12-30-2022 14:50-0400 Respiratory rate 16 /min DR EZEQUIEL VERDUZCO MD [address] [place] [address] 12-30-2022 14:50-0400 Systolic Blood Pressure Non-Invasive [address] EZEQUIEL VERDUZCO MD [address] [place] [address] 12-30-2022 14:35-0400 Mean blood pressure 96 mm[Hg] DR EZEQUIEL VERDUZCO MD [facility] 12-30-2022 13:55-0400 Respiratory Rate - Anes 0 br/min DR EZEQUIEL VERDUZCO MD [address] [place] [address] 12-30-2022 13:50-0400 Respiratory Rate - Anes 0 br/min DR EZEQUIEL VERDUZCO MD [address] [place] [address] 12-30-2022 13:48-0400 Body temperature 97.16 [degF] DR EZEQUIEL VERDUZCO MD [address] [place] [address] 12-30-2022 13:45-0400 Respiratory Rate - Anes 0 br/min DR EZEQUIEL VERDUZCO MD [address] [place] [address] 12-30-2022 13:25-0400 Body temperature 96.26 [degF] DR EZEQUIEL VERDUZCO MD [address] [place] [address] 12-30-2022 13:20-0400 Body temperature 95.99 [degF] DR EZEQUIEL VERDUZCO MD [address] [place] [address] 12-30-2022 13:15-0400 Body temperature 95.99 [degF] DR EZEQUIEL VERDUZCO MD [address] [place] [address] 12-30-2022 10:57-0400 Reason For Taking VItal Signs DR EZEQUIEL VERDUZCO MD [address] [place] [address] Comment on above: Result Comment: testing.. 12-30-2022 08:51-0400 Body temperature 97.7 [degF] DR EZEQUIEL VERDUZCO MD [address] [place] [address] 12-30-2022 04:37-[address] EZEQUIEL VERDUZCO MD [address] [place] [address] 12-30-2022 04:37-[address] EZEQUIEL VERDUZCO MD [address] [place] [address] 12-30-2022 04:37-0400 Body temperature 98.06 [degF] DR EZEQUIEL VERDUZCO MD [address] 12-30-2022 04:37-0400 Reason For Taking VItal Signs DR EZEQUIEL VERDUZCO MD [address] [place] [address] 12-29-2022 22:28-0400 Blood Pressure Cuff Size DR EZEQUIEL VERDUZCO MD [address] [place] [address] 12-29-2022 22:28-[address] EZEQUIEL VERDUZCO MD [address] [place] [address] 12-29-2022 22:28-[address] EZEQUIEL VERDUZCO MD [address] [place] [address] 12-29-2022 22:28-0400 Body temperature 98.24 [degF] DR EZEQUIEL VERDUZCO MD [address] [place] [address] 12-29-2022 19:32-[address] EZEQUIEL VERDUZCO MD [address] [place] [address] 12-29-2022 15:24-0400 Blood Pressure Cuff Size DR EZEQUIEL VERDUZCO MD [place] 12-29-2022 15:24-[address] EZEQUIEL VERDUZCO MD [facility] 12-29-2022 11:24-0400 Blood Pressure Cuff Size DR EZEQUIEL VERDUZCO MD [facility] 12-25-2022 23:19-0400 Body height 165.[address] EZEQUIEL VERDUZCO MD [facility] 12-25-2022 23:19-0400 Body weight 67.[address] EZEQUIEL VERDUZCO MD [facility] 12-25-2022 23:19-0400 Body weight 24.73 kg/m2 DR EZEQUIEL VERDUZCO MD [facility] 12-25-2022 21:26-0400 Diastolic Blood Pressure Non-Invasive 66 1 KENDALL DACOSTA MD [facility] 12-25-2022 21:26-0400 Heart rate 67 /min KENDALL DACOSTA MD [facility] 12-25-2022 21:26-0400 Respiratory rate 18 /min KENDALL DACOSTA MD [facility] 12-25-2022 21:26-0400 Systolic Blood Pressure Non-Invasive 113 1 KENDALL DACOSTA MD [facility] 12-25-2022 20:31-0400 Diastolic Blood Pressure Non-Invasive 63 1 KENDALL DACOSTA MD [facility] 12-25-2022 20:31-0400 Heart rate 66 /min KENDALL DACOSTA MD [facility] 12-25-2022 20:31-0400 Respiratory rate 18 /min KENDALL DACOSTA MD [facility] 12-25-2022 20:31-0400 Systolic Blood Pressure Non-Invasive 112 1 KENDALL DACOSTA MD [facility] 12-25-2022 18:57-0400 Diastolic Blood Pressure Non-Invasive 95 1 KENDALL DACOSTA MD [facility] 12-25-2022 18:57-0400 Heart rate 83 /min KENDALL DACOSTA MD [facility] 12-25-2022 18:57-0400 Respiratory rate 18 /min KENDALL DACOSTA MD [facility] 12-25-2022 18:57-0400 Systolic Blood Pressure Non-Invasive 127 1 KENDALL DACOSTA MD [facility] 12-25-2022 14:00-0400 Reason For Taking VItal Signs KENDALL DACOSTA MD [facility] 12-25-2022 12:34-0400 Body temperature 98.42 [degF] KENDALL DACOSTA MD [facility] 12-25-2022 12:34-0400 Body weight 66 kg KENDALL DACOSTA MD [facility] 12-25-2022 12:34-0400 Heart rate 106 /min KENDALL DACOSTA MD [facility] 12-02-2022 01:03-0400 Diastolic Blood Pressure Non-Invasive [address] ANGLE THURMAN MD [facility] 12-02-2022 01:03-0400 Heart rate 87 /min DR ANGLE THURMAN MD [facility] 12-02-2022 01:03-0400 Respiratory rate 18 /min DR ANGLE THURMAN MD [facility] 12-02-2022 01:03-0400 Systolic Blood Pressure Non-Invasive [address] ANGLE THURMAN MD [facility] 12-01-2022 20:59-04[address] Blood Pressure Cuff Size DR ANGLE THURMAN MD [facility] 12-01-2022 20:59-[address] ANGLE THURMAN MD [facility] 12-01-2022 20:59-[address] ANGLE THURMAN MD [facility] 12-01-2022 20:59-0400 Body temperature 97.88 [degF] DR ANGLE THURMAN MD [facility] 12-01-2022 20:59-0400 Diastolic Blood Pressure Non-Invasive [address] ANGLE THURMAN MD [facility] 12-01-2022 20:59-0400 Heart rate 90 /min DR ANGLE THURMAN MD [facility] 12-01-2022 20:59-0400 Respiratory rate 18 /min DR ANGLE THURMAN MD [facility] 12-01-2022 20:59-0400 Systolic Blood Pressure Non-Invasive [address] ANGLE THURMAN MD [facility] 02-19-2022 04:09-0400 Body temperature 98.2 [degF] [facility] Work Phone: 02-19-2022 04:09-0400 Diastolic blood pressure 67 mm[Hg] [facility] Work Phone: 02-19-2022 04:09-0400 Heart rate 90 /min [facility] Work Phone: 02-19-2022 04:09-0400 Respiratory rate 19 /min [facility] Work Phone: 02-19-2022 04:09-0400 SaO2% (BldA) [Mass fraction] 100 % [facility] Work Phone: 02-19-2022 04:09-0400 Systolic blood pressure 132 mm[Hg] [facility] Work Phone: 02-18-2022 23:13-0400 Body height 167.64 cm [facility] Work Phone: 02-18-2022 23:13-0400 Body mass index (BMI) [Ratio] 2.2 kg/m2 [facility] Work Phone: 02-18-2022 23:13-0400 Body weight 6.35 kg [facility] Work Phone: 11-12-2021 17:02-0400 Body height 167.64 cm [facility] Work Phone: 11-12-2021 17:02-0400 Body mass index (BMI) [Ratio] 23.3 kg/m2 [facility] Work Phone: 11-12-2021 17:02-0400 Body temperature 96.6 [degF] [facility] Work Phone: 11-12-2021 17:02-0400 Body weight 65.77 kg [facility] Work Phone: 11-12-2021 17:02-0400 Diastolic blood pressure 79 mm[Hg] [facility] Work Phone: 11-12-2021 17:02-0400 Heart rate 111 /min [facility] Work Phone: 11-12-2021 17:02-0400 Respiratory rate 16 /min [facility] Work Phone: 11-12-2021 17:02-0400 SaO2% (BldA) [Mass fraction] 97 % [facility] Work Phone: 11-12-2021 17:02-0400 Systolic blood pressure 140 mm[Hg] [facility] Work Phone: 02-02-2021 04:14-0400 Body temperature 97.88 [degF] SIRI GODINEZ MD [facility] 02-02-2021 04:14-0400 Diastolic blood pressure 59 mm[Hg] SIRI GODINEZ MD [facility] 02-02-2021 04:14-0400 Heart rate 100 /min SIRI GODINEZ MD [facility] 02-02-2021 04:14-0400 Respiratory rate 18 /min SIRI GODINEZ MD [facility] 02-02-2021 04:14-0400 Systolic blood pressure 96 mm[Hg] SIRI GODINEZ MD [facility] 02-02-2021 02:57-0400 Body height 167.6 cm SIRI GODINEZ MD [facility] 02-02-2021 02:57-0400 Body temperature 98.96 [degF] SIRI GODINEZ MD [facility] 02-02-2021 02:57-0400 Body weight 68.2 kg SIRI GODINEZ MD [facility] 02-02-2021 02:57-0400 Diastolic blood pressure 73 mm[Hg] SIRI GODINEZ MD [facility] 02-02-2021 02:57-0400 Heart rate 121 /min SIRI GODINEZ MD [facility] 02-02-2021 02:57-0400 Respiratory rate 20 /min SIRI GODINEZ MD [facility] 02-02-2021 02:57-0400 Systolic blood pressure 133 mm[Hg] SIRI GODINEZ MD [facility] 01-29-2021 08:33-0400 Body temperature 98.78 [degF] MELANY FROMMELT DO [facility] 01-29-2021 08:33-0400 Diastolic blood pressure 72 mm[Hg] MELANY FROMMELT DO [facility] 01-29-2021 08:33-0400 Heart rate 105 /min MELANY FROMMELT DO [facility] 01-29-2021 08:33-0400 Mean blood pressure 91 mm[Hg] MELANY FROMMELT DO [facility] 01-29-2021 08:33-0400 Respiratory rate 16 /min MELANY FROMMELT DO [facility] 01-29-2021 08:33-0400 Systolic blood pressure 128 mm[Hg] MELANY FROMMELT DO [facility] Encounters Encounter Date Encounter Type Care Provider Facility Start: 02-19-2025 End: 02-19-2025 Emergency department patient visit No Primary Care Physician Facility[facility] Start: 02-18-2024 End: 02-18-2024 ambulatory Alysa Luo [facility] Start: 02-18-2024 End: 02-18-2024 Follow-up encounter Alysa Luo [facility] Comment on above: [facility] Hepatology - Fol low-up (HCV+ lab) Start: 07-13-2023 End: 07-13-2023 Emergency department patient visit JEANNIE CASTRO MD Facility:[facility] Start: 07-13-2023 End: 07-13-2023 Emergency department patient visit JEANNIE CASTRO MD [facility] Start: 05-26-2023 ambulatory TAMMY MAST [employer]CRE[employer] PRINTING INSPECTOR-BRAND COORDINATOR Fa cility:A Start: 03-30-2023 End: 05-04-2023 ambulatory TAMMY MAST SCREEN PRINTING INSPECTOR-BRAND COORDINATOR Facility:[facility] Start: 03-30-2023 End: 05-04-2023 Physical therapy management DARIA JUNIOR DO [facility] Start: 03-20-2023 End: 03-20-2023 Emergency department patient visit TAMMY MAST SCREEN PRINTING INSPECTOR-BRAND COORDINATOR Facility:A Start: 03-20-2023 End: 03-20-2023 Emergency department patient visit BRENDON GAGNONNakitaALEC DO [facility] Start: 03-20-2023 End: 03-20-2023 Emergency department patient visit TAMMY MAST SCREEN PRINTING INSPECTOR-BRAND COORDINATOR Facility:[facility] Start: 03-20-2023 End: 03-20-2023 Emergency department patient visit DR DARNELL BARBOSA MD [facility] Start: 03-10-2023 End: 03-10-2023 Emergency department patient visit TAMMY MAST SCREEN PRINTING INSPECTOR-BRAND COORDINATOR Facility:[facility] Start: 03-10-2023 End: 03-10-2023 Emergency department patient visit BRENDON LÓPEZ DO [facility] Start: 01-29-2023 End: 01-30-2023 ambulatory TAMMY MAST SCREEN PRINTING INSPECTOR-BRAND COORDINATOR Facility:[facility] Start: 01-29-2023 End: 01-29-[address] STAR ARCHER MD [facility] Start: 12-26-2022 End: 12-30-2022 Evaluation and management of inpatient TAMMY MAST SCREEN PRINTING INSPECTOR-BRAND COORDINATOR Facility:A Start: 12-25-2022 End: 12-30-2022 Evaluation and management of inpatient DR EZEQUIEL VERDUZCO MD [facility] Start: 12-25-2022 End: 12-26-2022 Emergency department patient visit TAMMY MAST SCREEN PRINTING INSPECTOR-BRAND COORDINATOR Facility:[facility] Start: 12-25-2022 End: 12-25-2022 Emergency department patient visit KENDALL DACOSTA MD [facility] Start: 12-24-2022 End: 12-25-2022 ambulatory TAMMY MAST SCREEN PRINTING INSPECTOR-BRAND COORDINATOR Facility:[facility] Start: 12-22-2022 End: 12-23-2022 ambulatory TAMMY MAST SCREEN PRINTING INSPECTOR-BRAND COORDINATOR Facility:[facility] Start: 12-22-2022 End: 12-22-2022 Patient encounter procedure TAMMY MAST SCREEN PRINTING INSPECTOR-BRAND COORDINATOR [facility] Start: 12-08-2022 End: 12-09-2022 ambulatory TAMMY MAST SCREEN PRINTING INSPECTOR-BRAND COORDINATOR Facility:[facility] Start: 12-07-2022 End: 12-08-2022 ambulatory TAMMY MAST SCREEN PRINTING INSPECTOR-BRAND COORDINATOR Facility:[facility] Start: 12-07-2022 End: 12-07-2022 Patient encounter procedure TAMMY MAST SCREEN PRINTING INSPECTOR-BRAND COORDINATOR [facility] Start: 12-04-2022 End: 12-05-2022 Emergency department patient visit TAMMY SORTO Facility:[facility] Start: 12-01-2022 End: 12-02-2022 Emergency department patient visit TAMMY SORTO Facility:[facility] Start: 12-01-2022 End: 12-02-2022 Emergency department patient visit DR ANGLE THURMAN MD [facility] Start: 11-29-2022 End: 11-29-2022 Emergency department patient visit DUSTIN DEXTER MD Facility:[facility] Start: 02-18-2022 End: 02-19-2022 Emergency department [facility] Start: 11-12-2021 End: 11-12-2021 Emergency department patient visit [facility] Start: 02-02-2021 End: 02-02-2021 Emergency department patient visit SIRI GODINEZ MD [facility] Start: 01-29-2021 End: 01-29-2021 Emergency department patient visit MELANY COLBERT [facility] Procedures Date Procedure Procedure Detail Performing Clinician Start: 12-30-[address] STAR ARCHER MD Comment on above: 1. Tricuspid valve: There is no evidence of a vegetation. 2. Aortic valve: There is no evidence of a vegetation. 3. Pulmonic valve: There is no evidence of a vegetation. 4. Mitral valve: There is no evidence of vegetation. Start: 12-22-[address] JYOTI ARCHER MD Start: 02-19-2022 CT of head without contrast Start: 11-12-2021 Plain x-ray of hand Bacteria identified in Blood by Culture Plan of Treatment Date Care Activity Detail Author Start: 12-19-2023 Covid-19 Vaccine ( season) Covid-19 Vaccine ( season) [facility] Start: 12-19-2023 Influenza vaccination Influenza Vacc ine (#1) [facility] Start: 07-05-2023 Lipid panel Lipid Screening [facility] Start: 11-12-2021 End: 11-12-2021 Blood [facility] Work Phone: Start: 07-05-2007 Hepatitis B Vaccine (1 of 3 - 19+ 3-dose series) Hepatitis B Vaccine (1 of 3 - 19+ 3-dose series) [facility] Start: 07-05-2007 Urine microalbumin profile DTaP,Tdap,Td Vaccine (1 - Tdap) [facility] Start: 2006 Anxiety Screening Anxiety Screening [facility] Start: 2006 Depression Screening Depression Scre ing [facility] Start: 2006 HIV screening HIV Screening [facility] Bacteria identified in Blood by Culture Blood [facility] Work Phone: Blood culture [facility] Work Phone: Patient Education ED Cellulitis [facility] Work Phone: Patient referral [facility] Work Phone: Payers Date Payer Category Payer Self-pay [id number] 2025 Unknown [id number] 2022 Medicaid [employer] [place] [id number] 2022-Present [phone] [address] [address] [place] [address] Medicaid [id number] 2016 Unknown [id number] 1988 Unknown [id number] [id number] 1988 Unknown [id number] 2.16.840.1.408892.3.579.2. 1988 Unknown [id number] 2.16.840.1.948565.3.579.2. 1988 Unknown [id number] 2.16.840.1.118597.3.579.2. 1988 Unknown [id number] 2.16.840.1.008237.3.579.2. 1988 Unknown [id number] 2.16840.1.811773.3.579.2 1988 Unknown [id number] 2.16840.1.671938.3.579.2 1988 Unknown [id number] 2.840.1.527571.3.579.2 1988 Unknown [id number] 2.16840.1.656941.3.579.2. 1988 Unknown [id number] 2.16840.1.438167.3.579.2 1988 Unknown [id number] 2.16.840.1.061517.3.579.2. 1988 Unknown [id number] 2.16840.1.340982.3.579.2. 1988 Unknown [id number] 2.16.840.1.475240.3.579.2. 1988 Unknown [id number] 2.16840.1.485928.3.579.2 1988 Unknown [id number] 2.16.840.1.193351.3.579.2. 1988 Unknown [id number] 2.16840.1.543670.3.579.2 Unknown [id number] 2.16840.1.643275.3.579.2.462 Social History Date Type Detail Facility Start: 01-29-2021 Light tobacco smoker (finding) [facility] Sex Assigned At [facility] Start: 11-12-2021 End: 02-18-2022 Tobacco smoking status NHIS Unknown if ever smoked [facility] Start: 1988 Sex Assigned At Male [facility] Work Phone: Start: 1988 Sex assigned at Not on file [facility] Gender identity Not on file [facility] in Functional Status Date Assessment Result Facility 07-13-2023 Functional Status Standard Safet y ID band on, Call device within reach, Bed in low position, Wheels locked, Upper/Half-Length side-rails up, Bedside Cart Locked, Safety level maintained [facility] 03-30-2023 Functional Status OBJECTIVE Posture: lazy sitting in WC with posterior pelvic tilt, pt requested WC reporting not able to walk Gait and transfers: amb with no AD, marked use of UEs pivot transfer from WC to mat table as pt reports due to pain in LLE Sensation: no abnormalities or asymmetries with light touch grossly Edema: none observed at ankle or lower back AROM: muscle guarding with all mobility: limited mobility demonstrated, severe restriction with all directions - lumbar extension, flexion, lateral flexion bilateral extension: peripheralizing, flexion worse, lateral flexion to L better Leg length: symmetrical Pelvis: symmetrical Slump Test: pos on L, neg R ЕКАТЕРИНА: pos L FADDIR: pos L 90-90 hamstring: bilateral tightness 45deg [facility] 03-20-2023 Functional Status Independent [facility] 03-20-2023 Functional Status Mod I [facility] 03-20-2023 Functional Status Standard Safet y ID band on, Call device within reach, Bed in low position, Wheels locked, Upper/Half-Length side-rails up, Phone within reach, personal items within reach, Bedside Cart Locked, Safety level maintained [facility] 03-20-2023 Functional Status Repositions self [facility] 03-10-2023 Functional Status Minimum assistance [facility] 03-10-2023 Functional Status Standard Safet y ID band on, Call device within reach, Bed in low position, Wheels locked [facility] 12-30-2022 Functional Status Patient refused [facility] 12-30-2022 Functional Status [facility] 12-30-2022 Functional Status Room check performed [facility] 12-30-2022 Functional Status [facility] 12-29-2022 Functional Status [facility] 12-29-2022 Functional Status Hospital bed [facility] 12-29-2022 Functional Status Repositions self [facility] 12-29-2022 Functional Status [facility] 12-29-2022 Functional Status [facility] 12-28-2022 [facility] 12-27-2022 Functional Status Independent [facility] 12-27-2022 Functional Status [facility] 12-27-2022 Functional Status 11pm-11am [facility] 12-26-2022 Functional Status [facility] 12-25-2022 Functional Status Sensory Deficits None [facility] 12-25-2022 Functional Status Dinner Percent 100 [facility] 12-25-2022 Functional Status Standard Safet y ID band on, Call device within reach, Bed in low position, Wheels locked, Safety level maintained [facility] 12-02-2022 Functional Status Independent [facility] 12-01-2022 Functional Status Standard Safet y ID band on, Call device within reach, Bed in low position, Wheels locked, Upper/Half-Length side-rails up, personal items within reach, Visitor at bedside [facility] Mental Status Date Assessment Result Facility 07-13-2023 Mental Status Orientation Oriented x 4 [facility] 03-20-2023 Mental Status Orientation Oriented x 4 [facility] 03-20-2023 Mental Status [facility] 03-20-2023 Mental Status Orientation Oriented x 4 [facility] 03-10-2023 Mental Status Orientation Oriented x 4 [facility] 03-10-2023 Mental Status [facility] 12-30-2022 Mental Status Oriented x 4 [facility] 12-29-2022 Mental Status Orientation Asse ssment Oriented x 4 [facility] 12-27-2022 Mental Status [facility] 12-27-2022 Mental Status [facility] 12-25-2022 Mental Status Orientation Oriented x 4 [facility] 12-02-2022 Mental Status Orientation Oriented x 4 [facility] 12-01-2022 Mental Status [facility] 02-18-2022 Cognitive function Voice/Name [facility] Work Phone: Clinical Notes 01-29-2021 to 02-18-2024 Alysa Luo, [facility] - 02/18/2024 3:22 PM EDTRadiology Note Date & Type Note Facility 02-18-2024 History of Presen t illness Narrative Chart review reveals a recent lab test performed at [facility]. Unexpected results found as part of testing for Hepatitis C (HCV) HCV RNA Date Value Ref Range Status 12/08/2022 HCV RNA detected by PCR. (A) HCV RNA not detected by PCR. Final HCV RNA (IU/mL) Date Value Ref Range Status 12/08/2022 1,010,000 (H) IU/mL Final Ordering Provider is outside provider (lab requisition) Lab result shows patient has Chronic Hepatitis C B18.2 Prior Treatment: not known Allergies: Not on File GT needs to be determined HCV Treatment plan: -Candidate for treatment: patient may be eligible for treatment but is not connected to care with [facility] provider PLAN: Unable to follow up with patient about abnormal lab result since patient does not follow [facility] provider. Recommend patient establish and follow up with own provider to discuss HCV treatment. If patient were to express interest in being evaluated for HCV treatment, please place referral to [facility] Ambulatory Clinic. Engage this patient in a conversation about the value in getting treatment then place the referral. To find the referral order, type "pharmacy" in the order and choose "Consult to Hepatitis C Ambulatory Clinic Pharmacy" - it's the third one down under procedures (referral [id number]). I will get the referral once this order is signed and would manage your patient's HCV care including ordering labs, complying with insurance formulary, creating a treatment plan and following patient until final viral load (SVR12) so we can document cure. Alysa Luo RPh documented in this encounter [facility] 02-18-2024 Note HNO ID: [id number] Author: ALYSA LUO RPh Service: ? Author Type: Pharmacist Type: Progress Notes Filed: 02/18/2024 15:23 Note Text: Chart review reveals a recent lab test performed at [facility]. Unexpected results found as part of testing for Hepatitis C (HCV) HCV RNA Date Value Ref Range Status 12/08/2022 HCV RNA detected by PCR. (A) HCV RNA not detected by PCR. Final HCV RNA (IU/mL) Date Value Ref Range Status 12/08/2022 1,010,000 (H) IU/mL Final Ordering Provider is outside provider (lab requisition) Lab result shows patient has Chronic Hepatitis C B18.2 Prior Treatment: not known Allergies: Not on File GT needs to be determined HCV Treatment plan: -Candidate for treatment: patient may be eligible for treatment but is not connected to care with [facility] provider PLAN: Unable to follow up with patient about abnormal lab result since patient does not follow [facility] provider. Recommend patient establish and follow up with own provider to discuss HCV treatment. If patient were to express interest in being evaluated for HCV treatment, please place referral to HCV Ambulatory Clinic. Engage this patient in a conversation about the value in getting treatment then place the referral. To find the referral order, type "pharmacy" in the order and choose "Consult to Hepatitis C Ambulatory Clinic Pharmacy" - it's the third one down under procedures (referral [id number]). I will get the referral once this order is signed and would manage your patient's HCV care including ordering labs, complying with insurance formulary, creating a treatment plan and following patient until final viral load (SVR12) so we can document cure. Alysa Luo RPh [facility] 07-13-2023 Hospital Discharg e instructions Patient Education 07/13/2023 14:04:02 Asthma, Acute (Adult) Asthma (Adult) Asthma is a disease where the medium and small air passages within the lung go into spasm and restrict the flow of air. Inflammation and swelling of the airways cause further blockage. During an acute asthma attack, these factors cause trouble breathing, wheezing, cough and chest tightness. An asthma attack can be triggered by many things. Common triggers include infections such as the common cold, bronchitis, and pneumonia. Irritants such as smoke or pollutants in the air, very cold air, emotional upset, and exercise can also trigger an attack. In many adults with asthma, allergies to dust, mold, pollen and animal dander can cause an asthma attack. Skipping doses of daily asthma medicine can also bring on an asthma attack. Asthma can be controlled using the proper medicines prescribed by your healthcare provider and avoiding exposure to known triggers including allergens and irritants. Home care Take prescribed medicine exactly at the times advised. If you need medicine such as from a hand held inhaler or aerosol breathing machine more than every 4 hours, contact your healthcare provider or seek immediate medical attention. If prescribed an antibiotic or prednisone, take all of the medicine as prescribed, even if you are feeling better after a few days. Don't smoke. Avoid being exposed to the smoke of others. Some people with asthma have worsening of their symptoms when they take aspirin and non-steroidal or fever-reducing medicines like ibuprofen and naproxen. Talk to your healthcare provider if you think this may apply to you. Follow-up care Follow up with your healthcare provider, or as advised. Always bring all of your current medicines to any appointments with your healthcare provider. Also bring a complete list of medicines even those not taken for asthma. If you don't already have one, talk to your healthcare provider about developing your own "Asthma Action Plan." A pneumococcal (pneumonia) vaccine and yearly flu shot (every fall) are recommended. Ask your doctor about this. When to seek medical advice Call your healthcare provider right away if any of these occur: Increased wheezing or shortness of breath Need to use your inhalers more often than usual without relief Fever of 100.4 F (38 C) or higher, or as directed by your healthcare provider Coughing up lots of dark-colored or bloody sputum (mucus) Chest pain with each breath If you use a peak flow meter as part of an Asthma Action Plan, and you are still in the yellow zone (50% to 80%) 15 minutes after using inhaler medicine. Call 911 Call 911 if any of the following occur Trouble walking or talking because of shortness of breath If you use a peak flow meter as part of an Asthma Action Plan and you are still in the red zone (less than 50%) 15 minutes after using inhaler medicine Lips or fingernails turning lopez or blue [phone] [employer]. [address] [place] [address]. All rights reserved. This information is not intended as a substitute for professional medical care. Always follow your healthcare professional's instructions. Follow Up Care 07/13/2023 12:35:56 With:TAMMY CORBETT Address: [address] [place] [address] [phone] When:2-4 days [facility] 07-13-2023 Emergency department Discharge summary Discharge Instructions Thank you for allowing [facility] to assist you with your healthcare needs. The following is important discharge information regarding your hospital visit. Diagnosis from Today's Visit Asthma exacerbation Difficulty Breathing What to Do Next Instructions from Your Care Team Please take 1 puff of your inhaler every 4 hours for the next 48 hours. Following which uses as needed for shortness of breath and wheezing. No qualifying data available. Post Acute Orders No qualifying data available. You Need to Schedule the Following Appointments Follow Up with TAMMY CORBETT When Within 2-4 days Where: [address] [place] [address] [phone] Allergies NKA Medications Please ask your primary doctor or pharmacist before taking any other medication not listed, including over the counter drugs, herbal medications, vitamins and or supplements as they may interact with your home medications. What How Much When Instructions Last Dose New albuterol (albuterol MDI (90 mcg/ inh) [facility] free inhalation aerosol) 1 puff(s) by inhalation Every 4 hours as needed for as needed for wheezing Refills: 2 Printed Prescription New predniSONE (predniSONE 20 mg oral tablet) 3 tab(s) by mouth Once a day Duration: 4 Days Printed Prescription Unchanged acetaminophen (Tylenol) by mouth Unchanged diclofenac (diclofenac sodium 75 mg oral delayed release tablet) 1 tab(s) by mouth Two (2) times a day Duration: 14 Days Unchanged methylPREDNISolone (methylPREDNISolone Dosepak 4 mg tablet) Unchanged naproxen (naproxen 250 mg oral tablet) Please take this list to your next doctor s visit. Bring all medications you take, including over the counter medications, herbals and other supplements with you to your doctor s visit. Patients and families are reminded to discard old lists and to update any records with all medication providers or retail pharmacies. Education Materials Asthma (Adult) Asthma is a disease where the medium and small air passages within the lung go into spasm and restrict the flow of air. Inflammation and swelling of the airways cause further blockage. During an acute asthma attack, these factors cause trouble breathing, wheezing, cough and chest tightness. An asthma attack can be triggered by many things. Common triggers include infections such as the common cold, bronchitis, and pneumonia. Irritants such as smoke or pollutants in the air, very cold air, emotional upset, and exercise can also trigger an attack. In many adults with asthma, allergies to dust, mold, pollen and animal dander can cause an asthma attack. Skipping doses of daily asthma medicine can also bring on an asthma attack. Asthma can be controlled using the proper medicines prescribed by your healthcare provider and avoiding exposure to known triggers including allergens and irritants. Home care Take prescribed medicine exactly at the times advised. If you need medicine such as from a hand held inhaler or aerosol breathing machine more than every 4 hours, contact your healthcare provider or seek immediate medical attention. If prescribed an antibiotic or prednisone, take all of the medicine as prescribed, even if you are feeling better after a few days. Don't smoke. Avoid being exposed to the smoke of others. Some people with asthma have worsening of their symptoms when they take aspirin and non-steroidal or fever-reducing medicines like ibuprofen and naproxen. Talk to your healthcare provider if you think this may apply to you. Follow-up care Follow up with your healthcare provider, or as advised. Always bring all of your current medicines to any appointments with your healthcare provider. Also bring a complete list of medicines even those not taken for asthma. If you don't already have one, talk to your healthcare provider about developing your own "Asthma Action Plan." A pneumococcal (pneumonia) vaccine and yearly flu shot (every fall) are recommended. Ask your doctor about this. When to seek medical advice Call your healthcare provider right away if any of these occur: Increased wheezing or shortness of breath Need to use your inhalers more often than usual without relief Fever of 100.4 F (38 C) or higher, or as directed by your healthcare provider Coughing up lots of dark-colored or bloody sputum (mucus) Chest pain with each breath If you use a peak flow meter as part of an Asthma Action Plan, and you are still in the yellow zone (50% to 80%) 15 minutes after using inhaler medicine. Call 911 Call 911 if any of the following occur Trouble walking or talking because of shortness of breath If you use a peak flow meter as part of an Asthma Action Plan and you are still in the red zone (less than 50%) 15 minutes after using inhaler medicine Lips or fingernails turning lopez or blue [phone] [employer]. [address] [place] [address]. All rights reserved. This information is not intended as a substitute for professional medical care. Always follow your healthcare professional's instructions. Additional Information VACCINATE! IT SAVES LIVES! Members of the community who have not yet received the COVID-19 vaccine and would like to receive it can visit one of [facility] vaccine clinics. There are many vaccine clinic locations within the [facility]. For locations and available times, please visit www.gettheshot.coronavirus.[place]. gov/. It is important to note that some COVID mobile vaccine clinics are held outdoors and may be canceled in rainy or stormy conditions. To learn more about pediatric vaccinations (ages 5-11), we invite you to visit the [facility] webpage. https://www.[facility].org/p ages/2628-Mpvgh-Yquygttqodi-Freq qaekfp-Tjigp-Qnnkaybky.html To learn more about the COVID-19 vaccine, we invite you to visit the CDC website for a list of frequently asked questions. https://www.cdc.gov/coronavirus/ 2019-ncov/vaccines/faq.html [facility] Patient Portal Access Instructions: Stay connected with your healthcare team and access your personal medical information anytime with the [facility] Patient Portal. If you would like a full copy of your medical records please contact the [facility] Department Wednesday through Wednesday between 8a.m. and 4:30p.m. Please follow the directions below to access the portal: 1.Access the email account you provided upon registration to the [facility].2.Look for an invitation email from [facility].3.Open the email and access the invitation link: Accept Invitation to [facility]4.Fill in the required pastor to create your account. Sign into [email or web address] with your username and password that you created in the above steps to stay up to date. You can then view a summary of results, a summary of your visits, and the ability to download your summaries to your computer or send the information securely to a physician. Remember that your healthcare information is confidential, so carefully consider who you will allow to register on the [facility] Patient Portal for access to your information. You can also access the [facility] Patient Portal on the [employer]. Simply click on "Health Records" under "Health Data" and then click on the [facility] logo. HOW TO SAFELY DISPOSE OF PRESCRIPTION MEDICATIONS Please use one of the following methods to safely dispose of your unused medications. 1.Use a drug disposal kit: the drug disposal pouch allows you to safely discard your old and unused drugs. Ask your nurse to give you one when you are discharged.2.Visit a local take-back location: Many local pharmacies and police departments have programs that collect old and unwanted prescription drugs. Call your local pharmacy or go to http://bit.[employer]/1T1Zz2g to find one close to you.3.Make use of household items: Use cat litter or old coffee grounds to dispose medications if other options are not available. Mix your drugs with these household products, seal them in an airtight container and throw it into the garbage. Call [facility]: [phone] to be sure your drugs can be disposed of in this way. Some medicines may require a different approach.4.Never flush your medications down the toilet. IF YOU HAVE BEEN PRESCRIBED AN OPIOIDS FOR PAIN If you have been prescribed an opioid (such as hydrocodone, oxycodone or morphine), it is critical to understand the possible side effects and risks of opioid pain medications. Even when taken as directed, opioids can have several side effects including: Tolerance, meaning you might need to take more of a medication for the same pain relief. Nausea, vomiting and/or constipation. Sleepiness, dizziness, dry mouth, confusion, depression or itching. Physical dependence, meaning you have withdrawal symptoms when a medication is stopped ? this can develop within a few days. KNOW YOUR RESPONSIBILITIES It is important to know exactly how much and how often to take the opioid pain medications you are prescribed. Never take opioids in higher amounts or more often than prescribed. Do not combine opioids with alcohol or other drugs that cause drowsiness, such as benzodiazepines, also known as benzos, including diazepam and alprazolam, muscle relaxants or sleep aids. Never sell or share prescription opioids. This is illegal. Store opioids in a secure place and out of reach of others (including children, family, friends and visitors). The last page(s) of this document has been signed and retained as a CHART COPY Signatures Patient Education Materials Asthma, Acute (Adult) Medication Leaflets My discharge plan and instructions have been reviewed and explained to me and I,LEONEL VILLAVICENCIO understand my current condition and have read and understand these discharge instructions. I have received a written copy of the plan/instructions. If I have questions, I am aware that I should contact my doctor. 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 Blunting of the left costophrenic angle was also present previously. No vascular congestion, large effusion, or pneumothorax. IMPRESSION: Chronic blunting of the left costophrenic angle, unchanged from prior. Interpreted by: Di Kevin MD Preliminary Report By: Di Kevin MD Electronically signed By Di Kevin MD Dictated Date: 07/13/2023 1:49:21 PM Prelim Date: 07/13/2023 1:50:16 PM Sign Date: 07/13/2023 1:50:16 PM Ordering Provider: DARIA JUNIOR [facility] 03-25-2023 Note . MICRO - Microbiology PROCEDURE: Blood Culture (bacterial) [*1] SOURCE: Blood BODY SITE: COLLECTED DATE/TIME: 03/20/2023 05:09 EST RECEIVED DATE/TIME: 03/20/2023 17:26 EST START DATE/TIME: 03/20/2023 17:26 EST FREE TEXT SOURCE: FINAL REPORTS Final Report [] Verified Date/Time/Personnel: 03/25/2023 17:59 EST Blood Culture: No Growth at 5 days. PRELIMINARY REPORTS Preliminary Report [] Verified Date/Time/Personnel: 03/20/2023 17:59 EST Culture has been received in lab and is no growth to date. Routine cultures are held for 5 days. Performing Locations *1: This test was performed at: [place], [address] [place] [address], [facility] , [facility] ([place]) 03-25-2023 Note . MICRO - Microbiology PROCEDURE: Blood Culture (bacterial) [*1] SOURCE: Blood BODY SITE: COLLECTED DATE/TIME: 03/20/2023 05:09 EST RECEIVED DATE/TIME: 03/20/2023 17:26 EST START DATE/TIME: 03/20/2023 17:26 EST FREE TEXT SOURCE: FINAL REPORTS Final Report [] Verified Date/Time/Personnel: 03/25/2023 17:59 EST Blood Culture: No Growth at 5 days. PRELIMINARY REPORTS Preliminary Report [] Verified Date/Time/Personnel: 03/20/2023 17:59 EST Culture has been received in lab and is no growth to date. Routine cultures are held for 5 days. Performing Locations *1: This test was performed at: [address], [address] , [facility] ([place]) 03-22-2023 Note . MICRO - Microbiology PROCEDURE: Urine Culture [*1] SOURCE: Urine, Clean Catch BODY SITE: COLLECTED DATE/TIME: 03/20/2023 07:22 EST RECEIVED DATE/TIME: 03/20/2023 17:26 EST START DATE/TIME: 03/20/2023 17:27 EST FREE TEXT SOURCE: FINAL REPORTS Final Report [] Verified Date/Time/Personnel: 03/22/2023 07:57 EST <10,000 cfu/ml. No Significant growth. Sensitivity not indicated. PRELIMINARY REPORTS Preliminary Report [] Verified Date/Time/Personnel: 03/21/2023 10:42 EST No growth to date Performing Locations *1: This test was performed at: [address], [id number] , [facility] ([place]) 03-20-2023 Hospital Discharg e instructions Patient Education 03/20/2023 14:26:42 Back Exercises, Lumbar Exercises to Strengthen Your Lower Back Strong lower back and abdominal muscles work together to support your spine. The exercises below will help strengthen the lower back. It is important that you begin exercising slowly and increase levels gradually. Always begin any exercise program with stretching. If you feel pain while doing any of these exercises, stop and talk to your doctor about a more specific exercise program that better suits your condition. Low back stretch The point of stretching is to make you more flexible and increase your range of motion. Stretch only as much as you are able. Stretch slowly. Do not push your stretch to the limit. If at any point you feel pain while stretching, this is your (temporary) limit. Lie on your back with your knees bent and both feet on the ground. Slowly raise your left knee to your chest as you flatten your lower back against the floor. Hold for 5 seconds. Relax and repeat the exercise with your right knee. Do 10 of these exercises for each leg. Repeat hugging both knees to your chest at the same time. Building lower back strength Start your exercise routine with 10 to 30 minutes a day, 1 to 3 times a day. Initial exercises Lying on your back: 1. Ankle pumps: Move your foot up and down, towards your head, and then away. Repeat 10 times with each foot. 2. Heel slides: Slowly bend your knee, drawing the heel of your foot towards you. Then slide your heel/foot from you, straightening your knee. Do not lift your foot off the floor (this is not a leg lift). 3. Abdominal contraction: Bend your knees and put your hands on your stomach. Tighten your stomach muscles. Hold for 5 seconds, then relax. Repeat 10 times. 4. Straight leg raise: Bend one leg at the knee and keep the other leg straight. Tighten your stomach muscles. Slowly lift your straight leg 6 to 12 inches off the floor and hold for up to 5 seconds. Repeat 10 times on each side. Standin. Wall squats: Stand with your back against the wall. Move your feet about 12 inches away from the wall. Tighten your stomach muscles, and slowly bend your knees until they are at about a 45 degree angle. Do not go down too far. Hold about 5 seconds. Then slowly return to your starting position. Repeat 10 times. 2. Heel raises: Stand facing the wall. Slowly raise the heels of your feet up and down, while keeping your toes on the floor. If you have trouble balancing, you can touch the wall with your hands. Repeat 10 times. More advanced exercises When you feel comfortable enough, try these exercises. 1. Kneeling lumbar extension: Begin on your hands and knees. At the same time, raise and straighten your right arm and left leg until they are parallel to the ground. Hold for 2 seconds and come back slowly to a starting position. Repeat with left arm and right leg, alternating 10 times. 2. Prone lumbar extension: Lie face down, arms extended overhead, palms on the floor. At the same time, raise your right arm and left leg as high as comfortably possible. Hold for 10 seconds and slowly return to start. Repeat with left arm and right leg, alternating 10 times. Gradually build up to 20 times. (Advanced: Repeat this exercise raising both arms and both legs a few inches off the floor at the same time. Hold for 5 seconds and release.) 3. Pelvic tilt: Lie on the floor on your back with your knees bent at 90 degrees. Your feet should be flat on the floor. Inhale, exhale, then slowly contract your abdominal muscles bringing your navel toward your spine. Let your pelvis rock back until your lower back is flat on the floor. Hold for 10 seconds while breathing smoothly. 4. Abdominal crunch: Perform a pelvic tilt (above) flattening your lower back against the floor. Holding the tension in your abdominal muscles, take another breath and raise your shoulder blades off the ground (this is not a full sit-up). Keep your head in line with your body (don t bend your neck forward). Hold for 2 seconds, then slowly lower. 0056-9660 [employer]. [address] [place] [address]. All rights reserved. This information is not intended as a substitute for professional medical care. Always follow your healthcare professional's instructions. Follow Up Care 03/20/2023 08:18:58 With:TAMMY CORBETT Address: [address] [place] [phone] When:2-4 days [facility] 03-20-2023 Emergency department Discharge summary Discharge Instructions Thank you for allowing [facility] to assist you with your healthcare needs. The following is important discharge information regarding your hospital visit. Diagnosis from Today's Visit Back pain possible abscess What to Do Next Instructions from Your Care Team No qualifying data available. Post Acute Orders No qualifying data available. You Need to Schedule the Following Appointments Follow Up with TAMMY CORBETT When Within 2-4 days Where: [address] [place] [phone] Allergies [facility] Medications Please ask your primary doctor or pharmacist before taking any other medication not listed, including over the counter drugs, herbal medications, vitamins and or supplements as they may interact with your home medications. Please take this list to your next doctor s visit. Bring all medications you take, including over the counter medications, herbals and other supplements with you to your doctor s visit. Patients and families are reminded to discard old lists and to update any records with all medication providers or retail pharmacies. Education Materials Exercises to Strengthen Your Lower Back Strong lower back and abdominal muscles work together to support your spine. The exercises below will help strengthen the lower back. It is important that you begin exercising slowly and increase levels gradually. Always begin any exercise program with stretching. If you feel pain while doing any of these exercises, stop and talk to your doctor about a more specific exercise program that better suits your condition. Low back stretch The point of stretching is to make you more flexible and increase your range of motion. Stretch only as much as you are able. Stretch slowly. Do not push your stretch to the limit. If at any point you feel pain while stretching, this is your (temporary) limit. Lie on your back with your knees bent and both feet on the ground. Slowly raise your left knee to your chest as you flatten your lower back against the floor. Hold for 5 seconds. Relax and repeat the exercise with your right knee. Do 10 of these exercises for each leg. Repeat hugging both knees to your chest at the same time. Building lower back strength Start your exercise routine with 10 to 30 minutes a day, 1 to 3 times a day. Initial exercises Lying on your back: 1. Ankle pumps: Move your foot up and down, towards your head, and then away. Repeat 10 times with each foot. 2. Heel slides: Slowly bend your knee, drawing the heel of your foot towards you. Then slide your heel/foot from you, straightening your knee. Do not lift your foot off the floor (this is not a leg lift). 3. Abdominal contraction: Bend your knees and put your hands on your stomach. Tighten your stomach muscles. Hold for 5 seconds, then relax. Repeat 10 times. 4. Straight leg raise: Bend one leg at the knee and keep the other leg straight. Tighten your stomach muscles. Slowly lift your straight leg 6 to 12 inches off the floor and hold for up to 5 seconds. Repeat 10 times on each side. Standin. Wall squats: Stand with your back against the wall. Move your feet about 12 inches away from the wall. Tighten your stomach muscles, and slowly bend your knees until they are at about a 45 degree angle. Do not go down too far. Hold about 5 seconds. Then slowly return to your starting position. Repeat 10 times. 2. Heel raises: Stand facing the wall. Slowly raise the heels of your feet up and down, while keeping your toes on the floor. If you have trouble balancing, you can touch the wall with your hands. Repeat 10 times. More advanced exercises When you feel comfortable enough, try these exercises. 1. Kneeling lumbar extension: Begin on your hands and knees. At the same time, raise and straighten your right arm and left leg until they are parallel to the ground. Hold for 2 seconds and come back slowly to a starting position. Repeat with left arm and right leg, alternating 10 times. 2. Prone lumbar extension: Lie face down, arms extended overhead, palms on the floor. At the same time, raise your right arm and left leg as high as comfortably possible. Hold for 10 seconds and slowly return to start. Repeat with left arm and right leg, alternating 10 times. Gradually build up to 20 times. (Advanced: Repeat this exercise raising both arms and both legs a few inches off the floor at the same time. Hold for 5 seconds and release.) 3. Pelvic tilt: Lie on the floor on your back with your knees bent at 90 degrees. Your feet should be flat on the floor. Inhale, exhale, then slowly contract your abdominal muscles bringing your navel toward your spine. Let your pelvis rock back until your lower back is flat on the floor. Hold for 10 seconds while breathing smoothly. 4. Abdominal crunch: Perform a pelvic tilt (above) flattening your lower back against the floor. Holding the tension in your abdominal muscles, take another breath and raise your shoulder blades off the ground (this is not a full sit-up). Keep your head in line with your body (don t bend your neck forward). Hold for 2 seconds, then slowly lower. [id number] [employer]. [address] [place] [address]. All rights reserved. This information is not intended as a substitute for professional medical care. Always follow your healthcare professional's instructions. Additional Information VACCINATE! IT SAVES LIVES! Members of the community who have not yet received the COVID-19 vaccine and would like to receive it can visit one of [facility] vaccine clinics. There are many vaccine clinic locations within the [facility]. For locations and available times, please visit [email or web address] gov/. It is important to note that some COVID mobile vaccine clinics are held outdoors and may be canceled in rainy or stormy conditions. To learn more about pediatric vaccinations (ages 5-11), we invite you to visit the [facility] webpage. https://www.[facility].org/p ages/4006-Wfvly-Rjmexdrrcda-Freq qupgcm-Ewqkj-Sqyiflzjk.html To learn more about the COVID-19 vaccine, we invite you to visit the CDC website for a list of frequently asked questions. https://www.cdc.gov/coronavirus/ 2019-ncov/vaccines/faq.html [facility] Patient Portal Access Instructions: Stay connected with your healthcare team and access your personal medical information anytime with the [facility] Patient Portal. If you would like a full copy of your medical records please contact the [facility] Records Department Wednesday through Wednesday between 8a.m. and 4:30p.m. Please follow the directions below to access the portal: 1.Access the email account you provided upon registration to the [facility].2.Look for an invitation email from [facility].3.Open the email and access the invitation link: Accept Invitation to [facility]4.Fill in the required pastor to create your account. Sign into [email or web address] with your username and password that you created in the above steps to stay up to date. You can then view a summary of results, a summary of your visits, and the ability to download your summaries to your computer or send the information securely to a physician. Remember that your healthcare information is confidential, so carefully consider who you will allow to register on the [facility] Patient Portal for access to your information. You can also access the [facility] Patient Portal on the [employer]. Simply click on "Health Records" under "Health Data" and then click on the [facility] logo. HOW TO SAFELY DISPOSE OF PRESCRIPTION MEDICATIONS Please use one of the following methods to safely dispose of your unused medications. 1.Use a drug disposal kit: the drug disposal pouch allows you to safely discard your old and unused drugs. Ask your nurse to give you one when you are discharged.2.Visit a local take-back location: Many local pharmacies and police departments have programs that collect old and unwanted prescription drugs. Call your local pharmacy or go to http://[employer]/4T0Fn1q to find one close to you.3.Make use of household items: Use cat litter or old coffee grounds to dispose medications if other options are not available. Mix your drugs with these household products, seal them in an airtight container and throw it into the garbage. Call [facility]: [phone] to be sure your drugs can be disposed of in this way. Some medicines may require a different approach.4.Never flush your medications down the toilet. IF YOU HAVE BEEN PRESCRIBED AN OPIOIDS FOR PAIN If you have been prescribed an opioid (such as hydrocodone, oxycodone or morphine), it is critical to understand the possible side effects and risks of opioid pain medications. Even when taken as directed, opioids can have several side effects including: Tolerance, meaning you might need to take more of a medication for the same pain relief. Nausea, vomiting and/or constipation. Sleepiness, dizziness, dry mouth, confusion, depression or itching. Physical dependence, meaning you have withdrawal symptoms when a medication is stopped ? this can develop within a few days. KNOW YOUR RESPONSIBILITIES It is important to know exactly how much and how often to take the opioid pain medications you are prescribed. Never take opioids in higher amounts or more often than prescribed. Do not combine opioids with alcohol or other drugs that cause drowsiness, such as benzodiazepines, also known as benzos, including diazepam and alprazolam, muscle relaxants or sleep aids. Never sell or share prescription opioids. This is illegal. Store opioids in a secure place and out of reach of others (including children, family, friends and visitors). The last page(s) of this document has been signed and retained as a CHART COPY Signatures Patient Education Materials Back Exercises, Lumbar Medication Leaflets My discharge plan and instructions have been reviewed and explained to me and I,LEONEL VILLAVICENCIO understand my current condition and have read and understand these discharge instructions. I have received a written copy of the plan/instructions. If I have questions, I am aware that I should contact my doctor. 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 COMPARISON: None. HISTORY: ORDERING SYSTEM PROVIDED HISTORY: Reason for Exam: concern for epidural abscess FINDINGS: Some of the images are degraded by patient motion artifact. Lumbar vertebra show normal height and alignment, with no compression deformity or marrow abnormality seen. Conus medullaris is unremarkable. There is no definite evidence for fluid collection or abnormal enhancement on this exam. IMPRESSION: No evidence for epidural abscess. Interpreted by: Yumi Quach MD Preliminary Report By: Yumi Quach MD Electronically signed By Yumi Quach MD Dictated Date: 03/20/2023 12:59:22 PM Prelim Date: 03/20/2023 1:01:33 PM Sign Date: 03/20/2023 1:01:33 PM Ordering Provider: DARIA JUNIOR [facility] 03-20-2023 Note ORIGINAL EXAMINATION: MRI OF THE CERVICAL SPINE WITH CONTRAST 03/20/2023 12:44 pm: TECHNIQUE: Multiplanar multisequence MRI of the cervical spine was performed with the administration of intravenous contrast. Noncontrast cervical spine MR imaging is not performed due to technologist error. COMPARISON: None. HISTORY: ORDERING SYSTEM PROVIDED HISTORY: Reason for Exam: concern for epidural abscess FINDINGS: The study is degraded by patient motion artifact. This makes interpretation difficult. The exclusion of noncontrast imaging further makes interpretation difficult. Allowing for the above factors, I cannot definitely identify any peripherally enhancing fluid collection on this exam to suggest abscess. Bone marrow assessment is not ideal on these limited sequences. IMPRESSION: Compromised study as discussed above. There is no gross fluid collection to suggest abscess. Interpreted by: Yumi Quach MD Preliminary Report By: Yumi Quach MD Electronically signed By Yumi Quach MD Dictated Date: 03/20/2023 12:56:43 PM Prelim Date: 03/20/2023 12:59:06 PM Sign Date: 03/20/2023 12:59:06 PM Ordering Provider: [facility] 03-20-2023 Note ORIGINAL EXAMINATION: MRI OF THE THORACIC SPINE WITHOUT AND WITH CONTRAST 03/20/2023 12:45 pm TECHNIQUE: Multiplanar multisequence MRI of the thoracic spine was performed without and with the administration of intravenous contrast. COMPARISON: None HISTORY: ORDERING SYSTEM PROVIDED HISTORY: Reason for Exam: concern for epidural abscess FINDINGS: Thoracic vertebra show normal height and alignment and there is no bone marrow edema identified. T11-12 and T8-9 show mild degenerative disc disease with some disc bulging. Spondylosis is present at these levels as well. T8-9 shows a small left paracentral disc herniation with mild cord compression. T11-12 shows spondylosis with slight flattening of the thecal sac and very minimal ventral cord deformity. No definite peripherally enhancing fluid collection is identified to suggest abscess. No additional contributory abnormality seen. IMPRESSION: Degenerative findings especially at T8-9 and T11-12 as discussed above. No evidence for epidural abscess on this exam. Interpreted by: Yumi Quach MD Preliminary Report By: Yumi Quach MD Electronically signed By Yumi Quach MD Dictated Date: 03/20/2023 1:01:43 PM Prelim Date: 03/20/2023 1:06:03 PM Sign Date: 03/20/2023 1:06:03 PM Ordering Provider: [facility] 03-20-2023 Hospital Discharg e instructions Patient Education 03/20/2023 05:11:09 Back and Neck Pain, General General Neck and Back Pain Both neck and back pain are usually caused by injury to the muscles or ligaments of the spine. Sometimes the disks that separate each bone of the spine may cause pain by pressing on a nearby nerve. Back and neck pain may appear after a sudden twisting or bending force (such as in a car accident), or sometimes after a simple awkward movement. In either case, muscle spasm is often present and adds to the pain. Acute neck and back pain usually gets better in 1 to 2 weeks. Pain related to disk disease, arthritis in the spinal joints or spinal stenosis (narrowing of the spinal canal) can become chronic and last for months or years. Back and neck pain are common problems. Most people feel better in 1 or 2 weeks, and most of the rest in 1 to 2 months. Most people can remain active. People have and describe pain differently. Pain can be sharp, stabbing, shooting, aching, cramping, or burning Movement, standing, bending, lifting, sitting, or walking may worsen the pain Pain can be localized to one spot or area, or it can be more generalized Pain can spread or radiate upwards, downwards, to the front, or go down your arms Muscle spasm may occur. Most of the time mechanical problems with the muscles or spine cause the pain. it is usually caused by an injury, whether known or not, to the muscles or ligaments. While illnesses can cause back pain, it is usually not caused by a serious illness. Pain is usually related to physical activity, whether sports, exercise, work, or normal activity. Sometimes it can occur without an identifiable cause. This can happen simply by stretching or moving wrong, without noting pain at the time. Other causes include: Overexertion, lifting, pushing, pulling incorrectly or too aggressively. Sudden twisting, bending or stretching from an accident (car or fall), or accidental movement. Poor posture Poor conditioning, lack of regular exercise Spinal disc disease or arthritis Stress , or illness like appendicitis, bladder or kidney infection, pelvic infections Home care For neck pain: Use a comfortable pillow that supports the head and keeps the spine in a neutral position. The position of the head should not be tilted forward or backward. When in bed, try to find a position of comfort. A firm mattress is best. Try lying flat on your back with pillows under your knees. You can also try lying on your side with your knees bent up towards your chest and a pillow between your knees. At first, do not try to stretch out the sore spots. If there is a strain, it is not like the good soreness you get after exercising without an injury. In this case, stretching may make it worse. Don't sit for long periods, as in long car rides or other travel. This puts more stress on the lower back than standing or walking. During the first 24 to 72 hours after an injury, apply an ice pack to the painful area for 20 minutes and then remove it for 20 minutes over a period of 60 to 90 minutes or several times a day. You can alternate ice and heat therapies. Talk with your healthcare provider about the best treatment for your back or neck pain. As a safety precaution, do not use a heating pad at bedtime. Sleeping with a heating pad can lead to skin nickerson or tissue damage. Therapeutic massage can help relax the back and neck muscles without stretching them. Be aware of safe lifting methods and do not lift anything over 15 pounds until all the pain is gone. Medicines Talk to your healthcare provider before using medicine, especially if you have other medical problems or are taking other medicines. You may use pymj-vwd-zclrknq medicine to control pain, unless another pain medicine was prescribed. If you have chronic conditions like diabetes, liver or kidney disease, stomach ulcers, gastrointestinal bleeding, or are taking blood thinner medicines. Be careful if you are given pain medicines, narcotics, or medicine for muscle spasm. They can cause drowsiness, and can affect your coordination, reflexes, and judgment. Do not drive or operate heavy machinery. Follow-up care Follow up with your healthcare provider, or as advised. Physical therapy or further tests may be needed. If X-rays were taken, you will be notified of any new findings that may affect your care. Call 911 Call 911 if any of the following occur: Trouble breathing Confusion Very drowsy or trouble awakening Fainting or loss of consciousness Rapid or very slow heart rate Loss of bowel or bladder control When to seek medical advice Call your healthcare provider right away if any of these occur: Pain becomes worse or spreads into your arms or legs Weakness, numbness or pain in one or both arms or legs Numbness in the groin area Difficulty walking Fever of 100.4 F (38 C) or higher, or as directed by your healthcare provider [id number] [employer]. [address] [place] [address]71. All rights reserved. This information is not intended as a substitute for professional medical care. Always follow your healthcare professional's instructions. Follow Up Care 03/20/2023 04:39:43 With:Go to emergency room if symptoms worsen Address:Unknown When:2-4 days With:TAMMY CORBETT Address: [address] [place] [phone] When:2-4 days [facility] 03-20-2023 Note ORIGINAL EXAMINATION: CT OF THE LEFT HIP WITHOUT CONTRAST 03/20/2023 5:51 am TECHNIQUE: CT of the left hip was performed without the administration of intravenous contrast. Multiplanar reformatted images are provided for review. Automated exposure control, iterative reconstruction, and/or weight based adjustment of the mA/kV was utilized to reduce the radiation dose to as low as reasonably achievable. COMPARISON: CT abdomen pelvis 12/01/2022. HISTORY ORDERING SYSTEM PROVIDED HISTORY: Reason for Exam: pain FINDINGS: Bones: No evidence of acute fracture or dislocation. No aggressive appearing osseous abnormality or periostitis. Soft Tissue: No significant soft tissue edema or fluid collections. Joint: No significant degenerative changes. No osseous erosions. IMPRESSION: No acute osseous abnormality of the hip. I have personally reviewed the images of this examination and agree with the resident's findings and interpretation. Interpreted by: Ag Goodman MD Preliminary Report By: Nuvia Angulo Electronically signed By Ag Goodman MD Dictated Date: 03/20/2023 6:15:59 AM Prelim Date: 03/20/2023 6:23:02 AM Sign Date: 03/20/2023 6:55:19 AM Ordering Provider: KEANU ROSENBERG [facility] 03-20-2023 Note ORIGINAL EXAMINATION: CT OF THE LUMBAR SPINE WITHOUT CONTRAST 03/20/2023 TECHNIQUE: CT of the lumbar spine was performed without the administration of intravenous contrast. Multiplanar reformatted images are provided for review. Adjustment of mA and/or kV according to patient size was utilized. Automated exposure control, iterative reconstruction, and/or weight based adjustment of the mA/kV was utilized to reduce the radiation dose to as low as reasonably achievable. COMPARISON: CT abdomen pelvis 12/01/2022 HISTORY: ORDERING SYSTEM PROVIDED HISTORY: Reason for Exam: Worsening left hip pain times 12 days. FINDINGS: BONES/ALIGNMENT: There is normal alignment of the spine. The vertebral body heights are maintained. No osseous destructive lesion is seen. DEGENERATIVE CHANGES: No significant degenerative changes of the lumbar spine. No significant disc bulges, spinal canal or foraminal stenosis. SOFT TISSUES/RETROPERITONEUM: No paraspinal mass is seen. IMPRESSION: Unremarkable non-contrast CT of the lumbar spine. Preliminary Report was Dictated by a Resident Interpreted by: Ag Goodman MD Preliminary Report By: Nuvia Angulo Electronically signed By Ag Goodman MD Dictated Date: 03/20/2023 6:05:48 AM Prelim Date: 03/20/2023 6:11:13 AM Sign Date: 03/20/2023 6:41:09 AM Ordering Provider: KEANU ROSENBERG [facility] 03-15-2023 Note . MICRO - Microbiology PROCEDURE: Blood Culture (bacterial) [*1] SOURCE: Blood BODY SITE: COLLECTED DATE/TIME: 03/10/2023 15:31 EST RECEIVED DATE/TIME: 03/10/2023 19:16 EST START DATE/TIME: 03/10/2023 19:16 EST FREE TEXT SOURCE: FINAL REPORTS Final Report [] Verified Date/Time/Personnel: 03/15/2023 19:59 EST Blood Culture: No Growth at 5 days. PRELIMINARY REPORTS Preliminary Report [] Verified Date/Time/Personnel: 03/10/2023 19:59 EST Culture has been received in lab and is no growth to date. Routine cultures are held for 5 days. Performing Locations *1: This test was performed at: [address], [facility] , [facility] ([place]) 03-10-2023 Hospital Discharg e instructions Patient Education 03/10/2023 17:38:37 Pain, Acute, Uncertain Cause Acute Pain, Uncertain Cause Pain can be caused by many conditions that range from very minor to very serious. In some cases, though, pain comes and goes with no apparent cause. We were not able to find the exact cause for your pain. At this time there is no sign of any serious illness causing your pain. More tests may be needed to determine the cause. In many cases, pain like this goes away by itself. Home care Take any medicines as prescribed. If another medicine was not prescribed for pain, you can take an gwwv-asi-gwyiqbi pain medicine such as ibuprofen or acetaminophen. Use these as directed on the label. Follow-up care Follow up with your healthcare provider or our staff as directed. When to seek medical advice Call your healthcare provider for any of the following: Pain changes in pattern Pain doesn't lessen or gets worse New symptoms appear Fever of 100.4 F (38 C) or higher, or as directed by your healthcare provider [id number] [employer]. [address] [place] [address]16. All rights reserved. This information is not intended as a substitute for professional medical care. Always follow your healthcare professional's instructions. Follow Up Care 03/10/2023 14:47:01 With:TAMMY CORBETT Address: [address] [place] [phone] When:2-4 days [facility] 03-10-2023 Note Discharge Instructions Thank you for allowing [facility] to assist you with your healthcare needs. The following is important discharge information regarding your hospital visit. Diagnosis from Today's Visit Back pain Encounter for medical screening examination Leg pain Sacroiliitis What to Do Next Instructions from Your Care Team Recommending Tylenol and ibuprofen for your pain involving your buttocks and leg. No signs of any skin infection. Recommend that you follow-up with your primary care doctor. If you start developing urine retention loss of bowel or bladder control fevers or redness then please return. No qualifying data available. Post Acute Orders No qualifying data available. You Need to Schedule the Following Appointments Follow Up with TAMMY CORBETT When Within 2-4 days Where: [address] [place] [phone] Allergies [facility] Medications Please ask your primary doctor or pharmacist before taking any other medication not listed, including over the counter drugs, herbal medications, vitamins and or supplements as they may interact with your home medications. What How Much When Instructions Last Dose New methylPREDNISolone (Medrol Dosepak 4 mg oral tablet) 1 Packet(s) by mouth Once a day Duration: 6 Days as directed on package labeling Printed Prescription New naproxen (naproxen 250 mg oral tablet) 1 tab(s) by mouth Two (2) times a day Duration: 7 Days Printed Prescription Please take this list to your next doctor s visit. Bring all medications you take, including over the counter medications, herbals and other supplements with you to your doctor s visit. Patients and families are reminded to discard old lists and to update any records with all medication providers or retail pharmacies. Medication Leaflets methylprednisolone (oral) (METH il pred NIS oh lone) Medrol, Medrol Dosepak, MethylPREDNISolone Dose Pack What is the most important information I should know about methylprednisolone? You should not use this medicine if you have a fungal infection anywhere in your body. What is methylprednisolone? Methylprednisolone is a steroid that prevents the release of substances in the body that cause inflammation. Methylprednisolone is used to treat many different inflammatory conditions such as arthritis, lupus, psoriasis, ulcerative colitis, allergic disorders, gland (endocrine) disorders, and conditions that affect the skin, eyes, lungs, stomach, nervous system, or blood cells. Methylprednisolone may also be used for purposes not listed in this medication guide. What should I discuss with my healthcare provider before taking methylprednisolone? You should not use methylprednisolone if you are allergic to it, or if you have: a fungal infection anywhere in your body. Methylprednisolone can weaken your immune system, making it easier for you to get an infection. Steroids can also worsen an infection you already have, or reactivate an infection you recently had. Tell your doctor about any illness or infection you have had within the past several weeks. To make sure methylprednisolone is safe for you, tell your doctor if you have ever had: a thyroid disorder; herpes infection of the eyes; stomach ulcers, ulcerative colitis, or diverticulitis; depression, mental illness, or psychosis; liver disease (especially cirrhosis); high blood pressure; osteoporosis; a muscle disorder such as myasthenia gravis; or multiple sclerosis. Also tell your doctor if you have diabetes. Steroid medicines may increase the glucose (sugar) levels in your blood or urine. You may also need to adjust the dose of your diabetes medications. It is not known whether this medicine will harm an unborn baby. Tell your doctor if you are or plan to become . It is not known whether methylprednisolone passes into breast milk or if it could affect the nursing baby. Tell your doctor if you are breast-feeding. How should I take methylprednisolone? Follow all directions on your prescription label. Your doctor may occasionally change your dose. Do not use this medicine in larger or smaller amounts or for longer than recommended. Methylprednisolone is sometimes taken every other day. Follow your doctor's dosing instructions very carefully. Your dose needs may change if you have unusual stress such as a serious illness, fever or infection, or if you have surgery or a medical emergency. Tell your doctor about any such situation that affects you. This medicine can cause unusual results with certain medical tests. Tell any doctor who treats you that you are using methylprednisolone. You should not stop using methylprednisolone suddenly. Follow your doctor's instructions about tapering your dose. Wear a medical alert tag or carry an ID card stating that you take methylprednisolone. Any medical care provider who treats you should know that you take steroid medication. If you need surgery, tell the surgeon ahead of time that you are using methylprednisolone. You may need to stop using the medicine for a short time. Store at room temperature away from moisture and heat. What happens if I miss a dose? Call your doctor for instructions if you miss a dose of methylprednisolone. What happens if I overdose? Seek emergency medical attention or call the [employer] Help line at . An overdose of methylprednisolone is not expected to produce life threatening symptoms. However, senior care use of high steroid doses can lead to symptoms such as thinning skin, easy bruising, changes in the shape or location of body fat (especially in your face, neck, back, and waist), increased acne or facial hair, menstrual problems, impotence, or loss of interest in sex. What should I avoid while taking methylprednisolone? Avoid being near people who are sick or have infections. Call your doctor for preventive treatment if you are exposed to chicken pox or measles. These conditions can be serious or even fatal in people who are using steroid medication. Do not receive a 'live' vaccine while using methylprednisolone. The vaccine may not work as well during this time, and may not fully protect you from disease. Live vaccines include measles, mumps, rubella (MMR), polio, rotavirus, typhoid, yellow fever, varicella (chickenpox), zoster (shingles), and nasal flu (influenza) vaccine. What are the possible side effects of methylprednisolone? Get emergency medical help if you have signs of an allergic reaction: hives; difficult breathing; swelling of your face, lips, tongue, or throat. Call your doctor at once if you have: shortness of breath (even with mild exertion), swelling, rapid weight gain; bruising, thinning skin, or any wound that will not heal; blurred vision, tunnel vision, eye pain, or seeing halos around lights; severe depression, changes in personality, unusual thoughts or behavior; new or unusual pain in an arm or leg or in your back; bloody or tarry stools, coughing up blood or vomit that looks like coffee grounds; seizure (convulsions); or low potassium--leg cramps, constipation, irregular heartbeats, fluttering in your chest, increased thirst or urination, numbness or tingling. Steroids can affect growth in children. Tell your doctor if your child is not growing at a normal rate while using this medicine. Common side effects may include: fluid retention (swelling in your hands or ankles); dizziness, spinning sensation; changes in your menstrual periods; headache; mild muscle pain or weakness; or stomach discomfort, bloating. This is not a complete list of side effects and others may occur. Call your doctor for medical advice about side effects. You may report side effects to FDA at 1-950-SQL-1494. What other drugs will affect methylprednisolone? Other drugs may interact with methylprednisolone, including prescription and wqrv-iew-tylyjif medicines, vitamins, and herbal products. Tell each of your health care providers about all medicines you use now and any medicine you start or stop using. Where can I get more information? Your pharmacist can provide more information about methylprednisolone. Remember, keep this and all other medicines out of the reach of children, never share your medicines with others, and use this medication only for the indication prescribed. Every effort has been made to ensure that the information provided by [employer] is accurate, up-to-date, and complete, but no guarantee is made to that effect. Drug information contained herein may be time sensitive. [employer] information has been compiled for use by healthcare practitioners and consumers in the [place] and therefore [employer] does not warrant that uses outside of the [place] are appropriate, unless specifically indicated otherwise. [employer] drug information does not endorse drugs, diagnose patients or recommend therapy. [employer] drug information is an informational resource designed to assist licensed healthcare practitioners in caring for their patients and/or to serve consumers viewing this service as a supplement to, and not a substitute for, the expertise, skill, knowledge and judgment of healthcare practitioners. The absence of a warning for a given drug or drug combination in no way should be construed to indicate that the drug or drug combination is safe, effective or appropriate for any given patient. [facility] does not assume any responsibility for any aspect of healthcare administered with the aid of information [facility] provides. The information contained herein is not intended to cover all possible uses, directions, precautions, warnings, drug interactions, allergic reactions, or adverse effects. If you have questions about the drugs you are taking, check with your doctor, nurse or pharmacist. Copyright 2140-2978 [facility]. Version: 9.01. Revision Date: 12/16/2016. naproxen (na PROX en) Aleve, Aleve Back and Muscle Pain, Aleve Easy Open Arthritis, Aleve Liquid Gels, Anaprox-DS, EC-Naprosyn, Naprelan, Naprosyn What is the most important information I should know about naproxen? Naproxen can increase your risk of fatal heart attack or stroke. Do not use this medicine just before or after heart bypass surgery (coronary artery bypass graft, or CABG). Naproxen may also cause stomach or intestinal bleeding, which can be fatal. What is naproxen? Naproxen is a nonsteroidal anti-inflammatory drug (NSAID). Naproxen is used to treat pain or inflammation caused by conditions such as arthritis, ankylosing spondylitis, tendinitis, bursitis, gout, or menstrual cramps. The delayed-release or extended-release tablets are slower-acting forms of naproxen that are used only for treating chronic conditions such as arthritis or ankylosing spondylitis. These forms of naproxen will not work fast enough to treat acute pain. Naproxen may also be used for purposes not listed in this medication guide. What should I discuss with my healthcare provider before taking naproxen? Naproxen can increase your risk of fatal heart attack or stroke, even if you don't have any risk factors. Do not use this medicine just before or after heart bypass surgery (coronary artery bypass graft, or CABG). Naproxen may also cause stomach or intestinal bleeding, which can be fatal. These conditions can occur without warning while you are using naproxen, especially in older adults. You should not use naproxen if you are allergic to it, or if you have ever had an asthma attack or severe allergic reaction after taking aspirin or an NSAID. Ask a doctor before giving naproxen to a child younger than 12 years old. Ask a doctor or pharmacist if this medicine is safe to use if you have: heart disease, high blood pressure, high cholesterol, diabetes, or if you smoke; a heart attack, stroke, or blood clot; stomach ulcers or bleeding; asthma; liver or kidney disease; fluid retention; or if you take aspirin to prevent heart attack or stroke. If you are , you should not take naproxen unless your doctor tells you to. Taking an NSAID during the last 20 weeks of can cause serious heart or kidney problems in the unborn baby and possible complications with your . It may not be safe to breastfeed while using this medicine. Ask your doctor about any risk. How should I take naproxen? Use exactly as directed on the label, or as prescribed by your doctor. Use the lowest dose that is effective in treating your condition. Shake the oral suspension (liquid) before you measure a dose. Measure a dose with the supplied measuring device (not a kitchen spoon). Take this medicine with food or milk if it upsets your stomach. Always follow directions on the medicine label about giving this medicine to a child. Naproxen doses are based on weight in children. Your child's dose needs may change if the child gains or loses weight. If you use naproxen long-term, you may need frequent medical tests. This medicine can affect the results of certain medical tests. Tell any doctor who treats you that you are using naproxen. Store at room temperature away from moisture, heat, and light. Keep the bottle tightly closed when not in use. What happens if I miss a dose? Since naproxen is used when needed, you may not be on a dosing schedule. Skip any missed dose if it's almost time for your next dose. Do not use two doses at one time. What happens if I overdose? Seek emergency medical attention or call the [employer] Help line at . What should I avoid while taking naproxen? Avoid drinking alcohol. It may increase your risk of stomach bleeding. Avoid taking aspirin or other NSAIDs unless your doctor tells you to. Ask a doctor or pharmacist before using other medicines for pain, fever, swelling, or cold/flu symptoms. They may contain ingredients similar to naproxen (such as aspirin, ibuprofen, or ketoprofen). Ask your doctor before using an antacid, and use only the type your doctor recommends. Some antacids can make it harder for your body to absorb naproxen. What are the possible side effects of naproxen? Get emergency medical help if you have signs of an allergic reaction (runny or stuffy nose, wheezing or trouble breathing, hives, swelling in your face or throat) or a severe skin reaction (fever, sore throat, burning eyes, skin pain, red or purple skin rash with blistering and peeling). Stop using naproxen and seek medical treatment if you have a serious drug reaction that can affect many parts of your body. Symptoms may include skin rash, fever, swollen glands, muscle aches, severe weakness, unusual bruising, or yellowing of your skin or eyes. Get emergency medical help if you have signs of a heart attack or stroke: chest pain spreading to your jaw or shoulder, sudden numbness or weakness on one side of the body, slurred speech, leg swelling, feeling short of breath. Stop using naproxen and call your doctor at once if you have: shortness of breath (even with mild exertion); swelling or rapid weight gain; the first sign of any skin rash or blister, no matter how mild; signs of stomach bleeding--bloody or tarry stools, coughing up blood or vomit that looks like coffee grounds; liver problems--nausea, upper stomach pain, loss of appetite, dark urine, richy-colored stools, jaundice (yellowing of the skin or eyes); kidney problems--little or no urination, painful urination, swelling in your feet or ankles; or low red blood cells (anemia)--pale skin, unusual tiredness, feeling light-headed or short of breath, cold hands and feet. Common side effects may include: headache; indigestion, heartburn, stomach pain; or flu symptoms; This is not a complete list of side effects and others may occur. Call your doctor for medical advice about side effects. You may report side effects to FDA at 8-261-CMV-0570. What other drugs will affect naproxen? Ask your doctor before using naproxen if you take an antidepressant. Taking certain antidepressants with an NSAID may cause you to bruise or bleed easily. Ask a doctor or pharmacist before using naproxen with any other medications, especially: other NSAIDs or salicylates (diflunisal, salsalate); antacids and sucralfate; cholestyramine; cyclosporine; digoxin; lithium; methotrexate; pemetrexed; probenecid; warfarin (Coumadin, Jantoven) or similar blood thinners; a diuretic or 'water pill'; or heart or blood pressure medication. This list is not complete. Other drugs may affect naproxen, including prescription and jgzz-oej-becmjnh medicines, vitamins, and herbal products. Not all possible drug interactions are listed here. Where can I get more information? Your pharmacist can provide more information about naproxen. Remember, keep this and all other medicines out of the reach of children, never share your medicines with others, and use this medication only for the indication prescribed. Every effort has been made to ensure that the information provided by [employer]. ('[employer]') is accurate, up-to-date, and complete, but no guarantee is made to that effect. Drug information contained herein may be time sensitive. [employer] information has been compiled for use by healthcare practitioners and consumers in the [place] and therefore [employer] does not warrant that uses outside of the [place] are appropriate, unless specifically indicated otherwise. [employer]'s drug information does not endorse drugs, diagnose patients or recommend therapy. [facility] drug information is an informational resource designed to assist licensed healthcare practitioners in caring for their patients and/or to serve consumers viewing this service as a supplement to, and not a substitute for, the expertise, skill, knowledge and judgment of healthcare practitioners. The absence of a warning for a given drug or drug combination in no way should be construed to indicate that the drug or drug combination is safe, effective or appropriate for any given patient. [employer] does not assume any responsibility for any aspect of healthcare administered with the aid of information [employer] provides. The information contained herein is not intended to cover all possible uses, directions, precautions, warnings, drug interactions, allergic reactions, or adverse effects. If you have questions about the drugs you are taking, check with your doctor, nurse or pharmacist. Copyright 2259-9769 [employer] Version: 22.01. Revision Date: 11/19/2022. Education Materials Acute Pain, Uncertain Cause Pain can be caused by many conditions that range from very minor to very serious. In some cases, though, pain comes and goes with no apparent cause. We were not able to find the exact cause for your pain. At this time there is no sign of any serious illness causing your pain. More tests may be needed to determine the cause. In many cases, pain like this goes away by itself. Home care Take any medicines as prescribed. If another medicine was not prescribed for pain, you can take an oloj-eee-eqaplrc pain medicine such as ibuprofen or acetaminophen. Use these as directed on the label. Follow-up care Follow up with your healthcare provider or our staff as directed. When to seek medical advice Call your healthcare provider for any of the following: Pain changes in pattern Pain doesn't lessen or gets worse New symptoms appear Fever of 100.4 F (38 C) or higher, or as directed by your healthcare provider [phone] [employer]. [address] [place] [address]. All rights reserved. This information is not intended as a substitute for professional medical care. Always follow your healthcare professional's instructions. Additional Information VACCINATE! IT SAVES LIVES! Members of the community who have not yet received the COVID-19 vaccine and would like to receive it can visit one of [facility] vaccine clinics. There are many vaccine clinic locations within the [facility]. For locations and available times, please visit www.[email or web address].[place]. gov/. It is important to note that some COVID mobile vaccine clinics are held outdoors and may be canceled in rainy or stormy conditions. To learn more about pediatric vaccinations (ages 5-11), we invite you to visit the [facility] webpage. https://www.[facility].org/p ages/8538-Wbivr-Qxhvtzeuxhd-Freq wniwbh-Skpxf-Njmpvcjrq.html To learn more about the COVID-19 vaccine, we invite you to visit the CDC website for a list of frequently asked questions. https://www.cdc.gov/coronavirus/ 2019-ncov/vaccines/faq.html [facility] Patient Portal Access Instructions: Stay connected with your healthcare team and access your personal medical information anytime with the [facility] Patient Portal. If you would like a full copy of your medical records please contact the [facility] Department Wednesday through Wednesday between 8a.m. and 4:30p.m. Please follow the directions below to access the portal: 1.Access the email account you provided upon registration to the [facility].2.Look for an invitation email from [facility].3.Open the email and access the invitation link: Accept Invitation to [facility]4.Fill in the required pastor to create your account. Sign into [email or web address] with your username and password that you created in the above steps to stay up to date. You can then view a summary of results, a summary of your visits, and the ability to download your summaries to your computer or send the information securely to a physician. Remember that your healthcare information is confidential, so carefully consider who you will allow to register on the [facility] Patient Portal for access to your information. You can also access the [facility] Patient Portal on the EMcube. Simply click on "Health Records" under "Health Data" and then click on the Marie logo. HOW TO SAFELY DISPOSE OF PRESCRIPTION MEDICATIONS Please use one of the following methods to safely dispose of your unused medications. 1.Use a drug disposal kit: the drug disposal pouch allows you to safely discard your old and unused drugs. Ask your nurse to give you one when you are discharged.2.Visit a local take-back location: Many local pharmacies and police departments have programs that collect old and unwanted prescription drugs. Call your local pharmacy or go to http://[employer]/6E6Zv7y to find one close to you.3.Make use of household items: Use cat litter or old coffee grounds to dispose medications if other options are not available. Mix your drugs with these household products, seal them in an airtight container and throw it into the garbage. Call [facility]: [phone] to be sure your drugs can be disposed of in this way. Some medicines may require a different approach.4.Never flush your medications down the toilet. IF YOU HAVE BEEN PRESCRIBED AN OPIOIDS FOR PAIN If you have been prescribed an opioid (such as hydrocodone, oxycodone or morphine), it is critical to understand the possible side effects and risks of opioid pain medications. Even when taken as directed, opioids can have several side effects including: Tolerance, meaning you might need to take more of a medication for the same pain relief. Nausea, vomiting and/or constipation. Sleepiness, dizziness, dry mouth, confusion, depression or itching. Physical dependence, meaning you have withdrawal symptoms when a medication is stopped ? this can develop within a few days. KNOW YOUR RESPONSIBILITIES It is important to know exactly how much and how often to take the opioid pain medications you are prescribed. Never take opioids in higher amounts or more often than prescribed. Do not combine opioids with alcohol or other drugs that cause drowsiness, such as benzodiazepines, also known as benzos, including diazepam and alprazolam, muscle relaxants or sleep aids. Never sell or share prescription opioids. This is illegal. Store opioids in a secure place and out of reach of others (including children, family, friends and visitors). The last page(s) of this document has been signed and retained as a CHART COPY Signatures Patient Education Materials Pain, Acute, Uncertain Cause Medication Leaflets methylprednisolone (oral), naproxen My discharge plan and instructions have been reviewed and explained to me and I,LEONEL VILLAVICENCIO understand my current condition and have read and understand these discharge instructions. I have received a written copy of the plan/instructions. If I have questions, I am aware that I should contact my doctor. 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 Resp even and unlabored. Digitally Signed by Purnima Coreas RN on 03/10/2023 04:50 PM [facility] 01-29-2023 Evaluation + Plan note Future Scheduled TestsXR Chest 2 Views (PA & Lateral) 01/29/23US Elastography Liver w/ABD Complete 06/14/23 [facility] 01-29-2023 Note ORIGINAL EXAMINATION: TWO XRAY VIEWS OF THE CHEST 01/29/2023 12:00 pm COMPARISON: Chest x-ray on 12/25/2022 HISTORY: ORDERING SYSTEM PROVIDED HISTORY: Reason for Exam: cough FINDINGS: The heart size and mediastinal contours are normal. Chronic blunting of the left lateral costophrenic angle is unchanged. There is no acute lung infiltrate or edema. No pneumothorax or pleural fluid is present. The skeletal structures are unremarkable. 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 No acute radiographic abnormality of the chest. Interpreted by: Jose Slater MD Preliminary Report By: Jose Slater MD Electronically signed By Jose Slater MD Dictated Date: 01/29/2023 12:18:33 PM Prelim Date: 01/29/2023 12:19:45 PM Sign Date: 01/29/2023 12:19:45 PM Ordering Provider: STAR ARCHER [facility] 12-30-2022 Hospital Discharg e instructions Patient Education 12/30/2022 16:51:09 Dental Extraction, Care After, Rxmc-le-Cnwp Dental Extraction, Care After These instructions give you information about caring for yourself after your procedure. Your doctor may also give you more specific instructions. Call your doctor if you have any problems or questions after your procedure. Follow these instructions at home: Mouth care Follow instructions from your doctor about how to take care of the area where your tooth was taken out. Make sure you: ?Wash your hands with soap and water before you touch your mouth or your gauze pads. If you do not have soap and water, use hand director outcomes. ?Change your gauze and take it out as told by your doctor. ?Leave stitches (sutures) in place. They may need to stay in place for 2 weeks or longer, or they may dissolve on their own over several weeks. If you have bleeding that does not stop, fold a clean piece of gauze and place it on the bleeding gum. Bite down on it gently but firmly. Do not chew on the gauze. Do not do any of these things until your doctor says it is okay: ?Rinse your mouth. ?[place] or floss near the area where your tooth was taken out. You may brush your other teeth. ?Spit. After your doctor says that you may rinse your mouth: ?Gargle with a salt-water mixture 3 4 times a day or as needed. To make a salt-water mixture, completely dissolve 1 tsp of salt in 1 cup of warm water. ?Rinse very gently. Do not rinse with a lot of force, because doing that can affect how your mouth heals. If you wear fake teeth (dental prostheses), talk with your doctor about when you may start to wear them again. Eating and drinking Do not drink through a straw until your doctor says it is okay. Eat foods that are cool and have a soft texture, as told by your doctor. Some examples are ice cream and yogurt. Avoid hot drinks and spicy foods until your mouth has healed. Activity Do not drive or use heavy machinery for 24 hours if you were given a medicine to help you relax (sedative) during your procedure. Do not drive or use heavy machinery while taking prescription pain medicine. Return to your normal activities as told by your doctor. Ask your doctor what activities are safe for you. Managing pain and swelling If told, put ice on your cheek on the side of your mouth where the tooth was taken out: ?Put ice in a plastic bag. ?Place a towel between your skin and the bag. ?Leave the ice on for 20 minutes, 2 3 times a day. General instructions Take reje-edd-qlqtpry and prescription medicines only as told by your doctor. If you are taking prescription pain medicine, take actions to prevent or treat constipation. Your doctor may recommend that you: ?Drink enough fluid to keep your pee (urine) pale yellow. ?Limit foods that are high in fat and processed sugars, such as fried or sweet foods. ?Take an sxep-gsb-ypwqiya or prescription medicine for constipation. If you were prescribed an antibiotic medicine, take it as told by your doctor. Do not stop taking the antibiotic even if you start to feel better. Do not use any products that contain nicotine or tobacco. These include cigarettes and e-cigarettes. If you need help quitting, ask your doctor. Keep all follow-up visits as told by your doctor. This is important. Contact a doctor if: You have pain that does not get better after you take your medicine. You have any of the following: ?A fever. ?Feeling sick to your stomach (nausea). ?Throwing up (vomiting). ?Chills. You have any of these in or near the place where your tooth used to be (socket): ?A lot of redness on your face. ?A lot of swelling in your mouth or on your face. ?A small amount of clear fluid or pus. ?New bleeding. Your symptoms get worse. You get new symptoms. You lose feeling (numbness) in your lip or jaw and do not get it back. You have tingling in your lip or jaw that does not go away. Get help right away if: You have very bad bleeding. You have bleeding that does not stop after you bite down on many gauze pads. You have very bad pain that does not get better with medicine. You have swelling that gets worse instead of better. You have a lot of clear fluid or pus coming from where your tooth was taken out. You have trouble swallowing. You cannot open your mouth. You have shortness of breath. You have chest pain. Summary If you have bleeding that does not stop, fold a clean piece of gauze and place it on the bleeding gum. Bite on the gauze gently but firmly. Do not rinse your mouth or spit until your doctor says that it is okay. Avoid hot drinks and spicy foods until your mouth heals. This information is not intended to replace advice given to you by your health care provider. Make sure you discuss any questions you have with your health care provider. Document Released: 09/23/2010 Document Revised: 03/18/2018 Document Reviewed: 01/20/2018 [employer] Patient Education 2020 [employer]. Follow Up Care 12/25/2022 23:12:02 With:STAR ARCHER MD Address: [address] [place] [address] [address] [place] [address]- [phone] When:01/01/2023 11:45:00 With:TAMMY CORBETT APRN-BRAND COORDINATOR Address: [address] [place] [address]- [phone] When: Unknown Comments:PLEASE CALL THIS OFFICE TO SCHEDULE A HOSPITAL FOLLOW UP APPOINTMENT. [facility] 12-30-2022 Note . MICRO - Microbiology PROCEDURE: Blood Culture (bacterial) [*1] SOURCE: Blood BODY SITE: COLLECTED DATE/TIME: 12/25/2022 12:49 EDT RECEIVED DATE/TIME: 12/25/2022 14:36 EDT START DATE/TIME: 12/25/2022 14:36 EDT FREE TEXT SOURCE: FINAL REPORTS Final Report [] Verified Date/Time/Personnel: 12/30/2022 14:59 EDT Blood Culture: No Growth at 5 days. PRELIMINARY REPORTS Preliminary Report [] Verified Date/Time/Personnel: 12/25/2022 16:00 EDT Culture has been received in lab and is no growth to date. Routine cultures are held for 5 days. Performing Locations *1: This test was performed at: [address], [address] [place] [address] ([place]) 12-30-2022 Note . MICRO - Microbiology PROCEDURE: Blood Culture (bacterial) [*1] SOURCE: Blood BODY SITE: COLLECTED DATE/TIME: 12/25/2022 12:59 EDT RECEIVED DATE/TIME: 12/25/2022 14:36 EDT START DATE/TIME: 12/25/2022 14:36 EDT FREE TEXT SOURCE: FINAL REPORTS Final Report [] Verified Date/Time/Personnel: 12/30/2022 14:59 EDT Blood Culture: No Growth at 5 days. PRELIMINARY REPORTS Preliminary Report [] Verified Date/Time/Personnel: 12/25/2022 16:00 EDT Culture has been received in lab and is no growth to date. Routine cultures are held for 5 days. Performing Locations *1: This test was performed at: [address], [facility] , [facility] ([place]) 12-30-2022 Note Discharge Instructions Thank you for allowing [facility] to assist you with your healthcare needs. The following is important discharge information regarding your hospital visit. Your Care Team TAMMY CORBETT APRN-BRAND COORDINATOR Your Diagnosis Vomiting What to do next Scheduled Follow-Up Appointments Appointment Type When Where Contact [facility] Follow Up 01/29/2023 10:30 AM EDT [facility] Follow Up Appointments Follow Up with STAR ARCHER MD When 01/01/2023 11:45 AM EDT Where: [address] [facility] [address] [place] [address]- [phone] Follow Up with TAMMY CORBETT When Why: PLEASE CALL THIS OFFICE TO SCHEDULE A HOSPITAL FOLLOW UP APPOINTMENT. Where: [address] [place] [address]- [phone] The Following Activity and Diet Have Been Ordered for You No qualifying data available. No qualifying data available. The Following Equipment Has Been Ordered for You No qualifying data available. The Following Treatments Have Been Ordered for You Discharge Labs No qualifying data available. Discharge Radiology No qualifying data available. Other Therapies No qualifying data available. Post Acute Orders No qualifying data available. Someone Will Contact You Regarding These Home Health Referrals No home referrals have been ordered for you. No one will call you. Allergies NKA Medications Please ask your primary doctor or pharmacist before taking any other medication not listed, including over the counter drugs, herbal medications, vitamins and or supplements as they may interact with your home medications. What How Much When Why Instructions Last Dose Unchanged ondansetron (Zofran 4 mg oral tablet) 1 tab(s) by mouth Every 6 hours as needed for Nausea/Vomiting Nausea Please take this list to your next doctor s visit. Bring all medications you take, including over the counter medications, herbals and other supplements with you to your doctor s visit. Patients and families are reminded to discard old lists and to update any records with all medication providers or retail pharmacies. Education Materials Dental Extraction, Care After These instructions give you information about caring for yourself after your procedure. Your doctor may also give you more specific instructions. Call your doctor if you have any problems or questions after your procedure. Follow these instructions at home: Mouth care Follow instructions from your doctor about how to take care of the area where your tooth was taken out. Make sure you: ? Wash your hands with soap and water before you touch your mouth or your gauze pads. If you do not have soap and water, use hand director outcomes. ? Change your gauze and take it out as told by your doctor. ? Leave stitches (sutures) in place. They may need to stay in place for 2 weeks or longer, or they may dissolve on their own over several weeks. If you have bleeding that does not stop, fold a clean piece of gauze and place it on the bleeding gum. Bite down on it gently but firmly. Do not chew on the gauze. Do not do any of these things until your doctor says it is okay: ? Rinse your mouth. ? [place] or floss near the area where your tooth was taken out. You may brush your other teeth. ? Spit. After your doctor says that you may rinse your mouth: ? Gargle with a salt-water mixture 3 4 times a day or as needed. To make a salt-water mixture, completely dissolve 1 tsp of salt in 1 cup of warm water. ? Rinse very gently. Do not rinse with a lot of force, because doing that can affect how your mouth heals. If you wear fake teeth (dental prostheses), talk with your doctor about when you may start to wear them again. Eating and drinking Do not drink through a straw until your doctor says it is okay. Eat foods that are cool and have a soft texture, as told by your doctor. Some examples are ice cream and yogurt. Avoid hot drinks and spicy foods until your mouth has healed. Activity Do not drive or use heavy machinery for 24 hours if you were given a medicine to help you relax (sedative) during your procedure. Do not drive or use heavy machinery while taking prescription pain medicine. Return to your normal activities as told by your doctor. Ask your doctor what activities are safe for you. Managing pain and swelling If told, put ice on your cheek on the side of your mouth where the tooth was taken out: ? Put ice in a plastic bag. ? Place a towel between your skin and the bag. ? Leave the ice on for 20 minutes, 2 3 times a day. General instructions Take hgmf-dbz-zfndfnx and prescription medicines only as told by your doctor. If you are taking prescription pain medicine, take actions to prevent or treat constipation. Your doctor may recommend that you: ? Drink enough fluid to keep your pee (urine) pale yellow. ? Limit foods that are high in fat and processed sugars, such as fried or sweet foods. ? Take an izrl-kuf-zrphnxt or prescription medicine for constipation. If you were prescribed an antibiotic medicine, take it as told by your doctor. Do not stop taking the antibiotic even if you start to feel better. Do not use any products that contain nicotine or tobacco. These include cigarettes and e-cigarettes. If you need help quitting, ask your doctor. Keep all follow-up visits as told by your doctor. This is important. Contact a doctor if: You have pain that does not get better after you take your medicine. You have any of the following: ? A fever. ? Feeling sick to your stomach (nausea). ? Throwing up (vomiting). ? Chills. You have any of these in or near the place where your tooth used to be (socket): ? A lot of redness on your face. ? A lot of swelling in your mouth or on your face. ? A small amount of clear fluid or pus. ? New bleeding. Your symptoms get worse. You get new symptoms. You lose feeling (numbness) in your lip or jaw and do not get it back. You have tingling in your lip or jaw that does not go away. Get help right away if: You have very bad bleeding. You have bleeding that does not stop after you bite down on many gauze pads. You have very bad pain that does not get better with medicine. You have swelling that gets worse instead of better. You have a lot of clear fluid or pus coming from where your tooth was taken out. You have trouble swallowing. You cannot open your mouth. You have shortness of breath. You have chest pain. Summary If you have bleeding that does not stop, fold a clean piece of gauze and place it on the bleeding gum. Bite on the gauze gently but firmly. Do not rinse your mouth or spit until your doctor says that it is okay. Avoid hot drinks and spicy foods until your mouth heals. This information is not intended to replace advice given to you by your health care provider. Make sure you discuss any questions you have with your health care provider. Document Released: 09/23/2010 Document Revised: 03/18/2018 Document Reviewed: 01/20/2018 [employer] Patient Education 2020 [employer] Additional Information VACCINATE! IT SAVES LIVES! Members of the community who have not yet received the COVID-19 vaccine and would like to receive it can visit one of [facility] vaccine clinics. There are many vaccine clinic locations within the [facility]. For locations and available times, please visit [email or web address]/. It is important to note that some COVID mobile vaccine clinics are held outdoors and may be canceled in rainy or stormy conditions. To learn more about pediatric vaccinations (ages 5-11), we invite you to visit the [facility] webpage. https://www.6Wunderkinders.org/p ages/3089-Clvbi-Nuufhigaqch-Freq ugznel-Dbeni-Ekjetzqhm.html To learn more about the COVID-19 vaccine, we invite you to visit the CDC website for a list of frequently asked questions.https://www.cdc.gov/co ronavirus/2019-ncov/vaccines/faq .html [facility] Patient Portal Access Instructions: Stay connected with your healthcare team and access your personal medical information anytime with the [facility] Patient Portal. Please follow the directions below to create your [facility] account: 1.Access the email account you provided upon registration to the hospital/physician office.2.Look for an invitation email from [facility].3.Open the email and access the invitation link: Accept Invitation to [facility].4.Fill in the required pastor to create your account. To access your account, visit [employer] Systems[employer]. Click the blue button labeled "Access Patient Portal" and then log in with the username and password that you created in the steps above. You will be able to view your test results, lab results, a summary of your visits, upcoming appointments and more. There is also a convenient messaging option where you can send secure messages to your provider. In addition, you will have the ability to download any documents or summaries to your computer and/or send the information securely to a physician. Remember that your healthcare information is confidential, so carefully consider who you will allow to register on the [employer] Patient Portal for access to your information. You can also access the [employer] Patient Portal on the [facility]. Simply click on "Patient Portal" and then log into your account. If you would like to receive a full copy of your medical records, please contact the [facility] by calling [phone], Wednesday through Wednesday between 8 a.m. and 4:30 p.m. HOW TO SAFELY DISPOSE OF PRESCRIPTION MEDICATIONS Please use one of the following methods to safely dispose of your unused medications. 1.Use a drug disposal kit: the drug disposal pouch allows you to safely discard your old and unused drugs. Ask your nurse to give you one when you are discharged.2.Visit a local take-back location: Many local pharmacies and police departments have programs that collect old and unwanted prescription drugs. Call your local pharmacy or go to [email or web address] to find one close to you.3.Make use of household items: Use cat litter or old coffee grounds to dispose medications if other options are not available. Mix your drugs with these household products, seal them in an airtight container and throw it into the garbage. Call [facility]: [phone] to be sure your drugs can be disposed of in this way. Some medicines may require a different approach.4.Never flush your medications down the toilet. IF YOU HAVE BEEN PRESCRIBED AN OPIOID FOR PAIN If you have been prescribed an opioid (such as hydrocodone, oxycodone or morphine), it is critical to understand the possible side effects and risks of opioid pain medications. Even when taken as directed, opioids can have several side effects including: Tolerance, meaning you might need to take more of a medication for the same pain relief. Nausea, vomiting and/or constipation. Sleepiness, dizziness, dry mouth, confusion, depression or itching. Physical dependence, meaning you have withdrawal symptoms when a medication is stopped, can develop within a few days. KNOW YOUR RESPONSIBILITIES It is important to know exactly how much and how often to take the opioid pain medications you are prescribed. Never take opioids in higher amounts or more often than prescribed. Do not combine opioids with alcohol or other drugs that cause drowsiness, such as benzodiazepines, also known as benzos, including diazepam and alprazolam, muscle relaxants or sleep aids. Never sell or share prescription opioids. This is illegal. Store opioids in a secure place and out of reach of others (including children, family, friends and visitors). The last page of this document has been signed and retained as a CHART COPY. Signatures Patient Education Materials Dental Extraction, Care After, Hart-[id number] Medication Leaflets My discharge plan and instructions have been reviewed and explained to me and I,LEONEL VILLAVICENCIO understand my current condition and have read and understand these discharge instructions. I have received a written copy of the plan/instructions. If I have questions, I am aware that I should contact my doctor. 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 Patient location: PACU. Assessment Postanesthesia assessment Vitals: Vital signs from flowsheet : Vital Signs 12/30/2022 14:35 EDT Heart Rate Monitored 90 bpm Respiratory Rate 16 br/min Systolic Blood Pressure Non-Invasive 133 mmHg Diastolic Blood Pressure Non-Invasive 81 mmHg Mean Arterial Pressure (NBP) 96 mmHg 12/30/2022 14:20 EDT Heart Rate Monitored 84 bpm Respiratory Rate 16 br/min Systolic Blood Pressure Non-Invasive 128 mmHg Diastolic Blood Pressure Non-Invasive 75 mmHg Mean Arterial Pressure (NBP) 90 mmHg 12/30/2022 14:05 EDT Heart Rate Monitored 81 bpm Respiratory Rate 16 br/min Systolic Blood Pressure Non-Invasive 130 mmHg Diastolic Blood Pressure Non-Invasive 77 mmHg Mean Arterial Pressure (NBP) 91 mmHg 12/30/2022 13:55 EDT Respiratory Rate - Anes 0 br/min br/min 12/30/2022 13:50 EDT Respiratory Rate - Anes 0 br/min br/min 12/30/2022 13:48 EDT Temperature Temporal Artery 36.2 DegC Heart Rate Monitored 78 bpm Respiratory Rate 16 br/min Systolic Blood Pressure Non-Invasive 124 mmHg Diastolic Blood Pressure Non-Invasive 59 mmHg LOW Mean Arterial Pressure (NBP) 77 mmHg 12/30/2022 13:45 EDT Respiratory Rate - Anes 0 br/min br/min 12/30/2022 13:44 EDT Systolic Blood Pressure Non-Invasive 123 mmHg mmHg Diastolic Blood Pressure Non-Invasive 75 mmHg mmHg 12/30/2022 13:40 EDT Heart Rate Monitored 66 bpm bpm Respiratory Rate - Anes 24 br/min br/min Systolic Blood Pressure Non-Invasive 131 mmHg mmHg Diastolic Blood Pressure Non-Invasive 81 mmHg mmHg 12/30/2022 13:37 EDT Systolic Blood Pressure Non-Invasive 123 mmHg mmHg Diastolic Blood Pressure Non-Invasive 76 mmHg mmHg 12/30/2022 13:35 EDT Heart Rate Monitored 67 bpm bpm Respiratory Rate - Anes 16 br/min br/min 12/30/2022 13:34 EDT Systolic Blood Pressure Non-Invasive 111 mmHg mmHg Diastolic Blood Pressure Non-Invasive 75 mmHg mmHg 12/30/2022 13:31 EDT Systolic Blood Pressure Non-Invasive 116 mmHg mmHg Diastolic Blood Pressure Non-Invasive 72 mmHg mmHg 12/30/2022 13:30 EDT Heart Rate Monitored 73 bpm bpm Respiratory Rate - Anes 16 br/min br/min 12/30/2022 13:29 EDT Systolic Blood Pressure Non-Invasive 102 mmHg mmHg Diastolic Blood Pressure Non-Invasive 70 mmHg mmHg 12/30/2022 13:25 EDT Temperature (Route Not Specified) 35.7 DegC DegC Heart Rate Monitored 68 bpm bpm Respiratory Rate - Anes 16 br/min br/min Systolic Blood Pressure Non-Invasive 103 mmHg mmHg Diastolic Blood Pressure Non-Invasive 70 mmHg mmHg 12/30/2022 13:22 EDT Systolic Blood Pressure Non-Invasive 99 mmHg mmHg Diastolic Blood Pressure Non-Invasive 57 mmHg mmHg 12/30/2022 13:20 EDT Temperature (Route Not Specified) 35.55 DegC DegC Heart Rate Monitored 70 bpm bpm Respiratory Rate - Anes 16 br/min br/min 12/30/2022 13:19 EDT Systolic Blood Pressure Non-Invasive 88 mmHg mmHg Diastolic Blood Pressure Non-Invasive 49 mmHg mmHg 12/30/2022 13:17 EDT Systolic Blood Pressure Non-Invasive 93 mmHg mmHg Diastolic Blood Pressure Non-Invasive 51 mmHg mmHg 12/30/2022 13:15 EDT Temperature (Route Not Specified) 35.55 DegC DegC Heart Rate Monitored 67 bpm bpm Respiratory Rate - Anes 16 br/min br/min 12/30/2022 13:14 EDT Systolic Blood Pressure Non-Invasive 107 mmHg mmHg Diastolic Blood Pressure Non-Invasive 60 mmHg mmHg 12/30/2022 13:13 EDT Systolic Blood Pressure Non-Invasive 106 mmHg mmHg Diastolic Blood Pressure Non-Invasive 65 mmHg mmHg 12/30/2022 13:10 EDT Temperature (Route Not Specified) 35.59 DegC DegC Heart Rate Monitored 71 bpm bpm Respiratory Rate - Anes 16 br/min br/min Systolic Blood Pressure Non-Invasive 87 mmHg mmHg Diastolic Blood Pressure Non-Invasive 45 mmHg mmHg 12/30/2022 13:07 EDT Systolic Blood Pressure Non-Invasive 98 mmHg mmHg Diastolic Blood Pressure Non-Invasive 80 mmHg mmHg 12/30/2022 13:05 EDT Temperature (Route Not Specified) 35.46 DegC DegC Heart Rate Monitored 67 bpm bpm Respiratory Rate - Anes 16 br/min br/min 12/30/2022 13:04 EDT Systolic Blood Pressure Non-Invasive 98 mmHg mmHg Diastolic Blood Pressure Non-Invasive 57 mmHg mmHg 12/30/2022 13:01 EDT Systolic Blood Pressure Non-Invasive 91 mmHg mmHg Diastolic Blood Pressure Non-Invasive 54 mmHg mmHg 12/30/2022 13:00 EDT Temperature (Route Not Specified) 35.38 DegC DegC Heart Rate Monitored 72 bpm bpm Respiratory Rate - Anes 16 br/min br/min Systolic Blood Pressure Non-Invasive 89 mmHg mmHg Diastolic Blood Pressure Non-Invasive 49 mmHg mmHg 12/30/2022 12:55 EDT Temperature (Route Not Specified) 35.22 DegC DegC Heart Rate Monitored 77 bpm bpm Respiratory Rate - Anes 16 br/min br/min Systolic Blood Pressure Non-Invasive 80 mmHg mmHg Diastolic Blood Pressure Non-Invasive 46 mmHg mmHg 12/30/2022 12:52 EDT Systolic Blood Pressure Non-Invasive 94 mmHg mmHg Diastolic Blood Pressure Non-Invasive 49 mmHg mmHg 12/30/2022 12:50 EDT Temperature (Route Not Specified) 35.12 DegC DegC Heart Rate Monitored 77 bpm bpm Respiratory Rate - Anes 16 br/min br/min 12/30/2022 12:49 EDT Systolic Blood Pressure Non-Invasive 106 mmHg mmHg Diastolic Blood Pressure Non-Invasive 49 mmHg mmHg 12/30/2022 12:46 EDT Systolic Blood Pressure Non-Invasive 96 mmHg mmHg Diastolic Blood Pressure Non-Invasive 49 mmHg mmHg 12/30/2022 12:45 EDT Temperature (Route Not Specified) 34.65 DegC DegC Heart Rate Monitored 79 bpm bpm Respiratory Rate - Anes 16 br/min br/min 12/30/2022 12:43 EDT Systolic Blood Pressure Non-Invasive 102 mmHg mmHg Diastolic Blood Pressure Non-Invasive 52 mmHg mmHg 12/30/2022 12:41 EDT Systolic Blood Pressure Non-Invasive 102 mmHg mmHg Diastolic Blood Pressure Non-Invasive 42 mmHg mmHg 12/30/2022 12:40 EDT Temperature (Route Not Specified) 34.19 DegC DegC Heart Rate Monitored 70 bpm bpm Respiratory Rate - Anes 14 br/min br/min 12/30/2022 12:37 EDT Systolic Blood Pressure Non-Invasive 114 mmHg mmHg Diastolic Blood Pressure Non-Invasive 62 mmHg mmHg 12/30/2022 12:35 EDT Heart Rate Monitored 67 bpm bpm Respiratory Rate - Anes 14 br/min br/min 12/30/2022 12:34 EDT Systolic Blood Pressure Non-Invasive 102 mmHg mmHg Diastolic Blood Pressure Non-Invasive 62 mmHg mmHg 12/30/2022 12:31 EDT Systolic Blood Pressure Non-Invasive 111 mmHg mmHg Diastolic Blood Pressure Non-Invasive 63 mmHg mmHg 12/30/2022 12:30 EDT Heart Rate Monitored 76 bpm bpm Respiratory Rate - Anes 9 br/min br/min 12/30/2022 12:28 EDT Systolic Blood Pressure Non-Invasive 137 mmHg mmHg Diastolic Blood Pressure Non-Invasive 101 mmHg mmHg 12/30/2022 12:25 EDT Heart Rate Monitored 87 bpm bpm Respiratory Rate - Anes 12 br/min br/min (Modified) Systolic Blood Pressure Non-Invasive 127 mmHg mmHg Diastolic Blood Pressure Non-Invasive 61 mmHg mmHg 12/30/2022 12:22 EDT Systolic Blood Pressure Non-Invasive 131 mmHg mmHg Diastolic Blood Pressure Non-Invasive 75 mmHg mmHg 12/30/2022 12:20 EDT Heart Rate Monitored 85 bpm bpm Respiratory Rate - Anes 20 br/min br/min (Modified) Systolic Blood Pressure Non-Invasive 131 mmHg mmHg Diastolic Blood Pressure Non-Invasive 78 mmHg mmHg 12/30/2022 11:37 EDT Heart Rate Monitored 69 bpm Respiratory Rate 20 br/min Systolic Blood Pressure Non-Invasive 115 mmHg Diastolic Blood Pressure Non-Invasive 63 mmHg 12/30/2022 10:57 EDT Reason For Taking VItal Signs Unable to obtain 12/30/2022 10:29 EDT Heart Rate Monitored 75 bpm Respiratory Rate 20 br/min Systolic Blood Pressure Non-Invasive 128 mmHg Diastolic Blood Pressure Non-Invasive 67 mmHg Mean Arterial Pressure (NBP) 84 mmHg 12/30/2022 10:08 EDT Heart Rate Monitored 76 bpm Systolic Blood Pressure Non-Invasive 110 mmHg Diastolic Blood Pressure Non-Invasive 66 mmHg 12/30/2022 10:04 EDT Temperature Temporal Artery 36.4 DegC Heart Rate Monitored 76 bpm Systolic Blood Pressure Non-Invasive 106 mmHg Diastolic Blood Pressure Non-Invasive 63 mmHg 12/30/2022 10:00 EDT Temperature Temporal Artery 36.5 DegC Heart Rate Monitored 75 bpm Systolic Blood Pressure Non-Invasive 87 mmHg mmHg Diastolic Blood Pressure Non-Invasive 64 mmHg mmHg 12/30/2022 9:59 EDT Temperature Temporal Artery 36.5 DegC Systolic Blood Pressure Non-Invasive 102 mmHg Diastolic Blood Pressure Non-Invasive 59 mmHg LOW 12/30/2022 9:57 EDT Systolic Blood Pressure Non-Invasive 103 mmHg mmHg Diastolic Blood Pressure Non-Invasive 59 mmHg mmHg 12/30/2022 9:55 EDT Heart Rate Monitored 71 bpm bpm 12/30/2022 9:54 EDT Systolic Blood Pressure Non-Invasive 103 mmHg mmHg Diastolic Blood Pressure Non-Invasive 34 mmHg mmHg 12/30/2022 9:51 EDT Systolic Blood Pressure Non-Invasive 105 mmHg mmHg Diastolic Blood Pressure Non-Invasive 55 mmHg mmHg 12/30/2022 9:50 EDT Heart Rate Monitored 71 bpm bpm 12/30/2022 9:48 EDT Systolic Blood Pressure Non-Invasive 99 mmHg mmHg Diastolic Blood Pressure Non-Invasive 48 mmHg mmHg 12/30/2022 9:46 EDT Systolic Blood Pressure Non-Invasive 110 mmHg mmHg Diastolic Blood Pressure Non-Invasive 54 mmHg mmHg 12/30/2022 9:45 EDT Heart Rate Monitored 71 bpm bpm 12/30/2022 9:42 EDT Systolic Blood Pressure Non-Invasive 127 mmHg mmHg Diastolic Blood Pressure Non-Invasive 75 mmHg mmHg 12/30/2022 9:40 EDT Heart Rate Monitored 71 bpm bpm Respiratory Rate - Anes 12 br/min br/min 12/30/2022 9:38 EDT Systolic Blood Pressure Non-Invasive 134 mmHg mmHg Diastolic Blood Pressure Non-Invasive 78 mmHg mmHg 12/30/2022 9:35 EDT Heart Rate Monitored 67 bpm bpm Respiratory Rate - Anes 11 br/min br/min Systolic Blood Pressure Non-Invasive 107 mmHg mmHg Diastolic Blood Pressure Non-Invasive 60 mmHg mmHg 12/30/2022 9:32 EDT Systolic Blood Pressure Non-Invasive 98 mmHg mmHg Diastolic Blood Pressure Non-Invasive 52 mmHg mmHg 12/30/2022 9:30 EDT Heart Rate Monitored 70 bpm bpm Respiratory Rate - Anes 10 br/min br/min 12/30/2022 9:29 EDT Systolic Blood Pressure Non-Invasive 88 mmHg mmHg Diastolic Blood Pressure Non-Invasive 53 mmHg mmHg 12/30/2022 9:26 EDT Systolic Blood Pressure Non-Invasive 88 mmHg mmHg Diastolic Blood Pressure Non-Invasive 43 mmHg mmHg 12/30/2022 9:25 EDT Heart Rate Monitored 75 bpm bpm Respiratory Rate - Anes 14 br/min br/min 12/30/2022 9:24 EDT Systolic Blood Pressure Non-Invasive 94 mmHg mmHg Diastolic Blood Pressure Non-Invasive 52 mmHg mmHg 12/30/2022 9:21 EDT Systolic Blood Pressure Non-Invasive 180 mmHg mmHg Diastolic Blood Pressure Non-Invasive 100 mmHg mmHg 12/30/2022 9:20 EDT Heart Rate Monitored 67 bpm bpm Respiratory Rate - Anes 20 br/min br/min 12/30/2022 9:18 EDT Systolic Blood Pressure Non-Invasive 125 mmHg mmHg Diastolic Blood Pressure Non-Invasive 74 mmHg mmHg 12/30/2022 9:15 EDT Heart Rate Monitored 81 bpm bpm 12/30/2022 8:51 EDT Temperature Oral 36.5 DegC Heart Rate Monitored 70 bpm Respiratory Rate 18 br/min Systolic Blood Pressure Non-Invasive 120 mmHg Diastolic Blood Pressure Non-Invasive 50 mmHg 12/30/2022 7:00 EDT Heart Rate Monitored 59 bpm LOW 12/30/2022 4:37 EDT Temperature Oral 36.7 DegC Heart Rate Monitored 73 bpm Respiratory Rate 18 br/min Systolic Blood Pressure Non-Invasive 122 mmHg Diastolic Blood Pressure Non-Invasive 60 mmHg Blood Pressure Method Manual Blood Pressure Location Right arm Reason For Taking VItal Signs Routine 12/29/2022 22:28 EDT Temperature Oral 36.8 DegC Heart Rate Monitored 73 bpm Respiratory Rate 16 br/min Systolic Blood Pressure Non-Invasive 122 mmHg Diastolic Blood Pressure Non-Invasive 64 mmHg Blood Pressure Method Manual Blood Pressure Location Right arm Blood Pressure Cuff Size Medium Reason For Taking VItal Signs Routine 12/29/2022 19:32 EDT Heart Rate Monitored 75 bpm Respiratory Rate 16 br/min Systolic Blood Pressure Non-Invasive 122 mmHg Diastolic Blood Pressure Non-Invasive 60 mmHg Blood Pressure Method Manual Reason For Taking VItal Signs Routine 12/29/2022 16:13 EDT Heart Rate Monitored 74 bpm Reason For Taking VItal Signs Routine 12/29/2022 15:24 EDT Temperature Oral 36.7 DegC Heart Rate Monitored 79 bpm Respiratory Rate 16 br/min Systolic Blood Pressure Non-Invasive 110 mmHg Diastolic Blood Pressure Non-Invasive 40 mmHg Blood Pressure Method Manual Blood Pressure Location Left arm Blood Pressure Cuff Size Medium Reason For Taking VItal Signs Routine 12/29/2022 14:26 EDT Heart Rate Monitored 77 bpm Respiratory Rate 16 br/min 12/29/2022 13:09 EDT Heart Rate Monitored 86 bpm Respiratory Rate 16 br/min 12/29/2022 12:48 EDT Heart Rate Monitored 69 bpm Respiratory Rate 16 br/min 12/29/2022 11:24 EDT Temperature Oral 36.4 DegC Heart Rate Monitored 70 bpm Respiratory Rate 16 br/min Systolic Blood Pressure Non-Invasive 126 mmHg Diastolic Blood Pressure Non-Invasive 52 mmHg LOW Blood Pressure Method Manual Blood Pressure Location Right arm Blood Pressure Cuff Size Medium Reason For Taking VItal Signs Routine 12/29/2022 11:00 EDT Heart Rate Monitored 70 bpm 12/29/2022 9:47 EDT Heart Rate Monitored 72 bpm 12/29/2022 7:05 EDT Heart Rate Monitored 66 bpm Reason For Taking VItal Signs Routine 12/29/2022 6:36 EDT Temperature Oral 36.4 DegC Heart Rate Monitored 63 bpm Respiratory Rate 16 br/min Systolic Blood Pressure Non-Invasive 110 mmHg Diastolic Blood Pressure Non-Invasive 58 mmHg LOW Blood Pressure Method Manual Blood Pressure Location Right arm Blood Pressure Cuff Size Medium Reason For Taking VItal Signs Routine 12/29/2022 3:51 EDT Temperature Oral 36.5 DegC Heart Rate Monitored 61 bpm Respiratory Rate 16 br/min Systolic Blood Pressure Non-Invasive 125 mmHg Diastolic Blood Pressure Non-Invasive 71 mmHg Mean Arterial Pressure (NBP) 86 mmHg Reason For Taking VItal Signs Admission , Oxygen Therapy : Oxygen Therapy & Oxygenation Information 12/30/2022 14:35 EDT Oxygen Therapy Room air Oxygen Saturation 100 % 12/30/2022 14:20 EDT Oxygen Therapy Room air Oxygen Saturation 98 % 12/30/2022 14:05 EDT Oxygen Therapy Room air Oxygen Saturation 98 % 12/30/2022 13:48 EDT Oxygen Therapy Room air Oxygen Saturation 96 % 12/30/2022 13:45 EDT Oxygen Saturation 99 % % 12/30/2022 13:40 EDT Oxygen Saturation 100 % % 12/30/2022 13:35 EDT Oxygen Saturation 100 % % 12/30/2022 13:30 EDT Oxygen Saturation 100 % % 12/30/2022 13:25 EDT Oxygen Saturation 100 % % 12/30/2022 13:20 EDT Oxygen Saturation 100 % % 12/30/2022 13:15 EDT Oxygen Saturation 100 % % 12/30/2022 13:10 EDT Oxygen Saturation 100 % % 12/30/2022 13:05 EDT Oxygen Saturation 100 % % 12/30/2022 13:00 EDT Oxygen Saturation 100 % % 12/30/2022 12:55 EDT Oxygen Saturation 99 % % 12/30/2022 12:50 EDT Oxygen Saturation 100 % % 12/30/2022 12:45 EDT Oxygen Saturation 100 % % 12/30/2022 12:40 EDT Oxygen Saturation 100 % % 12/30/2022 12:35 EDT Oxygen Saturation 100 % % 12/30/2022 12:30 EDT Oxygen Saturation 100 % % 12/30/2022 12:25 EDT Oxygen Saturation 100 % % 12/30/2022 12:20 EDT Oxygen Saturation 100 % % 12/30/2022 11:37 EDT Oxygen Saturation 99 % 12/30/2022 10:29 EDT Oxygen Therapy Room air Oxygen Saturation 96 % 12/30/2022 10:08 EDT Oxygen Therapy Room air Oxygen Saturation 98 % 12/30/2022 10:04 EDT Oxygen Therapy Room air Oxygen Saturation 98 % 12/30/2022 9:59 EDT Oxygen Therapy Room air Oxygen Saturation 98 % 12/30/2022 9:55 EDT Oxygen Saturation 100 % % 12/30/2022 9:50 EDT Oxygen Saturation 100 % % 12/30/2022 9:45 EDT Oxygen Saturation 100 % % 12/30/2022 9:40 EDT Oxygen Saturation 100 % % 12/30/2022 9:35 EDT Oxygen Saturation 100 % % 12/30/2022 9:30 EDT Oxygen Saturation 100 % % 12/30/2022 9:25 EDT Oxygen Saturation 100 % % 12/30/2022 9:20 EDT Oxygen Saturation 100 % % 12/30/2022 9:15 EDT Oxygen Saturation 100 % % 12/30/2022 8:51 EDT Oxygen Therapy Room air Oxygen Saturation 99 % 12/30/2022 4:37 EDT Oxygen Therapy Room air Oxygen Saturation 99 % 12/29/2022 22:28 EDT Oxygen Therapy Room air Oxygen Saturation 98 % 12/29/2022 19:32 EDT Oxygen Therapy Room air Oxygen Saturation 99 % 12/29/2022 16:13 EDT Oxygen Therapy Room air 12/29/2022 15:24 EDT Oxygen Therapy Room air Oxygen Saturation 98 % 12/29/2022 12:48 EDT Oxygen Therapy Room air 12/29/2022 11:24 EDT Oxygen Therapy Room air Oxygen Saturation 98 % 12/29/2022 6:36 EDT Oxygen Therapy Room air Oxygen Saturation 99 % 12/29/2022 3:51 EDT Oxygen Therapy Room air Oxygen Saturation 95 % . Mental status: at preoperative baseline. Respiratory function: respirations are non-labored, Stable. Respiratory support: none. CV function: Stable. Cardiovascular support: none. Pain: Satisfactory. Nausea status: Satisfactory. Postoperative hydration status: within normal limits. Notes: Patient is sufficiently recovered from anesthesia to participate in the evaluation. No follow-up care needed. No complications post-anesthesia.. Digitally Signed by MORALES MENDOZA MD on 12/30/2022 02:49 PM [place] 12-30-2022 Anesthesiology Consult note Patient: LEONEL VILLAVICENCIO Age: 32 years Sex: Male : 1990 Associated Diagnoses: None Author: SALVATORE LAU MD Preoperative Information NPO >8 hours Anesthesia history Patient's history: negative. History of Present Illness 32yoM with PMH tobacco use, etoh use and prior drug use presenting for tooth extraction. ED earlier today revealed no vegetation. Denies current CP, SOB, fever, recent cough, cold or congestion, no GERD sx, N or V. Did have episode of V with attempt at ED yesterday when pt stated he was appropriately NPO Health Status Allergies: Allergic Reactions (Selected) NKA, Allergies (1) ActiveReaction NKANone Documented Current medications: (Selected) Inpatient Medications Ordered Ativan: 1 mg, 0.5 mL, IV Push, q15min, PRN: Maintain ordered parameters Ativan: 1 mg, 1 tab(s), Oral, q15min, PRN: Maintain ordered parameters Ativan: 2 mg, 1 mL, IV Push, q15min, PRN: Maintain ordered parameters Ativan: 2 mg, 1 mL, IV Push, q15min, PRN: Maintain ordered parameters Ativan: 2 mg, 1 tab(s), Oral, q15min, PRN: Maintain ordered parameters Ativan: 3 mg, 1.5 mL, IV Push, q15min, PRN: Maintain ordered parameters Ativan: 3 mg, 1.5 mL, IV Push, q15min, PRN: Maintain ordered parameters Ativan: 3 mg, 1.5 mL, IV Push, q15min, PRN: Maintain ordered parameters Ativan: 3 mg, 3 tab(s), Oral, q15min, PRN: Maintain ordered parameters Ativan: 4 mg, 2 mL, IV Push, q15min, PRN: Maintain ordered parameters Ativan: 4 mg, 2 mL, IV Push, q15min, PRN: Maintain ordered parameters Ativan: 4 mg, 2 tab(s), Oral, q15min, PRN: Maintain ordered parameters Ativan: 5 mg, 2.5 mL, IV Push, q15min, PRN: Maintain ordered parameters Ativan: 6 mg, 3 mL, IV Push, q15min, PRN: Maintain ordered parameters Nicoderm C-Q 14 mg/24 hr transdermal film, extended release: 14 mg, 1 patch(es), Transdermal, q24h Unasyn: 3 gram(s), 100 mL, 300 mL/hr, IV Piggyback, q6h dicyclomine: 10 mg, 1 cap(s), Oral, QID magnesium sulfate for IV bolus: 2 g, 50 mL, 25 mL/hr, IV Piggyback, AsDirected, PRN: for Mg level 1.5-1.8 mg/dl magnesium sulfate for IV bolus: 4 g, 100 mL, 25 mL/hr, IV Piggyback, AsDirected, PRN: for Mg level 1.1-1.4 mg/dl magnesium sulfate for IV bolus: 6 g, 12 mL, 43.67 mL/hr, IV Piggyback, AsDirected, PRN: for Mg level 1 mg/dl or less nicotine (Nicoderm Patch REMOVAL): 1 EA, Miscellaneous, q24h potassium chloride bolus: 20 mEq, 100 mL, 50 mL/hr, IV Piggyback, AsDirected, PRN: for K+ level 2.5 - 2.9 mEq/dL potassium chloride: 20 mEq, 1 tab(s), Oral, AsDirected, PRN: for K+ level 3.5 - 3.9 mEq/L potassium chloride: 40 mEq, 2 tab(s), Oral, AsDirected, PRN: for K+ level 2.5 - 2.9 mEq/dL potassium chloride: 40 mEq, 2 tab(s), Oral, AsDirected, PRN: for K+ level 3-3.4 mEq/L vancomycin: 1,500 mg, 300 mL, 200 mL/hr, IV Piggyback, q12hr Suspended cloNIDine: 0.1 mg, 1 tab(s), Oral, BID Prescriptions Prescribed Zofran 4 mg oral tablet: 4 mg, 1 tab(s), Oral, q6h, PRN: Nausea/Vomiting, 20 tab(s), 1 Refill(s), Medications (26) Active Scheduled: (5) ampicillin-sulbactam MB+ 3 gram(s) 100 mL, IV Piggyback, q6h dicyclomine 10 mg capsule 10 mg 1 cap(s), Oral, QID Nicoderm patch REMOVAL 1 EA, Miscellaneous, q24h nicotine 14 mg/24 hr ER patch 14 mg 1 patch(es), Transdermal, q24h vancomycin PMX 1,500 mg 300 mL, IV Piggyback, q12hr Continuous: (0) PRN: (21) LORAZEPam 1 mg Tablet 1 mg 1 tab(s), Oral, q15min LORAZEPam 1 mg Tablet 3 mg 3 tab(s), Oral, q15min LORAZEPam 2 mg Tablet 2 mg 1 tab(s), Oral, q15min LORAZEPam 2 mg Tablet 4 mg 2 tab(s), Oral, q15min LORAZEPam 2 mg/mL 1 mL vial 1 mg 0.5 mL, IV Push, q15min LORAZEPam 2 mg/mL 1 mL vial 2 mg 1 mL, IV Push, q15min LORAZEPam 2 mg/mL 1 mL vial 2 mg 1 mL, IV Push, q15min LORAZEPam 2 mg/mL 1 mL vial 3 mg 1.5 mL, IV Push, q15min LORAZEPam 2 mg/mL 1 mL vial 3 mg 1.5 mL, IV Push, q15min LORAZEPam 2 mg/mL 1 mL vial 3 mg 1.5 mL, IV Push, q15min LORAZEPam 2 mg/mL 1 mL vial 4 mg 2 mL, IV Push, q15min LORAZEPam 2 mg/mL 1 mL vial 4 mg 2 mL, IV Push, q15min LORAZEPam 2 mg/mL 1 mL vial 5 mg 2.5 mL, IV Push, q15min LORAZEPam 2 mg/mL 1 mL vial 6 mg 3 mL, IV Push, q15min magnesium sulfate 4 gram(s)/100mL PMX 4 g 100 mL, IV Piggyback, AsDirected magnesium sulfate 50% (500mg/mL) 6 g 12 mL, IV Piggyback, AsDirected magnesium sulfate PMX 2 g 50 mL, IV Piggyback, AsDirected potassium chloride (PMX) 20 mEq/100 mL 20 mEq 100 mL, IV Piggyback, AsDirected potassium chloride 20 mEq ER tablet 20 mEq 1 tab(s), Oral, AsDirected potassium chloride 20 mEq ER tablet 40 mEq 2 tab(s), Oral, AsDirected potassium chloride 20 mEq ER tablet 40 mEq 2 tab(s), Oral, AsDirected Problem list: Medical Coarse tremors / SNOMED CT 513786144 / Confirmed SOB (shortness of breath) / SNOMED CT 225157670 / Confirmed Diaphoresis / SNOMED CT 322307709 / Confirmed History of intravenous drug abuse / SNOMED CT 1548601613 / Confirmed Elevated liver enzymes / SNOMED CT 3256680009 / Confirmed Nausea / SNOMED CT 9370907629 / Confirmed Fentanyl use disorder, moderate / SNOMED CT 27582569 / Confirmed Fever of unknown origin (FUO) / SNOMED CT 099244528 / Confirmed Vasculitis / SNOMED CT 05416166 / Confirmed Hepatitis C / SNOMED CT 12526748 / Confirmed Vomiting / SNOMED CT 9051692115 / Confirmed Weight loss / SNOMED CT 017584683 / Confirmed, Active Problems (15) Back pain Coarse tremors Diaphoresis Elevated liver enzymes Fentanyl use disorder, moderate Fever Fever of unknown origin (FUO) Hepatitis C History of intravenous drug abuse Nausea SOB (shortness of breath) Tobacco use Vasculitis Vomiting Weight loss Histories Past Medical History: Resolved Mild fentanyl abuse (66308271): Resolved. Procedure history: No active procedure history items have been selected or recorded. Social History Social & Psychosocial Habits Alcohol 12/16/2022Risk Assessment: Low Risk 12/16/2022 Use: Never Substance Abuse 12/16/2022Risk Assessment: Denies Substance Abuse 12/16/2022 Use: Past Type: Heroin Tobacco 12/16/2022 Tobacco Use: 5-9 cigarettes (between 1 Nutrition/Health 12/16/2022 Caffeine intake amount: pop lots daily . Physical Examination Vital Signs(last 24 hrs) Last Charted Temp Oral36.5 DegC (DEC 30 08:51) Heart Rate Acuucriec06 bpm (DEC 30 11:37) Resp Rate 20 br/min (DEC 30 11:37) JLO580 mmHg (DEC 30 11:37) DBP63 mmHg (DEC 30 11:37) General: Alert and oriented, No acute distress. Airway: Normal mouth, Normal neck range of motion. Mallampati classification: II (soft palate, fauces, uvula visible). Dentition Evaluation: very poor dentition, many chipped, broken and missing teeth. Neck: Supple. Respiratory: Lungs are clear to auscultation, Respirations are non-labored. Cardiovascular: Normal rate, Regular rhythm. Heart Sounds: Normal. Neurologic: Alert, Oriented. Review / Management Results review: Labs (Last four charted values) WBC 6.1(DEC 30)5.2(DEC 12)5.7(DEC 11)6.5(SEP 10) Hgb L 11.5(SEP 13)L 11.3(SEP 12)L 11.6(SEP 11)L 11.6(SEP 10) Hct L 34.4(SEP 13)L 33.0(SEP 12)L 34.2(SEP 11)L 34.1(SEP 10) Plt 221(SEP 13)214(SEP 12)227(SEP 11)258(SEP 10) Na 140(SEP 13)139(SEP 12)139(SEP 11)138(SEP 10) K 4.6(SEP 13)4.3(SEP 12)4.1(SEP 11)4.3(SEP 10) CO2 30(SEP 13)32(SEP 12)27(SEP 11)28(SEP 10) Cl 106(SEP 13)106(SEP 12)106(SEP 11)107(SEP 10) Cr 0.82(SEP 13)0.75(SEP 12)0.78(SEP 11)0.72(SEP 10) BUN 13.0(SEP 13)11.0(SEP 12)10.0(SEP 11)10.0(SEP 10) Glucose 86(SEP 13)81(SEP 12)109(SEP 11)81(SEP 10) Mg 2.1(SEP 13)2.0(SEP 12)2.0(SEP 11)2.1(SEP 10) Phos 4.4(SEP 10) Ca 9.1(SEP 13)9.0(SEP 12)9.0(SEP 11)9.0(SEP 10) . Documentation reviewed: Current records. Assessment and Plan [place] [employer] (ASA) physical status classification: Class IV. Anesthetic Preoperative Plan Premedication: intravenous. Anesthetic technique: General. Induction: intravenously. Maintenance airway: Nasoendotracheal tube. Postoperative pain management: Per surgeon. Risks discussed: nausea, vomiting, headache, sore throat, dental injury, hypotension, allergic reaction, serious complications. Informed consent: signed by patient, Pt previously consented by cardiac anesthesiologist for general anesthesia for both echo and teeth extraction. Still discussed plan with pt and he states understanding and agrees this is what they disccused earlier today as well.. Digitally Signed by SALVATORE LAU MD on 12/30/2022 11:59 AM [place] 12-30-2022 Infectious diseas e Progress note Date of Service 12/30/2022 Chief Complaint Infective endocarditis Subjective Attempted to see the patient x2, he was out for ED then dental extraction following. Objective Vitals and Measurements T: 36.4 C (Temporal Artery) TMIN: 36.4 C (Temporal Artery) TMAX: 36.8 C (Oral) HR: 76(Monitored) RR: 18 BP: 110/66 SpO2: 98% Intake and Output 7AM Yesterday to 7AM Today Intake and Output (Last 24 hours) Intake Oral Intake 0.00 Administration Information 200.00 Output Urine Voided 300.00 Total Summary Total Intake 200.00 Total Output 300.00 Fluid Balance -100.00 Physical Exam Unable to complete physical exam. Weight Dosing Weight: 67.4 kg (12/25/22) Medications Medications (26) Active Scheduled: (5) ampicillin-sulbactam MB+ 3 gram(s) 100 mL, IV Piggyback, q6h dicyclomine 10 mg capsule 10 mg 1 cap(s), Oral, QID Nicoderm patch REMOVAL 1 EA, Miscellaneous, q24h nicotine 14 mg/24 hr ER patch 14 mg 1 patch(es), Transdermal, q24h vancomycin PMX 1,500 mg 300 mL, IV Piggyback, q12hr Continuous: (0) PRN: (21) LORAZEPam 1 mg Tablet 1 mg 1 tab(s), Oral, q15min LORAZEPam 1 mg Tablet 3 mg 3 tab(s), Oral, q15min LORAZEPam 2 mg Tablet 2 mg 1 tab(s), Oral, q15min LORAZEPam 2 mg Tablet 4 mg 2 tab(s), Oral, q15min LORAZEPam 2 mg/mL 1 mL vial 1 mg 0.5 mL, IV Push, q15min LORAZEPam 2 mg/mL 1 mL vial 2 mg 1 mL, IV Push, q15min LORAZEPam 2 mg/mL 1 mL vial 2 mg 1 mL, IV Push, q15min LORAZEPam 2 mg/mL 1 mL vial 3 mg 1.5 mL, IV Push, q15min LORAZEPam 2 mg/mL 1 mL vial 3 mg 1.5 mL, IV Push, q15min LORAZEPam 2 mg/mL 1 mL vial 3 mg 1.5 mL, IV Push, q15min LORAZEPam 2 mg/mL 1 mL vial 4 mg 2 mL, IV Push, q15min LORAZEPam 2 mg/mL 1 mL vial 4 mg 2 mL, IV Push, q15min LORAZEPam 2 mg/mL 1 mL vial 5 mg 2.5 mL, IV Push, q15min LORAZEPam 2 mg/mL 1 mL vial 6 mg 3 mL, IV Push, q15min magnesium sulfate 4 gram(s)/100mL PMX 4 g 100 mL, IV Piggyback, AsDirected magnesium sulfate 50% (500mg/mL) 6 g 12 mL, IV Piggyback, AsDirected magnesium sulfate PMX 2 g 50 mL, IV Piggyback, AsDirected potassium chloride (PMX) 20 mEq/100 mL 20 mEq 100 mL, IV Piggyback, AsDirected potassium chloride 20 mEq ER tablet 20 mEq 1 tab(s), Oral, AsDirected potassium chloride 20 mEq ER tablet 40 mEq 2 tab(s), Oral, AsDirected potassium chloride 20 mEq ER tablet 40 mEq 2 tab(s), Oral, AsDirected Lab Results 12/30 02:51 WBC: 6.1 Hgb: 11.5 L Hct: 34.4 L Platelet: 221 Neutrophil %: 32.1 L Glucose Level: 86 Sodium Level: 140 Potassium Level: 4.6 BUN: 13.0 Creatinine Lvl (s): 0.82 12/29 04:45 WBC: 5.2 Hgb: 11.3 L Hct: 33.0 L Platelet: 214 Neutrophil %: 35.9 L Glucose Level: 81 Sodium Level: 139 Potassium Level: 4.3 BUN: 11.0 Creatinine Lvl (s): 0.75 Imaging Results and Diagnostics US Abdomen Complete Result Date: December 27, 2022 Verified By: NANCY SANTOYO MD CLINICAL STATEMENT: IMPRESSION: Hyperechoic hepatic parenchyma likely to reflect fatty infiltration. Splenomegaly. Gallbladder sludge. Question hypoechoic area near the pancreas not demonstrated on CT examinationof reference. XR Panorex/Orthopantogram Result Date: December 26, 2022 Verified By: MARRY TOUSSAINT, YUMI Fernandes CLINICAL STATEMENT: IMPRESSION: Extensive dental caries and apical lucency suggesting multiple dentalabscesses. EKG No qualifying data available. Assessment/Plan 1. Infective endocarditis 2. Dental abscesses 3. Hepatitis C 4. Poor dentition 5. Fevers 6. IV drug use 7. Tremors 32-year-old male with history of hepatitis C and IV drug use admitted with concerns for sepsis. ID following for evaluation for endocarditis. Echocardiogram shows questionable echodensity on mitral valve. DE was negative for vegetation. Dental extraction planned for today. Blood cultures remain no growth to date. Due to no evidence of vegetation, will transition IV antibiotics to oral Augmentin 875/125 twice daily for 5 to 7 days for dental abscesses. Patient will need establish follow-up with GI as an outpatient for hepatitis C management. ID will sign off. Please call for further questions or concerns. Plan of care discussed in depth with patient. All questions answered. Patient verbalized understanding and is agreeable to plan of care. Discussed with my collaborating physician Dr. Brent Harris. Any changes to the plan will be added to end as an addendum. Time Spent I spent a total of 32 minutes reviewing the patient s diagnostic labs/tests, seeing and examining the patient and documenting in the medical record, see assessment for further detail. Digitally Signed by NIKI CASE on 12/30/2022 01:58 PM [place] 12-30-2022 Note Exam Date Time Procedure Performing Provider Status 12/30/22 10:20 AM Transesophageal Echo cardiogram - CV Auth (Verified) [place] 09-13-2023 Anesthesiology Consult note Patient: LEONEL VILLAVICENCIO Age: 32 years Sex: Male : 1990 Associated Diagnoses: None Author: MELANY JOVEL DO Preoperative Information Greater than 6 hours Anesthesia history Patient's history: negative. Family's history: negative. Review of Systems Ear/Nose/Mouth/Throat: Negative except as documented in history of present illness. Respiratory: Negative except as documented in history of present illness. Cardiovascular: Negative except as documented in history of present illness. Gastrointestinal: Negative except as documented in history of present illness. Genitourinary: Negative except as documented in history of present illness. Endocrine: Negative except as documented in history of present illness. Musculoskeletal: Negative except as documented in history of present illness. Integumentary: Negative except as documented in history of present illness. Neurologic: Negative except as documented in history of present illness. Health Status Allergies: Allergic Reactions (Selected) NKA, Allergies (1) ActiveReaction NKANone Documented Current medications: (Selected) Inpatient Medications Ordered Ativan: Start: 12/26/22 12:38:00 EDT, Dose = 1 mg, = 0.5 mL, IV Push, q15min, PRN, Maintain orderedparameters, 12/26/22 12:38:00 EDT Ativan: Start: 12/26/22 12:38:00 EDT, Dose = 1 mg, = 1 tab(s), Oral, q15min, PRN, Maintain ordered parameters, 12/26/22 12:38:00 EDT Ativan: Start: 12/26/22 12:38:00 EDT, Dose = 2 mg, = 1 mL, IV Push, q15min, PRN, Maintain ordered parameters, 12/26/22 12:38:00 EDT Ativan: Start: 12/26/22 12:38:00 EDT, Dose = 2 mg, = 1 mL, IV Push, q15min, PRN, Maintain ordered parameters, 12/26/22 12:38:00 EDT Ativan: Start: 12/26/22 12:38:00 EDT, Dose = 2 mg, = 1 tab(s), Oral, q15min, PRN, Maintain ordered parameters, 12/26/22 12:38:00 EDT Ativan: Start: 12/26/22 12:38:00 EDT, Dose = 3 mg, = 1.5 mL, IV Push, q15min, PRN, Maintain orderedparameters, 12/26/22 12:38:00 EDT Ativan: Start: 12/26/22 12:38:00 EDT, Dose = 3 mg, = 1.5 mL, IV Push, q15min, PRN, Maintain orderedparameters, 12/26/22 12:38:00 EDT Ativan: Start: 12/26/22 12:38:00 EDT, Dose = 3 mg, = 1.5 mL, IV Push, q15min, PRN, Maintain orderedparameters, 12/26/22 12:38:00 EDT Ativan: Start: 12/26/22 12:38:00 EDT, Dose = 3 mg, = 3 tab(s), Oral, q15min, PRN, Maintain ordered parameters, 12/26/22 12:38:00 EDT Ativan: Start: 12/26/22 12:38:00 EDT, Dose = 4 mg, = 2 mL, IV Push, q15min, PRN, Maintain ordered parameters, 12/26/22 12:38:00 EDT Ativan: Start: 12/26/22 12:38:00 EDT, Dose = 4 mg, = 2 mL, IV Push, q15min, PRN, Maintain ordered parameters, 12/26/22 12:38:00 EDT Ativan: Start: 12/26/22 12:38:00 EDT, Dose = 4 mg, = 2 tab(s), Oral, q15min, PRN, Maintain ordered parameters, 12/26/22 12:38:00 EDT Ativan: Start: 12/26/22 12:38:00 EDT, Dose = 5 mg, = 2.5 mL, IV Push, q15min, PRN, Maintain orderedparameters, 12/26/22 12:38:00 EDT Ativan: Start: 12/26/22 12:38:00 EDT, Dose = 6 mg, = 3 mL, IV Push, q15min, PRN, Maintain ordered parameters, 12/26/22 12:38:00 EDT Nicoderm C-Q 14 mg/24 hr transdermal film, extended release: Start: 12/26/22 13:00:00 EDT, Dose = 1patch(es), ER Film, Transdermal, q24h, 14 day(s), Stop: 01/08/23 13:00:00 EDT, 12/26/22 12:38:00 EDT Unasyn: Start: 12/27/22 18:00:00 EDT, Dose = 3 gram(s), = 100 mL, IV Piggyback, q6h, Rate: 300 mL/hr, Infuse over: 20 minute(s), 12/27/22 15:18:00 EDT dicyclomine: Start: 12/26/22 0:38:00 EDT, Dose = 10 mg, = 1 cap(s), Oral, QID, 0, 12/26/22 0:38:00 EDT magnesium sulfate for IV bolus: Start: 12/26/22 0:39:00 EDT, 2 g, Dose = 50 mL, Soln, IV Piggyback,AsDirected, PRN, for Mg level 1.5-1.8 mg/dl, Rate: 25 mL/hr, Infuse over: 2 hour(s), 0, 12/26/22 0:39:00 EDT magnesium sulfate for IV bolus: Start: 12/26/22 0:39:00 EDT, 4 g, Dose = 100 mL, Soln, IV Piggyback, AsDirected, PRN, for Mg level 1.1-1.4 mg/dl, Rate: 25 mL/hr, Infuse over: 4 hour(s), 0, 12/26/22 0:39:00 EDT magnesium sulfate for IV bolus: Start: 12/26/22 0:39:00 EDT, 6 g, Dose = 12 mL, Soln, IV Piggyback,AsDirected, PRN, for Mg level 1 mg/dl or less, Rate: 43.67 mL/hr, Infuse over: 6 hour(s), 0, 12/26/22 0:39:00 EDT nicotine (Nicoderm Patch REMOVAL): Start: 12/27/22 13:00:00 EDT, q24h, 12/27/22 12:38:00 EDT potassium chloride bolus: Start: 12/26/22 0:39:00 EDT, Dose = 20 mEq, = 100 mL, IV Piggyback, AsDirected, PRN, for K+ level 2.5 - 2.9 mEq/dL, Rate: 50 mL/hr, Infuse over: 2 hour(s), 0, 12/26/22 0:39:00 EDT potassium chloride: Start: 12/26/22 0:39:00 EDT, Dose = 20 mEq, = 1 tab(s), Oral, AsDirected, PRN, for K+ level 3.5 - 3.9 mEq/L, 12/26/22 0:39:00 EDT potassium chloride: Start: 12/26/22 0:39:00 EDT, Dose = 40 mEq, = 2 tab(s), Oral, AsDirected, PRN, for K+ level 2.5 - 2.9 mEq/dL, 12/26/22 0:39:00 EDT potassium chloride: Start: 12/26/22 0:39:00 EDT, Dose = 40 mEq, = 2 tab(s), Oral, AsDirected, PRN, for K+ level 3-3.4 mEq/L, 12/26/22 0:39:00 EDT vancomycin: Start: 12/30/22 16:00:00 EDT, Dose = 1,500 mg, = 300 mL, IV Piggyback, q12hr, Rate: 200mL/hr, Infuse over: 90 minute(s), 0 Suspended cloNIDine: Start: 12/26/22 0:38:00 EDT, Dose = 0.1 mg, = 1 tab(s), Oral, BID, 12/26/22 0:38:00 EDT Prescriptions Prescribed Zofran 4 mg oral tablet: Dose : 4 mg = 1 tab(s), Oral, q6h, PRN Nausea/Vomiting, # 20 tab(s), 1 Refill(s), 12/09/23 11:56:00 EDT, Pharmacy: [id number], Nausea, 166, cm, 12/07/22 11:29:00 EDT, Height, kg, 12/07/22 11:29:00 EDT, Dosing Weight, Medications (26) Active Scheduled: (5) ampicillin-sulbactam MB+ 3 gram(s) 100 mL, IV Piggyback, q6h dicyclomine 10 mg capsule 10 mg 1 cap(s), Oral, QID Nicoderm patch REMOVAL 1 EA, Miscellaneous, q24h nicotine 14 mg/24 hr ER patch 14 mg 1 patch(es), Transdermal, q24h vancomycin PMX 1,500 mg 300 mL, IV Piggyback, q12hr Continuous: (0) PRN: (21) LORAZEPam 1 mg Tablet 1 mg 1 tab(s), Oral, q15min LORAZEPam 1 mg Tablet 3 mg 3 tab(s), Oral, q15min LORAZEPam 2 mg Tablet 2 mg 1 tab(s), Oral, q15min LORAZEPam 2 mg Tablet 4 mg 2 tab(s), Oral, q15min LORAZEPam 2 mg/mL 1 mL vial 1 mg 0.5 mL, IV Push, q15min LORAZEPam 2 mg/mL 1 mL vial 2 mg 1 mL, IV Push, q15min LORAZEPam 2 mg/mL 1 mL vial 2 mg 1 mL, IV Push, q15min LORAZEPam 2 mg/mL 1 mL vial 3 mg 1.5 mL, IV Push, q15min LORAZEPam 2 mg/mL 1 mL vial 3 mg 1.5 mL, IV Push, q15min LORAZEPam 2 mg/mL 1 mL vial 3 mg 1.5 mL, IV Push, q15min LORAZEPam 2 mg/mL 1 mL vial 4 mg 2 mL, IV Push, q15min LORAZEPam 2 mg/mL 1 mL vial 4 mg 2 mL, IV Push, q15min LORAZEPam 2 mg/mL 1 mL vial 5 mg 2.5 mL, IV Push, q15min LORAZEPam 2 mg/mL 1 mL vial 6 mg 3 mL, IV Push, q15min magnesium sulfate 4 gram(s)/100mL PMX 4 g 100 mL, IV Piggyback, AsDirected magnesium sulfate 50% (500mg/mL) 6 g 12 mL, IV Piggyback, AsDirected magnesium sulfate PMX 2 g 50 mL, IV Piggyback, AsDirected potassium chloride (PMX) 20 mEq/100 mL 20 mEq 100 mL, IV Piggyback, AsDirected potassium chloride 20 mEq ER tablet 20 mEq 1 tab(s), Oral, AsDirected potassium chloride 20 mEq ER tablet 40 mEq 2 tab(s), Oral, AsDirected potassium chloride 20 mEq ER tablet 40 mEq 2 tab(s), Oral, AsDirected Problem list: Medical Coarse tremors / SNOMED CT 305836257 / Confirmed SOB (shortness of breath) / SNOMED CT 242112464 / Confirmed Diaphoresis / SNOMED CT 480352221 / Confirmed History of intravenous drug abuse / SNOMED CT 6472870615 / Confirmed Elevated liver enzymes / SNOMED CT 3132436230 / Confirmed Nausea / SNOMED CT 5730521410 / Confirmed Fentanyl use disorder, moderate / SNOMED CT 13801450 / Confirmed Fever of unknown origin (FUO) / SNOMED CT 568743804 / Confirmed Vasculitis / SNOMED CT 81073111 / Confirmed Hepatitis C / SNOMED CT 20561945 / Confirmed Vomiting / SNOMED CT 4958736365 / Confirmed Weight loss / SNOMED CT 626817629 / Confirmed, Active Problems (15) Back pain Coarse tremors Diaphoresis Elevated liver enzymes Fentanyl use disorder, moderate Fever Fever of unknown origin (FUO) Hepatitis C History of intravenous drug abuse Nausea SOB (shortness of breath) Tobacco use Vasculitis Vomiting Weight loss Histories Past Medical History: Resolved Mild fentanyl abuse (47772317): Resolved. Family History: No family history items have been selected or recorded. Procedure history: No active procedure history items have been selected or recorded. Social History Social & Psychosocial Habits Alcohol 12/16/2022Risk Assessment: Low Risk 12/16/2022 Use: Never Substance Abuse 12/16/2022Risk Assessment: Denies Substance Abuse 12/16/2022 Use: Past Type: Heroin Tobacco 12/16/2022 Tobacco Use: 5-9 cigarettes (between 1 Nutrition/Health 12/16/2022 Caffeine intake amount: pop lots daily . Physical Examination General: Alert and oriented. Airway: Normal temporomandibular joint mobility, Normal mouth, Normal throat, Normal neck range of motion, Trachea midline. Mallampati classification: II (soft palate, fauces, uvula visible). Head: Normocephalic. Dentition Evaluation: Own teeth, Missing teeth, Chipped teeth. Neck: Supple. Respiratory: Lungs are clear to auscultation, Respirations are non-labored. Cardiovascular: Normal rate, Regular rhythm, No murmur. Heart Sounds: Normal. Gastrointestinal: Soft. Musculoskeletal Normal range of motion. Integumentary: Intact, Warm, Dry. Neurologic: Alert, Oriented. Review / Management Results review: Lab results 12/30/2022 7:29 EDT Vanco Therapy Summary Vanco Therapy Summary Vanco Therapy Indication Endocarditis Vanco Therapy Target Level AUC:IRVIN 400-600 Pharmacist Monitoring Pharmacist Monitoring 12/30/2022 6:06 EDT ampicillin-sulbactam 3 gram(s) gram(s) 12/30/2022 4:51 EDT Forearm Right 12/25/2022 20 gauge Peripheral IV Activity: Assessed Peripheral IV Dressing Condition: Clean, Dry, Intact Peripheral IV Dressing Activity: Transparent dressing Peripheral IV Line Status/Patency: Flushes easily, 3ml normal saline flush Peripheral IV Line Care: Alcohol port cap(s) in place, Needleless Protector End Cap(s) in place, Secured with tape Peripheral IV Site Condition: No complications Peripheral IV Equipment: PRN Adaptor 12/30/2022 4:49 EDT Nail Bed Color [place] Capillary Refill < 2 seconds Dorsalis Pedis Pulse, Left 2+ Normal Dorsalis Pedis Pulse, Right 2+ Normal Posttibial Pulse, Left 1+ Thready Posttibial Pulse, Right 1+ Thready Radial Pulse, Left 2+ Normal Radial Pulse, Right 2+ Normal Respirations Unlabored Respiratory Pattern Regular Breath Sounds Auscultated Anterior and posterior All Lobes Breath Sounds Clear Cough and Deep Breathe Done Cough None Tracheal Position Midline Abdomen Description Non-distended, Symmetric, Soft, Rounded Abdomen Palpation Non-Tender Bowel Sounds All Quadrants Present Urinary Elimination Voiding, no difficulties Facial Movement Symmetric resting/crying Skin Symptoms Bruising All Extremity Description [place] Skin Temperature Warm Temperature All Extremities Warm Skin Description [place], Dry Skin Integrity Intact Skin Turgor Elastic Mucous Membrane Color [place] Mucous Membrane Description Moist Neurological Language Able to speak clearly Neurological Symptoms Patient denies Extremity Movement Equal Swallowing Difficulty None Characteristics of Communication Appropriate Characteristics of Speech Clear Facial Symmetry Symmetric Level of Consciousness Alert, Arousable with minimal stimulation Aspiration Risk None Strength All Extremities Strong Left Upper Extremity Sensation Intact Right Upper Extremity Sensation Intact Left Lower Extremity Sensation Intact Right Lower Extremity Sensation Intact CN VII Facial Expression and Symmetry Facial movement symmetrical CN IX, X Swallowing, Gag Reflex Swallowing present Affect/Behavior Appropriate, Calm, Cooperative Orientation Oriented x 4 12/30/2022 4:41 EDT vancomycin 1,250 mg mg 12/30/2022 4:37 EDT Temperature Oral 36.7 DegC Heart Rate Monitored 73 bpm Respiratory Rate 18 br/min Systolic Blood Pressure Non-Invasive 122 mmHg Diastolic Blood Pressure Non-Invasive 60 mmHg Blood Pressure Method Manual Blood Pressure Location Right arm Reason For Taking VItal Signs Routine Primary Pain Intensity 0 Pain Scale Type 0-10 Pain scale Monitor Alarms On and Limits Checked Heart Sounds ICU S1S2 Heart Rhythm Regular Cardiac Rhythm Sinus rhythm Monitoring Lead III, V1/MCL1 AK Interval 0.19 second(s) QRS Duration 0.11 second(s) QT Interval 0.42 second(s) QTc Interval 0.42 second(s) Alarms On and Functional Yes Heart Rate Alarm Set At - Low 50 Heart Rate Alarm Set At - High 120 Oxygen Therapy Room air Oxygen Saturation 99 % Continuous IV Infusions adapted Activity Status ADL Sleeps intermittently Standard Safety ID band on, Call device within reach, Bed in low position, Wheels locked, Upper/Half-Length side-rails up, Phone within reach Demonstrates Correct Call Light Use Yes 12/30/2022 2:51 EDT WBC 6.1 10^3/mcL RBC 4.11 10^6/mcL LOW Hgb 11.5 G/dL LOW Hct 34.4 % LOW MCV 83.8 fL MCH 28.0 pg MCHC 33.4 G/dL RDW 15.6 % HI Platelet 221 10^3/mcL MPV 7.1 fL Neutrophil % 32.1 % LOW Lymphocyte % 44.2 % HI Monocyte % 10.5 % Eosinophil % 12.0 % HI Basophil % 1.2 % Neutrophil, Absolute 2.0 10^3/mcL LOW Lymphocyte, Absolute 2.7 10^3/mcL Monocyte, Absolute 0.6 10^3/mcL Eosinophil, Absolute 0.7 10^3/mcL Basophil, Absolute 0.1 10^3/mcL Glucose Level 86 mg/dL Sodium Level 140 mEq/L Potassium Level 4.6 mEq/L Chloride 106 mEq/L CO2 30 mEq/L Electrolyte Balance 4.0 mEq/L BUN 13.0 mg/dL Creatinine Lvl (s) 0.82 mg/dL BUN/Creatinine Ratio 15.9 ratio Calcium Lvl 9.1 mg/dL Magnesium Lvl 2.1 mg/dL Total Protein 7.3 G/dL Albumin Level 3.1 G/dL LOW Globulin 4.2 G/dL HI A/G Ratio 0.7 ratio LOW Bili Total 0.30 mg/dL Bili Direct 0.1 mg/dL Bili Indirect 0.2 mg/dL Alk Phos 106 U/L AST/SGOT 62 U/L HI ALT/SGPT 88 U/L HI GFR Non- >60 ml/min/1.73sqm NA GFR >60 ml/min/1.73sqm NA Vancomycin Tr 12.7 mcg/mL LDose Vancomycin:(trough) See eMAR Creatinine Clearance Calc 110.42 mL/min 12/30/2022 1:16 EDT Tremors 0- If no symptom not present Tachycardia 0- If no symptom not present Hypertension 0- If no symptom not present Diaphoresis 0- If no symptom not present Nausea or Vomiting 0- If no symptom not present Fever-AW 1-Less than or equal to 38 degrees centigrade Agitation 0- If no symptom not present Orientation, contact with reality 0- If no symptom not present Sleeplessness 0- If no symptom not present Hallucinations 0- If no symptom not present Total Score 1 12/29/2022 22:28 EDT Temperature Oral 36.8 DegC Heart Rate Monitored 73 bpm Respiratory Rate 16 br/min Systolic Blood Pressure Non-Invasive 122 mmHg Diastolic Blood Pressure Non-Invasive 64 mmHg Blood Pressure Method Manual Blood Pressure Location Right arm Blood Pressure Cuff Size Medium Reason For Taking VItal Signs Routine Primary Pain Location Headache Primary Pain Intensity 5 Primary Pain Non-Pharma Intervention Relaxation techniques, Lights dimmed Primary Pain Nonverbal Response Nods Yes Pain Scale Type 0-10 Pain scale Monitor Alarms On and Limits Checked Nail Bed Color [place] Capillary Refill < 2 seconds Heart Sounds ICU S1S2 Heart Rhythm Regular Dorsalis Pedis Pulse, Left 1+ Thready Dorsalis Pedis Pulse, Right 1+ [place]ready Posttibial Pulse, Left 1+ Thready Posttibial Pulse, Right 1+ [place]ready Radial Pulse, Left 2+ Normal Radial Pulse, Right 2+ Normal Cardiac Rhythm Sinus rhythm Monitoring Lead III, V1/MCL1 [place] Interval 0.17 second(s) QRS Duration 0.13 second(s) QT Interval 0.43 second(s) QTc Interval 0.43 second(s) Alarms On and Functional Yes Heart Rate Alarm Set At - Low 50 Heart Rate Alarm Set At - High 120 Respirations Unlabored Respiratory Pattern Regular Breath Sounds Auscultated Anterior and posterior All Lobes Breath Sounds Clear Oxygen Therapy Room air Oxygen Saturation 98 % Abdomen Description Non-distended, Symmetric, Soft Abdomen Palpation Non-Tender, Soft Bowel Sounds All Quadrants Present Urinary Elimination Voiding, no difficulties Skin Symptoms Bruising All Extremity Description [place], Normal for ethnicity Skin Temperature Warm Temperature All Extremities Warm Skin Description [place], Normal for ethnicity Skin Integrity Intact Skin Turgor Elastic Mucous Membrane Color [place] Mucous Membrane Description Moist Forearm Right 12/25/2022 20 gauge Peripheral IV Activity: Assessed Peripheral IV Dressing Condition: Clean, Dry, Intact Peripheral IV Dressing Activity: Transparent dressing Peripheral IV Line Status/Patency: Flushes easily, 3ml normal saline flush Peripheral IV Line Care: Secured with tape Peripheral IV Site Condition: No complications Peripheral IV Equipment: PRN Adaptor Neurological Symptoms Headache Level of Consciousness Alert SISI Yes Strength All Extremities Strong Left Upper Extremity Sensation Intact Right Upper Extremity Sensation Intact Left Lower Extremity Sensation Intact Right Lower Extremity Sensation Intact Violence Risk Confused No Violence Risk Irritable No Violence Risk Boisterous No Violence Risk Verbal Threats No Violence Risk Physical Threats No Violence Risk Attacking Objects No Violence Risk Predictor Score 0 Violence Risk Intervention None Violence Risk Current Interventions None Orientation Oriented x 4 Tremors 0- If no symptom not present Tachycardia 0- If no symptom not present Hypertension 0- If no symptom not present Diaphoresis 0- If no symptom not present Nausea or Vomiting 0- If no symptom not present Fever-AW 1-Less than or equal to 38 degrees centigrade Agitation 0- If no symptom not present Orientation, contact with reality 0- If no symptom not present Sleeplessness 0- If no symptom not present Hallucinations 0- If no symptom not present Total Score 1 Pt./Caregiver Remote Cont.Visual Monitor Verbalizes/Nonverbally indicates understanding Activity Status ADL Awake Activity Assistance Independent Standard Safety Safety level maintained High Risk Safety Room check performed Demonstrates Correct Call Light Use Yes 12/29/2022 22:25 EDT ampicillin-sulbactam 3 gram(s) gram(s) 12/29/2022 22:21 EDT Able To Drink Order Detail Yes Able To Sign Consents Order Detail Yes Code Status Order Detail Full code IV Order Detail Yes Dialysis Schedule Order Detail N/A Has Diabetes Order Detail No Isolation Precautions Order Detail None Nurse Collect Order Detail 0 Oxygen Order Detail No Order Detail N/A Prior Valve Replacement Order Detail No Transport Mode Order Detail Bed and Nurse Squilgeer Details Form Squilgeer Details Form 12/29/2022 22:00 EDT dicyclomine Not Done: Not Appropriate at this Time (Not Done) 12/29/2022 21:33 EDT Cardiology Progress Note 12/29/2022 19:39 EDT Tremors 0- If no symptom not present Tachycardia 0- If no symptom not present Hypertension 0- If no symptom not present Diaphoresis 0- If no symptom not present Nausea or Vomiting 0- If no symptom not present Fever-AW 1-Less than or equal to 38 degrees centigrade Agitation 0- If no symptom not present Orientation, contact with reality 0- If no symptom not present Sleeplessness 0- If no symptom not present Hallucinations 0- If no symptom not present Total Score 1 12/29/2022 19:34 EDT Forearm Right 12/25/2022 20 gauge Peripheral IV Activity: Assessed Peripheral IV Dressing Condition: Clean, Dry, Intact Peripheral IV Dressing Activity: Transparent dressing Peripheral IV Line Status/Patency: Flushes easily, 3ml normal saline flush Peripheral IV Line Care: Secured with tape Peripheral IV Site Condition: No complications Peripheral IV Equipment: PRN Adaptor 12/29/2022 19:32 EDT Heart Rate Monitored 75 bpm Respiratory Rate 16 br/min Systolic Blood Pressure Non-Invasive 122 mmHg Diastolic Blood Pressure Non-Invasive 60 mmHg Blood Pressure Method Manual Reason For Taking VItal Signs Routine Primary Pain Intensity 0 Pain Scale Type 0-10 Pain scale Monitor Alarms On and Limits Checked Nail Bed Color [place] Capillary Refill < 2 seconds Heart Sounds ICU S1S2 Heart Rhythm Regular Dorsalis Pedis Pulse, Left 1+ Thready Dorsalis Pedis Pulse, Right 1+ Thready Posttibial Pulse, Left 1+ Thready Posttibial Pulse, Right 1+ Thready Radial Pulse, Left 2+ Normal Radial Pulse, Right 2+ Normal Cardiac Rhythm Sinus rhythm Monitoring Lead III, V1/MCL1 [place] Interval 0.18 second(s) QRS Duration 0.10 second(s) QT Interval 0.36 second(s) QTc Interval 0.40 second(s) Alarms On and Functional Yes Heart Rate Alarm Set At - Low 50 Heart Rate Alarm Set At - High 120 Respirations Unlabored Respiratory Pattern Regular Breath Sounds Auscultated Anterior and posterior All Lobes Breath Sounds Clear, Diminished Cough None Oxygen Therapy Room air Oxygen Saturation 99 % Tracheal Position Midline Abdomen Description Non-distended, Symmetric, Soft Abdomen Palpation Non-Tender, Soft Urinary Elimination Voiding, no difficulties Skin Symptoms Bruising All Extremity Description [place], Normal for ethnicity Skin Temperature Warm Temperature All Extremities Warm Skin Description [place], Normal for ethnicity Skin Integrity Intact Skin Turgor Elastic Mucous Membrane Color [place] Mucous Membrane Description Moist Neurological Symptoms Patient denies Level of Consciousness Alert SISI Yes Strength All Extremities Strong Left Upper Extremity Sensation Intact Right Upper Extremity Sensation Intact Left Lower Extremity Sensation Intact Right Lower Extremity Sensation Intact Violence Risk Confused No Violence Risk Irritable No Violence Risk Boisterous No Violence Risk Verbal Threats No Violence Risk Physical Threats No Violence Risk Attacking Objects No Violence Risk Predictor Score 0 Violence Risk Intervention None Violence Risk Current Interventions None Pt./Caregiver Remote Cont.Visual Monitor Verbalizes/Nonverbally indicates understanding Activity Status ADL Awake Beds/Devices Hospital bed Activity Assistance Independent Standard Safety Safety level maintained High Risk Safety Room check performed Demonstrates Correct Call Light Use Yes 12/29/2022 18:00 EDT dicyclomine Not Done: Not Appropriate at this Time (Not Done) 12/29/2022 17:55 EDT ampicillin-sulbactam 3 gram(s) gram(s) 12/29/2022 17:02 EDT Post Rehab Outcome Not Done: Not Appropriate at this Time (Not Done) Post Rehab Outcome Not Done: Not Appropriate at this Time (Not Done) Cardiac Rehab - Phase I Not Done (Not Done) Cardiac Rehab - Phase I Not Done (Not Done) 12/29/2022 16:16 EDT Forearm Right 12/25/2022 20 gauge Peripheral IV Activity: Assessed Peripheral IV Dressing Condition: Clean, Dry, Intact Peripheral IV Dressing Activity: Transparent dressing Peripheral IV Line Status/Patency: Flushes easily, 3ml normal saline flush, Continuous infusion Peripheral IV Line Care: Secured with tape Peripheral IV Site Condition: No complications Peripheral IV Equipment: IV Pump 12/29/2022 16:13 EDT Heart Rate Monitored 74 bpm Reason For Taking VItal Signs Routine Primary Pain Intensity 0 Primary Pain Nonverbal Response Nods No Pain Scale Type 0-10 Pain scale Monitor Alarms On and Limits Checked Nail Bed Color [place] Capillary Refill < 2 seconds Heart Sounds ICU S1S2 Heart Rhythm Regular Dorsalis Pedis Pulse, Left 1+ Thready Dorsalis Pedis Pulse, Right 1+ Thready Radial Pulse, Left 2+ Normal Radial Pulse, Right 2+ Normal Cardiac Rhythm Sinus rhythm Monitoring Lead III, V1/MCL1 [place] Interval 0.18 second(s) QRS Duration 0.11 second(s) QT Interval 0.33 second(s) QTc Interval 0.39 second(s) Alarms On and Functional Yes Heart Rate Alarm Set At - Low 50 Heart Rate Alarm Set At - High 120 Respirations Unlabored Respiratory Pattern Regular Breath Sounds Auscultated Anterior and posterior All Lobes Breath Sounds Clear Cough None Oxygen Therapy Room air Tracheal Position Midline Abdomen Description Non-distended, Symmetric, Soft Abdomen Palpation Non-Tender, Soft Passing Flatus Yes Swallowing Disorder None Bowel Sounds All Quadrants Present Urinary Elimination Voiding, no difficulties Facial Movement Makes facial grimaces Skin Symptoms Bruising All Extremity Description [place], Normal for ethnicity Skin Temperature Warm Temperature All Extremities Warm Skin Description [place], Normal for ethnicity Skin Integrity Intact Skin Turgor Elastic Mucous Membrane Color [place] Mucous Membrane Description Moist Neurological Language Able to speak clearly Neurological Symptoms Patient denies Gait Steady Extremity Movement Equal Swallowing Difficulty None Characteristics of Communication Appropriate Characteristics of Speech Clear Facial Symmetry Symmetric Level of Consciousness Alert Aspiration Risk None Eye Opening Response [place] Spontaneously Best Motor Response [place] Obeys simple commands Best Verbal Response Jonathon Oriented Jonathon Coma Score 15 SISI Yes Left Pupil Description Regular, Round Right Pupil Description Regular, Round Left Pupil Reaction Brisk Right Pupil Reaction Brisk Pupil Size, Left 4 mm Pupil Size, Right 4 mm Strength All Extremities Strong Left Upper Extremity Sensation Intact Right Upper Extremity Sensation Intact Left Lower Extremity Sensation Intact Right Lower Extremity Sensation Intact CN V Facial Sensation Light touch equal bilaterally CN VII Facial Expression and Symmetry Facial movement symmetrical CN VIII Hearing Spoken word equally audible left/right CN IX, X Swallowing, Gag Reflex Swallowing present Violence Risk Confused No Violence Risk Irritable No Violence Risk Boisterous No Violence Risk Verbal Threats No Violence Risk Physical Threats No Violence Risk Attacking Objects No Violence Risk Predictor Score 0 Violence Risk Intervention None Violence Risk Current Interventions None Affect/Behavior Appropriate, Cooperative, Restless Orientation Oriented x 4 Tremors 2 - Mild visible Tachycardia 0- If no symptom not present Hypertension 0- If no symptom not present Diaphoresis 0- If no symptom not present Nausea or Vomiting 0- If no symptom not present Fever-AW 1-Less than or equal to 38 degrees centigrade Agitation 0- If no symptom not present Orientation, contact with reality 0- If no symptom not present Sleeplessness 0- If no symptom not present Hallucinations 0- If no symptom not present Total Score 3 Pt./Caregiver Remote Cont.Visual Monitor Verbalizes/Nonverbally indicates understanding Activity Status ADL Awake Beds/Devices Hospital bed Activity Assistance Independent Standard Safety ID band on, Call device within reach, Bed in low position, Wheels locked, Upper/Half-Length side-rails up, Phone within reach, personal items within reach, Toileting device within reach, Bedside Cart Locked, Safety level maintained High Risk Safety Bathroom light on, Room check performed Appetite Good 12/29/2022 16:11 EDT vancomycin 1,250 mg mg 12/29/2022 15:33 EDT Ambulation Ambulation in Room Assistive Device None Positioning Repositions self Activity Status ADL Awake Beds/Devices Hospital bed Activity Assistance Independent Standard Safety ID band on, Safety level maintained High Risk Safety Room check performed Demonstrates Correct Call Light Use Yes 12/29/2022 15:32 EDT Antecubital Left 12/25/2022 18 gauge Peripheral IV Activity: Discontinued Peripheral IV Removal: Catheter intact, no resistance Peripheral IV Removal Reason: No longer indicated 12/29/2022 15:24 EDT Temperature Oral 36.7 DegC Heart Rate Monitored 79 bpm Respiratory Rate 16 br/min Systolic Blood Pressure Non-Invasive 110 mmHg Diastolic Blood Pressure Non-Invasive 40 mmHg Blood Pressure Method Manual Blood Pressure Location Left arm Blood Pressure Cuff Size Medium Reason For Taking VItal Signs Routine Oxygen Therapy Room air Oxygen Saturation 98 % 12/29/2022 14:58 EDT Discharge To, Anticipated Home independently Transition Planning Note Transition Planning Ongoing Assessment 12/29/2022 14:28 EDT dicyclomine 10 mg mg 12/29/2022 14:26 EDT Heart Rate Monitored 77 bpm Respiratory Rate 16 br/min Primary Pain Intensity 0 Primary Pain Nonverbal Response Nods No Pain Scale Type 0-10 Pain scale 12/29/2022 13:54 EDT Vanco Therapy Summary Vanco Therapy Summary Vanco Therapy Indication Endocarditis Vanco Therapy Target Level AUC:IRVIN 400-600 Vanco Therapy Labs Order by Pharmacist Vancomycin trough Pharmacist Monitoring Pharmacist Monitoring 12/29/2022 13:47 EDT Notify date/time 12/29/2022 13:47 Provider Notified SHAN LORENZ MD Notification Method Phone Information Communicated Nurse communication Details Communicated patient sched for dental sugery tomorrow 10 am ED unable to be done before, ED lab suggest changing ED to due to blood loss during oral surgery Person Reporting Result(s) karli PAGE Details of Results Received let me talk to alison 12/29/2022 13:38 EDT Notify date/time 12/29/2022 13:38 Provider Notified TRAVIS VICTOR DDS Notification Method Phone Information Communicated Consult Details Communicated patient scheduled for 10 am 12/30 if he is to have ED done would need to be done prior to surgery correct? Person Reporting Result(s) karli Page Details of Results Received yes please have him sign Results Read Back Yes Positioning Repositions self Standard Safety ID band on, Safety level maintained High Risk Safety Room check performed Demonstrates Correct Call Light Use Yes 12/29/2022 13:09 EDT Heart Rate Monitored 86 bpm Respiratory Rate 16 br/min 12/29/2022 13:04 EDT Notify date/time 12/29/2022 13:04 Provider Notified SHAN LORENZ MD Notification Method Phone Information Communicated Nurse communication Details Communicated ED team unable to do patient today so plan for ED 12/30 NPO midnight tonight okay to eat now? Person Reporting Result(s) karli Page Details of Results Received yes okay to eat now NPO midnight Results Read Back Yes 12/29/2022 12:48 EDT Heart Rate Monitored 69 bpm Respiratory Rate 16 br/min Primary Pain Location Headache Primary Pain Intensity 10 Primary Pain Non-Pharma Intervention Relaxation techniques, Rest Primary Pain Nonverbal Response Nods Yes Pain Scale Type 0-10 Pain scale Monitor Alarms On and Limits Checked Nail Bed Color [place] Capillary Refill < 2 seconds Heart Sounds ICU S1S2 Heart Rhythm Regular Dorsalis Pedis Pulse, Left 1+ Thready Dorsalis Pedis Pulse, Right 1+ Thready Radial Pulse, Left 2+ Normal Radial Pulse, Right 2+ Normal Cardiac Rhythm Sinus rhythm Monitoring Lead III, V1/MCL1 [place] Interval 0.19 second(s) QRS Duration 0.09 second(s) QT Interval 0.43 second(s) QTc Interval 0.46 second(s) Alarms On and Functional Yes Heart Rate Alarm Set At - Low 50 Heart Rate Alarm Set At - High 120 Respirations Unlabored Respiratory Pattern Regular Breath Sounds Auscultated Anterior and posterior All Lobes Breath Sounds Clear Cough None Oxygen Therapy Room air Tracheal Position Midline GI Symptoms Nausea Abdomen Description Non-distended, Soft Abdomen Palpation Non-Tender, Soft Passing Flatus Yes Bowel Continence No bowel movement Swallowing Disorder None Bowel Sounds All Quadrants Present Urinary Elimination Voiding, no difficulties Urine Color Yellow Facial Movement Symmetric resting/crying Skin Symptoms Bruising All Extremity Description [place], Normal for ethnicity Skin Temperature Warm Temperature All Extremities Warm Skin Description [place], Dry Skin Integrity Pressure points intact Skin Turgor Elastic Mucous Membrane Color [place] Mucous Membrane Description Moist Continuous IV Infusions prn Antecubital Left 12/25/2022 18 gauge Peripheral IV Activity: Assessed Peripheral IV Dressing Condition: Clean, Dry, Intact Peripheral IV Dressing Activity: Transparent dressing Peripheral IV Site Condition: No complications Peripheral IV Equipment: PRN Adaptor Forearm Right 12/25/2022 20 gauge Peripheral IV Activity: Assessed Peripheral IV Dressing Condition: Clean, Dry, Intact Peripheral IV Dressing Activity: Transparent dressing Peripheral IV Site Condition: No complications Peripheral IV Equipment: PRN Adaptor Neurological Language Able to speak clearly Neurological Symptoms Headache Gait Steady Extremity Movement Equal Swallowing Difficulty None Characteristics of Communication Appropriate Characteristics of Speech Clear Facial Symmetry Symmetric Level of Consciousness Alert Aspiration Risk None SISI Yes Pupil Size, Left 4 mm Pupil Size, Right 4 mm Strength All Extremities Strong Left Upper Extremity Sensation Intact Right Upper Extremity Sensation Intact Left Lower Extremity Sensation Intact Right Lower Extremity Sensation Intact CN VII Facial Expression and Symmetry Facial movement symmetrical CN VIII Hearing Spoken word equally audible left/right CN IX, X Swallowing, Gag Reflex Swallowing present Affect/Behavior Cooperative, Impulsive, Agitated Orientation Oriented x 4 Positioning Repositions self Standard Safety ID band on, Call device within reach, Bed in low position, Wheels locked, Upper/Half-Length side-rails up, Phone within reach, personal items within reach, Safety level maintained, Hazards removed from floor, Non- Slip footwear, Precautions maintained High Risk Safety Room check performed Demonstrates Correct Call Light Use Yes Appetite Unable to obtain Eating Difficulties Unable to obtain 12/29/2022 12:45 EDT Nicoderm Patch REMOVAL 1 EA EA 12/29/2022 12:41 EDT ampicillin-sulbactam 3 gram(s) gram(s) dicyclomine 10 mg mg nicotine 14 mg mg 12/29/2022 11:26 EDT Notify date/time 12/29/2022 11:26 Provider Notified TRAVIS VICTOR DDS (Modified) Notification Method Answering service Information Communicated Consult Details Communicated full mouth dental extraction, history of fentanyl abuse Person Reporting Result(s) karli PAGE Details of Results Received okay I will get this page out Results Read Back Yes 12/29/2022 11:24 EDT Temperature Oral 36.4 DegC Heart Rate Monitored 70 bpm Respiratory Rate 16 br/min Systolic Blood Pressure Non-Invasive 126 mmHg Diastolic Blood Pressure Non-Invasive 52 mmHg LOW Blood Pressure Method Manual Blood Pressure Location Right arm Blood Pressure Cuff Size Medium Reason For Taking VItal Signs Routine Oxygen Therapy Room air Oxygen Saturation 98 % 12/29/2022 11:00 EDT Notify date/time 12/29/2022 11:00 Provider Notified CARLA CHOI DDS Notification Method Phone Information Communicated Consult Heart Rate Monitored 70 bpm 12/29/2022 10:40 EDT Unsuccessful ED Signed 12/29/2022 10:33 EDT Able To Drink Order Detail Yes Able To Sign Consents Order Detail Yes Code Status Order Detail Full code IV Order Detail Yes Dialysis Schedule Order Detail N/A Has Diabetes Order Detail No Isolation Precautions Order Detail None Nurse Collect Order Detail 0 Oxygen Order Detail No Order Detail N/A Prior Valve Replacement Order Detail No Transport Mode Order Detail Bed and Nurse Squilgeer Details Form Squilgeer Details Form 12/29/2022 10:32 EDT Transesophageal Echocardiogram - CV Cancelled (Canceled) 12/29/2022 10:01 EDT Infectious Disease Progress Note Progress Note (Modified) 12/29/2022 10:00 EDT Transesophageal Echocardiogram - CV Cancelled (Canceled) 12/29/2022 9:51 EDT Notify date/time 12/29/2022 9:48 Provider Notified CARLA CHOI DDS Notification Method Phone Information Communicated Consult Details Communicated Consult for abcess, panorex completed Notification Outcome Orders received Person Reporting Result(s) Pranav Details of Results Received Called back at 11am and ordered consult for Husam as pt requires full mouth extraction and requires anesthesia d/t fentanyl abuse current. Results Read Back Yes 12/29/2022 9:47 EDT Notify date/time 12/29/2022 9:40 Provider Notified KENDALL COCHRAN DDS Notification Method Phone Information Communicated Consult Details Communicated Consult was called 12/27 but noone has seen pt. Notification Outcome Orders not received Person Reporting Result(s) LRidenourRN Details of Results Received Dr Cochran was not emotionally impaired teacher for 12/27, physician that was emotionally impaired teacher needs to be contacted. Results Read Back Yes Heart Rate Monitored 72 bpm 12/29/2022 7:05 EDT Heart Rate Monitored 66 bpm Reason For Taking VItal Signs Routine Primary Pain Intensity 0 Primary Pain Nonverbal Response Nods No Pain Scale Type 0-10 Pain scale Monitor Alarms On and Limits Checked Nail Bed Color [place] Capillary Refill < 2 seconds Heart Sounds ICU S1S2 Heart Rhythm Regular Dorsalis Pedis Pulse, Left 1+ Thready Dorsalis Pedis Pulse, Right 1+ Thready Posttibial Pulse, Left 1+ Thready Posttibial Pulse, Right 1+ Thready Radial Pulse, Left 2+ Normal Radial Pulse, Right 2+ Normal Cardiac Rhythm Sinus rhythm Monitoring Lead III, V1/MCL1 [place] Interval 0.18 second(s) QRS Duration 0.12 second(s) QT Interval 0.40 second(s) QTc Interval 0.42 second(s) Alarms On and Functional Yes Heart Rate Alarm Set At - Low 50 Heart Rate Alarm Set At - High 120 Respirations Unlabored Respiratory Pattern Regular Breath Sounds Auscultated Anterior only All Lobes Breath Sounds Clear Cough None Tracheal Position Midline Abdomen Description Non-distended Abdomen Palpation Non-Tender Passing Flatus No Bowel Sounds All Quadrants Present Urinary Elimination Voiding, no difficulties Facial Movement Symmetric resting/crying Skin Symptoms Bruising All Extremity Description [place], Normal for ethnicity Skin Temperature Warm Temperature All Extremities Warm Skin Description [place], Normal for ethnicity Skin Integrity Intact Skin Turgor Elastic Mucous Membrane Color [place] Mucous Membrane Description Moist Antecubital Left 12/25/2022 18 gauge Peripheral IV Activity: Assessed Peripheral IV Site Condition: No complications Forearm Right 12/25/2022 20 gauge Peripheral IV Activity: Assessed Peripheral IV Site Condition: No complications Neurological Language Able to speak clearly Neurological Symptoms Patient denies Gait Steady Extremity Movement Equal Swallowing Difficulty None Characteristics of Communication Appropriate Characteristics of Speech Clear Facial Symmetry Symmetric Level of Consciousness Alert Aspiration Risk None Eye Opening Response [place] Spontaneously Best Motor Response Jonathon Obeys simple commands Best Verbal Response [place] Oriented Jonathon Coma Score 15 SISI Yes Left Pupil Description Regular Right Pupil Description Regular Left Pupil Reaction Brisk Right Pupil Reaction Brisk Pupil Size, Left 4 mm Pupil Size, Right 4 mm Strength All Extremities Strong Left Upper Extremity Sensation Intact Right Upper Extremity Sensation Intact Left Lower Extremity Sensation Intact Right Lower Extremity Sensation Intact CN V Facial Sensation Light touch equal bilaterally CN VII Facial Expression and Symmetry Facial movement symmetrical CN VIII Hearing Spoken word equally audible left/right CN IX, X Swallowing, Gag Reflex Swallowing present Violence Risk Confused No Violence Risk Irritable No Violence Risk Boisterous No Violence Risk Verbal Threats No Violence Risk Physical Threats No Violence Risk Attacking Objects No Violence Risk Predictor Score 0 Violence Risk Intervention None Violence Risk Current Interventions None Affect/Behavior Appropriate, Calm, Cooperative Orientation Oriented x 4 Tremors 0- If no symptom not present Tachycardia 0- If no symptom not present Hypertension 0- If no symptom not present Diaphoresis 0- If no symptom not present Nausea or Vomiting 0- If no symptom not present Fever-AW 1-Less than or equal to 38 degrees centigrade Agitation 0- If no symptom not present Orientation, contact with reality 0- If no symptom not present Sleeplessness 0- If no symptom not present Hallucinations 0- If no symptom not present Total Score 1 Orientation Assessment Oriented x 4 Assistive Device None Positioning Repositions self Activity Status ADL Sleeping Beds/Devices Hospital bed Activity Assistance Independent Breakfast Percent 0 % Standard Safety ID band on, Call device within reach, Bed in low position, Wheels locked, Upper/Half-Length side-rails up, Phone within reach, personal items within reach, Safety level maintained High Risk Safety Room check performed Demonstrates Correct Call Light Use Yes 12/29/2022 7:00 EDT Urine Voided 300 mL 12/29/2022 6:36 EDT Temperature Oral 36.4 DegC Heart Rate Monitored 63 bpm Respiratory Rate 16 br/min Systolic Blood Pressure Non-Invasive 110 mmHg Diastolic Blood Pressure Non-Invasive 58 mmHg LOW Blood Pressure Method Manual Blood Pressure Location Right arm Blood Pressure Cuff Size Medium Reason For Taking VItal Signs Routine Oxygen Therapy Room air Oxygen Saturation 99 % 12/29/2022 5:18 EDT ampicillin-sulbactam 3 gram(s) gram(s) 12/29/2022 4:45 EDT WBC 5.2 10^3/mcL RBC 4.04 10^6/mcL LOW Hgb 11.3 G/dL LOW Hct 33.0 % LOW MCV 81.8 fL MCH 28.1 pg MCHC 34.3 G/dL RDW 15.7 % HI Platelet 214 10^3/mcL MPV 6.8 fL Neutrophil % 35.9 % LOW Lymphocyte % 43.8 % HI Monocyte % 9.5 % Eosinophil % 9.7 % HI Basophil % 1.1 % Neutrophil, Absolute 1.8 10^3/mcL LOW Lymphocyte, Absolute 2.3 10^3/mcL Monocyte, Absolute 0.5 10^3/mcL Eosinophil, Absolute 0.5 10^3/mcL Basophil, Absolute 0.1 10^3/mcL Glucose Level 81 mg/dL Sodium Level 139 mEq/L Potassium Level 4.3 mEq/L Chloride 106 mEq/L CO2 32 mEq/L Electrolyte Balance 1.0 mEq/L LOW BUN 11.0 mg/dL Creatinine Lvl (s) 0.75 mg/dL BUN/Creatinine Ratio 14.7 ratio Calcium Lvl 9.0 mg/dL Magnesium Lvl 2.0 mg/dL Total Protein 7.1 G/dL Albumin Level 3.1 G/dL LOW Globulin 4.0 G/dL HI A/G Ratio 0.8 ratio LOW Bili Total 0.30 mg/dL Bili Direct 0.1 mg/dL Bili Indirect 0.2 mg/dL Alk Phos 103 U/L AST/SGOT 57 U/L HI ALT/SGPT 84 U/L HI GFR Non- >60 ml/min/1.73sqm NA GFR >60 ml/min/1.73sqm NA Creatinine Clearance Calc 120.72 mL/min 12/29/2022 3:51 EDT Temperature Oral 36.5 DegC Heart Rate Monitored 61 bpm Respiratory Rate 16 br/min Systolic Blood Pressure Non-Invasive 125 mmHg Diastolic Blood Pressu (more content not included)... [id number] Cardiology Progress note no chest pain, no shortness of breath Review of symptoms: Review of symptoms including (Constitutional, Respiratory, Cardiac, Gastrointestinal, Neurological,Psychiatric) was performed and is otherwise negative except as in HPI Medication List Active Medications Ordered ampicillin-sulbactam: 3 gram(s), 100 mL, 300 mL/hr, IV Piggyback, q6h. dicyclomine: 10 mg, 1 cap(s), Oral, QID. LORazepam: 1 mg, 1 tab(s), Oral, q15min, PRN: Maintain ordered parameters. LORazepam: 1 mg, 0.5 mL, IV Push, q15min, PRN: Maintain ordered parameters. LORazepam: 2 mg, 1 tab(s), Oral, q15min, PRN: Maintain ordered parameters. LORazepam: 2 mg, 1 mL, IV Push, q15min, PRN: Maintain ordered parameters. LORazepam: 2 mg, 1 mL, IV Push, q15min, PRN: Maintain ordered parameters. LORazepam: 3 mg, 1.5 mL, IV Push, q15min, PRN: Maintain ordered parameters. LORazepam: 3 mg, 1.5 mL, IV Push, q15min, PRN: Maintain ordered parameters. LORazepam: 3 mg, 3 tab(s), Oral, q15min, PRN: Maintain ordered parameters. LORazepam: 3 mg, 1.5 mL, IV Push, q15min, PRN: Maintain ordered parameters. LORazepam: 4 mg, 2 tab(s), Oral, q15min, PRN: Maintain ordered parameters. LORazepam: 4 mg, 2 mL, IV Push, q15min, PRN: Maintain ordered parameters. LORazepam: 4 mg, 2 mL, IV Push, q15min, PRN: Maintain ordered parameters. LORazepam: 5 mg, 2.5 mL, IV Push, q15min, PRN: Maintain ordered parameters. LORazepam: 6 mg, 3 mL, IV Push, q15min, PRN: Maintain ordered parameters. magnesium sulfate: 2 g, 50 mL, 25 mL/hr, IV Piggyback, AsDirected, PRN: for Mg level 1.5-1.8 mg/dl. magnesium sulfate: 4 g, 100 mL, 25 mL/hr, IV Piggyback, AsDirected, PRN: for Mg level 1.1-1.4 mg/dl. magnesium sulfate: 6 g, 12 mL, 43.67 mL/hr, IV Piggyback, AsDirected, PRN: for Mg level 1 mg/dl or less. nicotine: 14 mg, 1 patch(es), Transdermal, q24h. nicotine (Nicoderm Patch REMOVAL): 1 EA, Miscellaneous, Once. nicotine (Nicoderm Patch REMOVAL): 1 EA, Miscellaneous, q24h. potassium chloride: 20 mEq, 1 tab(s), Oral, AsDirected, PRN: for K+ level 3.5 - 3.9 mEq/L. potassium chloride: 40 mEq, 2 tab(s), Oral, AsDirected, PRN: for K+ level 3-3.4 mEq/L. potassium chloride: 20 mEq, 100 mL, 50 mL/hr, IV Piggyback, AsDirected, PRN: for K+ level 2.5 - 2.9 mEq/dL. potassium chloride: 40 mEq, 2 tab(s), Oral, AsDirected, PRN: for K+ level 2.5 - 2.9 mEq/dL. vancomycin: 1,250 mg, 250 mL, 200 mL/hr, IV Piggyback, BID. Prescribed ondansetron: 4 mg, 1 tab(s), Oral, q6h, PRN: Nausea/Vomiting, 20 tab(s), 1 Refill(s). Suspended cloNIDine: 0.1 mg, 1 tab(s), Oral, BID. Medications Inactivated in the Last 72 Hours acetaminophen: 650 mg, 2 tab(s), Oral, Once. cloNIDine: 0.1 mg, 1 tab(s), Oral, BID, for 3 day(s), 6 tab(s), 0 Refill(s). dicyclomine: 10 mg, 1 cap(s), Oral, QID, for 7 day(s), 28 cap(s), 0 Refill(s). fentaNYL: Miscellaneous, Once. midazolam: Miscellaneous, Once. midazolam: Miscellaneous, Once. naloxone: 1 spray(s), Intranasal, AsDirected, may repeat every 2 to 3 minutes until patient responds, PRN: see pharmacy notes, 2 EA, 0 Refill(s). nicotine: 14 mg, 1 patch(es), Transdermal, q24h. nicotine (Nicoderm Patch REMOVAL): 1 EA, Miscellaneous, Once. vancomycin: 1,250 mg, 250 mL, 200 mL/hr, IV Piggyback, Vanc Policy. vancomycin: 1,500 mg, 300 mL, 200 mL/hr, IV Piggyback, q12hr. 36hr Labs 12/29 0445 Creatinine Lvl (s)0.75 Albumin Level3.1L Alk [id number] Bili Direct0.1 Bili Total0.30 BUN11.0 Calcium Lvl9.0 [id number] CO232 Glucose Level81 Magnesium Lvl2.0 Potassium Level4.3 Sodium Tjeew569 Total Protein7.1 BUN/Creatinine Ratio14.7 Globulin4.0H A/G Ratio0.8L Bili Indirect0.2 AST/MPZD39B ALT/RDSJ30D Electrolyte Balance1.0L GFR Non->60 GFR >60 Hct33.0L Hgb11.3L MCH28.1 MCHC34.3 MCV81.8 MPV6.8 Csfdodyr187 RBC4.04L RDW15.7H WBC5.2 Lymphocyte %43.8H Monocyte %9.5 Neutrophil %35.9L Eosinophil %9.7H Basophil %1.1 Neutrophil, Absolute1.8L Lymphocyte, Absolute2.3 Monocyte, Absolute0.5 Eosinophil, Absolute0.5 Basophil, Absolute0.1 Vitals Signs(Last 24 hrs)__Last Charted Minimum Maximum Temp36.7(DEC 29 15:24)36.7(DEC 29 15:24)36.4(DEC 28 23:06) Heart Rate75(DEC 29 19:32)61(DEC 29 03:51)86(DEC 29 13:09) Resp Rate16(DEC 29 19:32)16(DEC 28 23:06)16(SEP 11 23:06) HUI693(DEC 29 19:32)110(DEC 29 06:36)135(DEC 28 23:06) DBP60(DEC 29 19:32)C 40(DEC 29 15:24)71(DEC 29 03:51) General: alert, oriented X3, well groomed and in night gown Cardiovascular: RRR, nS1S2, no murmur, no JVD, no gallop, no thrills, bilateral radial pulse 2+ Lungs: no bilateral crackles, no wheezing, no rales, no diminished lung sounds, symmetrical chest movement Abdomen: Soft, non tender, non distended, positive bowel sounds, no hepatosplenomegally Extremity: No edema, no deformity, no cyanosis, no clubbing Assessment and Plan I personally reviewed the patient s recent medications, orders, vitals, labs, and X ray reports/images. Also I personally reviewed recent cardiac telemetry and other pertinent available cardiac studies and images including EKG, ECHO and cardiac catheterization images Medications were reviewed and changes were made in EMR Patient is risk of deterioration. Needs close monitoring Concern for endocarditis Polysubstance abuse Alcohol abuse- [facility] ED rescheduled ED in AM followed by tooth extraction Digitally Signed by MAGDALENA GOMEZ MD on 12/29/2022 09:34 PM [id number] Infectious disease Progress note Date of Service 12/29/2022 Chief Complaint Infective endocarditis Subjective Patient evaluated up on the chair. He feels markedly improved. Unable to tolerate ED yesterday dueto medications not helping sedate him. He will have ED today under anesthesia per patient. His teeth hurts significantly this morning. No trouble eating. His appetite is good. No nausea, vomiting or diarrhea. No shortness of breath or cough. He is a smoker. No back or joint pain. No urinary frequency, urgency or dysuria. Objective Vitals and Measurements T: 36.4 C (Oral) TMIN: 36.3 C (Oral) TMAX: 36.5 C (Oral) HR: 72(Monitored) RR: 16 BP: 110/58 SpO2: 99% Intake and Output 7AM Yesterday to 7AM Today Intake and Output (Last 24 hours) Intake Oral Intake 30.00 Output Urine Voided 600.00 Stool Count 0.00 Total Summary Total Intake 30.00 Total Output 600.00 Fluid Balance -570.00 Physical Exam General: No acute distress. Alert and Appropriate Skin: No rash. Warm, Dry, Intact HEENT: Head is normocephalic and atraumatic. No lesions. Pupils equal in size. Extraocular movements within normal limits. Nose: No septal deviation. Mouth: Multiple teeth with necrotic tissue. Neck: Supple. No lymphadenopathy, thyromegaly noted. No carotid bruit heard. Lungs: Lung sounds are diminished with no wheeze. Cardiovascular: Heart is regular rhythm, S1S2, No extra-audible heart tones Abdomen: Abdomen is soft, nontender. Bowel sounds positive all four quadrants. Extremities: No clubbing, cyanosis or edema. Peripheral pulses palpable. Adequate peripheral circulation. Neurological: The patient is awake, oriented to person, place and time. Following simple commands, moving all extremities. Weight Dosing Weight: 67.4 kg (12/25/22) Medications Medications (26) Active Scheduled: (5) ampicillin-sulbactam MB+ 3 gram(s) 100 mL, IV Piggyback, q6h dicyclomine 10 mg capsule 10 mg 1 cap(s), Oral, QID Nicoderm patch REMOVAL 1 EA, Miscellaneous, q24h nicotine 14 mg/24 hr ER patch 14 mg 1 patch(es), Transdermal, q24h vancomycin PMX 1,250 mg 250 mL, IV Piggyback, q12hr Continuous: (0) PRN: (21) LORAZEPam 1 mg Tablet 1 mg 1 tab(s), Oral, q15min LORAZEPam 1 mg Tablet 3 mg 3 tab(s), Oral, q15min LORAZEPam 2 mg Tablet 2 mg 1 tab(s), Oral, q15min LORAZEPam 2 mg Tablet 4 mg 2 tab(s), Oral, q15min LORAZEPam 2 mg/mL 1 mL vial 1 mg 0.5 mL, IV Push, q15min LORAZEPam 2 mg/mL 1 mL vial 2 mg 1 mL, IV Push, q15min LORAZEPam 2 mg/mL 1 mL vial 2 mg 1 mL, IV Push, q15min LORAZEPam 2 mg/mL 1 mL vial 3 mg 1.5 mL, IV Push, q15min LORAZEPam 2 mg/mL 1 mL vial 3 mg 1.5 mL, IV Push, q15min LORAZEPam 2 mg/mL 1 mL vial 3 mg 1.5 mL, IV Push, q15min LORAZEPam 2 mg/mL 1 mL vial 4 mg 2 mL, IV Push, q15min LORAZEPam 2 mg/mL 1 mL vial 4 mg 2 mL, IV Push, q15min LORAZEPam 2 mg/mL 1 mL vial 5 mg 2.5 mL, IV Push, q15min LORAZEPam 2 mg/mL 1 mL vial 6 mg 3 mL, IV Push, q15min magnesium sulfate 4 gram(s)/100mL PMX 4 g 100 mL, IV Piggyback, AsDirected magnesium sulfate 50% (500mg/mL) 6 g 12 mL, IV Piggyback, AsDirected magnesium sulfate PMX 2 g 50 mL, IV Piggyback, AsDirected potassium chloride (PMX) 20 mEq/100 mL 20 mEq 100 mL, IV Piggyback, AsDirected potassium chloride 20 mEq ER tablet 20 mEq 1 tab(s), Oral, AsDirected potassium chloride 20 mEq ER tablet 40 mEq 2 tab(s), Oral, AsDirected potassium chloride 20 mEq ER tablet 40 mEq 2 tab(s), Oral, AsDirected Lab Results 12/29 04:45 WBC: 5.2 Hgb: 11.3 L Hct: 33.0 L Platelet: 214 Neutrophil %: 35.9 L Glucose Level: 81 Sodium Level: 139 Potassium Level: 4.3 BUN: 11.0 Creatinine Lvl (s): 0.75 12/28 02:53 WBC: 5.7 Hgb: 11.6 L Hct: 34.2 L Platelet: 227 Neutrophil %: 39.0 L Glucose Level: 109 Sodium Level: 139 Potassium Level: 4.1 BUN: 10.0 Creatinine Lvl (s): 0.78 Imaging Results and Diagnostics US Abdomen Complete Result Date: December 27, 2022 Verified By: NANCY SANTOYO MD CLINICAL STATEMENT: IMPRESSION: Hyperechoic hepatic parenchyma likely to reflect fatty infiltration. Splenomegaly. Gallbladder sludge. Question hypoechoic area near the pancreas not demonstrated on CT examinationof reference. XR Panorex/Orthopantogram Result Date: December 26, 2022 Verified By: MARRY TOUSSAINT, YUMI Fernandes CLINICAL STATEMENT: IMPRESSION: Extensive dental caries and apical lucency suggesting multiple dentalabscesses. EKG No qualifying data available. Assessment/Plan 1. Infective endocarditis 2. Dental abscesses 3. Hepatitis C 4. Poor dentition 5. Fevers 6. History of IV drug use 7. Tremors 32-year-old male with history of 32-year-old male with history of hepatitis C and IV drug use admitted with concerns for sepsis. ID following for evaluation for endocarditis. Echocardiogram shows questionable echodensity on mitral valve. ED planned for today under anesthesia. If vegetation is noted on mitral valve, will likely require 6 weeks of IV antibiotics. In regards to dental abscesses, discussed with nursing staff to reach out to the oral surgeon for evaluation.Blood cultures show no growth to date. HIV negative. Patient without leukocytosis and remains afebrile. Continue present antibiotics. We will follow for ED results and dental surgery recommendations. Plan of care discussed in depth with patient. All questions answered. Patient verbalized understanding and is agreeable to plan of care. Discussed with my collaborating physician Dr. Brent Harris. Any changes to the plan will be added to end as an addendum. Time Spent I spent a total of 40 minutes reviewing the patient s diagnostic labs/tests, seeing and examining the patient and documenting in the medical record, see assessment for further detail. Digitally Signed by NIKI CASE on 12/29/2022 12:05 PM [id number] Note* Exam Date Time Procedure Performing Provider Status 12/29/22 10:40 AM Unsuccessful ED Auth (V erified) [place] 09-12-2023 Infectious disease Progress note Date of Service 12/29/2022 Chief Complaint Infective endocarditis Subjective Patient evaluated up on the chair. He feels markedly improved. Unable to tolerate ED yesterday dueto medications not helping sedate him. He will have ED today under anesthesia per patient. His teeth hurts significantly this morning. No trouble eating. His appetite is good. No nausea, vomiting or diarrhea. No shortness of breath or cough. He is a smoker. No back or joint pain. No urinary frequency, urgency or dysuria. Objective Vitals and Measurements T: 36.4 C (Oral) TMIN: 36.3 C (Oral) TMAX: 36.5 C (Oral) HR: 72(Monitored) RR: 16 BP: 110/58 SpO2: 99% Intake and Output 7AM Yesterday to 7AM Today Intake and Output (Last 24 hours) Intake Oral Intake 30.00 Output Urine Voided 600.00 Stool Count 0.00 Total Summary Total Intake 30.00 Total Output 600.00 Fluid Balance -570.00 Physical Exam General: No acute distress. Alert and Appropriate Skin: No rash. Warm, Dry, Intact HEENT: Head is normocephalic and atraumatic. No lesions. Pupils equal in size. Extraocular movements within normal limits. Nose: No septal deviation. Mouth: Multiple teeth with necrotic tissue. Neck: Supple. No lymphadenopathy, thyromegaly noted. No carotid bruit heard. Lungs: Lung sounds are diminished with no wheeze. Cardiovascular: Heart is regular rhythm, S1S2, No extra-audible heart tones Abdomen: Abdomen is soft, nontender. Bowel sounds positive all four quadrants. Extremities: No clubbing, cyanosis or edema. Peripheral pulses palpable. Adequate peripheral circulation. Neurological: The patient is awake, oriented to person, place and time. Following simple commands, moving all extremities. Weight Dosing Weight: 67.4 kg (12/25/22) Medications Medications (26) Active Scheduled: (5) ampicillin-sulbactam MB+ 3 gram(s) 100 mL, IV Piggyback, q6h dicyclomine 10 mg capsule 10 mg 1 cap(s), Oral, QID Nicoderm patch REMOVAL 1 EA, Miscellaneous, q24h nicotine 14 mg/24 hr ER patch 14 mg 1 patch(es), Transdermal, q24h vancomycin PMX 1,250 mg 250 mL, IV Piggyback, q12hr Continuous: (0) PRN: (21) LORAZEPam 1 mg Tablet 1 mg 1 tab(s), Oral, q15min LORAZEPam 1 mg Tablet 3 mg 3 tab(s), Oral, q15min LORAZEPam 2 mg Tablet 2 mg 1 tab(s), Oral, q15min LORAZEPam 2 mg Tablet 4 mg 2 tab(s), Oral, q15min LORAZEPam 2 mg/mL 1 mL vial 1 mg 0.5 mL, IV Push, q15min LORAZEPam 2 mg/mL 1 mL vial 2 mg 1 mL, IV Push, q15min LORAZEPam 2 mg/mL 1 mL vial 2 mg 1 mL, IV Push, q15min LORAZEPam 2 mg/mL 1 mL vial 3 mg 1.5 mL, IV Push, q15min LORAZEPam 2 mg/mL 1 mL vial 3 mg 1.5 mL, IV Push, q15min LORAZEPam 2 mg/mL 1 mL vial 3 mg 1.5 mL, IV Push, q15min LORAZEPam 2 mg/mL 1 mL vial 4 mg 2 mL, IV Push, q15min LORAZEPam 2 mg/mL 1 mL vial 4 mg 2 mL, IV Push, q15min LORAZEPam 2 mg/mL 1 mL vial 5 mg 2.5 mL, IV Push, q15min LORAZEPam 2 mg/mL 1 mL vial 6 mg 3 mL, IV Push, q15min magnesium sulfate 4 gram(s)/100mL PMX 4 g 100 mL, IV Piggyback, AsDirected magnesium sulfate 50% (500mg/mL) 6 g 12 mL, IV Piggyback, AsDirected magnesium sulfate PMX 2 g 50 mL, IV Piggyback, AsDirected potassium chloride (PMX) 20 mEq/100 mL 20 mEq 100 mL, IV Piggyback, AsDirected potassium chloride 20 mEq ER tablet 20 mEq 1 tab(s), Oral, AsDirected potassium chloride 20 mEq ER tablet 40 mEq 2 tab(s), Oral, AsDirected potassium chloride 20 mEq ER tablet 40 mEq 2 tab(s), Oral, AsDirected Lab Results 12/29 04:45 WBC: 5.2 Hgb: 11.3 L Hct: 33.0 L Platelet: 214 Neutrophil %: 35.9 L Glucose Level: 81 Sodium Level: 139 Potassium Level: 4.3 BUN: 11.0 Creatinine Lvl (s): 0.75 12/28 02:53 WBC: 5.7 Hgb: 11.6 L Hct: 34.2 L Platelet: 227 Neutrophil %: 39.0 L Glucose Level: 109 Sodium Level: 139 Potassium Level: 4.1 BUN: 10.0 Creatinine Lvl (s): 0.78 Imaging Results and Diagnostics US Abdomen Complete Result Date: December 27, 2022 Verified By: NANCY SANTOYO MD CLINICAL STATEMENT: IMPRESSION: Hyperechoic hepatic parenchyma likely to reflect fatty infiltration. Splenomegaly. Gallbladder sludge. Question hypoechoic area near the pancreas not demonstrated on CT examinationof reference. XR Panorex/Orthopantogram Result Date: December 26, 2022 Verified By: MARRY TOUSSAINT, YUMI Fernandes CLINICAL STATEMENT: IMPRESSION: Extensive dental caries and apical lucency suggesting multiple dentalabscesses. EKG No qualifying data available. Assessment/Plan 1. Infective endocarditis 2. Dental abscesses 3. Hepatitis C 4. Poor dentition 5. Fevers 6. History of IV drug use 7. Tremors 32-year-old male with history of 32-year-old male with history of hepatitis C and IV drug use admitted with concerns for sepsis. ID following for evaluation for endocarditis. Echocardiogram shows questionable echodensity on mitral valve. ED planned for today under anesthesia. If vegetation is noted on mitral valve, will likely require 6 weeks of IV antibiotics. In regards to dental abscesses, discussed with nursing staff to reach out to the oral surgeon for evaluation.Blood cultures show no growth to date. HIV negative. Patient without leukocytosis and remains afebrile. Continue present antibiotics. We will follow for ED results and dental surgery recommendations. Plan of care discussed in depth with patient. All questions answered. Patient verbalized understanding and is agreeable to plan of care. Discussed with my collaborating physician Dr. Brent Harris. Any changes to the plan will be added to end as an addendum. Time Spent I spent a total of 40 minutes reviewing the patient s diagnostic labs/tests, seeing and examining the patient and documenting in the medical record, see assessment for further detail. Digitally Signed by NIKI CASE on 12/29/2022 12:05 PM [id number] Cardiology Progress note Subjective ED aborted due to patient throwing up. Explained he must remain NPO at [facility] for repeat ED Objective Vitals and Measurements T: 36.3 C (Oral) TMIN: 36.3 C (Oral) TMAX: 36.9 C (Oral) HR: 76(Monitored) RR: 16 BP: 146/60 SpO2: 99% Intake and Output 7AM Yesterday to 7AM Today Intake and Output (Last 24 hours) Intake Oral Intake 960.00 Output Urine Voided 300.00 Urine Count 3.00 Total Summary Total Intake 960.00 Total Output 300.00 Fluid Balance 660.00 Physical Exam General Appearance: NAD Head: NCAT EENT: no gross abnormalities Neck: no JVD appreciated Cardiac: NS1S2 Lungs: CTAB Abdomen: soft, NT/ND Musculoskeletal: ROM wnl Extremities: no pitting edema Neurological: no focal deficits Skin: warm, dry Psychiatric: normal mentation Weight Dosing Weight: 67.4 kg (09/08/23) Medications Medications (26) Active Scheduled: (5) ampicillin-sulbactam MB+ 3 gram(s) 100 mL, IV Piggyback, q6h dicyclomine 10 mg capsule 10 mg 1 cap(s), Oral, QID Nicoderm patch REMOVAL 1 EA, Miscellaneous, q24h nicotine 14 mg/24 hr ER patch 14 mg 1 patch(es), Transdermal, q24h vancomycin PMX 1,250 mg 250 mL, IV Piggyback, q12hr Continuous: (0) PRN: (21) LORAZEPam 1 mg Tablet 1 mg 1 tab(s), Oral, q15min LORAZEPam 1 mg Tablet 3 mg 3 tab(s), Oral, q15min LORAZEPam 2 mg Tablet 2 mg 1 tab(s), Oral, q15min LORAZEPam 2 mg Tablet 4 mg 2 tab(s), Oral, q15min LORAZEPam 2 mg/mL 1 mL vial 1 mg 0.5 mL, IV Push, q15min LORAZEPam 2 mg/mL 1 mL vial 2 mg 1 mL, IV Push, q15min LORAZEPam 2 mg/mL 1 mL vial 2 mg 1 mL, IV Push, q15min LORAZEPam 2 mg/mL 1 mL vial 3 mg 1.5 mL, IV Push, q15min LORAZEPam 2 mg/mL 1 mL vial 3 mg 1.5 mL, IV Push, q15min LORAZEPam 2 mg/mL 1 mL vial 3 mg 1.5 mL, IV Push, q15min LORAZEPam 2 mg/mL 1 mL vial 4 mg 2 mL, IV Push, q15min LORAZEPam 2 mg/mL 1 mL vial 4 mg 2 mL, IV Push, q15min LORAZEPam 2 mg/mL 1 mL vial 5 mg 2.5 mL, IV Push, q15min LORAZEPam 2 mg/mL 1 mL vial 6 mg 3 mL, IV Push, q15min magnesium sulfate 4 gram(s)/100mL PMX 4 g 100 mL, IV Piggyback, AsDirected magnesium sulfate 50% (500mg/mL) 6 g 12 mL, IV Piggyback, AsDirected magnesium sulfate PMX 2 g 50 mL, IV Piggyback, AsDirected potassium chloride (PMX) 20 mEq/100 mL 20 mEq 100 mL, IV Piggyback, AsDirected potassium chloride 20 mEq ER tablet 20 mEq 1 tab(s), Oral, AsDirected potassium chloride 20 mEq ER tablet 40 mEq 2 tab(s), Oral, AsDirected potassium chloride 20 mEq ER tablet 40 mEq 2 tab(s), Oral, AsDirected Lab Results 12/28 02:53 WBC: 5.7 Hgb: 11.6 L Hct: 34.2 L Platelet: 227 Neutrophil %: 39.0 L Glucose Level: 109 Sodium Level: 139 Potassium Level: 4.1 BUN: 10.0 Creatinine Lvl (s): 0.78 12/27 04:20 WBC: 6.5 Hgb: 11.6 L Hct: 34.1 L Platelet: 258 Neutrophil %: 41.0 L Glucose Level: 81 Sodium Level: 138 Potassium Level: 4.3 BUN: 10.0 Creatinine Lvl (s): 0.72 EKG No qualifying data available. Assessment/Plan 1. Concern for endocarditis Patient presented to [facility] ED multiple times for fever and was prescribed antibiotics and sent home, but with history of IV drug use was also ordered an echo ECHO [12/22/2022]: EF 60 to 65%, mobile echodensity on mitral valve which represent redundant chordal structure but cannot exclude IE. ID following the case OPG suggestive of dental caries Plan NPO at [facility] ED tomorrow 2. Hepatitis C History of IV drug use, last use in January 2022 Hepatitis C antibody positive Plan Follow-up with helicopter specialist as outpatient 3. History of IV drug use Last use January 2020 4. Tobacco abuse Continues to smoke Plan Cessation counseling 5. Transaminitis Mild transaminitis with AST and ALT in 50s Could be from alcohol abuse and history of hepatitis C from IV drug use Plan Monitor hepatic panel 6. Alcohol withdrawal Patient drinks alcohol every day and yesterday was showing signs of some withdrawal Started on [facility] protocol Plan Continue [facility] protocol Digitally Signed by SHAN LORENZ MD on 12/28/2022 03:42 PM [id number] Infectious disease Progress note Date of Service 12/28/2022 Chart reviewed. ID following for concerns for endocarditis. Echocardiogram with concerns for vegetation on mitral valve. ED planned for tomorrow. Panorex consistent with multiple dental abscesses. Awaiting dental surgery recommendations. Laboratory data reviewed, patient has no leukocytosis and remains afebrile for the last 24 hours. Continue present antibiotics. ID to follow after ED results. Digitally Signed by NIKI CASE on 12/28/2022 05:04 PM [id number] Cardiology Progress note Subjective ED aborted due to patient throwing up. Explained he must remain NPO at [facility] for repeat ED Objective Vitals and Measurements T: 36.3 C (Oral) TMIN: 36.3 C (Oral) TMAX: 36.9 C (Oral) HR: 76(Monitored) RR: 16 BP: 146/60 SpO2:99% Intake and Output 7AM Yesterday to 7AM Today Intake and Output (Last 24 hours) Intake Oral Intake 960.00 Output Urine Voided 300.00 Urine Count 3.00 Total Summary Total Intake 960.00 Total Output 300.00 Fluid Balance 660.00 Physical Exam General Appearance: NAD Head: NCAT EENT: no gross abnormalities Neck: no JVD appreciated Cardiac: NS1S2 Lungs: CTAB Abdomen: soft, NT/ND Musculoskeletal: ROM wnl Extremities: no pitting edema Neurological: no focal deficits Skin: warm, dry Psychiatric: normal mentation Weight Dosing Weight: 67.4 kg (12/25/22) Medications Medications (26) Active Scheduled: (5) ampicillin-sulbactam MB+ 3 gram(s) 100 mL, IV Piggyback, q6h dicyclomine 10 mg capsule 10 mg 1 cap(s), Oral, QID Nicoderm patch REMOVAL 1 EA, Miscellaneous, q24h nicotine 14 mg/24 hr ER patch 14 mg 1 patch(es), Transdermal, q24h vancomycin PMX 1,250 mg 250 mL, IV Piggyback, q12hr Continuous: (0) PRN: (21) LORAZEPam 1 mg Tablet 1 mg 1 tab(s), Oral, q15min LORAZEPam 1 mg Tablet 3 mg 3 tab(s), Oral, q15min LORAZEPam 2 mg Tablet 2 mg 1 tab(s), Oral, q15min LORAZEPam 2 mg Tablet 4 mg 2 tab(s), Oral, q15min LORAZEPam 2 mg/mL 1 mL vial 1 mg 0.5 mL, IV Push, q15min LORAZEPam 2 mg/mL 1 mL vial 2 mg 1 mL, IV Push, q15min LORAZEPam 2 mg/mL 1 mL vial 2 mg 1 mL, IV Push, q15min LORAZEPam 2 mg/mL 1 mL vial 3 mg 1.5 mL, IV Push, q15min LORAZEPam 2 mg/mL 1 mL vial 3 mg 1.5 mL, IV Push, q15min LORAZEPam 2 mg/mL 1 mL vial 3 mg 1.5 mL, IV Push, q15min LORAZEPam 2 mg/mL 1 mL vial 4 mg 2 mL, IV Push, q15min LORAZEPam 2 mg/mL 1 mL vial 4 mg 2 mL, IV Push, q15min LORAZEPam 2 mg/mL 1 mL vial 5 mg 2.5 mL, IV Push, q15min LORAZEPam 2 mg/mL 1 mL vial 6 mg 3 mL, IV Push, q15min magnesium sulfate 4 gram(s)/100mL PMX 4 g 100 mL, IV Piggyback, AsDirected magnesium sulfate 50% (500mg/mL) 6 g 12 mL, IV Piggyback, AsDirected magnesium sulfate PMX 2 g 50 mL, IV Piggyback, AsDirected potassium chloride (PMX) 20 mEq/100 mL 20 mEq 100 mL, IV Piggyback, AsDirected potassium chloride 20 mEq ER tablet 20 mEq 1 tab(s), Oral, AsDirected potassium chloride 20 mEq ER tablet 40 mEq 2 tab(s), Oral, AsDirected potassium chloride 20 mEq ER tablet 40 mEq 2 tab(s), Oral, AsDirected Lab Results 12/28 02:53 WBC: 5.7 Hgb: 11.6 L Hct: 34.2 L Platelet: 227 Neutrophil %: 39.0 L Glucose Level: 109 Sodium Level: 139 Potassium Level: 4.1 BUN: 10.0 Creatinine Lvl (s): 0.78 12/27 04:20 WBC: 6.5 Hgb: 11.6 L Hct: 34.1 L Platelet: 258 Neutrophil %: 41.0 L Glucose Level: 81 Sodium Level: 138 Potassium Level: 4.3 BUN: 10.0 Creatinine Lvl (s): 0.72 EKG No qualifying data available. Assessment/Plan 1. Concern for endocarditis Patient presented to [facility] ED multiple times for fever and was prescribed antibiotics and sent home, but with history of IV drug use was also ordered an echo ECHO [12/22/2022]: EF 60 to 65%, mobile echodensity on mitral valve which represent redundant chordal structure but cannot exclude IE. ID following the case OPG suggestive of dental caries Plan NPO at [facility] ED tomorrow 2. Hepatitis C History of IV drug use, last use in January 2022 Hepatitis C antibody positive Plan Follow-up with helicopter specialist as outpatient 3. History of IV drug use Last use January 2020 4. Tobacco abuse Continues to smoke Plan Cessation counseling 5. Transaminitis Mild transaminitis with AST and ALT in 50s Could be from alcohol abuse and history of hepatitis C from IV drug use Plan Monitor hepatic panel 6. Alcohol withdrawal Patient drinks alcohol every day and yesterday was showing signs of some withdrawal Started on CIWA protocol Plan Continue CIWA protocol Digitally Signed by SHAN LORENZ MD on 12/28/2022 03:42 PM [id number] Cardiology Progress note Date of Service 12/27/2022 Subjective Patient examined at bedside. Patient is alert oriented x3. Denies any complaints. Background: Mr. Jernigan is a 32-year-old man with history of hepatitis C, incarceration, IV drug use, coarse tremors, has been seeing his PCP for the past few weeks mainly for tremors and health maintenance, due to fevers and history of IVDU, TTE was ordered, which showed potential vegetation on the posterior left the mitral valve. The patient was called and instructed to present to ER if fevers. He went to [facility] ER on 12/25/2022, reporting fevers of 100 F, no chest pain, shortness of breath, lower extremity swelling, orthopnea, cough or phlegm, weakness or numbness, no other constitutional symptoms. Patient endorses that his last drug use was 01/2022, he used to use IV heroin and fentanyl, reuse needles, did not lick or share needles. Euvolemic and largely unremarkable exam. Afebrile. Blood cultures remain negative so far. [12/27/2022]: Pending ED tomorrow. ID consult note reviewed. [12/26/2022]: Admitted from [facility] for concern for infective endocarditis on the mitral valve. Echo suggestive of mobile echodensity possibly redundant chordal structure but cannot exclude IE. Objective Vitals and Measurements T: 36.5 C (Oral) TMIN: 36.4 C (Oral) TMAX: 36.8 C (Oral) HR: 76(Monitored) RR: 18 BP: 118/70 SpO2:97% Intake and Output 7AM Yesterday to 7AM Today Intake and Output (Last 24 hours) Intake Oral Intake 480.00 Output Urine Voided 200.00 Stool Count 1.00 Urine Count 3.00 Total Summary Total Intake 480.00 Total Output 200.00 Fluid Balance 280.00 Physical Exam General: AAOX3, NAD HEENT: Anicteric sclera, MMM Neck: Trachea midline, no JVD appreciated CVS: RRR, normal S1/S2, no murmurs/rubs/gallops Lung: CTAB, no wheezes/rhonchi/rales Abd: Soft, NT/ND Extrem: WWP, no LE edema Skin: Warm, Intact Neuro: AAOX3, spontaneous movement of all extremities Psych: Appropriate mood & affect Weight Dosing Weight: 67.4 kg (12/25/22) Medications Medications (25) Active Scheduled: (4) clonidine 0.1 mg tablet 0.1 mg 1 tab(s), Oral, BID dicyclomine 10 mg capsule 10 mg 1 cap(s), Oral, QID Nicoderm patch REMOVAL 1 EA, Miscellaneous, q24h nicotine 14 mg/24 hr ER patch 14 mg 1 patch(es), Transdermal, q24h Continuous: (0) PRN: (21) LORAZEPam 1 mg Tablet 1 mg 1 tab(s), Oral, q15min LORAZEPam 1 mg Tablet 3 mg 3 tab(s), Oral, q15min LORAZEPam 2 mg Tablet 2 mg 1 tab(s), Oral, q15min LORAZEPam 2 mg Tablet 4 mg 2 tab(s), Oral, q15min LORAZEPam 2 mg/mL 1 mL vial 1 mg 0.5 mL, IV Push, q15min LORAZEPam 2 mg/mL 1 mL vial 2 mg 1 mL, IV Push, q15min LORAZEPam 2 mg/mL 1 mL vial 2 mg 1 mL, IV Push, q15min LORAZEPam 2 mg/mL 1 mL vial 3 mg 1.5 mL, IV Push, q15min LORAZEPam 2 mg/mL 1 mL vial 3 mg 1.5 mL, IV Push, q15min LORAZEPam 2 mg/mL 1 mL vial 3 mg 1.5 mL, IV Push, q15min LORAZEPam 2 mg/mL 1 mL vial 4 mg 2 mL, IV Push, q15min LORAZEPam 2 mg/mL 1 mL vial 4 mg 2 mL, IV Push, q15min LORAZEPam 2 mg/mL 1 mL vial 5 mg 2.5 mL, IV Push, q15min LORAZEPam 2 mg/mL 1 mL vial 6 mg 3 mL, IV Push, q15min magnesium sulfate 4 gram(s)/100mL PMX 4 g 100 mL, IV Piggyback, AsDirected magnesium sulfate 50% (500mg/mL) 6 g 12 mL, IV Piggyback, AsDirected magnesium sulfate PMX 2 g 50 mL, IV Piggyback, AsDirected potassium chloride (PMX) 20 mEq/100 mL 20 mEq 100 mL, IV Piggyback, AsDirected potassium chloride 20 mEq ER tablet 20 mEq 1 tab(s), Oral, AsDirected potassium chloride 20 mEq ER tablet 40 mEq 2 tab(s), Oral, AsDirected potassium chloride 20 mEq ER tablet 40 mEq 2 tab(s), Oral, AsDirected Lab Results 12/27 04:20 WBC: 6.5 Hgb: 11.6 L Hct: 34.1 L Platelet: 258 Neutrophil %: 41.0 L Glucose Level: 81 Sodium Level: 138 Potassium Level: 4.3 BUN: 10.0 Creatinine Lvl (s): 0.72 12/26 03:16 Glucose Level: 99 Sodium Level: 141 Potassium Level: 3.9 BUN: 7.0 L Creatinine Lvl (s): 0.70 EKG ECG - Completed -- 12/26/22 6:00:00 EDT, at 6 am EKG - Completed -- 12/25/22 23:25:00 EDT Assessment/Plan 1. Concern for endocarditis Patient presented to [facility] ED multiple times for fever and was prescribed antibiotics and sent home, but with history of IV drug use was also ordered an echo ECHO [12/22/2022]: EF 60 to 65%, mobile echodensity on mitral valve which represent redundant chordal structure but cannot exclude IE. ID following the case OPG suggestive of dental caries Plan For ED tomorrow Disposition: Depending on ED results 2. Hepatitis C History of IV drug use, last use in January 2022 Hepatitis C antibody positive Plan Follow-up with helicopter specialist as outpatient 3. History of IV drug use Last use January 2020 4. Tobacco abuse Continues to smoke Plan Counseling done to stop smoking for 5 minutes 5. Transaminitis Mild transaminitis with AST and ALT in 50s Could be from alcohol abuse and history of hepatitis C from IV drug use Plan Monitor hepatic panel 6. Alcohol withdrawal Patient drinks alcohol every day and yesterday was showing signs of some withdrawal Started on CIWA protocol Plan Continue CIWA protocol [1] History and Physical; JESUS HOOD MD 12/26/2022 00:36 EDT Digitally Signed by FELICITA STEWARD MD on 12/27/2022 10:08 AM [id number] Note. MICRO - Microbiology PROCEDURE: Urine Culture [*1] SOURCE: Urine, Clean Catch BODY SITE: COLLECTED DATE/TIME: 12/25/2022 14:27 EDT RECEIVED DATE/TIME: 12/25/2022 20:38 EDT START DATE/TIME: 12/25/2022 20:39 EDT FREE TEXT SOURCE: FINAL REPORTS Final Report [] Verified Date/Time/Personnel: 12/27/2022 07:26 EDT No growth at 48 hours. PRELIMINARY REPORTS Preliminary Report [] Verified Date/Time/Personnel: 12/26/2022 10:30 EDT No growth to date Performing Locations *1: This test was performed at: [place], [address] [place] [address], [facility] , [facility] ([place])12-27-2022 Cardiology Progress note Date of Service 12/27/2022 Subjective Patient examined at bedside. Patient is alert oriented x3. Denies any complaints. Background: Mr. Jernigan is a 32-year-old man with history of hepatitis C, incarceration, IV drug use, coarse tremors, has been seeing his PCP for the past few weeks mainly for tremors and health maintenance, due to fevers and history of IVDU, TTE was ordered, which showed potential vegetation on the posterior left the mitral valve. The patient was called and instructed to present to ER if fevers. He went to [facility] ER on 12/25/2022, reporting fevers of 100 F, no chest pain, shortness of breath, lower extremity swelling, orthopnea, cough or phlegm, weakness or numbness, no other constitutional symptoms. Patient endorses that his last drug use was 01/2022, he used to use IV heroin and fentanyl, reuse needles, did not lick or share needles. Euvolemic and largely unremarkable exam. Afebrile. Blood cultures remain negative so far. [12/27/2022]: Pending ED tomorrow. ID consult note reviewed. [12/26/2022]: Admitted from [facility] for concern for infective endocarditis on the mitral valve. Echo suggestive of mobile echodensity possibly redundant chordal structure but cannot exclude IE. Objective Vitals and Measurements T: 36.5 C (Oral) TMIN: 36.4 C (Oral) TMAX: 36.8 C (Oral) HR: 76(Monitored) RR: 18 BP: 118/70 SpO2: 97% Intake and Output 7AM Yesterday to 7AM Today Intake and Output (Last 24 hours) Intake Oral Intake 480.00 Output Urine Voided 200.00 Stool Count 1.00 Urine Count 3.00 Total Summary Total Intake 480.00 Total Output 200.00 Fluid Balance 280.00 Physical Exam General: AAOX3, NAD HEENT: Anicteric sclera, MMM Neck: Trachea midline, no JVD appreciated CVS: RRR, normal S1/S2, no murmurs/rubs/gallops Lung: CTAB, no wheezes/rhonchi/rales Abd: Soft, NT/ND Extrem: WWP, no LE edema Skin: Warm, Intact Neuro: AAOX3, spontaneous movement of all extremities Psych: Appropriate mood & affect Weight Dosing Weight: 67.4 kg (12/25/22) Medications Medications (25) Active Scheduled: (4) clonidine 0.1 mg tablet 0.1 mg 1 tab(s), Oral, BID dicyclomine 10 mg capsule 10 mg 1 cap(s), Oral, QID Nicoderm patch REMOVAL 1 EA, Miscellaneous, q24h nicotine 14 mg/24 hr ER patch 14 mg 1 patch(es), Transdermal, q24h Continuous: (0) PRN: (21) LORAZEPam 1 mg Tablet 1 mg 1 tab(s), Oral, q15min LORAZEPam 1 mg Tablet 3 mg 3 tab(s), Oral, q15min LORAZEPam 2 mg Tablet 2 mg 1 tab(s), Oral, q15min LORAZEPam 2 mg Tablet 4 mg 2 tab(s), Oral, q15min LORAZEPam 2 mg/mL 1 mL vial 1 mg 0.5 mL, IV Push, q15min LORAZEPam 2 mg/mL 1 mL vial 2 mg 1 mL, IV Push, q15min LORAZEPam 2 mg/mL 1 mL vial 2 mg 1 mL, IV Push, q15min LORAZEPam 2 mg/mL 1 mL vial 3 mg 1.5 mL, IV Push, q15min LORAZEPam 2 mg/mL 1 mL vial 3 mg 1.5 mL, IV Push, q15min LORAZEPam 2 mg/mL 1 mL vial 3 mg 1.5 mL, IV Push, q15min LORAZEPam 2 mg/mL 1 mL vial 4 mg 2 mL, IV Push, q15min LORAZEPam 2 mg/mL 1 mL vial 4 mg 2 mL, IV Push, q15min LORAZEPam 2 mg/mL 1 mL vial 5 mg 2.5 mL, IV Push, q15min LORAZEPam 2 mg/mL 1 mL vial 6 mg 3 mL, IV Push, q15min magnesium sulfate 4 gram(s)/100mL PMX 4 g 100 mL, IV Piggyback, AsDirected magnesium sulfate 50% (500mg/mL) 6 g 12 mL, IV Piggyback, AsDirected magnesium sulfate PMX 2 g 50 mL, IV Piggyback, AsDirected potassium chloride (PMX) 20 mEq/100 mL 20 mEq 100 mL, IV Piggyback, AsDirected potassium chloride 20 mEq ER tablet 20 mEq 1 tab(s), Oral, AsDirected potassium chloride 20 mEq ER tablet 40 mEq 2 tab(s), Oral, AsDirected potassium chloride 20 mEq ER tablet 40 mEq 2 tab(s), Oral, AsDirected Lab Results 12/27 04:20 WBC: 6.5 Hgb: 11.6 L Hct: 34.1 L Platelet: 258 Neutrophil %: 41.0 L Glucose Level: 81 Sodium Level: 138 Potassium Level: 4.3 BUN: 10.0 Creatinine Lvl (s): 0.72 12/26 03:16 Glucose Level: 99 Sodium Level: 141 Potassium Level: 3.9 BUN: 7.0 L Creatinine Lvl (s): 0.70 EKG ECG - Completed -- 12/26/22 6:00:00 EDT, at 6 am EKG - Completed -- 12/25/22 23:25:00 EDT Assessment/Plan 1. Concern for endocarditis Patient presented to [place] ED multiple times for fever and was prescribed antibiotics and sent home, but with history of IV drug use was also ordered an echo ECHO [12/22/2022]: EF 60 to 65%, mobile echodensity on mitral valve which represent redundant chordal structure but cannot exclude IE. ID following the case OPG suggestive of dental caries Plan For ED tomorrow Disposition: Depending on ED results 2. Hepatitis C History of IV drug use, last use in January 2022 Hepatitis C antibody positive Plan Follow-up with helicopter specialist as outpatient 3. History of IV drug use Last use January 2020 4. Tobacco abuse Continues to smoke Plan Counseling done to stop smoking for 5 minutes 5. Transaminitis Mild transaminitis with AST and ALT in 50s Could be from alcohol abuse and history of hepatitis C from IV drug use Plan Monitor hepatic panel 6. Alcohol withdrawal Patient drinks alcohol every day and yesterday was showing signs of some withdrawal Started on CIWA protocol Plan Continue CIWA protocol [1] History and Physical; JESUS HOOD MD 12/26/2022 00:36 EDT Digitally Signed by FELICITA STEWARD MD on 12/27/2022 10:08 AM [id number] Note ORIGINAL EXAMINATION: ULTRASOUND ABDOMEN COMPLETE COMPARISON: CT abdomen pelvis 12/01/2022 HISTORY: ORDERING SYSTEM PROVIDED HISTORY: Reason for Exam: Potential infectious process with elevated liver enzymes and endocarditis FINDINGS: The liver measures 17.7 cm and is diffusely echogenic no focal lesions are identified.. There is no intra or extrahepatic bile duct dilatation. The common duct is 4 mm at the anup hepatis. The gallbladder contains sludge without cholelithiasis. No wall thickening or surrounding fluid. The pancreas is suboptimally visualized. Questioned hypoechoic area measuring 0.9 x 1.5 x 1.1 cm near the pancreas. The spleen measures 14.6 x 15.2 x 5.2 cm. No focal lesions are identified. No ascites. The right left kidneys measure 10.8 and 11.4 cm respectively. The kidneys are suboptimally visualized. No hydronephrosis or renal calculus is seen. The aorta and IVC are suboptimally visualized. IMPRESSION: Hyperechoic hepatic parenchyma likely to reflect fatty infiltration. Splenomegaly. Gallbladder sludge. Question hypoechoic area near the pancreas not demonstrated on CT examination of reference. Interpreted by: Nancy Santoyo MD Preliminary Report By: Nancy Santoyo MD Electronically signed By Nancy Santoyo MD Dictated Date: 12/27/2022 8:16:22 AM Prelim Date: 12/27/2022 8:22:14 AM Sign Date: 12/27/2022 8:22:14 AM Ordering Provider: [facility]09-09[facility]23 History and physical note Date of Service 12/26/2022 Chief Complaint Fevers Review of Systems Apart from mentioned in HPI, pertinent review of systems is otherwise negative. Physical Exam Vitals and Measurements T: 36.5 C (Oral) HR: 72(Monitored) RR: 18 BP: 120/88 SpO2: 98% HT: 165.1 cm WT: 67.4 kg BMI: 24.73 Weight Dosing Weight: 67.4 kg (12/25/22) General Appearance: Comfortable, not in acute distress, poor hygiene, multiple tattoos Cardiac: S1, S2, no murmurs, regular rhythm, normal rate, no lower extremity edema, no crackles, noJVP distention, warm extremities. Lungs: No wheezes, normal chest expansion. Abdomen: No tenderness, no distention, normal bowel sounds. Musculoskeletal: No signs of acute synovitis. Neurological: Alert and oriented x3, no focal neurological deficits grossly. Psychiatric: Appropriate, normal mood. 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 Jernigan is a 32-year-old man with history of hepatitis C, incarceration, IV drug use, coarse tremors, has been seeing his PCP for the past few weeks mainly for tremors and health maintenance, due to fevers and history of IVDU, TTE was ordered, which showed potential vegetation on the posterior left the mitral valve. The patient was called and instructed to present to ER if fevers. He went to [place] ER on 12/25/2022, reporting fevers of 100 F, no chest pain, shortness of breath, lower extremity swelling, orthopnea, cough or phlegm, weakness or numbness, no other constitutional symptoms. Patient endorses that his last drug use was 01/2022, he used to use IV heroin and fentanyl, reuse needles, did not lick or share needles. Euvolemic and largely unremarkable exam. Afebrile. Blood cultures remain negative so far. Plan: Continue to monitor blood cultures and blood work ED on Wednesday to delineate mitral valve pathology, we suspect ruptured cord rather than actual vegetation given the absence of valve destruction or significant MR, potential CT surgery consult pending that Antibiotics per ID, appreciated Discussed with Dr. Lucinda Hood MD [employer] or Pager [phone] Problem List/Past Medical History Ongoing Coarse tremors Diaphoresis Elevated liver enzymes Fentanyl use disorder, moderate Fever of unknown origin (FUO) Hepatitis C History of intravenous drug abuse Nausea SOB (shortness of breath) Vasculitis Vomiting Weight loss Historical Mild fentanyl abuse Procedure/Surgical History No qualifying data available. Medications Home Medications (4) Active cloNIDine 0.1 mg oral tablet 0.1 mg = 1 tab(s), Oral, BID dicyclomine 10 mg oral capsule 10 mg = 1 cap(s), Oral, QID naloxone 4 mg/0.1 mL nasal spray 1 spray(s), PRN, Intranasal, AsDirected Zofran 4 mg oral tablet 4 mg = 1 tab(s), PRN, Oral, q6h Allergies NKA Social History Smoking Status - 01/11/2017 Current every day smoker Alcohol - Low Risk, 01/11/2017 Use: Never., 12/01/2022 Nutrition/Health Caffeine intake amount: pop lots daily., 12/07/2022 Substance Abuse - Denies Substance Abuse, 01/11/2017 Use: Past. Type: Heroin., 12/07/2022 Tobacco Nicotine Use: 5-9 cigarettes (between 1/4 to 1/2 pack)/day in last 30 days., 01/29/2021 Immunizations No qualifying data available. Code Status No qualifying data available. Digitally Signed by JESUS HOOD MD on 12/26/2022 03:08 AM Digitally Signed by JESUS HOOD MD on 12/26/2022 09:30 AM Digitally Signed by JESUS HOOD MD on 12/26/2022 09:31 AM [id number] Note ORIGINAL EXAMINATION: ONE XRAY VIEW OF THE PANOREX 12/26/2022 2:24 pm COMPARISON: None. HISTORY: ORDERING SYSTEM PROVIDED HISTORY: Reason for Exam: Infection with endocarditis/poor dentition to FINDINGS: There are lucencies diffusely suggesting dental caries. There are multiple apical lucencies which could relate to dental abscesses involving the remainder of the bilateral upper dentition and the right lower dentition, and left molars. There is some sparing of the left lower dentition otherwise. IMPRESSION: Extensive dental caries and apical lucency suggesting multiple dental abscesses. 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 Jernigan is a 32-year-old man with history of hepatitis C, incarceration, IV drug use, coarse tremors, has been seeing his PCP for the past few weeks mainly for tremors and health maintenance, due to fevers and history of IVDU, TTE was ordered, which showed potential vegetation on the posterior left the mitral valve. The patient was called and instructed to present to ER if fevers. He went to [facility] ER on 12/25/2022, reporting fevers of 100 F, no chest pain, shortness of breath, lower extremity swelling, orthopnea, cough or phlegm, weakness or numbness, no other constitutional symptoms. Patient endorses that his last drug use was 01/2022, he used to use IV heroin and fentanyl, reuse needles, did not lick or share needles. Euvolemic and largely unremarkable exam. Afebrile. Blood cultures remain negative so far. Plan: Continue to monitor blood cultures and blood work ED on Wednesday to delineate mitral valve pathology, we suspect ruptured cord rather than actual vegetation given the absence of valve destruction or significant MR, potential CT surgery consult pending that Antibiotics per ID, appreciated Discussed with Dr. Lucinda Hood MD [employer] or Pager [phone] Addendum by VINAY JANE on December 26, 2022 16:35:51 EDT I have personally seen, examined, and evaluated the patient on the encounter date. I have reviewed the fellow s documentation and agree with the fellow s findings and plan as documented, unless otherwise stated. Future Appointments Appointment Date:01/29/2023 10:30:00 AM Scheduled Provider: Location:[facility] Appointment Type:[facility] Hospital Follow Up Diagnostic Tests Pending * MRSA (PCR) 12/28/22 [place] 09-09-2023 Infectious disease Consult note Date of Service December 26, 2022 Reason for Consultation Endocarditis Referring Physician Cardiology team History of Present Illness Pleasant 32-year-old gentleman with history of hepatitis C and history of IV drug use and incarceration who has been admitted with tremors seen fevers with history of IV drug use, [facility], ED revealed potential vegetations on the posterior leaflet of the mitral valve, ED scheduled, blood cultures were obtained and currently patient stable and comfortable in bed but complains of occasional tremors, denies travel or sick contacts, ID consultation was placed He admitted that he had used IV fentanyl and heroin, he had poor dentition as well Review of Systems Tremors and low-grade fevers, fatigue and some weight loss otherwise 10 point review of systems negative Physical Exam Vitals and Measurements T: 36.4 C (Oral) TMIN: 36.4 C (Oral) TMAX: 36.7 C (Oral) HR: 76(Monitored) RR: 16 BP: 128/80 SpO2: 98% HT: 165.1 cm WT: 67.4 kg BMI: 24.73 Weight Dosing Weight: 67.4 kg (12/25/22) General Appearance: Awake, alert, and oriented HEENT: Normocephaly. Poor dentition Neck: Normal without lymphadenopathy Cardiac: Heart regular rhythm Lungs: Abdomen: Soft, non-tender, non-distended Extremities:Warm without clubbing, cyanosis or edema. Neurological: No acute new neurologic deficits but tremor Skin: Warm, dry, intact. No rashes Psychiatric: No abnormal behaviors Lab Results 12/26 03:16 Glucose Level: 99 Sodium Level: 141 Potassium Level: 3.9 BUN: 7.0 L Creatinine Lvl (s): 0.70 Assessment/Plan Vomiting Infective endocarditis, mitral valve Hepatitis C Poor dentition IV drug use Tremors 32-year-old gentleman with hep C and IV drug use and now admitted with concern of sepsis by the primary team for evaluation for endocarditis, blood cultures are negative, has been afebrile ED at this Wednesday Hep C evaluation and treatment as an outpatient with GI We will obtain Panorex given the poor dentition We will obtain HIV and RPR and hepatitis panel We will follow clinical course and microdata Discussed with patient regarding the plan of care and potential side effect of antibiotic therapy and we counseled him regarding the risk of infection associated with IV drug use and all his questions were answered Patient will benefit from neurology consultation for tremors Thank you for allowing us this patient in consultation Problem List/Past Medical History Ongoing Coarse tremors Diaphoresis Elevated liver enzymes Fentanyl use disorder, moderate Fever of unknown origin (FUO) Hepatitis C History of intravenous drug abuse Nausea SOB (shortness of breath) Vasculitis Vomiting Weight loss Historical Mild fentanyl abuse Procedure/Surgical History No qualifying data available. Medications Inpatient Ativan, 1 mg= 1 tab(s), Oral, q15min, PRN Ativan, 1 mg= 0.5 mL, IV Push, q15min, PRN Ativan, 2 mg= 1 tab(s), Oral, q15min, PRN Ativan, 2 mg= 1 mL, IV Push, q15min, PRN Ativan, 2 mg= 1 mL, IV Push, q15min, PRN Ativan, 3 mg= 1.5 mL, IV Push, q15min, PRN Ativan, 3 mg= 1.5 mL, IV Push, q15min, PRN Ativan, 3 mg= 3 tab(s), Oral, q15min, PRN Ativan, 3 mg= 1.5 mL, IV Push, q15min, PRN Ativan, 4 mg= 2 tab(s), Oral, q15min, PRN Ativan, 4 mg= 2 mL, IV Push, q15min, PRN Ativan, 4 mg= 2 mL, IV Push, q15min, PRN Ativan, 5 mg= 2.5 mL, IV Push, q15min, PRN Ativan, 6 mg= 3 mL, IV Push, q15min, PRN cloNIDine, 0.1 mg= 1 tab(s), Oral, BID dicyclomine, 10 mg= 1 cap(s), Oral, QID magnesium sulfate for IV bolus, 2 gram(s)= 50 mL, IV Piggyback, AsDirected, PRN magnesium sulfate for IV bolus, 4 gram(s)= 100 mL, IV Piggyback, AsDirected, PRN magnesium sulfate for IV bolus Nicoderm C-Q 14 mg/24 hr transdermal film, extended release, 14 mg= 1 patch(es), Transdermal, q24h nicotine (Nicoderm Patch REMOVAL), 1 EA, Miscellaneous, Once nicotine (Nicoderm Patch REMOVAL), 1 EA, Miscellaneous, q24h potassium chloride, 20 mEq= 1 tab(s), Oral, AsDirected, PRN potassium chloride, 40 mEq= 2 tab(s), Oral, AsDirected, PRN potassium chloride, 40 mEq= 2 tab(s), Oral, AsDirected, PRN potassium chloride bolus, 20 mEq= 100 mL, IV Piggyback, AsDirected, PRN Home cloNIDine 0.1 mg oral tablet, 0.1 mg= 1 tab(s), Oral, BID, Not taking dicyclomine 10 mg oral capsule, 10 mg= 1 cap(s), Oral, QID, Not taking naloxone 4 mg/0.1 mL nasal spray, 1 spray(s), Intranasal, AsDirected, PRN, Not taking Zofran 4 mg oral tablet, 4 mg= 1 tab(s), Oral, q6h, PRN, 1 refills Allergies NKA Social History Smoking Status - 01/11/2017 Current every day smoker Alcohol - Low Risk, 01/11/2017 Use: Never., 12/01/2022 Nutrition/Health Caffeine intake amount: pop lots daily., 12/07/2022 Substance Abuse - Denies Substance Abuse, 01/11/2017 Use: Past. Type: Heroin., 12/07/2022 Tobacco Nicotine Use: 5-9 cigarettes (between 1/4 to 1/2 pack)/day in last 30 days., 01/29/2021 Immunizations No qualifying data available. Digitally Signed by YAIR LAM BA, MD on 12/26/2022 01:51 PM [id number] NoteSINUS RHYTHM Electronic Signature: ERIC COMBS MD 12/26/2022 15:35:15[facility] 09-09-2023 History and physical note Date of Service 12/26/2022 Chief Complaint Fevers Review of Systems Apart from mentioned in HPI, pertinent review of systems is otherwise negative. Physical Exam Vitals and Measurements T: 36.5 C (Oral) HR: 72(Monitored) RR: 18 BP: 120/88 SpO2: 98% HT: 165.1 cm WT: 67.4 kg BMI: 24.73 Weight Dosing Weight: 67.4 kg (12/25/22) General Appearance: Comfortable, not in acute distress, poor hygiene, multiple tattoos Cardiac: S1, S2, no murmurs, regular rhythm, normal rate, no lower extremity edema, no crackles, noJVP distention, warm extremities. Lungs: No wheezes, normal chest expansion. Abdomen: No tenderness, no distention, normal bowel sounds. Musculoskeletal: No signs of acute synovitis. Neurological: Alert and oriented x3, no focal neurological deficits grossly. Psychiatric: Appropriate, normal mood. 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 Jernigan is a 32-year-old man with history of hepatitis C, incarceration, IV drug use, coarse tremors, has been seeing his PCP for the past few weeks mainly for tremors and health maintenance, due to fevers and history of IVDU, TTE was ordered, which showed potential vegetation on the posterior left the mitral valve. The patient was called and instructed to present to ER if fevers. He went to [facility] on 12/25/2022, reporting fevers of 100 F, no chest pain, shortness of breath, lower extremity swelling, orthopnea, cough or phlegm, weakness or numbness, no other constitutional symptoms. Patient endorses that his last drug use was 01/2022, he used to use IV heroin and fentanyl, reuse needles, did not lick or share needles. Euvolemic and largely unremarkable exam. Afebrile. Blood cultures remain negative so far. Plan: Continue to monitor blood cultures and blood work ED on Wednesday to delineate mitral valve pathology, we suspect ruptured cord rather than actual vegetation given the absence of valve destruction or significant MR, potential CT surgery consult pending that Antibiotics per ID, appreciated Discussed with Dr. Lucinda Hood MD [employer] or Pager [phone] Problem List/Past Medical History Ongoing Coarse tremors Diaphoresis Elevated liver enzymes Fentanyl use disorder, moderate Fever of unknown origin (FUO) Hepatitis C History of intravenous drug abuse Nausea SOB (shortness of breath) Vasculitis Vomiting Weight loss Historical Mild fentanyl abuse Procedure/Surgical History No qualifying data available. Medications Home Medications (4) Active cloNIDine 0.1 mg oral tablet 0.1 mg = 1 tab(s), Oral, BID dicyclomine 10 mg oral capsule 10 mg = 1 cap(s), Oral, QID naloxone 4 mg/0.1 mL nasal spray 1 spray(s), PRN, Intranasal, AsDirected Zofran 4 mg oral tablet 4 mg = 1 tab(s), PRN, Oral, q6h Allergies NKA Social History Smoking Status - 01/11/2017 Current every day smoker Alcohol - Low Risk, 01/11/2017 Use: Never., 12/01/2022 Nutrition/Health Caffeine intake amount: pop lots daily., 12/07/2022 Substance Abuse - Denies Substance Abuse, 01/11/2017 Use: Past. Type: Heroin., 12/07/2022 Tobacco Nicotine Use: 5-9 cigarettes (between 1/4 to 1/2 pack)/day in last 30 days., 01/29/2021 Immunizations No qualifying data available. Code Status No qualifying data available. Digitally Signed by JESUS HOOD MD on 12/26/2022 03:08 AM Digitally Signed by JESUS HOOD MD on 12/26/2022 09:30 AM Digitally Signed by JESUS HOOD MD on 12/26/2022 09:31 AM [id number] NoteATRIAL FLUTTER Electronic Signature: ERIC COMBS MD 12/26/2022 15:35:[address] [place] [address] 09-08-2023 Note ORIGINAL EXAMINATION: ONE XRAY VIEW OF THE CHEST12/25/2022 1:50 pm COMPARISON: 11/29/2022 HISTORY: ORDERING SYSTEM PROVIDED HISTORY: Reason for Exam: pain/fever FINDINGS: The cardiomediastinal contours are normal. Vascular structures appear within normal limits. Chronic blunting of the left costophrenic sinus noted. No pleural fluid or pneumothorax. No aggressive osseous lesions identified.Bony detail is not optimal. IMPRESSION: Chronic blunting of the left costophrenic sinus could relate to pleural-parenchymal scarring or a small left pleural effusion. Interpreted by: Morales Brice MD Preliminary Report By: Morales Brice MD Electronically signed By Morales Brice MD Dictated Date: 12/25/2022 1:55:03 PM Prelim Date: 12/25/2022 1:56:10 PM Sign Date: 12/25/2022 1:56:10 PM Ordering Provider: [facility]09-08-2023 Note ORIGINAL HISTORY: Endocarditis, worsening headache COMPARISON: No TECHNIQUE: Routine non-contrast head CT with sagittal and coronal reconstructions This exam was performed according to our departmental dose optimization program, and includes the following measures where applicable: automated exposure control, adjustment of the mAs and/or kVp according to patient size and/or exam, and an iterative reconstruction algorithm. FINDINGS: The ventricles and sulci are normal in size and configuration. There are no abnormal intra or extra-axial fluid collections. Lopez-white matter differentiation is maintained. The calvaria and the bones of the base of the skull are intact. IMPRESSION: Normal examination. Interpreted by: Chris Jon MD Preliminary Report By: Chris Jon MD Electronically signed By Chris Jon MD Dictated Date: 12/25/2022 1:57:31 PM Prelim Date: 12/25/2022 1:58:59 PM Sign Date: 12/25/2022 1:58:59 PM [facility] Sinus rhythm Electronic Signature: KENDALL DACOSTA MD 12/25/2022 12:58:05[facility] 09-05-2023 Note* Exam Date Time Procedure Performing Provider Status 12/22/22 12:02 PM Echocardiogram, Adult ([facility]) Auth (Verified) [facility] 08-18-2023 Note. MICRO - Microbiology PROCEDURE: Blood Culture (bacterial) [*1] SOURCE: Blood BODY SITE: COLLECTED DATE/TIME: 11/29/2022 13:21 EDT RECEIVED DATE/TIME: 11/29/2022 18:15 EDT START DATE/TIME: 11/29/2022 18:15 EDT FREE TEXT SOURCE: FINAL REPORTS Final Report [] Verified Date/Time/Personnel: 12/04/2022 18:59 EDT Blood Culture: No Growth at 5 days. PRELIMINARY REPORTS Preliminary Report [] Verified Date/Time/Personnel: 11/29/2022 18:59 EDT Culture has been received in lab and is no growth to date. Routine cultures are held for 5 days. Performing Locations *1: This test was performed at: [place], [address] [place] [address], [facility] , [facility] ([place])12-04-2022 Note. MICRO - Microbiology PROCEDURE: Blood Culture (bacterial) [*1] SOURCE: Blood BODY SITE: COLLECTED DATE/TIME: 11/29/2022 13:21 EDT RECEIVED DATE/TIME: 11/29/2022 18:15 EDT START DATE/TIME: 11/29/2022 18:15 EDT FREE TEXT SOURCE: FINAL REPORTS Final Report [] Verified Date/Time/Personnel: 12/04/2022 18:59 EDT Blood Culture: No Growth at 5 days. PRELIMINARY REPORTS Preliminary Report [] Verified Date/Time/Personnel: 11/29/2022 18:59 EDT Culture has been received in lab and is no growth to date. Routine cultures are held for 5 days. Performing Locations *1: This test was performed at: [place], [address] [place] [address], [phone] , [facility] ([place]12-02-2022 Hospital Discharge instructions Patient Education 12/02/2022 00:45:28 AA Blank DI(CUSTOM) Nausea vomiting and sweating No emergency cause for your symptoms were found. Please take the medications as prescribed. Be sureyou are drinking plenty of fluids. Follow-up outpatient if your symptoms persist. Document Released: 04/05/2006 Document Revised: 03/22/2013 Document Reviewed: 04/06/2014 ExitCare Patient Information 2015 [employer]. This information is not intended to replace advicegiven to you by your health care provider. Make sure you discuss any questions you have with your health care provider. Follow Up Care 12/01/2022 21:00:20 With:DAVID RAMIRES DO Address: [address] [place] [phone] When:2-4 days [facility] 08-16-2023 Note Discharge Instructions Thank you for allowing [facility] to assist you with your healthcare needs. The following is importantdischarge information regarding your hospital visit. Diagnosis from Today's Visit Fever Vomiting Vomiting What to Do Next Instructions from Your Care Team No qualifying data available. Post Acute Orders No qualifying data available. You Need to Schedule the Following Appointments Follow Up with DAVID RAMIRES DO When Within 2-4 days Where: [address] [place] [phone] Allergies NKA Medications Please ask your primary doctor or pharmacist before taking any other medication not listed, including over the counter drugs, herbal medications, vitamins and or supplements as they may interact withyour home medications. What How Much When Why Instructions Last Dose New cloNIDine (cloNIDine 0.1 mg oral tablet) 1 tab(s) by mouth Two (2) times a day Vomiting Duration: 3 Days Printed Prescription New dicyclomine (dicyclomine 10 mg oral capsule) 1 cap by mouth Four (4) times a day Duration: 7 Days Printed Prescription New promethazine (promethazine 25 mg oral tablet) 1 tab(s) by mouth Every 4 hours Printed Prescription Please take this list to your next doctor s visit. Bring all medications you take, including over the counter medications, herbals and other supplements with you to your doctor s visit. Patients and families are reminded to discard old lists and to update any records with all medication providers or retail pharmacies. Medication Leaflets promethazine (oral) (pro METH a zeen) Phenergan What is the most important information I should know about promethazine? Promethazine should not be given to a child younger than 2 years old. Promethazine can cause severebreathing problems or in very young children. What is promethazine? Promethazine is used to treat allergy symptoms such as itching, runny nose, sneezing, itchy or watery eyes, hives, and itchy skin rashes. Promethazine also prevents motion sickness, and treats nausea and vomiting or pain after surgery. It is also used as a sedative or sleep aid. Promethazine is not for use in treating symptoms of asthma, pneumonia, or other lower respiratory tract infections. Promethazine may also be used for purposes not listed in this medication guide. What should I discuss with my healthcare provider before taking promethazine? Promethazine should not be given to a child younger than 2 years old. Promethazine can cause severebreathing problems or in very young children. Carefully follow your doctor's instructions when giving this medicine to a child of any age. You should not take this medicine if you are allergic to promethazine or to similar medicines such as chlorpromazine, fluphenazine, mesoridazine, perphenazine, prochlorperazine, thioridazine, or trifluoperazine. Tell your doctor if you have ever had: asthma, chronic obstructive pulmonary disease (COPD), sleep apnea, or other breathing disorder; a history of seizures; a weak immune system (bone marrow depression); glaucoma; enlarged prostate or problems with urination; stomach ulcer or obstruction; heart disease or high blood pressure; liver disease; or if you have ever had a serious side effect while using promethazine or any other phenothiazine. Tell your doctor if you are or . How should I take promethazine? Follow all directions on your prescription label and read all medication guides or instruction sheets. Your doctor may occasionally change your dose. Use the medicine exactly as directed. Promethazine is often taken at bedtime or before meals. For motion sickness, promethazine is usually started within 1 hour before traveling. When used for surgery, promethazine is usually taken the night before the surgery. How often you take this medicine and the timing of your dose will depend on the condition being treated. Measure liquid medicine with the dosing syringe provided, or with a special dose-measuring spoon ormedicine cup. If you do not have a dose-measuring device, ask your pharmacist for one. If a child is using this medicine, tell your doctor if the child has any changes in weight. Promethazine doses are based on weight in children, and any changes may affect your child's dose. Call your doctor if your symptoms do not improve, or if they get worse while using promethazine. This medicine can cause unusual results with certain medical tests. Tell any doctor who treats you that you are using promethazine. Store at room temperature away from moisture, heat, and light. What happens if I miss a dose? Take the medicine as soon as you can, but skip the missed dose if it is almost time for your next dose. Do not take two doses at one time. What happens if I overdose? Seek emergency medical attention or call the Poison Help line at . Overdose symptoms may include overactive reflexes, loss of coordination, severe drowsiness or weakness, fainting, dilated pupils, weak or shallow breathing, or seizure (convulsions). What should I avoid while taking promethazine? This medicine may impair your thinking or reactions. Be careful if you drive or do anything that requires you to be alert. Avoid getting up too fast from a sitting or lying position, or you may feel dizzy. Get up slowly and steady yourself to prevent a fall. Drinking alcohol can increase certain side effects of promethazine. Avoid exposure to sunlight or tanning beds. Promethazine can make you sunburn more easily. Wear protective clothing and use sunscreen (SPF 30 or higher) when you are outdoors. What are the possible side effects of promethazine? Get emergency medical help if you have signs of an allergic reaction: hives; difficult breathing; swelling of your face, lips, tongue, or throat. Call your doctor at once if you have: severe drowsiness, weak or shallow breathing; a light-headed feeling, like you might pass out; confusion, agitation, hallucinations, nightmares; seizure (convulsions); fast or slow heartbeats; jaundice (yellowing of the skin or eyes); uncontrolled muscle movements in your face (chewing, lip smacking, frowning, tongue movement, blinking or eye movement); easy bruising or bleeding (nosebleeds, bleeding gums); sudden weakness or ill feeling, fever, chills, sore throat, mouth sores, red or swollen gums, trouble swallowing; or severe nervous system reaction--very stiff (rigid) muscles, high fever, sweating, confusion, fast or uneven heartbeats, tremors, feeling like you might pass out. Common side effects may include: drowsiness, dizziness; ringing in your ears; double vision; feeling nervous; dry mouth; or tiredness, sleep problems (insomnia). This is not a complete list of side effects and others may occur. Call your doctor for medical advice about side effects. You may report side effects to FDA at 7-520-GCD-9774. What other drugs will affect promethazine? Using promethazine with other drugs that make you drowsy can worsen this effect. Ask your doctor before using opioid medication, a sleeping pill, a muscle relaxer, or medicine for anxiety or seizures. Other drugs may affect promethazine, including prescription and ilju-uur-fayuitf medicines, vitamins, and herbal products. Tell your doctor about all other medicines you use. Where can I get more information? Your doctor or pharmacist can provide more information about promethazine. Remember, keep this and all other medicines out of the reach of children, never share your medicines with others, and use this medication only for the indication prescribed. Every effort has been made to ensure that the information provided by [employer]') is accurate, up-to-date, and complete, but no guarantee is made to that effect. Drug information contained herein may be time sensitive. [employer] information has been compiled for use by healthcare practitioners and consumers in the [place] and therefore [employer] does not warrant that uses outside of the [place] are appropriate, unless specifically indicated otherwise. [employer] drug information does not endorse drugs, diagnose patients or recommend therapy. [employer] drug information isan informational resource designed to assist licensed healthcare practitioners in caring for their p atients and/or to serve consumers viewing this service as a supplement to, and not a substitute for, the expertise, skill, knowledge and judgment of healthcare practitioners. The absence of a warningfor a given drug or drug combination in no way should be construed to indicate that the drug or drug combination is safe, effective or appropriate for any given patient. [facility] does not assume any responsibility for any aspect of healthcare administered with the aid of information [employer] provides. The information contained herein is not intended to cover all possible uses, directions, precautions, warnings, drug interactions, allergic reactions, or adverse effects. If you have questions about the drugs you are taking, check with your doctor, nurse or pharmacist. Copyright 2258-8732 [facility] [employer]. Version: 8.01. Revision Date: 05/14/2021. clonidine (oral) (KLOE rita chowdhury) Kapvay What is the most important information I should know about clonidine? Use only as directed. Tell your doctor if you use other medicines or have other medical conditions or allergies. What is clonidine? Clonidine is used to treat hypertension (high blood pressure). The Kapvay brand of clonidine is used to treat attention deficit hyperactivity disorder (ADHD). This medicine is sometimes given with other medications. Clonidine is also available as a transdermal patch worn on the skin. Do not use two forms of this medicine at the same time. Clonidine may also be used for purposes not listed in this medication guide. What should I discuss with my healthcare provider before taking clonidine? You should not take this medicine if you are allergic to clonidine. Tell your doctor if you have ever had: heart disease or severe coronary artery disease; a heart rhythm disorder, slow heartbeats; high or low blood pressure, or a history of fainting spells; a heart attack or stroke; pheochromocytoma (tumor of the adrenal gland); kidney disease; or if you have ever had an allergic reaction to a clonidine transdermal skin patch (Catapres TTS). It is not known if clonidine will harm an unborn baby. Tell your doctor if you are or planto become . If you are , your name may be listed on a registry to track the effects of clonidine on the baby. Clonidine may affect fertility in men or women. could be harder to achieve while either parent is using this medicine. If you are , tell your doctor if you notice somnolence, tiredness, rapid breathing, and poor feeding in the nursing baby. Catapres is not approved for use by anyone younger than 18 years old. Do not give Kapvay to a childyounger than 6 years old. How should I take clonidine? Follow all directions on your prescription label and read all medication guides or instruction sheets. Your doctor may occasionally change your dose. Use the medicine exactly as directed. Clonidine is usually taken in the morning and at bedtime. If you take different doses of this medicine at each dosing time, it may be best to take the larger dose at bedtime. Clonidine may be taken with or without food. Swallow the extended-release tablet whole and do not crush, chew, or break it. Tell your doctor if you have a planned surgery. You may have withdrawal symptoms if you stop using clonidine suddenly. Ask your doctor before stopping the medicine. Call your doctor if you are sick with vomiting. This is especially important for a child taking clonidine. If you have high blood pressure, keep using this medicine even if you feel well. High blood pressure often has no symptoms. Store at room temperature away from moisture, heat, and light. What happens if I miss a dose? Skip the missed dose and use your next dose at the regular time. Do not use two doses at one time. What happens if I overdose? Seek emergency medical attention or call the Poison Help line at . Overdose symptoms may include feeling cold, irritable, weak, drowsy, or light- headed, or having weak reflexes, pinpoint pupils, slow heartbeats, shallow breathing, or a seizure. What should I avoid while taking clonidine? Avoid drinking alcohol. It may increase certain side effects of clonidine. Avoid driving or hazardous activity until you know how this medicine will affect you. Dizziness or drowsiness can cause falls, accidents, or severe injuries. Avoid becoming overheated or dehydrated during exercise and in hot weather. What are the possible side effects of clonidine? Get emergency medical help if you have signs of an allergic reaction: hives; difficult breathing; swelling of your face, lips, tongue, or throat. Call your doctor at once if you have: severe chest pain, shortness of breath, irregular heartbeats; a very slow heart rate; or a light-headed feeling, like you might pass out. Common side effects may include: drowsiness, dizziness; feeling tired or irritable; dry mouth; constipation, loss of appetite; or sleep problems (insomnia), nightmares. This is not a complete list of side effects and others may occur. Call your doctor for medical advice about side effects. You may report side effects to FDA at 0-038-ZHP-3270. What other drugs will affect clonidine? Using clonidine with other drugs that make you drowsy can worsen this effect. Ask your doctor before using opioid medication, a sleeping pill, a muscle relaxer, or medicine for anxiety or seizures. Tell your doctor about all your other medicines, especially: other heart or blood pressure medications; an antidepressant; or any other medicine that contains clonidine. This list is not complete. Other drugs may interact with clonidine, including prescription and anln-kgp-uxatuxe medicines, vitamins, and herbal products. Not all possible interactions are listed in this medication guide. Where can I get more information? Your pharmacist can provide more information about clonidine. Remember, keep this and all other medicines out of the reach of children, never share your medicines with others, and use this medication only for the indication prescribed. Every effort has been made to ensure that the information provided by [employer]') is accurate, up-to-date, and complete, but no guarantee is made to that effect. Drug information contained herein may be time sensitive. [employer] information has been compiled for use by healthcare practitioners and consumers in the [place] and therefore [employer]point does not warrant that uses outside of the [place] are appropriate, unless specifically indicated otherwise. [facility] drug information does not endorse drugs, diagnose patients or recommend therapy. [facility] drug information isan informational resource designed to assist licensed healthcare practitioners in caring for their p atients and/or to serve consumers viewing this service as a supplement to, and not a substitute for, the expertise, skill, knowledge and judgment of healthcare practitioners. The absence of a warningfor a given drug or drug combination in no way should be construed to indicate that the drug or drug combination is safe, effective or appropriate for any given patient. [facility] does not assume any responsibility for any aspect of healthcare administered with the aid of information [facility] provides. The information contained herein is not intended to cover all possible uses, directions, precautions, warnings, drug interactions, allergic reactions, or adverse effects. If you have questions about the drugs you are taking, check with your doctor, nurse or pharmacist. Copyright 9027-4804 [facility]. Version: 03.19. Revision Date: 11/20/2022. dicyclomine (oral/injection) (rohith Vang What is the most important information I should know about dicyclomine? Many drugs can affect dicyclomine. Tell your doctor about all your current medicines. What is dicyclomine? Dicyclomine is used to treat functional bowel or irritable bowel syndrome. Dicyclomine may also be used for purposes not listed in this medication guide. What should I discuss with my healthcare provider before taking dicyclomine? You should not use dicyclomine if you are allergic to it, or if you have: glaucoma; a bladder obstruction or other urination problems; a blockage in your digestive tract (stomach or intestines); severe ulcerative colitis; gastroesophageal reflux disease (GERD); a serious heart condition and active bleeding; myasthenia gravis; or if you are a baby. Not approved for use by anyone younger than 18 years old. Dicyclomine should never be given to a child younger than 6 months old. Tell your doctor if you have ever had: heart problems or high blood pressure; a stroke; ulcerative colitis; an ileostomy or colostomy; an enlarged prostate; or liver or kidney disease. Older adults may be more sensitive to the effects of this medicine. Tell your doctor if you are . Do not breastfeed. How should I take dicyclomine? Follow all directions on your prescription label and read all medication guides or instruction sheets. Your doctor may occasionally change your dose. Use the medicine exactly as directed. Dicyclomine oral is taken by mouth. Measure liquid medicine with the supplied syringe or a dose-measuring device (not a kitchen spoon). Dicyclomine injection is given in a muscle if you are unable to take the medicine by mouth. Call your doctor if your symptoms do not improve after 2 weeks. Store at room temperature away from moisture and heat. What happens if I miss a dose? Skip the missed dose and use your next dose at the regular time. Do not use two doses at one time. What happens if I overdose? Seek emergency medical attention or call the Poison Help line at . Overdose can cause nausea, vomiting, dilated pupils, weakness or loss of movement in any part of your body, trouble swallowing, fainting, or seizure (convulsions). What should I avoid while taking dicyclomine? May cause dizziness or blurred vision. Avoid driving or hazardous activity until you know how this medicine will affect you. Avoid becoming overheated or dehydrated during exercise and in hot weather. Dicyclomine can decrease sweating and you may be more prone to heat stroke. Tell your doctor if you have a fever while taking dicyclomine. Avoid using an antacid. Antacids can make it harder for your body to absorb dicyclomine oral. What are the possible side effects of dicyclomine? Get emergency medical help if you have signs of an allergic reaction: hives; difficult breathing; swelling of your face, lips, tongue, or throat. Call your doctor at once if you have: fast or slow heartbeats, pounding heartbeats or fluttering in your chest; confusion, agitation, hallucinations, unusual thoughts or behavior; problems with memory or speech; problems with balance or muscle movement; diarrhea, severe constipation, or worsening of bowel symptoms; trouble swallowing; bruising, swelling, or pain where a dicyclomine injection was given; or dehydration --dizziness, confusion, feeling very thirsty, less urination or sweating. Confusion and mood or behavior changes may be more likely in older adults. Common side effects may include: drowsiness, dizziness, weakness, nervousness; blurred vision; dry mouth; or nausea. This is not a complete list of side effects and others may occur. Call your doctor for medical advice about side effects. You may report side effects to FDA at 0-420-PKE-5685. What other drugs will affect dicyclomine? Using dicyclomine with other drugs that make you drowsy can worsen this effect. Ask your doctor before using opioid medication, a sleeping pill, a muscle relaxer, or medicine for anxiety or seizures. Tell your doctor about all your current medicines. Many drugs can affect dicyclomine, especially: bronchodilator asthma medication; cold or allergy medicine (Benadryl and others); glaucoma medication; heart medication; medicine to treat depression, anxiety, mood disorders, or mental illness; medicine to treat overactive bladder; medicine to treat Parkinson's disease; or medicine to treat stomach problems, motion sickness, or irritable bowel syndrome. This list is not complete and many other drugs may affect dicyclomine. This includes prescription and oqno-atc-jflfdhb medicines, vitamins, and herbal products. Not all possible drug interactions arelisted here. Where can I get more information? Your pharmacist can provide more information about dicyclomine. Remember, keep this and all other medicines out of the reach of children, never share your medicines with others, and use this medication only for the indication prescribed. Every effort has been made to ensure that the information provided by [employer] is accurate, up-to-date, and complete, but no guarantee is made to that effect. Drug information contained herein may be time sensitive. [employer] information has been compiled for use by healthcare practitioners and consumers in the [place] and therefore [employer] does not warrant that uses outside of the [place] are appropriate, unless specifically indicated otherwise. [facility] drug information does not endorse drugs, diagnose patients or recommend therapy. [facility] drug information isan informational resource designed to assist licensed healthcare practitioners in caring for their p atients and/or to serve consumers viewing this service as a supplement to, and not a substitute for, the expertise, skill, knowledge and judgment of healthcare practitioners. The absence of a warningfor a given drug or drug combination in no way should be construed to indicate that the drug or drug combination is safe, effective or appropriate for any given patient. [employer] does not assume any responsibility for any aspect of healthcare administered with the aid of information [employer] provides. The information contained herein is not intended to cover all possible uses, directions, precautions, warnings, drug interactions, allergic reactions, or adverse effects. If you have questions about the drugs you are taking, check with your doctor, nurse or pharmacist. Copyright 0547-1015 [employer]. Version: 8.01. Revision Date: 11/20/2022. Education Materials Nausea vomiting and sweating No emergency cause for your symptoms were found. Please take the medications as prescribed. Be sureyou are drinking plenty of fluids. Follow-up outpatient if your symptoms persist. Document Released: 04/05/2006 Document Revised: 03/22/2013 Document Reviewed: 04/06/2014 ExitCare Patient Information 2015 [employer]. This information is not intended to replace advicegiven to you by your health care provider. Make sure you discuss any questions you have with your health care provider. Additional Information VACCINATE! IT SAVES LIVES! Members of the community who have not yet received the COVID-19 vaccine and would like to receive it can visit one of [facility] vaccine clinics. There are many vaccine clinic locations within the [facility]. For locations and available times, please visit www.[email or web address].gov/. It is important to note that some COVID mobile vaccine clinics are held outdoors and may be canceled in rainy or stormy conditions. To learn more about pediatric vaccinations (ages 5-11), we invite you to visit the [facility] webpage. https://www.[employer].org/pages/5844-Oyinh-Ptmmukaayzs-Fsetdusafo-Ceswo-Rkz stions.htmlTo learn more about the COVID-19 vaccine, we invite you to visit the CDC website for a list of frequently asked questions. https://www.cdc.gov/coronavirus/2019-ncov/vaccines/faq.html [facility] Patient Portal Access Instructions: Stay connected with your healthcare team and access your personal medical information anytime with the [facility] Patient Portal. If you would like a full copy of your medical records please contact the [facility] Department Wednesday through Wednesday between 8a.m. and 4:30p.m. Please follow the directions below to access the portal: 1.Access the email account you provided upon registration to the [facility].2.Look for an invitation email from [facility].3.Open the email and access the invitation link: Accept Invitation to [facility].Fill in the required pastor to create your account. Sign into www.Pepper[employer] with your username and password that you created in the above steps to stay up to date. You can then view a summary of results, a summary of your visits, and the ability to download your summaries to your computer or send the information securely to a physician. Remember that your healthcare information is confidential, so carefully consider who you will allow to register on the [facility] Patient Portal for access to your information. You can also access the [facility] Patient Portal on the [employer]. Simply click on "Health Records" under "HealthDaAppboy" and then click on the [employer] logo. HOW TO SAFELY DISPOSE OF PRESCRIPTION MEDICATIONS Please use one of the following methods to safely dispose of your unused medications. 1.Use a drug disposal kit: the drug disposal pouch allows you to safely discard your old and unuseddrugs. Ask your nurse to give you one when you are discharged.2.Visit a local take-back location: Many local pharmacies and police departments have programs that collect old and unwanted prescriptiondrugs. Call your local pharmacy or go to http://[employer]/4A7Ep0s to find one close to you.3.Make use of household items: Use cat litter or old coffee grounds to dispose medications if other options arenot available. Mix your drugs with these household products, seal them in an airtight container andthrow it into the garbage. Call [facility]: [phone] to be sure your drugs can be disposed of in this way. Some medicines may require a different approach.4.Never flush your medications down the toilet. IF YOU HAVE BEEN PRESCRIBED AN OPIOIDS FOR PAIN If you have been prescribed an opioid (such as hydrocodone, oxycodone or morphine), it is critical to understand the possible side effects and risks of opioid pain medications. Even when taken as directed, opioids can have several side effects including: Tolerance, meaning you might need to take more of a medication for the same pain relief. Nausea, vomiting and/or constipation. Sleepiness, dizziness, dry mouth, confusion, depression or itching. Physical dependence, meaning you have withdrawal symptoms when a medication is stopped ? this can develop within a few days. KNOW YOUR RESPONSIBILITIES It is important to know exactly how much and how often to take the opioid pain medications you are prescribed. Never take opioids in higher amounts or more often than prescribed. Do not combine opioids with alcohol or other drugs that cause drowsiness, such as benzodiazepines, also known as benzos,including diazepam and alprazolam, muscle relaxants or sleep aids. Never sell or share prescriptionopioids. This is illegal. Store opioids in a secure place and out of reach of others (including children, family, friends and visitors). The last page(s) of this document has been signed and retained as a CHART COPY Signatures Patient Education Materials AA Blank DI(CUSTOM) Medication Leaflets promethazine (oral), clonidine (oral), dicyclomine (oral/injection) My discharge plan and instructions have been reviewed and explained to me and I,LEONEL VILLAVICENCIO understand my current condition and have read and understand these discharge instructions. I have received a written copy of the plan/instructions. If I have questions, I am aware that I should contact my doctor. 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 Multiplanar reformatted images are provided for review. Automated exposure control, iterative reconstruction, and/or weight based adjustment of the mA/kV was utilized to reduce the radiation dose to as low as reasonably achievable. COMPARISON: None. HISTORY: ORDERING SYSTEM PROVIDED HISTORY: Reason for Exam: Pain. FINDINGS: Study is degraded due to motion and streak artifact. Visualized lung bases are clear. Liver, gallbladder, pancreas and adrenal glands are unremarkable. Spleen measures 14 cm length. Kidneys are symmetric in size and enhancement without hydronephrosis. Tiny left lower pole calculus. Urinary bladder is unremarkable. Prostate is unremarkable. Colonic diverticulosis without diverticulitis. Small bowel, colon and appendix are normal in caliber. There is no definite bowel wall thickening, intraperitoneal free air or focal fluid collection. No abdominal or pelvic lymphadenopathy. Nonaneurysmal abdominal aorta. Prominent gastroesophageal collateral vessels. No acute fracture or destructive osseous lesion. IMPRESSION: Study is degraded due to motion and streak artifact. Within these constraints, no acute findings within abdomen or pelvis. Splenomegaly. Nonobstructive left nephrolithiasis. I have personally reviewed the images of this examination and agree with the resident's findings and interpretation. Interpreted by: Ag Goodman MD Preliminary Report By: Nuvia Angulo Electronically signed By Ag Goodman MD Dictated Date: 12/02/2022 12:26:56 AM Prelim Date: 12/02/2022 12:40:10 AM Sign Date: 12/02/2022 1:33:16 AM Ordering Provider: [facility]10-17-2021 Hospital Discharge instructions Patient Education 02/02/2021 03:57:19 Smoking Cessation How to Quit Smoking Smoking is a hard habit to break. About half of all people who have ever smoked have been able to quit. Most people who still smoke want to quit. Here are some of the best ways to stop smoking. Keep in mind the health benefits of quitting The health benefits of quitting start right away. They keep improving the longer you go without smoking. Knowing this can help inspire you to stay on track. These benefits occur at any age. If you are 17 or 70, quitting is a good choice. Some of the health benefits after your last cigarette include: 20 minutes: Your blood pressure and pulse return to normal. 8 hours: Your oxygen levels return to normal. 2 days: Your ability to smell and taste start to improve as damaged nerves regrow. 2 to 3 weeks: Your circulation and lung function improve. 1 to 9 months: Your coughing, congestion, and shortness of breath decrease. Your tiredness decreases. 1 year: Your risk of heart attack decreases by half. 5 years: Your risk of lung cancer decreases by half. Your risk of stroke becomes the same as a nonsmoker s. Go cold turkey Most former smokers quit cold turkey. This means stopping all at once. Trying to cut back slowly often doesn't work as well. This may be because it continues the habit of smoking. Also, you may inhale more smoke while smoking fewer cigarettes. This leads to the same amount of nicotine in your body. Get support Support programs can be a big help, especially for heavy smokers. These groups offer lectures, waysto change behavior, and peer support. Here are some ways to find a support program: Free national quitline 425-EOXT-SVP (751-006-0641) [facility] quit-smoking programs [employer] [place] [employer] [phone] [place] [employer] [phone] Support at home is important too. Family and friends can offer praise and reassurance. If the smoker in your life finds it hard to quit, encourage them to keep trying. Try orac-pyd-vwffazl medicine Nicotine replacement therapy may make it easier to quit. Some aids are available without a prescription. These include a nicotine patch, gum, and lozenges. But it is best to use these under the care of your healthcare provider. The skin patch gives a steady supply of nicotine. Nicotine gum and lozenges give short- time doses of low levels of nicotine. Both methods reduce the craving for cigarettes. If you have nausea, vomiting, dizziness, weakness, or a fast heartbeat, stop using these products.See your healthcare provider. Ask about prescription medicine After reviewing your smoking patterns and past attempts to quit, your doctor may offer a prescription medicine such as bupropion, varenicline, a nicotine inhaler, or nasal spray. Each has advantages and side effects. Your doctor can review these with you. Keep trying Most smokers make many attempts at quitting before they are successful. It s important not to give up. For more information For more on how to quit smoking, try these online resources: Go to Smokefree.gov. Read "Clearing the Air" from the National Cancer Somis at smokefree.gov/sites/default/files/pdf/cdddliwv-pcv-sbj-accessible.pdf. 5177-5641 [employer]. [address] [place] [address], [place] [address]. All rights reserved. This information is not intended as a substitute for professional medical care. Always follow yourhealthcare professional's instructions. 02/02/2021 03:56:38 Pleural Effusion Pleural Effusion The pleura is a smooth double membrane that surrounds the lungs. It separates the lungs from the chest wall. One side of the pleura attaches to the lung. The other side attaches to the chest wall. This membrane makes it easier for the chest to inflate and deflate as you breathe without rubbing against the ribs. You normally have a small amount of lubricating fluid (pleural fluid) between the pleural membranes. A pleural effusion is when too much fluid collects in the space between the two pleural membranes (pleural space). As the amount of fluid increases, it begins to press on the lung. This makes it harder to take a full breath. There are two types of pleural effusion: Inflammatory. This is caused by a lung disease like pneumonia or lung cancer, which irritates the pleura. Noninflammatory. This is caused by abnormal fluid pressures inside the lungs. The pressure can be caused by congestive heart failure (CHF). In CHF, extra fluid collects inside the lung tissues because of a weakened heart muscle. This extra fluid then leaks into the pleural space. Pleural effusion may cause any of these symptoms: Shortness of breath Rapid breathing Cough or hiccups Sharp chest pain that hurts more with coughing or deep breathing A small pleural effusion may cause no symptoms at all. Treatment will be directed at the cause of the pleural effusion. If you are having a lot of troublebreathing, a thoracentesis procedure may be done to remove the fluid from the pleural space. This involves placing a needle or tube (catheter) through the chest wall into the pleural space. This usually gives relief right away. But the fluid may gradually return. Home care Follow these guidelines when caring for yourself at home: Rest until you feel better. Exerting yourself may make your symptoms worse. Your healthcare provider may have prescribed medicines to treat the underlying cause of the pleuraleffusion. Take these exactly as directed. Follow-up care Follow up with your healthcare provider, or as advised. When to seek medical advice Call your healthcare provider right away if any of these occur: Fever of 100.4 F (38 C) or higher, or as directed by your healthcare provider Call 911 Call 911 if any of the following occur: Shortness of breath gets worse Chest pain gets worse Coughing up blood Weakness, dizziness, or fainting [id number] [employer]. [address] [place] [address]. All rights reserved. This information is not intended as a substitute for professional medical care. Always follow yourhealthcare professional's instructions. 02/02/2021 03:49:14 Pneumonia (Adult) Pneumonia (Adult) Pneumonia is an infection deep within the lungs. It is in the small air sacs (alveoli). Pneumonia may be caused by a virus or bacteria. Pneumonia caused by bacteria is usually treated with an antibiotic. Severe cases may need to be treated in the hospital. Milder cases can be treated at home. Symptoms usually start to get better during the first 2 days of treatment. Home care Follow these guidelines when caring for yourself at home: Rest at home for the first 2 to 3 days, or until you feel stronger. Don t let yourself get overly tired when you go back to your activities. Stay away from cigarette smoke yours or other people s. You may use acetaminophen or ibuprofen to control fever or pain, unless another medicine was prescribed. If you have chronic liver or kidney disease, talk with your healthcare provider before using these medicines. Also talk with your provider if you ve had a stomach ulcer or gastrointestinal bleeding. Don t give aspirin to anyone younger than 18 years of age who is ill with a fever. It may causesevere liver damage. Your appetite may be poor, so a light diet is fine. Drink 6 to 8 glasses of fluids every day to make sure you are getting enough fluids. Beverages can include water, sport drinks, sodas without caffeine, juices, tea, or soup. Fluids will help loosen secretions in the lung. This will make it easier for you to cough up the phlegm (sputum). If you alsohave heart or kidney disease, check with your healthcare provider before you drink extra fluids. Take antibiotic medicine prescribed until it is all gone, even if you are feeling better after a few days. Follow-up care Follow up with your healthcare provider in the next 2 to 3 days, or as advised. This is to be sure the medicine is helping you get better. If you are 65 or older, you should get a pneumococcal vaccine and a yearly flu (influenza) shot. You should also get these vaccines if you have chronic lung disease like asthma, emphysema, or COPD. Recently, a second type of pneumonia vaccine has become available for everyone over 65 years old. This is in addition to the previous vaccine. Ask your provider about this. When to seek medical advice Call your healthcare provider right away if any of these occur: You don t get better within the first 48 hours of treatment Shortness of breath gets worse Rapid breathing (more than 25 breaths per minute) Coughing up blood Chest pain gets worse with breathing Fever of 100.4 F (38 C) or higher that doesn t get better with fever medicine Weakness, dizziness, or fainting that gets worse Thirst or dry mouth that gets worse Sinus pain, headache, or a stiff neck Chest pain not caused by coughing [id number] [employer]. [address] [place] [address]. All rights reserved. This information is not intended as a substitute for professional medical care. Always follow yourhealthcare professional's instructions. 02/02/2021 03:28:33 Fever Control (Adult) Fever Control (Adult) A fever is a normal reaction of your body to an illness. The temperature itself usually isn t harmful. It actually helps your body fight infections. You don t need to treat a fever unless you feel very uncomfortable. Home care Follow these tips to take care of yourself at home: If you feel warm, check your temperature. Dress in light clothing. This will help you lose extra body heat through your skin. The fever will go up if you wear extra layers or wrap in blankets. Fever causes your body to lose water through evaporation. Drink plenty of fluids. These include water, juice, clear sodas, amador jessie, or lemonade. Fever medicines You can take acetaminophen every 4 to 6 hours if: You feel very uncomfortable Your oral temperature is 100.4 F (38 C) or higher If you can t take or keep down oral medicine, ask your pharmacist for acetaminophen suppositories. You don t need a prescription for these. If the fever doesn t get better within 1 hour after you take acetaminophen, take ibuprofen. If thisworks, keep taking the ibuprofen every 6 to 8 hours. If you have chronic liver or kidney disease, talk with your healthcare provider before taking thesemedicines. Also talk with your provider if you ever had a stomach ulcer or GI (gastrointestinal) bleeding. If either medicine alone doesn t keep the fever down, you may switch off between the 2 medicines every 3 to 4 hours. But do this only if your healthcare provider has told you to. For example, take ibuprofen. Wait 3 hours. Then take acetaminophen. Wait 3 hours. Take ibuprofen, and so on. Follow yourprovider s instructions exactly. Don't give aspirin to anyone younger than age 19 who is ill with a fever. Aspirin can cause seriousside effects such as liver damage and Patricio syndrome. Although rare, Patricio syndrome is a very seriousillness usually found in children younger than age 15. The syndrome is closely linked to the use ofaspirin or aspirin-containing medicine during viral infection. Follow-up care Follow up with your healthcare provider if you don't get better after 48 hours. When to seek medical advice Call your healthcare provider right away if any of these occur: Fever, as directed by your healthcare provider, or: oFever of 100.4 F (38 C) or above lasting for 24 to 48 hours oFever lasting more than 3 days, even without other symptoms oFever that happens after visiting a foreign country oFever that happens within a month after visiting a country with malaria. Malaria is a serious illness. A fever can still be malaria even if you took medicine to prevent it. The medicine does not work in all cases If you experience unexplained fever and your immune system is compromised such as by immune suppressing drugs, stem cell or organ transplant, HIV/AIDS, or cancer Confusion or trouble thinking Headache or stiff neck Flat, small, purplish red spots on your skin Low blood pressure Fast heart rate Fast (rapid) breathing You are You just had surgery, another medical procedure, or were just discharged from the hospital Use of medicines that suppress the immune system (immunosuppressants). These include Prednisone, cancer medicines, and organ transplant rejection medicines. If you are not sure about whether your medicines suppress your immune system, ask your healthcare provider. Call 911 Someone should call 911 if you: Are having trouble breathing or shortness of breath Are unresponsive Important reminder Call your healthcare provider if you get a fever after visiting a place where infectious diseases are common. Many people corn picker a cold or other virus while traveling. This usually goes away withouta problem. But, some places have more serious diseases. Fever with certain other symptoms may mean you have a serious illness. Symptoms to watch for include diarrhea, skin rashes, insect bites, and skin boils, or infections. Your provider may ask you: What you did on your trip How long you were there Where you stayed (hotel, ione house, tent) What you ate and drank If you were bitten by insects or other bugs If you swam in freshwater If you had sex or got a tattoo or piercing while you were there Check the CDC to get more information about specific infectious diseases in the areas you have traveled. 3550-2752 [employer]. [address] [place] [address], [place] [address]. All rights reserved. This information is not intended as a substitute for professional medical care. Always follow yourhealthcare professional's instructions. Follow Up Care 02/02/2021 02:52:45 With:Call Physician Referral Address:Unknown When:2-4 days Comments:Schedule an appointment for close follow-up to establish a local primary care doctor.Do not smoke.Push fluids and rest.Use antibiotic (levofloxacin) to treat pneumonia.Use Tylenol, ibuprofen or naproxen for pain and fever as needed.Use [place] as prescribed for severe pain as needed.Return to the ED if symptoms worsen. [facility] 10-13-2021 Hospital Discharge instructions Patient Education 01/29/2021 08:41:18 Back Care Tips Back Care Tips Caring for your back These are things you can do to prevent a recurrence of acute back pain and to reduce symptoms from chronic back pain: Maintain a healthy weight. If you are overweight, losing weight will help most types of back pain. Exercise is an important part of recovery from most types of back pain. The muscles behind and in front of the spine support the back. This means strengthening both the back muscles and the abdominalmuscles will provide better support for your spine. Swimming and brisk walking are good overall exercises to improve your fitness level. Practice safe lifting methods (below). Practice good posture when sitting, standing and walking. Avoid prolonged sitting. This puts more stress on the lower back than standing or walking. Wear quality shoes with sufficient arch support. Foot and ankle alignment can affect back symptoms.Women should avoid wearing high heels. Therapeutic massage can help relax the back muscles without stretching them. During the first 24 to 72 hours after an acute injury or flare-up of chronic back pain, apply an ice pack to the painful area for 20 minutes and then remove it for 20 minutes, over a period of 60 to 90 minutes, or several times a day. As a safety precaution, do not use a heating pad at bedtime. Sleeping on a heating pad can lead to skin nickerson or tissue damage. You can alternate ice and heat therapies. Medicines Talk to your healthcare provider before using medicines, especially if you have other medical problems or are taking other medicines. You may use acetaminophen or ibuprofen to control pain, unless your healthcare provider prescribed other pain medicine. If you have chronic conditions like diabetes, liver or kidney disease, stomach ulcers, or gastrointestinal bleeding, or are taking blood thinners, talk with your healthcare provider before taking any medicines. Be careful if you are given prescription pain medicines, narcotics, or medicine for muscle spasm. They can cause drowsiness, affect your coordination, reflexes, and judgment. Do not drive or operate heavy machinery while taking these types of medicines. Take prescription pain medicine only as prescribed by your healthcare provider. Lumbar stretch Here is a simple stretching exercise that will help relax muscle spasm and keep your back more limber. If exercise makes your back pain worse, don t do it. Lie on your back with your knees bent and both feet on the ground. Slowly raise your left knee to your chest as you flatten your lower back against the floor. Hold for 5 seconds. Relax and repeat the exercise with your right knee. Do 10 of these exercises for each leg. Safe lifting method Don t bend over at the waist to lift an object off the floor. Instead, bend your knees and hips in a squat. Keep your back and head upright Hold the object close to your body, directly in front of you. Straighten your legs to lift the object. Lower the object to the floor in the reverse fashion. If you must slide something across the floor, push it. Posture tips Sitting Sit in chairs with straight backs or low-back support. Keep your knees lower than your hips, with your feet flat on the floor. When driving, sit up straight. Adjust the seat forward so you are not leaning toward the steering wheel. A small pillow or rolled towel behind your lower back may help if you are driving long distances. Standing When standing for long periods, shift most of your weight to one leg at a time. Alternate legs every few minutes. Sleeping The best way to sleep is on your side with your knees bent. Put a low pillow under your head to support your neck in a neutral spine position. Avoid thick pillows that bend your neck to one side. Puta pillow between your legs to further relax your lower back. If you sleep on your back, put pillowsunder your knees to support your legs in a slightly flexed position. Use a firm mattress. If your mattress sags, replace it, or use a 1/2-inch plywood board under the mattress to add support. Follow-up care Follow up with your healthcare provider, or as advised. If X-rays, a CT scan or an MRI scan were taken, they will be reviewed by a radiologist. You will benotified of any new findings that may affect your care. Call 911 Call 911 if any of the following occur: Trouble breathing Confusion Very drowsy Fainting or loss of consciousness Rapid or very slow heart rate Loss of bowel or bladder control When to seek medical advice Call your healthcare provider right away if any of the following occur: Pain becomes worse or spreads to your arms or legs Weakness or numbness in one or both arms or legs Numbness in the groin area [id number] [employer]. [address] [place] [address]. All rights reserved. This information is not intended as a substitute for professional medical care. Always follow yourhealthcare professional's instructions. 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 [facility] Evaluation + Plan note Future Appointments Appointment Date:12/18/2022 11:30:00 AM Scheduled Provider:TAMMY CORBETT Location[place] [place] Appointment Type:PC OV Future Scheduled Tests Laboratory* Troponin I High Sensitivity 12/07/22 * TB Quantiferon, Incubated 12/07/22 * Lactic Acid 12/07/22 * HIV 1/2 Ab 12/07/22 [facility] Evaluation + Plan note Future Appointments Appointment Date:01/01/2023 11:30:00 AM Scheduled Provider: Location:[facility] 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 [place] Appointment Type:PC OV Future Scheduled Tests Radiology* XR Chest 2 Views (PA & Lateral) 01/29/23 [facility] Evaluation + Plan note Future Appointments Appointment Date:06/07/2023 04:00:00 PM Scheduled Provider:TAMMY CORBETT Location:[facility] Appointment Type:PC OV Diagnostic Tests Pending * Urine Culture 03/20/23 Future Scheduled Tests Radiology* XR Chest 2 Views (PA & Lateral) 01/29/23 [facility] Evaluation noteNo assessment information available [facility] Work Phone: Hospital Discharge instructions No data available for this section [facility] Progress note No data available for this section [facility] Summary note* LissaNiki A: PERFORM Event Display: Patient Summary Documents Authored Date: [id number] [facility] Chief Complaint and Reason for Visit Chief Complaint RIGHT HAND SWELLING Chief Complaint RIGHT HAND SWELLING N/V Family History No Family History Records Found Relationship Condition Age at Onset Recorded Date/T lazarus Unknown Family History?No pertinent history Unkno wn September 08, 2016 3:12pm Advance Directives No Advanced Directives Records Found Advance Directive Response Recorded Date/ Time Living Will No November 12, 2021 5:29pm Power of Rigger Supervisor No November 12 5:29pm Advance Directive Response Recorded Date/ Time Living Will No February 18 11:43pm Power of Rigger Supervisor No February 18, 2022 11:43pm Summary Purpose Additional Source Comments Goals (unrecognized section and content) Goals may be documented in a n alternate section Patient Care team informatio n (unrecognized section and content) Care Team Personnel Name: TAMMY CORBETT Position: P4 Advanced Ton Container Shipper Member Role: Primary Care Physician Address: Address: [address] [place] [address] Name: Elizabeth, HIM: Jacquard Loom Fixer Zena Page Position: HIM: Coders Member Role: HIM: Coders Name: ANGLE THURMAN MD Position: ED Physician Member Role: ED Physician Address: Address: [address] Name: Morales Najera RN Position: RN Member Role: ED RN Care Team Related Persons Name: CARVER, GRACE Name: CARVER, GRACE Name: CARVER, GRACE Name: CARVER, GRACE Name: CARVER, GRACE Care Team Personnel Name: TAMMY CORBETT APRN-BRAND COORDINATOR Position: P4 Advanced Ton Container Shipper Member Role: Primary Care Physician Address: Address: [address] [place] [address] Care Team Related Persons Name: CARVER, GRACE Name: CARVER, GRACE Name: CARVER, GRACE Name: CARVER, GRACE Name: CARVER, GRACE Care Team Personnel Name: TAMMY CORBETT APRN-JEMIMA Position: P4 Advanced Ton Container Shipper Member Role: Primary Care Physician Address: Address: [address] [place] [address] Care Team Related Persons Name: CARVER, GRACE Name: CARVER, GRACE Name: CARVER, GRACE Name: CARVER, GRACE Name: CARVER, GRACE Name: ANTWAN FERREIRA Address: Home [address] [place] [address] [address] [place], [place] [phone] Address: Temporary [address] [place] [address] [address] [place], [place] [phone] Care Team Personnel Name: TAMMY CORBETT APRN-BRAND COORDINATOR Position: P4 Advanced Ton Container Shipper Member Role: Primary Care Physician Address: Address: [address] [place] [id number] [place] [address] Name: DARIA HANSEN DO Position: Resident Member Role: Resident Address: Address: [address] [facility] [place] [address]- [place] Name: KAYLEE Olivier Position: ED RN Member Role: ED RN Name: KENDALL DACOSTA MD Position: ED Physician Member Role: ED Physician Address: Address: [facility] [address] [facility] [address]- [place] Care Team Related Persons Name: CARVER, GRACE Name: CARVER, GRACE Name: CARVER, GRACE Name: CARVER, GRACE Name: CARVER, GRACE Name: HANNA, ANTWAN D Address: Home [address] [place] [address] [address] [place], [place] [phone] [place] Address: Temporary [address] [place] [address] [address] [place], [place] [phone] Care Team Personnel Name: TAMMY CORBETTBRAND COORDINATOR Position: P4 Advanced Ton Container Shipper Member Role: Primary Care Physician Address: Address: [address] [place] [address]- [place] Care Team Related Persons Name: CARVER, GRACE Name: CARVER, GRACE Name: CARVER, GRACE Name: CARVER, GRACE Name: CARVER, GRACE Name: HANNA, ANTWAN D Address: Home [address] [place] [address] [address] [place], [place] [phone] [place] Address: Temporary [address] [place] [address] [address] [place], [place] [phone] Care Team Personnel Name: STAR ARCHER MD Position: P4 Physician - Cardiology Member Role: Direct Sales Representative Address: Address: [address] [facility] [address] [facility] [place] [address]- [place] Name: TAMMY CORBETTBRAND COORDINATOR Position: P4 Advanced Ton Container Shipper Member Role: Primary Care Physician Address: Address: [address] [place] [address]- [place] Care Team Related Persons Name: CARVER, GRACE Name: CARVER, GRACE Name: CARVER, GRACE Name: CARVER, GRACE Name: CARVER, GRACE Name: HANNA, ANTWAN D Address: Home [address] [place] [address] [address] [place] [phone] [place] Address: Temporary [address] [place] [address] [address] [place], [place] [phone] Care Team Personnel Name: STAR ARCHER MD Position: P4 Physician - Cardiology Member Role: Direct Sales Representative Address: Address: [address] [place] [address] [address] [place] [address]- Name: TAMMY CORBETT Position: P4 Advanced Ton Container Shipper Member Role: Primary Care Physician Address: Address: [address] [place] [address]- Name: BRENDON LÓPEZ DO Position: ED Physician Member Role: Attending Physician Address: Address: [address] [place] [address] [address]- Name: Purnima Coreas RN Position: AO RN Member Role: RN Care Team Related Persons Name: CARVER, GRACE Name: CARVER, GRACE Name: CARVER, GRACE Name: CARVER, GRACE Name: PASCUALVER, GRACE Name: ANTWAN FERREIRA Address: [address] [place], [place] [phone] [place] Address: Temporary [address] [place] [address] [address] [place], [place] [phone] Care Team Personnel Name: STAR ARCHER MD Position: P4 Physician - Cardiology Member Role: Direct Sales Representative Address: Address: [address] [place] [address] [address] [place] [id number]- Name: TAMMY CORBETT Position: P4 Advanced Ton Container Shipper Member Role: Primary Care Physician Address: Address: [address] [place] [address]- Name: KEANU ROSENBERG DO Position: ED Physician Member Role: ED Physician Address: Address: [address] [place] [address] [address]- Care Team Related Persons Name: CARVER, GRACE Name: CARVER, GRACE Name: CARVER, GRACE Name: CARVER, GRACE Name: CARVER, GRACE Name: CARVER, GRACE Name: ANTWAN FERREIRA Address: Home [address] [place] [address] [address] [place] [phone] [place] Address: Temporary [address] [place] [address] [address] [place], [place] [phone] Care Team Personnel Name: STAR ARCHER MD Position: P4 Physician - Cardiology Member Role: Direct Sales Representative Address: Address: [address] [place] [address] [address] [place] [address]- [place] Name: TAMMY CORBETT Position: P4 Advanced Ton Container Shipper Member Role: Primary Care Physician Address: Address: [address] [place] [address]- Name: MARIBEL BRENDON Position: ED Physician Member Role: Attending Physician Address: Address: [address] [facility] [place] [address]- Name: DARIA JUNIOR DO Position: Resident Member Role: Resident Address: Address: [address] [place] [address] [place] [address]- [place] Name: Mirela Ruiz RN Position: ED RN Member Role: ED RN Name: Flora Gonzalez Position: Registration- Champagne Maker Member Role: Registrar Care Team Related Persons Name: CARVER, GRACE Name: CARVER, GRACE Name: CARVER, GRACE Name: CARVER, GRACE Name: CARVER, GRACE Name: PASCUALVER, GRACE Name: ANTWAN FERREIRA Address: [address] [place], [place] [phone] [place] Address: Temporary [address] [place] [address] [address] [place], [place] [phone] Care Team Personnel Name: STAR ARCHER MD Position: P4 Physician - Cardiology Member Role: Direct Sales Representative Address: Address: [address] [facility] [address] [place] [address]- [place] Name: TAMMY CORBETT Position: P4 Advanced Ton Container Shipper Member Role: Primary Care Physician Address: Address: [address] [place] [address]- Care Team Related Persons Name: CARVER, GRACE Name: CARVER, GRACE Name: CARVER, GRACE Name: CARVER, GRACE Name: CARVER, GRACE Name: ANTWAN FERREIRA Address: Home [address] [place] [address] [address] [place], [place] [phone] [place] Address: Temporary [address] [place] [address] [address] [place] [phone] Care Team Personnel Name: STAR ARCHER MD Position: P4 Physician - Cardiology Member Role: Direct Sales Representative Address: Address: [address] [facility] [address] [facility] [place] [address]- [place] Name: RUSTAMEFFIETAMMYALESSANDRO SORTO Position: P4 Advanced Ton Container Shipper Member Role: Primary Care Physician Address: Address: [address] [facility] [place] [address]- [place] Care Team Related Persons Name: GRACE SOTO Name: GRACE SOTO Name: CHARLES, GRACE Name: CHARLES, GRACE Name: GRACE SOTO Name: HANNA ANTWAN Gomez Address: Home [address] [place] [address] [address] [place] [phone] [place] Address: Temporary [address] [place] [address] [address] [place], [place] [phone] (unrecognized sect ion and content) No Status Records FoundNo Status Records FoundNo Status Records Found INFORMATION SOURCE (unrecogn ized section and content) DATE CREATED AUTHOR 07/17/2023 [facility] ([place]) DATE CREATED AUTHOR AUTHOR'S ORGANIZ ATION 02/20/2024 [facility] DATE CREATED AUTHOR AUTHOR'S ORGANIZ ATION 02/20/2025 [facility] Source Comments (unrecognize d section and content) In the event this informatio n is protected by the Federal Confidentiality of Alcohol and Drug Abuse Patient Records regulations: The Federal rules restrict any use of the information to criminally investigate or prosecute any alcohol or drug abuse patient.[facility] Reason for Visit (unrecogniz ed section and content) Reason Onset Date Comments [facility] Hepatology - Follow-up 02/18/2024 [facility]+ lab FOR RECORDS PERTAINING TO PATIENTS WHO ARE OR HAVE BEEN ENROLLED IN A CHEMICAL DEPENDENCY/SUBSTANCEABUSE PROGRAM, SOME INFORMATION MAY BE OMITTED. This clinical summary was aggregated from multiple sources. Caution should be exercised in using it in the provision of clinical care. This summary normalizes information from multiple sources, and as a consequence, information in this document may materially change the coding, format and clinical context of patient data. In addition, data may be omitted in some cases. CLINICAL DECISIONS SHOULD BE BASED ON THE PRIMARY CLINICAL RECORDS. [facility] [employer] [facility]. provides no warranty or guarantee of the accuracy or completeness of information in this document.
[2025-03-12 04:33] VITALS: BP 114/74; PULSE 67; RESP 18; TEMP 36.6; O2SAT 96
--- NOTE | 2025-03-12 04:33 | EDS_ITS ---
HPI History of Present Illness Chief Complaint: Shortness of Breath Informant: patient Narrative Narrative: Patient is a 34-year-old male with past medical history of tobacco use as well as asthma. He states that over the last 1 to 2 days he has had increasing sh ortness of breath. He states that he has been no fevers or chills and he denies any significant congestion or drainage. He reports that he was controlling his symptoms with an inhaler but has since run out and he does not have a family doctor to refill it and secondary to his he presents to the ER for evaluation. [facility] Medical History Heroin dependence Home Medications Medication Instructions Recorded Last Taken Type albuterol sulfate 90 mcg/actuation 2 puff inhalation Q 4H PRN PRN 03/12/25 Unknown Rx aerosol inhaler (Ventolin HFA) Wheezing/SOB #1 device buprenorphine 8 mg-naloxone 2 mg 2 ea sublingual DAILY 03/12/25 Unknown History sublingual film prednisone 10 mg tablet 10 mg PO UD #33 tabs 5 Unknown Rx Allergy/AdvReac Type Severity Reaction Status Date / Time tramadol HCl (From [facility]) Allergy Swelling Verified 03/12/25 03:48 Social History Smoking Status: Current every day smoker tobacco type: cigarettes substance use type: heroin ROS ROS ED Constitutional Constitutional ED: Denies chills or fever(s) ENT ENT ED: Denies rhinorrhea or sore throat Cardiovascular Cardiovascular: Denies chest pain, palpitations or racing heartbeat Respiratory/Chest Respiratory/Chest: Reports cough and dyspnea Gastrointestinal Gastrointestinal: Denies abdominal pain, diarrhea, nausea or vomiting Musculoskeletal Musculoskeletal: Denies back pain or myalgias Integumentary Denies rash Neurologic Neurologic: Denies headache(s) Hematologic/Lymphatic Hematologic/Lymphatic: Denies easy bleeding or easy bruising Allergic/Immunologic Allergic/Immunologic ED: Denies mouth swelling, tongue swelling or urticaria EXAM Physical Exam Const Vital Signs: 03/12/25 03:49 03/12/25 03:51 03/12/25 04:04 Temperature 97.7 F L Temperature Source Oral Pulse Rate 75 65 Respiratory Rate 18 13 Respiratory Effort Normal Non-Labored Respiratory Depth Shallow Respiratory Pattern Normal Blood Pressure 151/93 H Blood Pressure Mean 112 Pulse Ox 95 Oxygen Delivery Method Room Air Room Air Positive well nourished and well developed General Appearance ED: well developed; Negative for pallor HEENT HEENT Narrative: Normocephalic atraumatic No tongue or lip swelling no oral lesions no airway edema or compromise; no secondary findings in the posterior pharynx to suggest infection Eyes PERRL and EOMs intact bilaterally General Eye ED: Negative for scleral icterus Neck supple and no JVD Chest Wall palpation of chest normal Resp Resp Narrative: Breath sounds are diminished throughout with diffuse inspiratory and expiratory wheezing There is mild increased work of breathing with accessory muscle use Cardio regular rate and regular rhythm Rate: other Other Details: Radial and carotid pulses are equal and symmetric Extremity normal to inspection Extremity Narrative: No asymmetric edema no pitting edema negative Homans' sign bilaterally Neuro oriented x3, CN's II-XII intact bilaterally and no sensory deficits noted Sensorium / Orientation: alert Motor Exam: strength 5/5 throughout Psych mental status grossly normal Skin no rashes or lesions noted General Skin Exam: Negative for jaundice or pallor MDM MDM MDM Narrative Medical decision making narrative: Patient arrived to the ER hypertensive but otherwise with stable vitals. He reports a known history of asthma and continues to smoke. He denies any recent fevers chills or known sick contacts. History and exam is most consistent with asthma exacerbation. Chart review was performed and he was seen roughly 3 weeks ago for the same complaint and at that time had a normal EKG normal chest x-ray and negative viral swab as well as laboratory studies that revealed no clinically significant findings. As the patient has no hypoxia or significant respiratory distress or derangement to vital signs such as fever or severe hypertension or hypotension I do not feel the need for workup, especially as his previous workup was negative. Therefore patient was given 2 DuoNeb breathing treatments as well as oral prednisone. On reevaluation breath sounds have improved and he reports feeling much better and the accessory muscle use has resolved. Therefore at this time he is not hypoxic he is not in respiratory distress he is not requiring supplemental oxygen or noninvasive treatment. Therefore there is no need for further workup or admission and he is otherwise safe for discharge with symptomatic care History & Record Review Discussion w/independent historian: Patient Additional record(s) reviewed:: Prior ED visit and Prior labs Discharge Plan Triage Chief Complaint: Shortness of Breath ED Provider: Tyshawn Barbosa Dx/Rx/DC Orders Clinical Impression: Asthma exacerbation, Tobacco dependence Instructions: Asthma Action Plan, Acute Severe Asthma Prescriptions: New prednisone 10 mg tablet 10 mg PO UD Qty: 33 0RF Rx Instructions: Take 4 tablets daily for 3 days, then 3 daily for 3 days, then 2 daily for 3 days, then 1 a day for 3 days then 1 QOD for 3 doses. albuterol sulfate [Ventolin HFA] 90 mcg/actuation HFA aerosol inhaler 2 puff inhalation Q4H PRN PRN (Reason: Wheezing/SOB) Qty: 1 2RF No Action buprenorphine-naloxone 8-2 mg film 2 ea sublingual DAILY Primary Care Provider: Care Physician,No Primary Referrals: Leonardo Felix MD [Med Staff - Active Staff, Family Practice] Care Physician,No Primary [Primary Care Provider, Medical] Activity Restrictions/Additional Instructions: Please take the prolonged steroid taper to control lung inflammation and use your inhaler as needed for bronchospasm. Follow-up with Dr. Felix for repeat evaluation and return to the ER should you have any further concerns Print Language: Mongolian Disposition Disposition: Home, Self Care Discharge Date/Time: 03/12/25 04:38
== END 2025-03-12 04:38 | disposition home or self-care (01) ==
PROVIDERS: Emergency Provider Emergency Medicine; Visit Provider Emergency Medicine
DX: J45.901 Unspecified asthma with (acute) exacerbation (principal); F17.210 Nicotine dependence, cigarettes, uncomplicated
CPT/HCPCS: 94640; 94664; 99282